=== PATIENT | female | born 1985 | race Caucasian/White ===

== ENCOUNTER → 2018-10-06 09:21 | Outpatient (CLI) | payer OTHER, SELFPAY ==
--- NOTE | 2018-10-06 09:25 | MR_ITS ---
MR lumbar spine wo/w con, MR 3-d myelogram/MRCP HISTORY: Prior HX back surgery 2012. RT leg pain. Numbness bilateral thigh but when laying on back lateral leg numbness. X1wk. No trauma, ITS.REASON: SCIATICA OF RIGHT SIDE ORDERING PHYSICIAN: Robbin Tuttle MD PATIENT AGE: 33 years Comparison: MRI imported 07-27-15. TECHNIQUE: Standard multiplanar multiecho sequences are performed without and with gadolinium enhancement. 3-D MIP and myelographic images are also rendered and reviewed FINDINGS: There is normal alignment. The spinal cord ends at the T12 level. T12-L1: Unremarkable. L1-L2: Unremarkable. L2-L3: Unremarkable. L3-L4: Unremarkable. L4-5: There is degenerative disc disease at this level with a prior left laminectomy. There is a bulging disc with a small right paracentral area of decreased T1 and T2 signal in the anterior aspect of the thecal sac similar to the previous exam. This does show contrast enhancement in keeping with epidural fibrosis as previously described. This does appear to be abutting the anteromedial aspect of the right L5 nerve root. L5-S1: Degenerative disc disease with minimal bulging disc with mild central disc protrusion and mild facet atrophic change. Overall there has been no significant change compared to previous exam IMPRESSION: 1. L4-5: There is degenerative disc disease at this level with a prior left laminectomy. There is a bulging disc with a small right paracentral area of decreased T1 and T2 signal in the anterior aspect of the thecal sac similar to the previous exam. This does show contrast enhancement in keeping with epidural fibrosis as previously described. This does appear to be abutting the anteromedial aspect of the right L5 nerve root. 2. L5-S1: Degenerative disc disease with minimal bulging disc with mild central disc protrusion and mild facet atrophic change. 3. Overall no significant change compared to the previous study
--- NOTE | 2018-10-06 10:16 | HMH.ITSHM ---
Current Home Medications as stated by this patient Ingrid Beatty or client representative. []GABAPENTIN IRON BUSPAR PROBIOTICS
== END ==
PROVIDERS: PCP Internal Medicine Adolescent Medicine; Visit Provider Internal Medicine Adolescent Medicine
DX: M54.31 Sciatica, right side (principal)
CPT/HCPCS: 72158; 76376; A9576

== ENCOUNTER → 2018-12-01 10:37 | Outpatient (POV) | payer OTHER, SELFPAY ==
[2018-12-01 10:48] VITALS: BP 136/81; PULSE 85; RESP 18; O2SAT 98; BMI 39.8
--- NOTE | 2018-12-01 11:14 | HMH.PMCON ---
Assessment and Plan (1) Degenerative joint disease (DJD) of lumbar spine Current visit: Yes Status: Chronic Category: Medical Code(s): M47.816 - Spondylosis without myelopathy or radiculopathy, lumbar region (2) Lumbar radiculopathy Current visit: Yes Status: Chronic Category: Medical Code(s): M54.16 - Radiculopathy, lumbar region (3) Postlaminectomy syndrome of lumbar region Current visit: Yes Status: Chronic Category: Medical Code(s): M96.1 - Postlaminectomy syndrome, not elsewhere classified - Assessment and plan all Dx Assessment and Plan for all problems:: Given the patient's symptomology, I think she would benefit from a lumbar epidural steroid injection at L4 and L5. The patient has tried and failed multiple conservative therapies including physical therapy, oral steroid Dosepak, and anti-inflammatories. We will schedule her for the procedure and see her back afterwards and reassess her symptoms at that time. She is not on any anticoagulation therapy. Dr. Deal has reviewed this note and agrees with this plan of care. This note was dictated using voice recognition software and make contain errors or omissions. HPI - Data of Consult Patient: new to practice Consult date: 12/01/18 Requesting Physician: Yarelis Francis APRN Primary Care Provider: Cm Barth MD - Consult Narrative Reason for consult: back pain History of present illness: Ms. Beatty is a 33 year old female who presents today for referral from Julia Ruelas. Patient complains of low back pain radiating into her bilateral buttock and bilateral legs. Patient says that this is been going on for greater than 6 months. She does have a history of a lumbar laminectomy and discectomy at L4-L5 with release of tethered spinal cord per patient history. She was referred to neurosurgery with Dr. Santo who did not feel she was a surgical candidate at that time. She does report to have increased weakness in her right leg with some tingling. Patient says her back pain is worse with standing, and with sitting for long periods of time. She has tried and failed physical therapy along with NSAIDs. She is also tried tapered steroid doses by her primary care provider and had no relief with this. She does rate her pain an 8 out of 10 today. She says that it is affecting her home life, along with her work life. CC: Yarelis Francis APRN [facility] History I have reviewed the patient's past medical history: Yes Medical History: Denies:: Diabetes Mellitus Type 1, Diabetes Mellitus Type 2 *Have you ever received a pneumonia vaccine?: No *Have you received a flu vaccine this season?: Yes Laterality Cases: Bilateral: Tonsillectomy Other Surgeries: Yes: Other (discectomy L4-L5) Amputation: No Fractures: No - *Social History Smoking Status: Never smoker Alcohol Intake: current Alcohol Intake Frequency:: a few times a week *Occupational Status:: employed Housing: house *Travel in the last 8 weeks: None Family Hx:: Non-contributory Review of Systems - Review of Systems Review of Systems General: No recent weight changes, no fever, no sleep disturbances Respiratory: No cough, no shortness of air, no recurring pulmonary infections Cardiovascular/peripheral vascular: No chest pain, no palpitations, no edema, no shortness of breath Gastrointestinal: No new onset incontinence, normal bowel movements reported Genitourinary: No new onset incontinence Musculoskeletal: Back pain, leg pain Psychiatric: Normal mood/affect Neurological: [Denies weakness in extremities], [denies balance issues] Meds Home Medications Medication Instructions Recorded Confirmed Type gabapentin 300 mg capsule 300 mg PO DAILY 30 Days #60 10/04/17 01/30/18 History Albuterol Sulfate [Proair Hfa 1 inh INHALATION NEEDED PRN 01/30/18 01/30/18 History 90mcg/puff Inh] Azithromycin [Z-Raheel 250mg Tab] 250 mg PO UD DOSE PK #6 tab 01/30/18 Rx Benzonatate
--- NOTE | 2018-12-01 11:21 | P.CONS_ITS ---
Assessment and Plan (1) Degenerative joint disease (DJD) of lumbar spine Current visit: Yes Status: Chronic Category: Medical Code(s): M47.816 - Spondylosis without myelopathy or radiculopathy, lumbar region (2) Lumbar radiculopathy Current visit: Yes Status: Chronic Category: Medical Code(s): M54.16 - Radiculopathy, lumbar region (3) Postlaminectomy syndrome of lumbar region Current visit: Yes Status: Chronic Category: Medical Code(s): M96.1 - Postlaminectomy syndrome, not elsewhere classified - Assessment and plan all Dx Assessment and Plan for all problems:: Given the patient's symptomology, I think she would benefit from a lumbar epidural steroid injection at L4 and L5. The patient has tried and failed multiple conservative therapies including physical therapy, oral steroid Dosepak, and anti-inflammatories. We will schedule her for the procedure and see her back afterwards and reassess her symptoms at that time. She is not on any anticoagulation therapy. Dr. Deal has reviewed this note and agrees with this plan of care. This note was dictated using voice recognition software and make contain errors or omissions. HPI - Data of Consult Patient: new to practice Consult date: 12/01/18 Requesting Physician: Yarelis Francis APRN Primary Care Provider: Cm Barth MD - Consult Narrative Reason for consult: back pain History of present illness: Ms. Beatty is a 33 year old female who presents today for referral from Julia Ruelas. Patient complains of low back pain radiating into her bilateral buttock and bilateral legs. Patient says that this is been going on for greater than 6 months. She does have a history of a lumbar laminectomy and discectomy at L4-L5 with release of tethered spinal cord per patient history. She was referred to neurosurgery with Dr. Santo who did not feel she was a surgical candidate at that time. She does report to have increased weakness in her right leg with some tingling. Patient says her back pain is worse with standing, and with sitting for long periods of time. She has tried and failed physical therapy along with NSAIDs. She is also tried tapered steroid doses by her [facility] care provider and had no relief with this. She does rate her pain an 8 out of 10 today. She says that it is affecting her home life, along with her work life. CC: Yarelis Francis APRN [facility] History I have reviewed the patient's past medical history: Yes Medical History: Denies:: Diabetes Mellitus Type 1, Diabetes Mellitus Type 2 *Have you ever received a pneumonia vaccine?: No *Have you received a flu vaccine this season?: Yes Laterality Cases: Bilateral: Tonsillectomy Other Surgeries: Yes: Other (discectomy L4-L5) Amputation: No Fractures: No - *Social History Smoking Status: Never smoker Alcohol Intake: current Alcohol Intake Frequency:: a few times a week *Occupational Status:: employed Housing: house *Travel in the last 8 weeks: None Family Hx:: Non-contributory Review of Systems - Review of Systems Review of Systems General: No recent weight changes, no fever, no sleep disturbances Respiratory: No cough, no shortness of air, no recurring pulmonary infections Cardiovascular/peripheral vascular: No chest pain, no palpitations, no edema, no shortness of breath Gastrointestinal: No new onset incontinence, normal bowel movements reported Genitourinary: No new onset incontinence Musculoskeletal: Back pain, leg pain Psychiatric: Normal mood/affect Neurological: [Denies weakness in extrem
== END ==
PROVIDERS: PCP Internal Medicine Adolescent Medicine; Visit Provider Clinical Nurse Specialist Family Health
DX: M47.26 Other spondylosis with radiculopathy, lumbar region (principal); M96.1 Postlaminectomy syndrome, not elsewhere classified
CPT/HCPCS: 99202

== ENCOUNTER → 2019-01-25 11:30 | Outpatient (POV) | payer OTHER, SELFPAY ==
[2019-01-25 12:02] VITALS: BP 137/88; PULSE 81; RESP 18; O2SAT 98; BMI 38.4
--- NOTE | 2019-01-25 12:56 | HMH.PAINSOAP ---
[facility] Pain Management SOAP Note Subjective:: Patient is a very pleasant 33-year-old white female who presents today for follow-up after lumbar epidural steroid injection. She states she is about 80% better. She rates the pain a 2 out of 10 she is able to do more activity. Patient had a previous lumbar laminectomy at L4-L5 done by Dr. Santo she is not a candidate for any more surgery. She is not on any anticoagulation therapy she has no current infection. She is on anti-inflammatories. ROS General: no recent weight change, no fever, no sleep disturbances Respiratory: no cough, no shortness of air, no recurring pulmonary infections Cardiovascular/Peripheral Vascular: No chest pain, No palpitations, no edema, no shortness of breath. Gastrointestinal: no incontinence, normal bowel movements reported Genitourinary: no incontinence Musculoskeletal: Back pain, leg pain Psychiatric: normal mood/ affect Neurological: [denies weakness in extremities], [denies balance issues] Objective:: Physical Exam General: Alert and oriented x3, no acute distress, pleasant and cooperative, [on room air] Lungs: Resps E/U, Symmetrical chest expansion, Eyes: PERRL Musculoskeletal: Flexion and extension of lumbar spine somewhat guarded secondary to pain, deep tendon reflexes normal, strength in upper and lower extremities [5/5], slightly antalgic gait noted Neurological: speech clear, pipe washer equal, no gross sensory deficits Assessment:: Degenerative disc disease lumbar spine with lumbar radiculopathy symptoms and post laminectomy syndrome lumbar spine Plan:: We will schedule her repeat L4-L5 lumbar epidural steroid injection given the efficacy of it I believe it would be beneficial for her. Patient's been instructed to call the office if she has any issues prior to her next appointment. Dr. Deal has reviewed this note and agrees with this plan of care. This note was dictated using voice recognition software and may contain errors or omissions Pain Management Hx Components *Have you ever received a pneumonia vaccine?: Yes *Have you received a flu vaccine this season?: Yes - *Social History *Occupational Status:: other *Travel in the last 8 weeks: None
--- NOTE | 2019-01-25 12:59 | P.CONS_ITS ---
[facility] Pain Management SOAP Note Subjective:: Patient is a very pleasant 33-year-old white female who presents today for follow-up after lumbar epidural steroid injection. She states she is about 80% better. She rates the pain a 2 out of 10 she is able to do more activity. Patient had a previous lumbar laminectomy at L4-L5 done by Dr. Santo she is not a candidate for any more surgery. She is not on any anticoagulation therapy she has no current infection. She is on anti-inflammatories. ROS General: no recent weight change, no fever, no sleep disturbances Respiratory: no cough, no shortness of air, no recurring pulmonary infections Cardiovascular/Peripheral Vascular: No chest pain, No palpitations, no edema, no shortness of breath. Gastrointestinal: no incontinence, normal bowel movements reported Genitourinary: no incontinence Musculoskeletal: Back pain, leg pain Psychiatric: normal mood/ affect Neurological: [denies weakness in extremities], [denies balance issues] Objective:: Physical Exam General: Alert and oriented x3, no acute distress, pleasant and cooperative, [on room air] Lungs: Resps E/U, Symmetrical chest expansion, Eyes: PERRL Musculoskeletal: Flexion and extension of lumbar spine somewhat guarded secondary to pain, deep tendon reflexes normal, strength in upper and lower extremities [5/5], slightly antalgic gait noted Neurological: speech clear, cold patcher equal, no gross sensory deficits Assessment:: Degenerative disc disease lumbar spine with lumbar radiculopathy symptoms and post laminectomy syndrome lumbar spine Plan:: We will schedule her repeat L4-L5 lumbar epidural steroid injection given the efficacy of it I believe it would be beneficial for her. Patient's been instructed to call the office if she has any issues prior to her next appointment. Dr. Deal has reviewed this note and agrees with this plan of care. This note was dictated using voice recognition software and may contain errors or omissions Pain Management Hx Components *Have you ever received a pneumonia vaccine?: Yes *Have you received a flu vaccine this season?: Yes - *Social History *Occupational Status:: other *Travel in the last 8 weeks: None
== END ==
PROVIDERS: PCP Internal Medicine Adolescent Medicine; Visit Provider Clinical Nurse Specialist Family Health
DX: M51.16 Intervertebral disc disorders with radiculopathy, lumbar region (principal); M96.1 Postlaminectomy syndrome, not elsewhere classified
CPT/HCPCS: 99212

== ENCOUNTER → 2019-01-28 08:02 | Outpatient (POV) | payer OTHER, SELFPAY | PROVIDERS: Visit Provider Dentist | DX: Z00.00 Encounter for general adult medical examination without abnormal findings (principal) ==

== ENCOUNTER → 2019-03-01 14:05 | Outpatient (POV) | payer OTHER, SELFPAY ==
[2019-03-01 14:50] VITALS: BP 126/69; PULSE 70; RESP 18; O2SAT 98; BMI 39.4
--- NOTE | 2019-03-02 08:22 | HMH.PAINSOAP ---
[facility] Pain Management SOAP Note Subjective:: Patient is a pleasant 33-year-old white female who presents today for follow-up after her second epidural steroid injection. Patient stated was not as beneficial as the previous one however her pain symptoms have seemingly unchanged. Her radiculopathy has decreased and her main pain is quite focal in her lower back. She has difficulty with any kind of twisting movements. She has a positive Kemps test and lumbar facet loading is also positive bilaterally. Patient and I discussed medial branch blocks being a diagnostic procedure she is interested in pursuing this. She is not on any anticoagulation therapy. She does not have any active infection. She is on anti-inflammatories. Patient is also on gabapentin but she is having some difficulty with efficacy along with side effects. We will switch her to Lyrica to see if this is beneficial. ROS General: no recent weight change, no fever, no sleep disturbances Respiratory: no cough, no shortness of air, no recurring pulmonary infections Cardiovascular/Peripheral Vascular: No chest pain, No palpitations, no edema, no shortness of breath. Gastrointestinal: no incontinence, normal bowel movements reported Genitourinary: no incontinence Musculoskeletal: Back pain Psychiatric: normal mood/ affect Neurological: [denies weakness in extremities], [denies balance issues] Objective:: Physical Exam General: Alert and oriented x3, no acute distress, pleasant and cooperative, [on room air] Lungs: Resps E/U, Symmetrical chest expansion, Eyes: PERRL Musculoskeletal: Flexion and extension of lumbar spine somewhat guarded secondary to pain, deep tendon reflexes normal, strength in upper and lower extremities [5/5], antalgic gait noted, tenderness facet joints lumbar spine Neurological: speech clear, transfer car operator equal, no gross sensory deficits Assessment:: Degenerative disc disease lumbar spine with postlaminectomy syndrome and facet arthropathy/spondylosis Plan:: We will schedule medial branch block at L3-L4 L4-L5 L5-S1 for the patient bilaterally I believe it would be beneficial she is potentially a neurotomy candidate. Patient and I discussed the diagnostic nature of the injections. Patient will also be switched to Lyrica 75 mg 1 p.o. twice daily to see if this is beneficial for her. I will follow-up with the patient after her injection reassess her symptoms at that time she is been instructed to call the office if she has any issues prior to her next appointment. Dr. Deal has reviewed this note and agrees with this plan of care. This note was dictated using voice recognition software and may contain errors or omissions [facility] History I have reviewed the patient's past medical history: Yes Medical History: Denies:: Cancer, Diabetes Mellitus Type 1, Diabetes Mellitus Type 2, MRSA, Seizures *Have you ever received a pneumonia vaccine?: No *Have you received a flu vaccine this season?: No Other Medical History: Denies: Blood Transfusion Reaction Laterality Cases: Bilateral: Tonsillectomy Other Surgeries: Yes: Other (discectomy L4-L5) Amputation: No Fractures: No - *Social History Smoking Status: Never smoker Alcohol Intake: current Alcohol Intake Frequency:: a few times a week *Occupational Status:: other Housing: house *Travel in the last 8 weeks: None Family Hx:: Non-contributory
--- NOTE | 2019-03-02 08:25 | P.CONS_ITS ---
[facility] Pain Management SOAP Note Subjective:: Patient is a pleasant 33-year-old white female who presents today for follow-up after her second epidural steroid injection. Patient stated was not as beneficial as the previous one however her pain symptoms have seemingly unchanged. Her radiculopathy has decreased and her main pain is quite focal in her lower back. She has difficulty with any kind of twisting movements. She has a positive Kemps test and lumbar facet loading is also positive bilaterally. Patient and I discussed medial branch blocks being a diagnostic procedure she is interested in pursuing this. She is not on any anticoagulation therapy. She does not have any active infection. She is on anti-inflammatories. Patient is also on gabapentin but she is having some difficulty with efficacy along with side effects. We will switch her to Lyrica to see if this is beneficial. ROS General: no recent weight change, no fever, no sleep disturbances Respiratory: no cough, no shortness of air, no recurring pulmonary infections Cardiovascular/Peripheral Vascular: No chest pain, No palpitations, no edema, no shortness of breath. Gastrointestinal: no incontinence, normal bowel movements reported Genitourinary: no incontinence Musculoskeletal: Back pain Psychiatric: normal mood/ affect Neurological: [denies weakness in extremities], [denies balance issues] Objective:: Physical Exam General: Alert and oriented x3, no acute distress, pleasant and cooperative, [on room air] Lungs: Resps E/U, Symmetrical chest expansion, Eyes: PERRL Musculoskeletal: Flexion and extension of lumbar spine somewhat guarded secondary to pain, deep tendon reflexes normal, strength in upper and lower extremities [5/5], antalgic gait noted, tenderness facet joints lumbar spine Neurological: speech clear, stitcher hand equal, no gross sensory deficits Assessment:: Degenerative disc disease lumbar spine with postlaminectomy syndrome and facet arthropathy/spondylosis Plan:: We will schedule medial branch block at L3-L4 L4-L5 L5-S1 for the patient b ilaterally I believe it would be beneficial she is potentially a neurotomy candidate. Patient and I discussed the diagnostic nature of the injections. Patient will also be switched to Lyrica 75 mg 1 p.o. twice daily to see if this is beneficial for her. I will follow-up with the patient after her injection reassess her symptoms at that time she is been instructed to call the office if she has any issues prior to her next appointment. Dr. Deal has reviewed this note and agrees with this plan of care. This note was dictated using voice recognition software and may contain errors or omissions [facility] History I have reviewed the patient's past medical history: Yes Medical History: Denies:: Cancer, Diabetes Mellitus Type 1, Diabetes Mellitus Type 2, MRSA, Seizures *Have you ever received a pneumonia vaccine?: No *Have you received a flu vaccine this season?: No Other Medical History: Denies: Blood Transfusion Reaction Laterality Cases: Bilateral: Tonsillectomy Other Surgeries: Yes: Other (discectomy L4-L5) Amputation: No Fractures: No - *Social History Smoking Status: Never smoker Alcohol Intake: current Alcohol Intake Frequency:: a few times a week *Occupational Status:: other Housing: house *Travel in the last 8 weeks: None Family Hx:: Non-contributory
== END ==
PROVIDERS: PCP Internal Medicine Adolescent Medicine; Visit Provider Clinical Nurse Specialist Family Health
DX: M51.36 Other intervertebral disc degeneration, lumbar region (principal); M96.1 Postlaminectomy syndrome, not elsewhere classified; M54.06 Panniculitis affecting regions of neck and back, lumbar region
CPT/HCPCS: 99212

== ENCOUNTER → 2019-04-01 09:50 | Outpatient (POV) | payer OTHER, SELFPAY | PROVIDERS: Visit Provider Dentist | DX: Z00.00 Encounter for general adult medical examination without abnormal findings (principal) ==

== ENCOUNTER → 2019-05-04 10:12 | Outpatient (POV) | payer OTHER, SELFPAY ==
[2019-05-04 10:42] VITALS: BP 114/68; PULSE 68; RESP 18; O2SAT 99; BMI 38.4
--- NOTE | 2019-05-04 11:05 | P.CONS_ITS ---
[facility] Pain Management SOAP Note Subjective:: Patient is a pleasant 33-year-old white female who presents today for follow-up. She is being treated for low back pain with lumbar radiculopathy symptoms, along with facet arthropathy.. Patient recently underwent a medial branch block/facet joint injections at L3-L4 L4-L5 and L5-S1. Patient reports that she got approximately 90% relief following the injection. She rates her pain 1 out of 10 today. Patient does say she did have her wisdom teeth removed the day before the injection. She was on oral opiates following injection. Patient says she is unsure if she got relief from the injection or from the oral opiates, however. She would like to undergo another medial branch block to see if she gets complete relief from her pain. She says that her pain is progressively starting to come back. She is continuing with anti-inflammatories and a home stretching program. Review of Systems General: No recent weight changes, no fever, no sleep disturbances Respiratory: No cough, no shortness of air, no recurring pulmonary infections Cardiovascular/peripheral vascular: No chest pain, no palpitations, no edema, no shortness of breath Gastrointestinal: No new onset incontinence, normal bowel movements reported Genitourinary: No new onset incontinence Musculoskeletal: Low back pain Psychiatric: Normal mood/affect Neurological: [Denies weakness in extremities], [denies balance issues] Objective:: Physical exam General: Alert and oriented x3, no acute distress, pleasant and cooperative, [on room air] Lungs: Respirations even and unlabored, symmetrical chest expansion Eyes: PERRL Musculoskeletal: Flexion and extension of lumbar spine somewhat guarded secondary to pain, deep tendon reflexes normal, strength in upper and lower extremities [5/5], [abnormal gait noted], positive Kemps test Neurological: 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 She is not on any anticoagulation therapy. She is continue with anti-inflammatories and a home stretching program. We will see the patient back in the clinic following her injections reassess her symptoms. She has been instructed to contact clinic if she has any concerns before next appointment. Dr. Deal has reviewed this note and agrees with this plan of care. This note was dictated using voice recognition software and make contain errors or omissions. [facility] History I have reviewed the patient's past medical history: Yes Medical History: Denies:: Cancer, Diabetes Mellitus Type 1, Diabetes Mellitus Type 2, MRSA, Seizures *Have you ever received a pneumonia vaccine?: Yes *Have you received a flu vaccine this season?: Yes Other Medical History: Denies: Blood Transfusion Reaction Laterality Cases: Bilateral: Tonsillectomy Other Surgeries: Yes: Other (discectomy L4-L5) Amputation: No Fractures: No - *Social History Smoking Status: Never smoker Alcohol Intake: never Alcohol Intake Frequency:: a few times a week *Occupational Status:: other Housing: house Household Members: spouse, children *Travel in the last 8 weeks: None Family Hx:: Non-contributory
== END ==
PROVIDERS: PCP Internal Medicine Adolescent Medicine; Visit Provider Clinical Nurse Specialist Family Health
DX: M51.16 Intervertebral disc disorders with radiculopathy, lumbar region (principal)
CPT/HCPCS: 99212

== ENCOUNTER → 2019-06-17 14:57 | Outpatient (CLI) | payer OTHER, SELFPAY ==
--- NOTE | 2019-06-17 14:57 | MM_ITS ---
PROCEDURE: MM DIG MAMM BI DX W/CAD CLINICAL INDICATION: Diagnostic Lt. mammogram Palpable left breast nodule, baseline exam palpable nodule in the 5 o'clock region of the left breast COMPARISON: US BREAST LT COMPLETE from 06/17/2019 of the same day TECHNIQUE: Standard CC and MLO images and 3D Tomosynthesis was obtained. R2 CAD reviewed. Complete left breast ultrasound with axilla FINDINGS: Mostly fatty replaced fibroglandular tissue. No malignant appearing mass or malignant-appearing microcalcification. Right breast ultrasound. No cystic or solid lesions apparent. There is a mildly prominent axillary node at 2.5 x 1.2 cm. The node is hyperechoic suggesting fatty replacement. Correlation with physical exam required. IMPRESSION: BI-RAD Category: 1 Negative FOLLOW-UP: 1YR 1 Year Follow-up There is a mildly prominent left axillary node present on the ultrasound of questionable clinical significance. Correlation with physical exam required. (A letter has been sent to the patient regarding results of the study.) Dictated by: Morgan Puentes MD 06/19/2019 10:40 Electronically signed by Morgan Puentes MD in [place] 06/19/2019 10:40
== END ==
PROVIDERS: PCP Internal Medicine Adolescent Medicine; Visit Provider Obstetrics & Gynecology
DX: N64.59 Other signs and symptoms in breast (principal); N64.4 Mastodynia; N63.24 Unspecified lump in the left breast, lower inner quadrant
CPT/HCPCS: 76641; 77062; 77066; G0279

== ENCOUNTER → 2019-07-19 13:25 | Outpatient (POV) | payer OTHER, SELFPAY ==
[2019-07-19 14:10] VITALS: BP 132/81; PULSE 81; RESP 20; O2SAT 96; BMI 38.9
--- NOTE | 2019-07-19 14:24 | P.CONS_ITS ---
[facility] Pain Management SOAP Note Subjective:: She is a pleasant 34-year-old white female who presents today for follow-up. Over the weekend the patient was grooming a horse during this time she had a severe pain in her lower back and lost the strength in her legs. She fell and lost control of her bladder. Patient was unable to walk for about 15 minutes. She is since been in extreme pain mostly in her low back radiating down her right leg. Patient has severe weakness in her right leg that is not improving. Patient has had a laminectomy in the past. I will set her up for an MRI as soon as possible. ROS General: no recent weight change, no fever, no sleep disturbances Respiratory: no cough, no shortness of air, no recurring pulmonary infections Cardiovascular/Peripheral Vascular: No chest pain, No palpitations, no edema, no shortness of breath. Gastrointestinal: no new onset incontinence, normal bowel movements reported Genitourinary: Loss of bladder control Musculoskeletal: Back pain, leg pain Psychiatric: Guarded Neurological: New onset of right leg weakness, [denies new onset balance issues] Objective:: Physical Exam General: Alert and oriented x3, no acute distress, pleasant and cooperative, [on room air] Lungs: Resps E/U, Symmetrical chest expansion, Eyes: PERRL Musculoskeletal: Flexion and extension of lumbar spine guarded secondary to pain, deep tendon reflexes normal, strength in upper and left lower extremity [5/5] right lower extremity 3/5, [abnormal gait noted] 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 We will put her on steroids 20 mg 1 p.o. twice daily for 5 days. We will also give her tramadol 50 mg 1-2 tabs up to 3 times a day as needed. We will call her with her results as soon as we receive them. I also called her family physician and told him the situation. Dr. Deal has reviewed this note and agrees with this plan of care. This note was dictated using voice recognition software and may contain errors or omissions [facility] History I have reviewed the patient's past medical history: Yes Medical History: Denies:: Cancer, Diabetes Mellitus Type 1, Diabetes Mellitus Type 2, MRSA, Seizures *Have you ever received a pneumonia vaccine?: No *Have you received a flu vaccine this season?: Yes Other Medical History: Denies: Blood Transfusion Reaction Laterality Cases: Bilateral: Tonsillectomy Other Surgeries: Yes: Cholecystectomy, , Tubal Ligation, Other Amputation: No Fractures: No - *Social History Smoking Status: Never smoker Alcohol Intake: never Alcohol Intake Frequency:: a few times a week *Occupational Status:: employed Housing: house Household Members: spouse, children *Travel in the last 8 weeks: None Family Hx:: Non-contributory
== END ==
PROVIDERS: PCP Internal Medicine Adolescent Medicine; Visit Provider Clinical Nurse Specialist Family Health
DX: M96.1 Postlaminectomy syndrome, not elsewhere classified (principal); M51.16 Intervertebral disc disorders with radiculopathy, lumbar region; R39.81 Functional urinary incontinence; R53.1 Weakness
CPT/HCPCS: 99212

== ENCOUNTER → 2019-07-19 16:19 | Outpatient (CLI) | payer OTHER, SELFPAY ==
--- NOTE | 2019-07-19 16:24 | MR_ITS ---
PROCEDURE: MR LUMBAR SPINE WO CON CLINICAL INDICATION: BACK PAIN Bilateral leg pain and numbness, constant right leg numbness and burning COMPARISON: SPLUMBWW MR lumbar spine wo/w con from 10/06/2018 TECHNIQUE: Standard multiplanar multiecho sequences are performed without contrast. 3-D MIP and myelographic images are also rendered and reviewed FINDINGS: There is normal alignment. The spinal cord ends at the T12-L1 level. T11-T12, T12-L1, L1-L2, L2-L3, and L3-L4 have an unremarkable appearance. L4-5: There is degenerative disc disease at this level with type 1 endplate changes posteriorly. There has been a prior laminectomy on the left. There is bulging disc with small right paracentral area of isointense T1 and T2 signal anteriorly. The size is similar to the previous exam. This previously was more hypointense on T1 and T2 but did demonstrate contrast enhancement consistent with an area of epidural fibrosis. Contrast was not utilized on today's exam. This does not appear to be causing any neural impingement. In addition there is a broad-based central left paracentral area of isointense T1 and slightly hyperintense T2 signal which has developed since the previous exam and could represent a recurrence disc protrusion or worsening epidural fibrosis. There is some impingement upon the left L5 nerve root. Repeat exam without and with contrast may provide further specificity. L5-S1: Mild bulging disc. IMPRESSION: The 1. There is degenerative disc disease at L4-5 with type 1 endplate changes posteriorly. There has been prior laminectomy on the left. There is bulging disc with small right paracentral area of isointense T1 and T2 signal anteriorly. The size is similar to the previous exam. This previously was more hypointense on T1 and T2 but did demonstrate contrast enhancement and may represent an area of epidural fibrosis. Contrast was not utilized on today's exam. This does not appear to be causing any neural impingement. 2. In addition at L4-5, there is a broad-based central left paracentral area of isointense T1 and slightly hyperintense T2 signal which has developed since the previous exam and could represent a disc protrusion or worsening epidural fibrosis. There is some impingement upon the left L5 nerve root. Repeat exam without and with contrast may provide further specificity. Dictated by: Morgan Puentes MD 07/20/2019 07:55 Electronically signed by Morgan Puentes MD in [place] 07/20/2019 07:55
== END ==
PROVIDERS: PCP Internal Medicine Adolescent Medicine; Visit Provider Clinical Nurse Specialist Family Health
DX: M54.5 Low back pain (principal)
CPT/HCPCS: 72148; 76376

== ENCOUNTER → 2019-08-20 10:51 | Outpatient (CLI) | payer OTHER, SELFPAY ==
--- NOTE | 2019-08-20 10:55 | XR_ITS ---
PROCEDURE: XR KNEE LT 4V CLINICAL INDICATION: knee pain Traumatic injury yesterday COMPARISON: No exams were available for comparison FINDINGS: No fracture or dislocation. No lytic or blastic change. There is normal mineralization. The joint spaces are well-preserved. No significant degenerative/arthritic changes. No erosive changes evident. Other findings:A small nonspecific suprapatellar joint effusion is noted. IMPRESSION: No acute bone pathology. Small joint effusion. Dictated by: Richi Medellin 08/20/2019 11:14 Electronically signed by Richi Medellin in [place] 08/20/2019 11:14
== END ==
PROVIDERS: PCP Internal Medicine Adolescent Medicine; Visit Provider Orthopaedic Surgery
DX: M25.562 Pain in left knee (principal)
CPT/HCPCS: 73564

== ENCOUNTER → 2019-08-23 14:29 | Outpatient (CLI) | payer OTHER, SELFPAY ==
--- NOTE | 2019-08-23 14:29 | MR_ITS ---
PROCEDURE: MR KNEE LT WO CON CLINICAL INDICATION: evaluate for ACL/ MCL tear Hyperextension injury with pain, medial left knee pain COMPARISON: XR KNEE LT 4V from 08/20/2019 TECHNIQUE: Routine multiplanar multi echo sequences are performed without gadolinium enhancement. FINDINGS: The cruciate ligaments are intact. The collateral ligaments appear intact. Patellar tendon and quadriceps tendon have an unremarkable appearance. No evidence of meniscal tear. There is a small knee joint effusion. There is increased T2 signal involving the anterior aspect of the tibia both centrally medially and laterally. T1 weighted images show curvilinear areas of decreased signal intensity along the medial and lateral tibial plateau anteriorly consistent with nondepressed microfracture. There are mild osteoarthritic changes with slight decrease in joint space medially and minimal osteophyte formation. There is a small knee joint effusion. IMPRESSION: 1. Bone bruise of the medial and lateral tibial plateau anteriorly with nondepressed tibial plateau fractures anteriorly both medially and laterally. 2. No evidence of internal derangement Dictated by: Morgan Puentes MD 08/24/2019 10:11 Electronically signed by Morgan Puentes MD in [place] 08/24/2019 10:11
== END ==
PROVIDERS: PCP Internal Medicine Adolescent Medicine; Visit Provider Orthopaedic Surgery
DX: M25.562 Pain in left knee (principal)
CPT/HCPCS: 73721

== ENCOUNTER 2019-08-24 09:50 | Outpatient (RCR) | payer OTHER, SELFPAY | END 2019-08-24 10:20 | disposition home or self-care (01) | LOC: PT 09:50 | PROVIDERS: Visit Provider Orthopaedic Surgery | DX: S82.142D Displaced bicondylar fracture of left tibia, subsequent encounter for closed fracture with routine healing (principal) | CPT/HCPCS: 97760 ==

== ENCOUNTER → 2019-09-16 10:39 | Outpatient (CLI) | payer OTHER, SELFPAY ==
--- NOTE | 2019-09-16 10:45 | XR_ITS ---
PROCEDURE: XR KNEE LT 2V CLINICAL INDICATION: LT prox tibial fracture fu COMPARISON: XR KNEE LT 4V from 08/20/2019 MR KNEE LT WO CON from 08/23/2019 FINDINGS: No fracture or dislocation. No lytic or blastic change. There is normal mineralization. There is slight decrease in the joint space medially suggesting mild osteoarthritic change. Other findings:The previously noted bone bruise/tibial plateau fracture as seen on the recent MRI is below limits of resolution on the plain film. IMPRESSION: No acute finding. Please see above for detail Dictated by: Morgan Puentes MD 09/16/2019 11:30 Electronically signed by Morgan Puentes MD in [place] 09/16/2019 11:30
== END ==
PROVIDERS: PCP Internal Medicine Adolescent Medicine; Visit Provider Orthopaedic Surgery
DX: S82.142A Displaced bicondylar fracture of left tibia, initial encounter for closed fracture (principal)
CPT/HCPCS: 73560

== ENCOUNTER 2019-10-27 05:21 | Emergency (ER) | payer OTHER, SELFPAY ==
[2019-10-27 05:32] VITALS: BP 128/76; PULSE 71; RESP 15; TEMP 36.9; O2SAT 98; BMI 48.4
--- NOTE | 2019-10-27 05:49 | HMH.EDRECH ---
ED Disposition Clinical Impression: Needle stick injury of finger of left hand Disposition: Home, Self-Care Condition on Discharge: Good Instructions: DI for Puncture Wound Additional Instructions: follow up with pcp Referrals: Cm Barth MD [Primary Care Provider] - - Critical Care Critical Care Time: No Attestation: On 10/27/19, the high probability of a clinically significant, sudden or life threatening deterioration of the following system(s) required my full and direct attention, intervention and personal management. The time I documented below is in addition to time spent performing reported procedures but includes the following listed in this critical care notation. Medical Decision Making - Medical Records Medical records reviewed: Yes: I reviewed the patient's medical records. - Joe Inquiry Pt receiving controlled substance: No Vital Signs: 10/27/19 05:32 Temperature 98.5 F Temperature Source Oral Pulse Rate [Right Brachial] 71 Respiratory Rate 15 Blood Pressure [Right Arm] 128/76 Blood Pressure Mean [Right Arm] 93 Blood Pressure Source [Right Arm] Automatic Cuff Blood Pressure Position [Right Arm] Sitting 02 Sat by Pulse Oximetry 98 Oxygen Delivery Method Room Air - Lab Data Lab results reviewed: Yes: I reviewed the patient's lab results. Orders (Tests/Meds): ORDERS Category Date Time Status Complete Blood Count Auto Diff Stat Lab 10/27/19 05:47 Ordered HIV AB(1/2) Exposures Stat Lab 10/27/19 05:47 Ordered Hep B Core Ab, Tot Stat Lab 10/27/19 05:47 Ordered Hep Be Ag Stat Lab 10/27/19 05:47 Ordered Liver Panel Stat Lab 10/27/19 05:47 Ordered PT/PTT Stat Lab 10/27/19 05:47 Ordered Recheck HPI - General Chief Complaint: Recheck/Abnormal Lab/Rx Stated Complaint: neddle stick Time Seen by Provider: 10/27/19 05:40 Mode of Arrival: Family Vehicle Source of Information: Patient, Medical Record Limitations: No Limitations Description of Symptoms (Recalled from ER Triage Doc. by RN): needlestick exposure - History of Present Illness HPI narrative: known source and finger stick as putting needle away to lt index finger complaint: other (needle stick ) Initial visit (ago): hour(s) Symptoms since prior visit: no new symptoms Associated symptoms: none - Related Data Home Medications Medication Instructions Recorded Confirmed Albuterol Sulfate [Proair Hfa 1 inh INHALATION NEEDED PRN 01/30/18 09/16/19 90mcg/puff Inh] Buspirone HCl [Buspar 5mg tablet] 7.5 mg PO BID 01/10/19 09/16/19 ALPRAZolam [Xanax 0.25mg tab] 0.25 mg PO BIDP PRN 02/05/19 09/16/19 Pregabalin [Lyrica 75mg Cap] 75 mg PO BID 04/02/19 09/16/19 sumatriptan succinate 100 mg tablet 1 tab PO NEEDED PRN 05/31/19 09/16/19 Previous Rx's Medication Instructions Recorded Tramadol HCl [Tramadol 50mg 50 mg PO TID #90 tab 07/19/19 Tab] Cyclobenzaprine HCl [Flexeril 10mg 10 mg PO TID PRN 30 Days #90 tab 07/22/19 tablet] Allergies Allergy/AdvReac Type Severity Reaction Status Date / Time cephalexin [From Keflex] Allergy Intermediate Verified 09/16/19 11:42 cinnamon Allergy Verified 09/16/19 11:42 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 I have reviewed the patient's past medical history: Yes Medical History: Reports:: Anxiety Denies:: Cancer, Diabetes Mellitus Type 1, Diabetes Mellitus Type 2, MRSA, Seizures Other Medical History: Denies: Blood Transfusion Reaction Laterality Cases: Bilateral: Tonsillectomy Other Surgeries: Yes: Cholecystectomy, , Tubal Ligation, Other Amputation: No Fractures: No Comment: anmol pierson, 2017, back surgery , [place]
[2019-10-27 06:15] VITALS: BP 124/70; PULSE 64; RESP 15; TEMP 36.9; O2SAT 98
[2019-10-27 06:31] LABS: Basophils # 0.1 K/mm3 (0-0.2); Basophils % 0.4 % (0.1-2.0); Eosinophils # 0.4 K/mm3 (0.0-0.4); Eosinophils % 3.6 % (0.1-12.0); Hematocrit 38.9 % (37.0-47.0); Hemoglobin 12.5 g/dL (12.2-16.2); Lymphocytes % 41.3 % (10-50); Mean Corpuscular Hemoglobin 28.2 pg (27.0-31.2); Mean Platelet Volume 9.2 fl (7.4-10.4); Monocytes # 0.4 K/mm3 (0.1-1.0); Monocytes % 2.9 % (1.7-9.3); Neutrophils # 6.3 K/mm3 (1.8-7.8); Neutrophils % 51.7 % (37.0-80.0); Platelet Count 246 K/mm3 (142-424); Red Blood Count 4.41 M/mm3 (4.20-5.40); Red Cell Distribution Width 13.9 % (11.5-17.5); White Blood Count 12.1 K/mm3 (4.8-10.8)
[2019-10-27 06:33] LABS: Alanine Aminotransferase 15 U/L (12-78); Albumin Level 4.4 g/dl (3.5-5.0); Alkaline Phosphatase 99 U/L (38-126); Aspartate Amino Transferase 24 U/L (14-36); Bilirubin,Direct 0.3 mg/dl (0.0-0.4); Bilirubin,Indirect 0.2 mg/dL (0.0-0.9); Bilirubin,Total 0.5 mg/dl (0.2-1.3); Bilirubin,Unconjugated 0.2 mg/dL (0.0-1.1); Total Protein,Serum 8.3 g/dl (6.3-8.2)
[2019-10-27 06:55] LABS: Activated Partial Thrombo Time 28.4 seconds (23.6-34.0); INR 0.99 (0.9-1.1); Prothrombin Time 10.2 seconds (9.4-11.8)
[2019-10-28 09:13] LABS: HIV Screen 4th Generation wRfx Non Reactive (Non Reactive)
[2019-10-28 11:14] LABS: Hep B Surface Ab, Qual Non Reactive (.); Hepatitis B Surface Antigen Negative (Negative); Hepatitis C Antibody <0.1 s/co ratio (0.0-0.9)
== END 2019-10-27 06:17 | disposition home or self-care (01) ==
PROVIDERS: Emergency Provider Emergency Medicine; PCP Internal Medicine Adolescent Medicine
DX: S61.231A Puncture wound without foreign body of left index finger without damage to nail, initial encounter (principal); W22.8XXA Striking against or struck by other objects, initial encounter; Y92.69 Other specified industrial and construction area as the place of occurrence of the external cause; Y99.0 Civilian activity done for income or pay
CPT/HCPCS: 36415; 80076; 85025; 85610; 85730; 86703; 86706; 87340; 87380; 99281; 99282; G0432

== ENCOUNTER → 2020-03-23 11:00 | Outpatient (CLI) | payer OTHER, SELFPAY | PROVIDERS: PCP Nurse Practitioner Family; Visit Provider Nurse Practitioner Family | DX: R06.02 Shortness of breath (principal); R00.2 Palpitations | CPT/HCPCS: 93225; 93226 ==

== ENCOUNTER → 2020-03-30 07:58 | Outpatient (CLI) | payer OTHER, SELFPAY ==
--- NOTE | 2020-03-30 | CA_ITS ---
APPROVED REPORT Exam: Exercise Treadmill Technologist: Татьяна Dominguez, Ht: 5 ft 3 in Wt: 238 lbs BSA: 2.08 m2 HR: 92 bpm BP: 117/73 mmHg Rhythm: NSR,IRBBB, ST-T ABNORMALITIES Indications: Chest pain Stress Test Details Test: Dale HR Resting HR: 103 bpm Max Heart Rate (APMHR): 186 bpm Max HR Achieved: 166 bpm Target HR (85% APMHR): 158 bpm % of APMHR: 89 Recovery HR: 142 bpm BP Resting BP: 117.0/73.0 mmHg Max BP: 180.0/86.0 mmHg Recovery BP: 165.0/80.0 mmHg ECG Resting ECG: NSR,IRBBB,ST-T ABNORMALITIES Clinical Exercise duration: 06:01 min Highest Stage Achieved: Exercise capacity: 7.0 METs Stress ECG Conclusion EXERCISED 6:00 ON DALE PROTOCOL. MAX HEART RATE 166 BPM WHICH IS 90% OF PM FOR AGE. MAX BP 180/86. METS = 7.0. TEST STOPPED DUE TO SOA AND FATIGUE. BURNING CP WITH DYSPNEA. NO ARRHYTHMIAS/ECTOPY. MILD EXAGGERATION OF BASELINE ST-T ABNORMALITIES. NON-DIAGNOSTIC GXT DUE TO BASELINE EKG ABNORMALITIES. MYOVIEW IMAGES REPORTED SEPARATELY. Electronically signed by : Jese Tristan, 03/31/2020 12:12:51
--- NOTE | 2020-03-30 08:01 | NM_ITS ---
APPROVED REPORT Exam: Nuclear Stress Test Indication: chest pain..short of breath..palpitations..fatigue Patient Location: Outpatient Stress Tech: Татьяна Dominguez [place] Tech:Ev Quiros ARRMonster RT(R)(N) Ht: 5 ft 3 in Wt: 238 lbs HR: 92 bpm BP: 117/73 mmHg BSA: 2.08 m2 BMI: 42.1 History: chest pain..short of breath..palpitations..fatigue Procedure: Patient exercised on Sumit protocol 6 minutes and sec, resting heart rate 92 bpm, resting blood pressure 117/73 mmHg, with exercise maximum heart rate achived was 166 bpm which is 90 % of the maximum predicted heart rate and blood pressure was 180/86 mmHg. Patient has Adequate exercise capacity, achieved 7.0 METs of workload on treadmill, the blood pressure response to exercise was Adequate. Electrocardiogram Resting electrocardiogram showed sinus rhythm nonspecific ST-T changes, with exercise there is less than 1.[address] segment depression noted from the baseline EKG. The EKG portion of the exercise is negative for ischemia. Cardiac Stress and Resting SPECT Images: Cardiac Stress and Resting SPECT images were obtained using technetium 99m Myoview 31.6 mCi stress and 10.18 mCi at rest. Gated SPECT for the analysis of segmental wall motion and calculation of the ejection fraction also done. Prone images were also obtained. Cardiac stress and resting SPECT images show uniform myocardial activity without segmental perfusion abnormality, computer derived ejection fraction is 64% with no regional wall motion abnormality, right ventricle is normal size and contractility. Conclusion: 1. The EKG portion of the exercise Myoview is negative for ischemia, patient has adequate exercise capacity achieved 7 mets of workload on treadmill, the blood pressure response to exercise was adequate, patient complained of transient chest discomfort without EKG changes. 2. No scintigraphic evidence of reversible ischemia seen, computer derived ejection fraction is 64% with no regional wall motion abnormality, right ventricle is normal size and contractility. Electronically signed by : Jese Tristan, 03/31/2020 12:16:11
--- NOTE | 2020-03-30 08:07 | CA_ITS ---
APPROVED REPORT EXAM: Comprehensive 2D, Doppler, and color-flow Echocardiogram Drafting Technician: Dayan Smith RVT Ht: 5 ft 2 in Wt: 220lbs BSA: 1.99 BP: 128/76 mmHg Indications: CP,PALPS,SOA,OBESITY 2D Dimensions LVOT 2.03 cm (M/F) 1.5-2.5 M-Mode Dimensions RVDd 2.44 cm (0.9-2.6) LA Diam 3.08 cm (1.9-4.0) LVDd 4.60 cm (3.5-5.7) Ao Diam 2.59 cm (2.0-3.7) LVDs 3.30 cm (3.5-5.7) IVSd 0.33 cm (0.6-1.1) PWd 0.83 cm (0.6-1.1) EF (Teich) 54.70% FS 28.30% EDV (Teich) 97.30 mL ESV (Teich) 44.10 mL LV Diastology E Decel Time 180.00 (160-240 msec) E/A Ratio 1.2 MED E' 8.90 (< 7 cm/sec) E'/MED E' Ratio 9.40 (>14) LAT E' 18.70 (<10 cm/sec) E/LAT E' Ratio 4.48 (>14) Mitral Valve MV E Max Moreno. 84.00 (40-130 cm/s) MV A Velocity 68.00 (40-130 cm/s) E/A Ratio 1.23 MV Decel. Time 180.00 (160-240 ms) MV PHT 53.00 ms Pulmonary Valve PV Peak Velocity 103.00 (50-150 cm/s) Left Ventricle Left atrium is normal size, left ventricle is normal size, there is no concentric left ventricular hypertrophy, visually estimated ejection fraction 55% with no regional wall motion abnormality, diastolic parameters are within normal range. Right Ventricle Right atrium and right ventricle are normal size and contractility. Aortic Valve Aortic valve is grossly normal, there is no aortic stenosis or aortic insufficiency. Mitral Valve Mitral valve is grossly normal, there is no mitral stenosis, there is trace mitral regurgitation. Tricuspid Valve Tricuspid valve grossly normal, there is trace tricuspid regurgitation, tricuspid regurgitation jet velocity is inadequate for calculation of the right ventricular systolic pressure. Pulmonic Valve Pulmonic valve is poorly visualized. Great Vessels Aortic root is normal size. Pericardium No significant pericardial effusion noted. Conclusion 1. Normal left ventricular size, preserved left ventricular systolic function, visually estimated ejection fraction 55% with no regional wall motion abnormality, diastolic parameters are within normal range. 2. Trace mitral and tricuspid regurgitation. 3. No significant pericardial effusion noted. Electronically signed by : Jese Tristan, 03/30/2020 14:35:01
--- NOTE | 2020-03-30 11:49 | HMH.ITSHM ---
Current Home Medications as stated by this patient Ingrid Beatty or client services representative. []albuterol lyrica
== END ==
LOC: RAD 07:58
PROVIDERS: PCP Nurse Practitioner Family; Visit Provider Nurse Practitioner Family
DX: R07.9 Chest pain, unspecified (principal); R06.02 Shortness of breath; R00.2 Palpitations
CPT/HCPCS: 78452; 93017; 93306; A9502

== ENCOUNTER → 2021-01-29 16:45 | Outpatient (CLI) | payer OTHER, SELFPAY ==
[2021-01-29 17:32] LABS: Basophils # 0.1 K/mm3 (0-0.2); Basophils % 0.5 % (0.1-2.0); Eosinophils # 0.5 K/mm3 (0.0-0.4); Hematocrit 39.8 % (37.0-47.0); Hemoglobin 12.3 g/dL (12.2-16.2); Lymphocytes # 5.9 K/mm3 (0.7-4.5); Lymphocytes % 33.2 % (10-50); Mean Corpuscular Hemoglobin 27.1 pg (27.0-31.2); Mean Corpuscular Volume 87.6 fl (81-99); Mean Platelet Volume 9.5 fl (7.4-10.4); Monocytes # 0.7 K/mm3 (0.1-1.0); Monocytes % 3.7 % (1.7-9.3); Neutrophils # 10.5 K/mm3 (1.8-7.8); Neutrophils % 59.6 % (37.0-80.0); Platelet Count 248 K/mm3 (142-424); Red Blood Count 4.54 M/mm3 (4.20-5.40); Red Cell Distribution Width 14.2 % (11.5-17.5); White Blood Count 17.6 K/mm3 (4.8-10.8)
[2021-01-29 17:37] LABS: MANUAL DIFFERENTIAL MANUAL DIFFERENTIAL (MANUAL DIFF)
[2021-01-29 18:42] LABS: Hemoglobin A1C 6.3 % (4.0-6.0)
[2021-01-29 19:01] LABS: Eosinophils % 1 % (0-3); Hypochromasia 1+; Lymphocytes % 13 % (10-50); Monocytes % 18 % (2-9); Neutrophils % 68 % (42-76); Platelet Estimate Normal; Total Cells Counted 100
[2021-01-29 19:39] LABS: Chloride 109 mmol/L (98-107)
[2021-01-29 19:40] LABS: Potassium 4.6 mmoL/L (3.5-5.1); Sodium 141 mmol/L (136-145)
[2021-01-29 19:42] LABS: Alanine Aminotransferase 11 U/L (12-78); Alkaline Phosphatase 88 U/L (38-126); Aspartate Amino Transferase 19 U/L (14-36); Bilirubin,Total 0.2 mg/dl (0.2-1.3); Blood Urea Nitrogen 15 mg/dl (7-17); Estimated Glomerular Filt Rate 114 ml/min (>60); GFR (African American) 138 ML/MIN (>60)
[2021-01-29 19:43] LABS: Albumin Level 3.7 g/dl (3.5-5.0); Albumin/Globulin Ratio 1.2 (1.1-1.8); Anion Gap 15.6 mEq/L (5-15); Calcium 8.4 mg/dl (8.4-10.2); Carbon Dioxide 21 mmol/L (22.0-30.0); Glucose 73 mg/dl (74-100); Total Protein,Serum 6.7 g/dl (6.3-8.2)
[2021-01-29 19:47] LABS: Free Thyroxine Index 3.3 ug/dL (5.93-13.13); T4 (Thyroxine) 10.3 ug/dl (5.53-11.0); Triiodothryronine (T3) Uptake 32 % (23.5-40.5)
[2021-01-29 20:01] LABS: Thyroid Stimulating Hormone 2.35 uIU/mL (0.465-4.68)
[2021-01-29 21:42] LABS: Vitamin B12 259 pg/mL (239-931)
== END ==
PROVIDERS: Visit Provider Internal Medicine Adolescent Medicine
DX: R10.13 Epigastric pain (principal); R63.5 Abnormal weight gain
CPT/HCPCS: 36415; 80053; 82607; 83036; 84436; 84443; 84479; 85007; 85025

== ENCOUNTER → 2021-04-17 10:58 | Outpatient (POV) | payer OTHER, SELFPAY | PROVIDERS: Visit Provider Dermatology | DX: Z00.00 Encounter for general adult medical examination without abnormal findings (principal) ==

== ENCOUNTER → 2021-06-06 02:27 | Outpatient (CLI) | payer OTHER, SELFPAY | PROVIDERS: PCP Physician Assistant; Visit Provider Emergency Medicine | DX: G43.909 Migraine, unspecified, not intractable, without status migrainosus (principal) ==

== ENCOUNTER → 2021-06-08 21:46 | Outpatient (CLI) | payer OTHER, SELFPAY ==
[2021-06-08 21:46] VITALS: BP 132/75; PULSE 90; RESP 18; TEMP 36.9; O2SAT 97
[2021-06-09 04:57] VITALS: BMI 38.9
== END | disposition home or self-care (01) ==
LOC: INF 21:47
PROVIDERS: Visit Provider Emergency Medicine
DX: G43.909 Migraine, unspecified, not intractable, without status migrainosus (principal)
CPT/HCPCS: 96360; 96374; 96375

== ENCOUNTER → 2021-06-16 10:06 | Outpatient (CLI) | payer OTHER, SELFPAY | PROVIDERS: Visit Provider Internal Medicine Adolescent Medicine | DX: R39.15 Urgency of urination (principal) | CPT/HCPCS: 87086 ==

== ENCOUNTER → 2021-06-27 07:15 | Outpatient (CLI) | payer OTHER, SELFPAY ==
--- NOTE | 2021-06-27 07:20 | CT_ITS ---
FINAL REPORT CLINICAL HISTORY: HEMATURIA x several days. right flank pain. hx of kidney stones COMPARISON: May 02, 2019 FINDINGS: Axial CT images of the abdomen and pelvis were obtained without intravenous contrast. Coronal reformatted images were also obtained.This study was performed with techniques to keep radiation doses as low as reasonably achievable (ALARA). Individualized dose reduction techniques using automated exposure control or adjustment of mA and/or kV according to the patient's size were employed. Abdomen: The lung bases are clear. There are 3 nonobstructing right renal stones measuring up to 4 mm. There is no hydronephrosis or hydroureter. There is evidence of cholecystectomy. The liver, spleen and pancreas have an unremarkable, unenhanced appearance. No mass or adenopathy is seen. No inflammatory process is identified. Pelvis: Images of the pelvis reveal no evidence of ureteral dilation or ureteral stone.No mass or abnormal fluid collection is identified. The appendix is at the upper limits of normal with respect to size at 6 mm. There is no surrounding inflammation to suggest appendicitis. Several phleboliths are seen in the pelvis. IMPRESSION: Right nephrolithiasis. No hydronephrosis or ureteral stone. Reviewed, Interpreted and Dictated by Benito Simpson III, MD Transcribed by Sukhdeep Rocha Authenticated by Benito Simpson III, MD on 06/27/2021 08:50:06 AM [facility]
== END ==
PROVIDERS: PCP Internal Medicine Adolescent Medicine; Visit Provider Internal Medicine Adolescent Medicine
DX: R31.9 Hematuria, unspecified (principal)
CPT/HCPCS: 74176

== ENCOUNTER → 2021-10-06 01:19 | Outpatient (CLI) | payer OTHER, SELFPAY | PROVIDERS: PCP Internal Medicine Adolescent Medicine; Visit Provider Emergency Medicine | DX: B02.9 Zoster without complications (principal) ==

== ENCOUNTER → 2021-10-08 10:48 | Outpatient (POV) | payer OTHER, SELFPAY ==
[2021-10-08 11:53] VITALS: BP 164/90; PULSE 79; RESP 18; TEMP 36.4; O2SAT 96; BMI 42.0
--- NOTE | 2021-10-08 12:46 | HMH.PMCON ---
Assessment and Plan (1) Shingles (herpes zoster) polyneuropathy Status: Acute Category: Medical Code(s): B02.23 - Postherpetic polyneuropathy (2) Shingles of eyelid Status: Acute Category: Medical Code(s): B02.39 - Other herpes zoster eye disease - Assessment and plan all Dx Assessment and Plan for all problems:: Patient presents today for left-sided shingles that follows the c2/c3 dermatomes. Onset was Tuesday, October 05, 2021. Currently on acyclovir. Will schedule pt for peripheral blocks in this distribution. Started the pt on compounding cream. Referred pt to Dr. Bonilla to evaluate lesion around the left eyelid. Messaged Dr. Barth in regards to possibly increasing the patient's lyrica to 75mg TID. Pt says that she will try to schedule with him today. Pt also has some left sided hearing issues. Patient has been instructed to contact the clinic with any concerns before the next appointment. Dr. Deal has reviewed this note and agrees with this plan of care. This note was dictated using voice recognition software and make contain errors or omissions. HPI - Data of Consult Patient: new to practice Consult date: 10/08/21 Requesting Physician: ANGEL Whiteside Primary Care Provider: Dr. Barth - Consult Narrative Reason for consult: shingles History of present illness: Ms. Beatty is a 36 year old female who presents today as a new patient. Patient presents today with shingles, onset was on October 05, 2021. 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 She was dx then with shingles. She was started on Acyclovir, currently on Day 3 of treatment. She has rash behind her left ear, left jaw, left eyelid, and left posterior neck. She continues to have significant constant, aching pain. She is also complaining of hearing issues with her left ear. She is already on lyrica 75mg BID for something else that is prescribed by Dr. Barth. She says that this is somewhat helping the pain. Rates pain today as 9/10. Joe [id number], MEQ 0. CC: ANGEL Whiteside [facility] History I have reviewed the patient's past medical history: Yes Medical History: Reports:: Anxiety Denies:: Cancer, Diabetes Mellitus Type 1, Diabetes Mellitus Type 2, MRSA, Seizures *Have you ever received a pneumonia vaccine?: No *Have you received a flu vaccine this season?: Yes Other Medical History: Denies: Blood Transfusion Reaction Laterality Cases: Bilateral: Tonsillectomy Other Surgeries: Yes: Cholecystectomy, , Tubal Ligation, Other Amputation: No Fractures: No - *Social History Smoking Status: Never smoker Alcohol Intake: never Alcohol Intake Frequency:: other *Occupational Status:: employed Housing: house Household Members: spouse *Travel in the last 8 weeks: None - Psychiatric History Pschychiatric History:: Reports:: Anxiety Family Hx:: Non-contributory Review of Systems - Review of Systems Review of Systems: General: No recent weight changes, no fever, no sleep disturbances Respiratory: No cough, no shortness of air, no recurring pulmonary infections Cardiovascular/peripheral vascular: No chest pain, no palpitations, no edema, no shortness of breath Gastrointestinal: No new onset incontinence, normal bowel movements reported Genitourinary: No new onset incontinence Skin: Tender to palpation around the left jaw, posterior ear, posterior neck Psychiatric: [Normal mood/affect] Neurological: [Denies weakness in extremities], [denies balance issues] Meds Home Medications Medication Instructions Recorded Confirmed Type Albuterol Sulfate [Proair Hfa 1 inh INHALATION NEEDED PRN 01/30/18 10/08/21 History 90mcg/puff Inh] Buspirone HCl [Buspar 5mg tablet] 7.5 mg PO BID 01/10/19 10/08/21 History ALPRAZolam [Xanax 0.25mg tab] 0.25 mg PO BIDP PRN 02/05/19 10/08/21 History Pregabalin [Lyrica 75mg Cap] 75 mg PO BID 04/02/19 10/08/21 History sumatriptan succinate 100 mg tablet 1 tab PO NEE
== END ==
PROVIDERS: Visit Provider Student in an Organized Health Care Education/Training Program
DX: B02.23 Postherpetic polyneuropathy (principal); B02.39 Other herpes zoster eye disease
CPT/HCPCS: 99202; G0463

== ENCOUNTER 2021-10-09 08:52 | Day surgery (SDC) | payer OTHER, SELFPAY ==
[2021-10-09 09:00] VITALS: BP 150/85; PULSE 76; RESP 20; TEMP 36.4; O2SAT 96; BMI 42.3
[2021-10-09 09:11] VITALS: BP 150/85; PULSE 76; RESP 20; O2SAT 96
[2021-10-09 09:25] VITALS: BP 130/85; PULSE 78; RESP 20; O2SAT 96
--- NOTE | 2021-10-09 10:38 | HMH.PMPROC ---
- Procedure Date: 10/09/21 Time: 10:38 Anesthesiologist:: Barry Cohen CRNA Complications:: None Pre-procedure Diagnosis:: Acute herpes zoster outbreak. Polyneuropathy. Lesions left parietal area scalp. 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 Has recently come down with the outbreak of shingles over the left parietal area of the scalp and infringing on the left side of the face including the orbital area. Patient had an ophthalmology consult and is receiving a topical steroid antibiotic for her face and eye area. These lesions seem to be cleared up significantly over the last few days. However, she is having continued lesion breakouts over the left parietal area of the scalp. They extend into the occipital area on the left side. We discussed in detail the left occipital nerve block. Patient wishes to proceed. I did discuss risk and benefits. Procedure Details:: Details of the procedure were explained to the patient. The patient was taken to the procedure room and placed in a sitting position. The area over the left occipital nerve area was cleaned using alcohol swab. Using a 22-gauge needle the needle was inserted to come in contact with with the posterior occipital area. After negative aspiration 5 cc of solution containing 0.25% Marcaine +1% lidocaine and 40 mg of Depo-Medrol was injected. In a fanning fashion left to right the remaining 6 cc was injected. Patient tolerated the procedure without difficulty. There were no complications. Plan and Disposition:: Patient will return next Friday for repeat injection if lesions are continuing to provide pain. Patient was reassessed 10 minutes post procedure. She reports 90% improvement terms of her left occipital and parietal scalp area pain.
== END 2021-10-09 09:30 | disposition home or self-care (01) ==
LOC: SC.PAINP 08:53
PROVIDERS: PCP Internal Medicine Adolescent Medicine; Visit Provider Nurse Anesthetist, Certified Registered
DX: B02.23 Postherpetic polyneuropathy (principal); B02.39 Other herpes zoster eye disease; F41.9 Anxiety disorder, unspecified; J45.909 Unspecified asthma, uncomplicated; M19.90 Unspecified osteoarthritis, unspecified site; K90.0 Celiac disease; Z88.1 Allergy status to other antibiotic agents
CPT/HCPCS: 64450; J1040

== ENCOUNTER 2021-10-12 13:19 | Day surgery (SDC) | payer OTHER, SELFPAY ==
[2021-10-12 13:28] VITALS: BP 158/86; PULSE 96; RESP 18; TEMP 36.5; O2SAT 97; BMI 42.0
[2021-10-12 13:32] VITALS: BP 151/102; PULSE 86; RESP 20; O2SAT 98
[2021-10-12 13:34] VITALS: BP 151/102; PULSE 86; RESP 18; O2SAT 98
--- NOTE | 2021-10-12 13:36 | P.PCN_ITS ---
- Procedure Date: 10/12/21 Time: 13:36 Anesthesiologist:: Dominic Deal MD Complications:: None Pre-procedure Diagnosis:: Acute herpes zoster in the region of the left occipital nerve Post-procedure Diagnosis:: Same Indications for Procedure:: Patient is a pleasant 36-year-old white female who developed acute herpes zoster in the region of the left occipital nerve approximately 2 weeks ago. This was over the left scalp region and the left side of the face including the orbital area. Patient has been cleared by ophthalmology. She has had an occipital nerve block which is helped tremendously with pain and drying of the rash. We will do a repeat left occipital nerve block today. Patient is also completed her antiviral. Procedure Details:: Left occipital nerve block Informed consent was obtained the risk and benefits of the procedure were explained to the patient. Patient was taken the procedure room. The area over the left occiput was cleansed using ChloraPrep. In a fanlike distribution we deposited approximately 10 mL bupivacaine 0.25% and Depo-Medrol 40 mg into the area of the left greater and lesser occipital nerves. Patient tolerated p rocedure well with no complications. Plan and Disposition:: We will follow-up with this patient in 1 week. Will reevaluate her symptoms at that time and reinject her if needed.
[2021-10-12 13:43] VITALS: BP 130/95; PULSE 77; RESP 20; O2SAT 92
== END 2021-10-12 13:44 | disposition home or self-care (01) ==
LOC: SC.PAINP 13:20
PROVIDERS: PCP Internal Medicine Adolescent Medicine; Visit Provider Anesthesiology
DX: B02.23 Postherpetic polyneuropathy; F41.9 Anxiety disorder, unspecified
CPT/HCPCS: 64405; J1040

== ENCOUNTER → 2021-11-06 07:58 | Outpatient (POV) | payer OTHER, SELFPAY | PROVIDERS: Visit Provider Dermatology | DX: Z00.00 Encounter for general adult medical examination without abnormal findings (principal) ==

== ENCOUNTER → 2021-11-22 05:15 | Outpatient (CLI) | payer OTHER, SELFPAY ==
[2021-11-22 06:26] LABS: Basophils # 0.1 K/mm3 (0-0.2); Basophils % 0.5 % (0.1-2.0); Eosinophils # 0.9 K/mm3 (0.0-0.4); Eosinophils % 6.1 % (0.1-12.0); Hemoglobin 12.5 g/dL (12.2-16.2); Lymphocytes # 4.4 K/mm3 (0.7-4.5); Lymphocytes % 31.2 % (10-50); Mean Corpuscular Hemoglobin 27.3 pg (27.0-31.2); Mean Corpuscular Volume 82.7 fl (81-99); Mean Platelet Volume 10.5 fl (7.4-10.4); Monocytes # 0.5 K/mm3 (0.1-1.0); Monocytes % 3.3 % (1.7-9.3); Neutrophils # 8.4 K/mm3 (1.8-7.8); Neutrophils % 58.9 % (37.0-80.0); Platelet Count 221 K/mm3 (142-424); Red Blood Count 4.59 M/mm3 (4.20-5.40); Red Cell Distribution Width 14.6 % (11.5-17.5); White Blood Count 14.2 K/mm3 (4.8-10.8)
[2021-11-22 06:35] LABS: Alanine Aminotransferase 21 U/L (12-78); Albumin/Globulin Ratio 1.1 (1.1-1.8); Alkaline Phosphatase 104 U/L (38-126); Anion Gap 9.6 mEq/L (5-15); Aspartate Amino Transferase 24 U/L (14-36); Bilirubin,Total 0.2 mg/dl (0.2-1.3); Blood Urea Nitrogen 9 mg/dl (7-17); Calcium 8.9 mg/dl (8.4-10.2); Carbon Dioxide 25 mmol/L (22.0-30.0); Chloride 107 mmol/L (98-107); Estimated Glomerular Filt Rate 113 ml/min (>60); GFR (African American) 137 ML/MIN (>60); Globulin 3.7 g/dL (1.3-3.2); Glucose 92 mg/dl (74-100); Potassium 3.6 mmoL/L (3.5-5.1); Sodium 138 mmol/L (136-145); Total Protein,Serum 7.7 g/dl (6.3-8.2)
[2021-11-22 06:47] VITALS: BMI 42.5
[2021-11-22 06:51] LABS: Erythrocyte Sedimentation Rate 34 mm/hr (0-20)
[2021-11-23 11:24] LABS: Anti-Centromere B Antibodies 0.2 AI (0.0-0.9); Anti-DNA (DS) Ab Qn <1 IU/mL (0-9); Anti-Jo-1 <0.2 AI (0.0-0.9); Anti-Smith Antibody <0.2 AI (0.0-0.9); Antichromatin Antibodies <0.2 AI (0.0-0.9); Antiscleroderma-70 Antibodies <0.2 AI (0.0-0.9); RNP Antibodies 0.9 AI (0.0-0.9); Sjogren's Anti-SS-A <0.2 AI (0.0-0.9); Sjogren's Anti-SS-B <0.2 AI (0.0-0.9)
[2021-12-07 22:11] LABS: Antinuclear Antibodies (ANA) NEGATIVE
== END ==
PROVIDERS: PCP Internal Medicine Adolescent Medicine; Visit Provider Nurse Practitioner Family
DX: D72.829 Elevated white blood cell count, unspecified (principal); R79.82 Elevated C-reactive protein (CRP)
CPT/HCPCS: 80053; 85025; 85651; 86038; 86140; 86225; 86235

== ENCOUNTER → 2021-12-30 04:10 | Outpatient (CLI) | payer OTHER, SELFPAY ==
--- NOTE | 2021-12-30 | XR_ITS ---
PROCEDURE INFORMATION: Exam: XR Right Hand Exam date and time: 12/30/2021 4:18 AM Age: 36 years old Clinical indication: Injury or trauma; Other: Trauma to RT hand, thumb; Sprain or strain; Right TECHNIQUE: Imaging protocol: Radiologic exam of the Right hand. Views: 3 or more views. COMPARISON: No relevant prior studies available. FINDINGS: Bones/joints: Normal. Soft tissues: Normal. If there is persistent clinical concern for ligamentous injury, a follow-up nonemergent MRI may be indicated. IMPRESSION: No acute findings.
== END ==
PROVIDERS: PCP Internal Medicine Adolescent Medicine; Visit Provider Emergency Medicine
DX: M79.644 Pain in right finger(s) (principal); T14.90XA Injury, unspecified, initial encounter
CPT/HCPCS: 73130

== ENCOUNTER → 2022-01-16 05:59 | Outpatient (CLI) | payer OTHER, SELFPAY ==
--- NOTE | 2022-01-16 06:11 | XR_ITS ---
PROCEDURE INFORMATION: Exam: XR Left Elbow Exam date and time: 01/16/2022 6:06 AM Age: 36 years old Clinical indication: Pain and injury or trauma; Fall; Blunt trauma (contusions or hematomas); Elbow; Left TECHNIQUE: Imaging protocol: Radiologic exam of the Left elbow. Views: 3 or more views. COMPARISON: No relevant prior studies available. FINDINGS: Bones/joints: Normal appearing bones and joints without evidence of a fracture line. Bone density is normal without a lytic or blastic lesion. Soft tissues: NA IMPRESSION: No evidence of an acute bony injury or abnormality.
--- NOTE | 2022-01-16 06:11 | XR_ITS ---
PROCEDURE INFORMATION: Exam: XR Left Wrist Exam date and time: 01/16/2022 6:04 AM Age: 36 years old Clinical indication: Pain and injury or trauma; Fall; Blunt trauma (contusions or hematomas); Wrist; Left TECHNIQUE: Imaging protocol: Radiologic exam of the Left wrist. Views: 3 or more views. COMPARISON: No relevant prior studies available. FINDINGS: Bones/joints: Normal appearing bones and joints without evidence of a fracture line. Bone density is normal without a lytic or blastic lesion. Soft tissues: NA IMPRESSION: No evidence of an acute bony injury or abnormality.
--- NOTE | 2022-01-16 06:11 | XR_ITS ---
PROCEDURE INFORMATION: Exam: XR Left Forearm Exam date and time: 01/16/2022 6:06 AM Age: 36 years old Clinical indication: Pain and injury or trauma; Fall; Blunt trauma (contusions or hematomas); Arm, lower; Left; Lower or forearm TECHNIQUE: Imaging protocol: Radiologic exam of the Left forearm. Views: 2 views. COMPARISON: No relevant prior studies available. FINDINGS: Bones/joints: Normal appearing bones and joints without evidence of a fracture line. Bone density is normal without a lytic or blastic lesion. Soft tissues: NA IMPRESSION: No evidence of an acute bony injury or abnormality.
== END ==
PROVIDERS: PCP Internal Medicine Adolescent Medicine; Visit Provider Emergency Medicine
DX: M25.522 Pain in left elbow (principal); M79.632 Pain in left forearm; M25.532 Pain in left wrist; S59.912A Unspecified injury of left forearm, initial encounter; W19.XXXA Unspecified fall, initial encounter
CPT/HCPCS: 73080; 73090; 73110

== ENCOUNTER → 2022-02-11 08:29 | Outpatient (POV) | payer OTHER, SELFPAY ==
--- NOTE | 2022-02-11 08:45 | A.OFFVIS_ITS ---
[facility] Pain Management SOAP Note Subjective:: Patient is a pleasant 36-year-old female who presents today for follow-up. We are currently treating the patient for herpes zoster of the left occipital nerve. Today the patient rates her pain a 6 out of 10. She states the pain is all in her neck on the left side that radiates into her lymph nodes and the back of the head. Patient states that on Friday she started having some sensations of pain and tenderness along the back of her neck however she thought it was her eczema. By Friday morning it was worse and she had some lesions along her neck that were sore and bleeding as well as some bumps along her lower scalp. Patient states she has soreness with swallowing due to her left lymph node being swollen. She states that she also has nail lymph nodes under her left arm that have became swollen. Patient states that they do possibly think she has lupus. Patient is currently taking her pregabalin 150 mg twice a day that is written by Dr. Barth. Patient denies any side effects from this medication. She states this medication does adequately help manage her pain. She also had some old acyclovir that she started using however she only had a few pills of this medication. We have previously done a left occipital nerve block in September 2021 for a previous shingles outbreak. This injection did provide significant improvement of her symptoms. She is interested in another injection at this time. Her Joe is [phone]. It is been reviewed and appropriate. Review of Systems: General: No recent weight changes, no fever, no sleep disturbances Respiratory: No cough, no shortness of air, no recurring pulmonary infections Cardiovascular/peripheral vascular: No chest pain, no palpitations, no edema, no shortness of breath Gastrointestinal: No new onset incontinence, normal bowel movements reported Genitourinary: No new onset incontinence Musculoskeletal: Neck pain, left lymph node swollen Psychiatric: [Normal mood/affect] Neurological: [Denies weakness in extremities], [denies balance issues] Objective:: Physical Exam: General: Alert and oriented x3, no acute distress, pleasant and cooperative Lungs: Respirations even and unlabored, symmetrical chest expansion Eyes: PERRL Musculoskeletal: Flexion and extension of cervical [spine] somewhat guarded secondary to pain, [antalgic gait noted]. Extreme point tenderness along her left occipital nerve Neurological: Speech clear, no gross sensory deficit Assessment:: Acute herpes zoster of the left occipital nerve Plan:: Patient is experiencing worsening symptoms of shingles along her left occipital nerve. Patient had limited range of motion of her cervical spine and extreme point tenderness along her left occipital nerve. Patient also had lesions along her neck with erythema and scabbing noted. I have discussed with the patient regarding a left occipital nerve block. Risk and benefit were discussed with the patient. She would like to proceed forward with this injection. I will also order the patient acyclovir 800 mg 5 times a day for 7 days. We will schedule the patient for a left occipital nerve block. Patient has been instructed to contact the clinic with any concerns before the next appointment. Dr. Deal has reviewed this note and agrees with this plan of care. This note was dictated using voice recognition software and make contain errors or omissions. PFSH PFS Social History Smoking Status: Never smoker alcohol intake: never current occupational status: employed Travel in the last 8 weeks: None household members: other housing: house current occupational exposures/hazards: Yes caffeine: Yes
[2022-02-11 08:58] VITALS: BP 147/84; PULSE 83; RESP 18; TEMP 36.6; O2SAT 95; BMI 44.2
== END | disposition home or self-care (01) ==
PROVIDERS: PCP Internal Medicine Adolescent Medicine; Visit Provider Nurse Practitioner Family
DX: B02.8 Zoster with other complications (principal)
CPT/HCPCS: 99212; G0463

== ENCOUNTER 2022-02-12 10:23 | Day surgery (SDC) | payer OTHER, SELFPAY ==
[2022-02-12 10:31] VITALS: BP 148/97; PULSE 93; RESP 18; O2SAT 97
[2022-02-12 10:35] VITALS: BP 149/71; PULSE 88; RESP 18; TEMP 36.8; O2SAT 96; BMI 44.2
[2022-02-12 10:40] VITALS: BP 147/87; PULSE 88; RESP 18; O2SAT 96
--- NOTE | 2022-02-12 10:53 | EXP.PAIN.PRO ---
Procedure Date: 02/12/22 Time: 10:30 Anesthesiologist:: Barry Cohen CRNA Complications:: None Pre-procedure Diagnosis:: Postherpetic neuralgia, left occipital neuralgia Post-procedure Diagnosis:: Same Indications for Procedure:: Patient is a pleasant 36-year-old female that returns our clinic today for a repeat left occipital nerve block. Patient has had a serious round of shingles covering the posterior cervical spine and invading the hairline in the occipital area. Patient is continue to have postherpetic neuralgia. She has had significant improvement terms of her postherpetic neuralgia pain with prior left occipital nerve blocks. We will repeat injection today. Procedure Details:: Details of the procedure were explained to the patient. The patient was placed in the sitting position on fluoroscopy table. The area over the left occipital nerve was cleaned using alcohol swab. Using a 25-gauge inch and a half needle the left occipital nerve area was injected in a fanning fashion using 8 cc of 1% lidocaine and 40 mg of Depo-Medrol. Patient tolerated the procedure without difficulty. There were no complications Plan and Disposition:: Patient was discharged without incident
== END 2022-02-12 10:40 | disposition home or self-care (01) ==
PROVIDERS: PCP Internal Medicine Adolescent Medicine; Visit Provider Nurse Anesthetist, Certified Registered
DX: M54.81 Occipital neuralgia (principal); B02.29 Other postherpetic nervous system involvement
CPT/HCPCS: 64405; J1040

== ENCOUNTER 2022-02-19 08:19 | Day surgery (SDC) | payer OTHER, SELFPAY ==
[2022-02-19 08:12] VITALS: BP 144/95; PULSE 100; RESP 20; TEMP 36.3; O2SAT 95; BMI 43.9
[2022-02-19 08:55] VITALS: BP 124/78; PULSE 99; RESP 20
--- NOTE | 2022-02-19 09:07 | EXP.PAIN.PRO ---
Procedure Date: 02/19/22 Time: 08:45 Anesthesiologist:: Barry Cohen CRNA Complications:: None Pre-procedure Diagnosis:: Post herpetic neuralgia, left occipital neuralgia Post-procedure Diagnosis:: Same Indications for Procedure:: Patient is a pleasant 36-year-old female who presents today for left occipital nerve block. Patient started having a repeat flareup of shingles at the end of January. In September the patient had a serious amount of shingles covering the posterior cervical spine and invading the hairline in the occipital area. Patient did continue to have postherpetic neuralgia. Previous occipital nerve block injections did provide significant improvement of her symptoms. Physical exam General: Alert and oriented x3, no acute distress, pleasant cooperative Lungs: Respirations even and unlabored, symmetrical chest expansion Eyes: PERRL Musculoskeletal: Flexion and extension of cervical spine somewhat guarded secondary to pain, antalgic gait noted. Neurological: Speech clear, no gross sensory deficit Procedure Details:: Informed consent was obtained and the risk and benefits of the procedure were explained to the patient. Patient was placed in a sitting position. The area over the left occipital nerve was cleansed using a chlorhexidine as a cleansing solution. Using a 25-gauge needle the left occipital nerve area was injected in a fanning fashion using 8 cc of 1% lidocaine and 40 mg of Depo-Medrol. Patient tolerated the procedure well with no complications. Plan and Disposition:: Patient was watched in the pain clinic area for a short time and was discharged neurologically intact. Patient will return to clinic in 2 weeks for follow-up and reevaluation of symptoms. Patient has been counseled to contact the office with any questions or concerns before her next appointment date. Dr. Deal has read this note and agrees with this plan of care. This note was dictated using voice recognition software and may contain errors or omissions.
== END 2022-02-19 08:57 | disposition home or self-care (01) ==
PROVIDERS: PCP Internal Medicine Adolescent Medicine; Visit Provider Nurse Anesthetist, Certified Registered
DX: B02.29 Other postherpetic nervous system involvement (principal); M54.81 Occipital neuralgia
CPT/HCPCS: 64405; J1040

== ENCOUNTER → 2022-07-01 03:07 | Outpatient (CLI) | payer OTHER, SELFPAY ==
[2022-07-01 03:42] LABS: Basophils # 0.1 K/mm3 (0-0.2); Basophils % 0.8 % (0.1-2.0); Eosinophils # 0.4 K/mm3 (0.0-0.4); Eosinophils % 3.7 % (0.1-12.0); Hematocrit 40.3 % (37.0-47.0); Hemoglobin 13.1 g/dL (12.2-16.2); Lymphocytes # 3.5 K/mm3 (0.7-4.5); Lymphocytes % 34.1 % (10-50); Mean Corpuscular HGB Conc 32.6 g/dL (31.8-35.4); Mean Corpuscular Hemoglobin 26.8 pg (27.0-31.2); Mean Corpuscular Volume 82.3 fl (81-99); Monocytes # 0.3 K/mm3 (0.1-1.0); Monocytes % 2.9 % (1.7-9.3); Neutrophils % 58.4 % (37.0-80.0); Platelet Count 161 K/mm3 (142-424); Red Blood Count 4.89 M/mm3 (4.20-5.40); Red Cell Distribution Width 14.8 % (11.5-17.5); White Blood Count 10.3 K/mm3 (4.8-10.8)
[2022-07-01 03:47] LABS: Alanine Aminotransferase 16 U/L (12-78); Albumin Level 4.3 g/dl (3.5-5.0); Albumin/Globulin Ratio 1.3 (1.1-1.8); Alkaline Phosphatase 82 U/L (38-126); Aspartate Amino Transferase 24 U/L (14-36); Bilirubin,Total 0.4 mg/dl (0.2-1.3); Blood Urea Nitrogen 11 mg/dl (7-17); Calcium 8.7 mg/dl (8.4-10.2); Carbon Dioxide 29 mmol/L (22.0-30.0); Chloride 109 mmol/L (98-107); Cholesterol 154 mg/dl (140-200); Estimated Glomerular Filt Rate 81 ml/min (>60); GFR (African American) 98 ML/MIN (>60); Globulin 3.2 g/dL (1.3-3.2); Glucose 95 mg/dl (74-100); Sodium 142 mmol/L (136-145); Total Protein,Serum 7.5 g/dl (6.3-8.2); Triglycerides 121 mg/dl (30-150); VLDL Cholesterol 24 mg/dL (0-40)
[2022-07-01 03:59] LABS: Direct LDL Cholesterol 91.24 mg/dL (100-129)
[2022-07-01 04:04] LABS: T4 (Thyroxine) 11.4 ug/dl (5.53-11.0); Triiodothryronine (T3) Uptake 32 % (23.5-40.5)
[2022-07-01 04:16] LABS: Hemoglobin A1C 5.6 % (4.0-6.0)
[2022-07-01 04:52] LABS: Anion Gap 7.2 mEq/L (5-15); Potassium 3.2 mmoL/L (3.5-5.1)
[2022-07-01 04:55] LABS: HDL Cholesterol 31 mg/dl (40-60)
[2022-07-01 05:56] LABS: Thyroid Stimulating Hormone 0.64 uIU/mL (0.465-4.68)
[2022-07-01 06:15] LABS: Vitamin B12 392 pg/mL (239-931)
[2022-07-02 11:13] LABS: Triiodothyronine (T3) Total 133 ng/dL (71-180)
== END ==
PROVIDERS: PCP Internal Medicine Adolescent Medicine; Visit Provider Emergency Medicine
DX: Z00.00 Encounter for general adult medical examination without abnormal findings (principal); R73.03 Prediabetes; Z79.899 Other long term (current) drug therapy
CPT/HCPCS: 80053; 80061; 82306; 82607; 83036; 84436; 84443; 84479; 84480; 85025

== ENCOUNTER → 2022-08-15 13:29 | Outpatient (CLI) | payer OTHER, SELFPAY ==
--- NOTE | 2022-08-15 13:39 | XR_ITS ---
FINAL REPORT CLINICAL HISTORY: SCIATICA, fall couple of weeks ago, low back pain, previous surgery 10 years ago FINDINGS: AP, lateral, and oblique views of the lumbar spine were obtained. There is no acute fracture or acute malalignment. Vertebral body height is preserved. There is multilevel degenerative disc disease, most pronounced at L4-5 and L5-S1. No acute paraspinal abnormality is identified. IMPRESSION: Multilevel degenerative disc disease. Reviewed, Interpreted and Dictated by Raissa Hendrickson MD Transcribed by Yumiko Gallardo Authenticated and [facility]
== END ==
PROVIDERS: PCP Internal Medicine Adolescent Medicine; Visit Provider Nurse Practitioner Family
DX: M54.41 Lumbago with sciatica, right side (principal); M54.42 Lumbago with sciatica, left side
CPT/HCPCS: 72110

== ENCOUNTER → 2022-08-26 07:32 | Outpatient (CLI) | payer OTHER, SELFPAY ==
--- NOTE | 2022-08-26 07:33 | MR_ITS ---
FINAL REPORT CLINICAL HISTORY: LUMBAGO WITH BILATERAL SCIATICA HX SURGERY IN 2012. BILATERAL LEG NUMBNESS X3 WEEKS AFTER FALLING OUT OF CHAIR 21ML PROHANCE INJECTED FINDINGS: Multiplanar MR imaging of the lumbar spine was performed without and with contrast. On the sagittal T2-weighted images, abnormal decreased signal is seen at L4-5 and L5-S1. The vertebral alignment is normal. There is no evidence of fracture. The conus is seen at approximately the L1 level and has an unremarkable appearance. L1-2: No significant canal stenosis or neuroforaminal narrowing is seen. L2-3: No significant canal stenosis or neuroforaminal narrowing is seen. L3-4: No significant canal stenosis or neuroforaminal narrowing is seen. L4-5: Postoperative changes on the left. Annular disc bulge with facet arthropathy and osteophytes. Contrast enhancing soft tissue is seen to the left of the thecal sac consistent with postoperative fibrosis which partially surrounds the left L5 nerve root. There is moderate bilateral neural foraminal narrowing. L5-S1: Annular disc bulge and small central disc protrusion with mild bilateral neural foraminal narrowing. IMPRESSION: Postoperative changes at L4-5 with contrast enhancing soft tissue to the left of the thecal sac which partially surrounds the left L5 nerve root. Mild and moderate neural foraminal narrowing at L4-5 and L5-S1. Reviewed, Interpreted and Dictated by Benito Simpson III, MD Transcribed by Gilma Rodriguez Authenticated and [facility]
== END ==
PROVIDERS: PCP Internal Medicine Adolescent Medicine; Visit Provider Nurse Practitioner Family
DX: M54.41 Lumbago with sciatica, right side (principal); M54.42 Lumbago with sciatica, left side
CPT/HCPCS: 72158; 76376; A9576

== ENCOUNTER → 2022-08-28 08:22 | Outpatient (POV) | payer OTHER, SELFPAY ==
[2022-08-28 08:36] VITALS: BP 125/85; PULSE 79; RESP 18; O2SAT 98; BMI 46.4
--- NOTE | 2022-08-28 08:46 | EXP.PAIN.SOA ---
[facility] Pain Management SOAP Note Subjective:: Patient is a pleasant 37-year-old female who presents today for follow-up. We are currently treating the patient for herpes zoster of the left occipital nerve.? Today the patient rates her pain a 2 out of 10.? She states the pain in her low back with radiating symptoms into her legs. She states approximately 1 month ago she fell and the symptoms started presenting. She does describe this as an aching, throbbing sensation with numbness and tingling down her bilateral lower extremities. She does state it is a almost constant sensation with occasional sharp pains. She does state it is more noticeable when she lays down or sits. She does state this is interfering with her ability to do activities of daily living such as cooking and cleaning.? Patient is currently taking her pregabalin 150 mg twice a day from Dr. Barth.? Patient denies any side effects from this medication.? Her Joe is [id number]. It is been reviewed and appropriate. Review of Systems: General: No recent weight changes, no fever, no sleep disturbances Respiratory: No cough, no shortness of air, no recurring pulmonary infections Cardiovascular/peripheral vascular: No chest pain, no palpitations, no edema, no shortness of breath Gastrointestinal: No new onset incontinence, normal bowel movements reported Genitourinary: No new onset incontinence Musculoskeletal: Low back pain Psychiatric: [Normal mood/affect] Neurological: [Denies weakness in extremities], [denies balance issues] Objective:: Physical Exam: General: Alert and oriented x3, no acute distress, pleasant and cooperative Lungs: Respirations even and unlabored, symmetrical chest expansion Eyes: PERRL Musculoskeletal: Flexion and extension of lumbar [spine] somewhat guarded secondary to pain, [antalgic gait noted] Neurological: Speech clear, no gross sensory deficit FINAL REPORT CLINICAL HISTORY: LUMBAGO WITH BILATERAL SCIATICA? HX SURGERY IN 2012. BILATERAL LEG NUMBNESS X3 WEEKS AFTER FALLING OUT OF CHAIR ? 21ML PROHANCE INJECTED FINDINGS: Multiplanar MR imaging of the lumbar spine was performed without and with contrast. On the sagittal T2-weighted images, abnormal decreased signal is seen at L4-5 and L5-S1. ? The vertebral alignment is normal.? There is no evidence of fracture. The conus is seen at approximately the L1 level and has an unremarkable appearance.? L1-2: No significant canal stenosis or neuroforaminal narrowing is seen.? L2-3: No significant canal stenosis or neuroforaminal narrowing is seen.? L3-4: No significant canal stenosis or neuroforaminal narrowing is seen. L4-5:? Postoperative changes on the left.? Annular disc bulge with facet arthropathy and osteophytes.? Contrast enhancing soft tissue is seen to the left of the thecal sac consistent with postoperative fibrosis which partially surrounds the left L5 nerve root.? There is moderate bilateral neural foraminal narrowing.? L5-S1:? Annular disc bulge and small central disc protrusion with mild bilateral neural foraminal narrowing. IMPRESSION: Postoperative changes at L4-5 with contrast enhancing soft tissue to the left of the thecal sac which partially surrounds the left L5 nerve root.? Mild and moderate neural foraminal narrowing at L4-5 and L5-S1. Reviewed, Interpreted and Dictated by Benito Simpson III, MD Transcribed by Gilma Rodriguez Authenticated and [facility] Assessment:: Degenerative disc disease of lumbar spine with lumbar radiculopathy symptoms, status post herpes zoster of the left occipital nerve Plan:: Patient is experiencing significant pain in her low back with radiating symptoms into her legs. Patient did have limited range of motion of her lumbar spine during today's visit. I have discussed with the patient that she may benefit from lumbar epidural steroid injection. Risk and benefits were discussed w
== END ==
PROVIDERS: PCP Internal Medicine Adolescent Medicine; Visit Provider Nurse Practitioner Family
DX: M51.16 Intervertebral disc disorders with radiculopathy, lumbar region (principal)
CPT/HCPCS: 99212; G0463

== ENCOUNTER 2022-09-03 11:30 | Day surgery (SDC) | payer OTHER, SELFPAY ==
[2022-09-03 11:42] VITALS: BP 110/72; PULSE 60; RESP 18; TEMP 36.6; O2SAT 94; BMI 42.0
[2022-09-03 11:47] VITALS: BP 146/92; PULSE 94; RESP 18; O2SAT 98
[2022-09-03 11:48] VITALS: BP 146/92; PULSE 94; RESP 18; O2SAT 98
--- NOTE | 2022-09-03 11:49 | EXP.PAIN.PRO ---
Procedure Date: 09/03/22 Time: 11:45 Anesthesiologist:: Barry Cohen CRNA Complications:: None Pre-procedure Diagnosis:: Degenerative disc disease lumbar spine multilevels. Lumbar radiculopathy Post-procedure Diagnosis:: Same. Indications for Procedure:: Very pleasant 37-year-old female that comes our clinic today for lumbar epidural steroid injection at the L4-5 level. Patient is had this in the past several years ago with significant improvement. She complains of low back pain that is constant, dull, aching. 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 She is on her feet 10 to 12 hours each shift. She also complains of bilateral hip and leg radicular symptoms at times. Procedure Details:: Informed consent was obtained and the risks and benefits of the procedure were explained to the patient. The patient was taken to the procedure room and noninvasive monitors placed, including noninvasive blood pressure cuff and pulse oximeter. The back was viewed using C-arm Fluoroscopy and prepped using Chloraprep as a cleansing solution and the L4-L5 interspace was palpated. Skin and subcutaneous tissues were anesthetized using lidocaine 1.5% and a 25-gauge needle. After this, an 18-gauge Touhy epidural needle was placed into the L4-L5 interspace and advanced using fluoroscopic guidance and loss of resistance to air until the epidural space was encountered. After confirmation of needle placement in the epidural space, with dye, a solution containing normal saline, 3 mL and Depo-Medrol 80 mg were incrementally injected into the lumbar epidural space. The patient tolerated the procedure well with no complications. The patient was observed in the Pain Clinic and then discharged home neurologically intact. Plan and Disposition:: Patient was discharged without incident.
[2022-09-03 11:50] VITALS: BP 143/85; PULSE 88; RESP 18; O2SAT 94
== END 2022-09-03 11:50 | disposition home or self-care (01) ==
PROVIDERS: PCP Internal Medicine Adolescent Medicine; Visit Provider Nurse Anesthetist, Certified Registered
DX: M51.16 Intervertebral disc disorders with radiculopathy, lumbar region (principal)
CPT/HCPCS: 62323; J1040

== ENCOUNTER → 2022-09-23 09:01 | Outpatient (POV) | payer OTHER, SELFPAY ==
--- NOTE | 2022-09-23 09:27 | EXP.PAIN.SOA ---
[facility] Pain Management SOAP Note Subjective:: Patient is a pleasant 37-year-old female who presents today for follow-up of lumbar epidural steroid injection of L4-L5 on 09/03/2022. 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 Today she rates her pain a 0 out of 10. Patient states she has had at least 80 -100% improvement following this injection. She does state that occasionally there will be days that are more along the 80% however the pain is much better. She states that her leg issues with the numbness and tingling is at least 50% better and she has had some improvement with sleeping. Patient states she has been able to increase her activity with decreased pain symptoms. She is currently managed with pregabalin 150 mg twice a day and phentermine 37.5 mg daily from outside providers. Patient denies any side effects from these medications. She does state that she has tried Flexeril and Robaxin in the past however they did not do as well due to significant drowsiness. Her Joe is [phone]. Its been reviewed and appropriate. Review of Systems: General: No recent weight changes, no fever, no sleep disturbances Respiratory: No cough, no shortness of air, no recurring pulmonary infections Cardiovascular/peripheral vascular: No chest pain, no palpitations, no edema, no shortness of breath Gastrointestinal: No new onset incontinence, normal bowel movements reported Genitourinary: No new onset incontinence Musculoskeletal: Low back pain Psychiatric: [Normal mood/affect] Neurological: [Denies weakness in extremities], [denies balance issues] Objective:: Physical Exam: General: Alert and oriented x3, no acute distress, pleasant and cooperative Lungs: Respirations even and unlabored, symmetrical chest expansion Eyes: PERRL Musculoskeletal: Flexion and extension of lumbar [spine] somewhat guarded secondary to pain, [antalgic gait noted] Neurological: Speech clear, no gross sensory deficit Assessment:: Degenerative disc disease of lumbar spine with lumbar radiculopathy symptoms, herpes zoster of left occipital nerve Plan:: I will send in a prescription of tizanidine 4 mg at bedtime and provide a 14-day supply of this medication. She has been counseled to contact our office if this medication does help and she would like additional refills. Patient will return to clinic in 1 month for reevaluation of symptoms possible medication refill and follow-up. Patient has been instructed to contact the clinic with any concerns before the next appointment. Dr. Deal has reviewed this note and agrees with this plan of care. This note was dictated using voice recognition software and make contain errors or omissions. [facility] Disclaimer: The information contained in this section may have been updated after the patient was seen, as this information can be updated by other users. Medical History Anxiety Shingles Family History Other No significant family history Social History Smoking Status: Never smoker alcohol intake: never current occupational status: employed Travel in the last 8 weeks: None household members: other housing: house current occupational exposures/hazards: Yes caffeine: Yes
[2022-09-23 09:32] VITALS: BP 145/61; PULSE 75; RESP 18; O2SAT 98; BMI 41.7
== END | disposition home or self-care (01) ==
PROVIDERS: PCP Internal Medicine Adolescent Medicine; Visit Provider Nurse Practitioner Family
DX: M51.16 Intervertebral disc disorders with radiculopathy, lumbar region (principal); B02.29 Other postherpetic nervous system involvement
CPT/HCPCS: 99212; G0463

== ENCOUNTER → 2022-10-15 13:01 | Outpatient (POV) | payer OTHER, SELFPAY | PROVIDERS: Visit Provider Dermatology | DX: Z00.00 Encounter for general adult medical examination without abnormal findings (principal) ==

== ENCOUNTER → 2022-10-24 09:06 | Outpatient (POV) | payer OTHER, SELFPAY ==
--- NOTE | 2022-10-24 09:37 | EXP.PAIN.SOA ---
[facility] Pain Management SOAP Note Subjective:: Patient is a pleasant 37-year-old female who presents today for follow-up. 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 Today she rates her pain a 4 out of 10. Patient states she is starting to experience more low back pain with radiating symptoms into her lower extremities. She describes this as an aching, throbbing sensation that is worse with increased activity and does have numbness and tingling into her legs. Patient states it does interfere with her ability to perform activities of daily living such as cooking and cleaning. She did previously have a lumbar epidural steroid injection of L4-L5 back in August that provided 80 to 100% improvement lasting up until the last week or so. Patient is interested in repeating this injection. Patient is currently managed with tizanidine 4 mg at bedtime and states it has provided additional relief. She is also managed with pregabalin 150 mg twice a day and phentermine 37.5 mg daily from outside providers. Her Joe is [phone]. Its been reviewed and appropriate. Review of Systems: General: No recent weight changes, no fever, no sleep disturbances Respiratory: No cough, no shortness of air, no recurring pulmonary infections Cardiovascular/peripheral vascular: No chest pain, no palpitations, no edema, no shortness of breath Gastrointestinal: No new onset incontinence, normal bowel movements reported Genitourinary: No new onset incontinence Musculoskeletal: Low back pain Psychiatric: [Normal mood/affect] Neurological: [Denies weakness in extremities], [denies balance issues] Objective:: Physical Exam: General: Alert and oriented x3, no acute distress, pleasant and cooperative Lungs: Respirations even and unlabored, symmetrical chest expansion Eyes: PERRL Musculoskeletal: Flexion and extension of lumbar [spine] somewhat guarded secondary to pain, [antalgic gait noted] Neurological: Speech clear, no gross sensory deficit Assessment:: Degenerative disc disease of lumbar spine with lumbar radiculopathy symptoms, history of 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 I have discussed with the patient that she may benefit from repeat lumbar epidural steroid injection. Risk and benefits were discussed with the patient and she would like to proceed forward with this plan of care. Patient is not on any blood thinners. I will refill the patient's tizanidine 4 mg at bedtime and provide a 1 month supply of this medication. Patient will be scheduled for a lumbar epidural steroid injection L4-L5. Patient has been instructed to contact the clinic with any concerns before the next appointment. Dr. Deal has reviewed this note and agrees with this plan of care. This note was dictated using voice recognition software and make contain errors or omissions. [facility] Disclaimer: The information contained in this section may have been updated after the patient was seen, as this information can be updated by other users. Medical History Anxiety Shingles Family History Other No significant family history Social History Smoking Status: Never smoker alcohol intake: never current occupational status: employed Travel in the last 8 weeks: None household members: other housing: house current occupational exposures/hazards: Yes caffeine: Yes
[2022-10-24 09:49] VITALS: BP 117/76; PULSE 78; RESP 18; BMI 40.6
== END | disposition home or self-care (01) ==
PROVIDERS: PCP Internal Medicine Adolescent Medicine; Visit Provider Nurse Practitioner Family
DX: M51.16 Intervertebral disc disorders with radiculopathy, lumbar region (principal)
CPT/HCPCS: 99212; G0463

== ENCOUNTER 2022-10-29 08:08 | Day surgery (SDC) | payer OTHER, SELFPAY ==
[2022-10-29 08:28] VITALS: BP 115/69; PULSE 75; RESP 18; TEMP 36.4; O2SAT 97; BMI 40.2
[2022-10-29 09:01] VITALS: BP 152/90; PULSE 68; RESP 18; O2SAT 98
[2022-10-29 09:03] VITALS: BP 132/82; PULSE 65; RESP 18; O2SAT 97
[2022-10-29 09:04] VITALS: BP 152/90; PULSE 68; RESP 18; O2SAT 98
--- NOTE | 2022-10-29 09:05 | EXP.PAIN.PRO ---
Procedure Date: 10/29/22 Time: 09:00 Anesthesiologist:: Barry Cohen CRNA Complications:: None Pre-procedure Diagnosis:: Degenerative disc lumbar spine multilevels. Lumbar radiculopathy Post-procedure Diagnosis:: Same. Indications for Procedure:: Patient is a very pleasant 37-year-old female that comes our clinic today for lumbar epidural steroid injections L4-5 level. Patient has had injection in the past with significant improvement. She complains of low back pain as well as bilateral hip and leg radicular pain. She rates her pain 6/10 Procedure Details:: Procedure: Lumbar epidural steroid injection under fluoroscopy Informed consent was obtained and the risks and benefits of the procedure were explained to the patient. The patient was taken to the procedure room and noninvasive monitors placed, including noninvasive blood pressure cuff and pulse oximeter. The back was viewed using C-arm Fluoroscopy and prepped using Chloraprep as a cleansing solution and the L4-L5 interspace was palpated. Skin and subcutaneous tissues were anesthetized using lidocaine 1.5% and a 25-gauge needle. After this, an 18-gauge Touhy epidural needle was placed into the L4-L5 interspace and advanced using fluoroscopic guidance and loss of resistance to air until the epidural space was encountered. After confirmation of needle placement in the epidural space, with dye, a solution containing normal saline, 3 mL and Depo-Medrol 80 mg were incrementally injected into the lumbar epidural space. The patient tolerated the procedure well with no complications. The patient was observed in the Pain Clinic and then discharged home neurologically intact. Plan and Disposition:: Patient was discharged without incident.
== END 2022-10-29 09:03 | disposition home or self-care (01) ==
PROVIDERS: PCP Internal Medicine Adolescent Medicine; Visit Provider Nurse Anesthetist, Certified Registered
DX: M51.16 Intervertebral disc disorders with radiculopathy, lumbar region (principal)
CPT/HCPCS: 62323; J1040

== ENCOUNTER → 2022-10-31 10:26 | Outpatient (CLI) | payer OTHER, SELFPAY ==
--- NOTE | 2022-10-31 10:31 | MR_ITS ---
FINAL REPORT CLINICAL HISTORY: NECK PAIN. numbness and tingling down left arm. weakness in hands. neck pain. headache. no injury or trauma FINDINGS: Multiplanar MR imaging of the cervical spine was performed without contrast. On the sagittal T2-weighted images, disc degeneration is seen at multiple levels. There is no evidence of fracture. The vertebral alignment is normal. The cervical spinal cord has an unremarkable appearance without evidence of mass, edema or syrinx. The cervicomedullary junction is normal. C2-3: There is no significant canal stenosis or neural foraminal narrowing. C3-4: There is no significant canal stenosis or neural foraminal narrowing. C4-5: Small central disc protrusion is present. There is no significant canal stenosis or neural foraminal narrowing. C5-6: An annular bulge is present. There is a small central disc protrusion. There is mild central canal stenosis with an AP diameter of the thecal sac of 8 mm. C6-7: There is no significant canal stenosis or neural foraminal narrowing. C7-T1: There is no significant canal stenosis or neural foraminal narrowing. IMPRESSION: Central disc protrusions at C4-5 and C5-6 with mild central canal stenosis at C5-6. Reviewed, Interpreted and Dictated by Benito Simpson III, MD Transcribed by Yumiko Gallardo Authenticated and [facility]
== END ==
PROVIDERS: PCP Internal Medicine Adolescent Medicine; Visit Provider Physician Assistant Medical
DX: M54.2 Cervicalgia (principal); R29.2 Abnormal reflex
CPT/HCPCS: 72141; 76376

== ENCOUNTER → 2022-12-02 08:01 | Outpatient (CLI) | payer OTHER, SELFPAY ==
--- NOTE | 2022-12-02 08:01 | US_ITS ---
PROCEDURE: US TRANSVAGINAL CLINICAL INDICATION: pelvic pain COMPARISON: No exams were available for comparison FINDINGS: UTERUS: 9cm x 5cmx 4cm with a combined endometrial thickness of 3.3mm. There is a 8.4 mm nabothian cyst. A Caesarean section scar is noted. LEFT OVARY: 3dee5myb0.8cm with a volume of 5.1ml.Left ovary has a polycystic appearance. There is a 3 mm hyperechoic area in the center of the left ovary. RIGHT OVARY: 3cmx [id number] with a volume of 6.6ml. Right ovary has a polycystic appearance. There are 2 prominent follicles in the right ovary measuring 1.2 cm and 0.94 cm. Both ovaries are seen and appear normal. They have a polycystic appearance. Doppler flow to both ovaries are seen. There is no fluid in the cul-de-sac. IMPRESSION: 1. Anteverted uterus, normal in shape and size. The endometrium is thin. There is an 8.4 mm nabothian cyst. 2. Both ovaries have a polycystic appearance. Left ovary has a 3 mm hyperechoic area of questionable significance. 3. No fluid in the cul-de-sac. Dictated by: Moise Lanza MD 12/02/2022 11:59 Moise Lanza MD in [place] 12/02/2022 11:59
== END ==
PROVIDERS: PCP Internal Medicine Adolescent Medicine; Visit Provider Obstetrics & Gynecology
DX: R10.2 Pelvic and perineal pain (principal)
CPT/HCPCS: 76830

== ENCOUNTER → 2023-02-05 13:08 | Outpatient (POV) | payer OTHER, SELFPAY ==
--- NOTE | 2023-02-05 13:15 | EXP.PAIN.SOA ---
[facility] Pain Management SOAP Note Subjective:: Patient is a pleasant 37-year-old female who presents today for follow-up of lumbar epidural steroid injection L4-L5 on 10/29/2022. 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 Today she rates her pain a 0 out of 10. She states that initially the injection did not seem to work well however over time it has progressively helped along with several things in her life have changed. 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 Patient does also sleep on her side and did get a new pillow to help with positioning. Patient has had cervical imaging from our last visit and she states the pain in her neck comes and goes with certain movements. Right now it is not bothering her. Patient is currently managed with tizanidine 4 mg at bedtime and states it has provided additional relief. She is also managed with pregabalin 150 mg twice a day and phentermine 37.5 mg daily from outside providers. Her Joe is [phone]. Its been reviewed and appropriate. Review of Systems: General: No recent weight changes, no fever, no sleep disturbances Respiratory: No cough, no shortness of air, no recurring pulmonary infections Cardiovascular/peripheral vascular: No chest pain, no palpitations, no edema, no shortness of breath Gastrointestinal: No new onset incontinence, normal bowel movements reported Genitourinary: No new onset incontinence Musculoskeletal: Low back pain Psychiatric: [Normal mood/affect] Neurological: [Denies weakness in extremities], [denies balance issues] Objective:: Physical Exam: General: Alert and oriented x3, no acute distress, pleasant and cooperative Lungs: Respirations even and unlabored, symmetrical chest expansion Eyes: PERRL Musculoskeletal: Flexion and extension of lumbar [spine] somewhat guarded secondary to pain, [antalgic gait noted] Neurological: Speech clear, no gross sensory deficit Assessment:: Degenerative disc disease of lumbar spine with lumbar radiculopathy symptoms, history of 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 Patient does not need any additional injective therapy at this time. I will send in a 3-month supply of tizanidine 4 mg at bedtime. I did review over with the patient her cervical findings and have discussed that in future if her neck pain does flareup we can do a cervical epidural at C5-C6. We will discuss this at future visits. Patient will return to clinic in 3 months for reevaluation of symptoms and plan of care. Patient has been instructed to contact the clinic with any concerns before the next appointment. Dr. Deal has reviewed this note and agrees with this plan of care. This note was dictated using voice recognition software and make contain errors or omissions. [facility] Disclaimer: The information contained in this section may have been updated after the patient was seen, as this information can be updated by other users. Medical History Anxiety delivery delivered X 2 Chronic pelvic pain in female Dyspareunia Endometriosis Morbid obesity with BMI of 40.0-44.9, adult PCOS (polycystic ovarian syndrome) Perianal fissure Shingles Shingles (herpes zoster) polyneuropathy Surgical History H/O tubal ligation History of tonsillectomy Family History Other Anemia Asthma Cancer Diabetes Hyperlipidemia Hypertension No significant family history Thyroid disorder Social History Smoking Status: Never smoker alcohol
[2023-02-05 13:16] VITALS: BP 150/80; PULSE 65; RESP 18; O2SAT 97; BMI 90.7
== END | disposition home or self-care (01) ==
PROVIDERS: PCP Internal Medicine Adolescent Medicine; Visit Provider Nurse Practitioner Family
DX: M51.16 Intervertebral disc disorders with radiculopathy, lumbar region (principal); Z86.19 Personal history of other infectious and parasitic diseases
CPT/HCPCS: 99212; G0463

== ENCOUNTER → 2023-02-25 12:54 | Outpatient (CLI) | payer OTHER, SELFPAY ==
--- NOTE | 2023-02-25 12:54 | US_ITS ---
PROCEDURE: US TRANSVAGINAL CLINICAL INDICATION: pelvic pain COMPARISON: US US TRANSVAGINAL from 12/02/2022 FINDINGS: Transabdominal sonographic images of the pelvis were obtained. UTERUS: Anteverted measuring 9.4 cm x 4.8 cmx 5.5 cm with a combined endometrial thickness of 9mm. There is a 9.9 mm nabothian cyst. A small posterior fibroid is now seen measuring 9.4 mm x 7.7 mm x 8.1 mm. A scar is visualized. LEFT OVARY: 3.0 cmx3.2 cmx2.9cm with a volume of 14.6ml. There is a 2.5 cm x 1.7 cm x 2.1 cm follicle in the left ovary. RIGHT OVARY: 2.4 cmx 2.0 cmx1.7 cm with a volume of 4.4ml. There are multiple small peripheral follicles. Both ovaries are seen and appear normal. Doppler flow to both ovaries are seen. There is no fluid in the cul-de-sac. IMPRESSION: 1. Anteverted slightly bulky uterus. 9.9 mm posterior fibroid. 2. The left ovary has a 2.5 cm follicle. The right ovary has a polycystic appearance. 3. No fluid in the cul-de-sac. Dictated by: Moise Lanza MD 02/25/2023 17:04 Moise Lanza MD in [place] 02/25/2023 17:04
[2023-02-25 16:06] LABS: Basophils % 0.4 % (0.1-2.0); Eosinophils # 0.4 K/mm3 (0.0-0.4); Eosinophils % 3.1 % (0.1-12.0); Hematocrit 38.7 % (37.0-47.0); Hemoglobin 12.9 g/dL (12.2-16.2); Lymphocytes % 24.7 % (10-50); Mean Corpuscular HGB Conc 33.3 g/dL (31.8-35.4); Mean Corpuscular Hemoglobin 27.4 pg (27.0-31.2); Mean Corpuscular Volume 82.4 fl (81-99); Mean Platelet Volume 11.5 fl (7.4-10.4); Monocytes # 0.4 K/mm3 (0.1-1.0); Neutrophils # 8.4 K/mm3 (1.8-7.8); Neutrophils % 68.9 % (37.0-80.0); Platelet Count 152 K/mm3 (142-424); Red Cell Distribution Width 15.3 % (11.5-17.5); White Blood Count 12.3 K/mm3 (4.8-10.8)
[2023-02-25 16:32] LABS: Chloride 110 mmol/L (98-107); Sodium 140 mmol/L (136-145)
[2023-02-25 16:35] LABS: Alanine Aminotransferase 21 U/L (12-78); Albumin Level 3.9 g/dl (3.5-5.0); Albumin/Globulin Ratio 1.1 (1.1-1.8); Alkaline Phosphatase 74 U/L (38-126); Aspartate Amino Transferase 25 U/L (14-36); Bilirubin,Total 0.3 mg/dl (0.2-1.3); Blood Urea Nitrogen 15 mg/dl (7-17); Calcium 8.6 mg/dl (8.4-10.2); Carbon Dioxide 21 mmol/L (22.0-30.0); Estimated Glomerular Filt Rate 81 ml/min (>60); GFR (African American) 98 ML/MIN (>60); Globulin 3.6 g/dL (1.3-3.2); Glucose 140 mg/dl (74-100); Total Protein,Serum 7.5 g/dl (6.3-8.2)
[2023-02-25 16:55] LABS: HCG,Quantitative < 2 mIU/ml (0-5.42)
== END ==
PROVIDERS: PCP Internal Medicine Adolescent Medicine; Visit Provider Obstetrics & Gynecology
DX: R10.2 Pelvic and perineal pain (principal); Z01.818 Encounter for other preprocedural examination
CPT/HCPCS: 76830; 80053; 84702; 85025

== ENCOUNTER 2023-02-28 06:07 | Day surgery (SDC) | payer OTHER, SELFPAY ==
[2023-02-26 17:03] VITALS: BMI 41.7
[2023-02-28] VITALS (9 sets, daily range): BP systolic 94–134; BP diastolic 56–79; PULSE 71–96; RESP 16–18; TEMP 36.2–37; O2SAT 95–99
--- NOTE | 2023-02-28 07:33 | EXP.ANES.CKL ---
[facility] Disclaimer: The information contained in this section may have been updated after the patient was seen, as this information can be updated by other users. Medical History Adenocarcinoma in situ of endocervix Anxiety delivery delivered X 2 Chronic pelvic pain in female Dyspareunia Endometriosis LGSIL on Pap smear of cervix Morbid obesity with BMI of 40.0-44.9, adult PCOS (polycystic ovarian syndrome) Perianal fissure Shingles Shingles (herpes zoster) polyneuropathy Surgical History H/O tubal ligation History of delivery History of cholecystectomy History of tonsillectomy Family History Other Anemia Asthma Cancer Diabetes Hyperlipidemia Hypertension No significant family history Thyroid disorder Social History Smoking Status: Never smoker alcohol intake: never substance use type: denies use current occupational status: employed Travel in the last 8 weeks: None household members: other housing: house current occupational exposures/hazards: Yes caffeine: Yes [facility] Anesthesia Checklist Patient Identification Patient Identification: Verbal (Name & ) Structural Data Admitted From: Home Planned Operative Procedure/s: cone bx Consent for Planned Operative Procedure(s) Verified: Yes NPO Status Verified Time NPO: 00:00 Additional verifications Anesthesia Reactions: Yes (nausea) Hx Blood Transfusions: No Blood Transfusion Reaction: No Airway Assessment Mallampati Score:: Class II C-Spine Mobility Assessed: Yes TMJ Mobility Assessed: Yes Dentition: Good Dentition Neurological Assessment Level of Consciousness: Awake, Alert and Appropriate Anesthesia Plan Anesthesia Risk discussed: Yes Anesthesia Plan: Verified ASA Class: II Anesthesia Type: General
--- NOTE | 2023-02-28 07:56 | EXP.ANES.CKL ---
[facility] Disclaimer: The information contained in this section may have been updated after the patient was seen, as this information can be updated by other users. Medical History Adenocarcinoma in situ of endocervix Anxiety delivery delivered X 2 Chronic pelvic pain in female Dyspareunia Endometriosis LGSIL on Pap smear of cervix Morbid obesity with BMI of 40.0-44.9, adult PCOS (polycystic ovarian syndrome) Perianal fissure Shingles Shingles (herpes zoster) polyneuropathy Surgical History H/O tubal ligation History of delivery History of cholecystectomy History of tonsillectomy Family History Other Anemia Asthma Cancer Diabetes Hyperlipidemia Hypertension No significant family history Thyroid disorder Social History (Updated 02/28/23 @ 07:34 by Yonug Mallory CRNA) Smoking Status: Never smoker alcohol intake: never substance use type: denies use current occupational status: employed Travel in the last 8 weeks: None household members: other housing: house current occupational exposures/hazards: Yes caffeine: Yes [facility] Anesthesia Checklist Patient Identification Patient Identification: Arm Band Structural Data Admitted From: Home Planned Operative Procedure/s: Cold Knife Conization Consent for Planned Operative Procedure(s) Verified: Yes Verified Documents: Surgical Consent and History and Physical NPO Status Verified Time NPO: 00:00 Additional verifications Anesthesia Reactions: Yes (nausea) Hx Blood Transfusions: No Blood Transfusion Reaction: No Airway Assessment Mallampati Score:: Class II C-Spine Mobility Assessed: Yes TMJ Mobility Assessed: Yes Dentition: Good Dentition Neurological Assessment Level of Consciousness: Awake and Alert Anesthesia Plan Anesthesia Risk discussed: Yes Anesthesia Plan: Verified ASA Class: II Anesthesia Type: General
--- NOTE | 2023-02-28 08:04 | EXP.OP.NOTE ---
Date of procedure: 02/28/23 Pre-op Diagnosis:: 1. Adenocarcinoma in situ of endocervix Post-op Diagnosis:: 1. Adenocarcinoma in situ of endocervix Procedure performed:: Cold Knife Conization Surgeon:: Selina Issa DO Compressor Mechanic Bus(s):: N/a WELDING PANTOGRAPH OPERATOR:: Flip Llanos Anesthesia: GETA Estimated blood loss (mL): 5 Clinical Note:: Ms Ingrid Beatty is a very pleasant 37 yo P2012 who presents for preop visit. Pap smear 01/22/23 demonstrated LSIL. Colposcopy with cervical biopsy and ECC was performed. ECC demonstrated strips of adenocarcinoma in situ. Operative findings:: 1. On bimanual exam, uterus slightly enlarged, normal shape, midline position. No adnexal masses palpated 2. Grossly normal appearing cervix Operative note:: Risks, benefits and alternatives were discussed with the patient. Risks include but are not limited to bleeding, infection, and VTE. Patient voiced understanding and agreed to proceed. She was wheeled back to the operating room and placed under general anesthesia without difficulty. She was placed in dorsal lithotomy position and prepped and draped in the normal sterile fashion. Straight catheter was used to drain the bladder. A weighted Auvard as inserted into the vagina. A single tooth tenaculum was used to grasp anterior lip of the cervix. Cervix was injection with 1 % lidocaine without epinephrine. Angle sutures of 2-0 Vicryl were placed at 3 o'clock and 9 o'clock positions of the cervix. Cone biopsy was excised with an 11 blade scalpel. After excision of biopsy specimen, the biopsy base was cauterized with Bovi cautery to assure hemostasis and then uterine sound was inserted through cerivcal os to ensure patency. Hemostasis was noted. Surgicel snow was placed over cauterized biopsy base. All instruments were removed from the vagina. Tenaculum site was hemostatic. Patient was awaken from anesthesia without difficulty. She was transported to recovery room in stable condition. Patient will be discharged home when awake and ambulating. She was also given instructions to follow-up in the office in 2 weeks. Condition: stable Disposition: same day Complications:: None
--- NOTE | 2023-02-28 10:16 | EXP.ANES.II ---
[facility] Anesthesia Record Part II Anesthesia Record Part II Discharge Time: 08:20 Destination: Surgical Day Care (OP Surgery) PACU nurse assessment reviewed?: Yes Patient Condition:: Good Anesthesia Complications:: None Swallowing reflex intact?: Yes Airway Patency: Patent Cyanosis?: No Blood Pressure: 94/60 SaO2: 97 Respiratory Rate: 16 Pulse Rate: 75 Temperature: 98.1 F Mental Status: Alert & Oriented Pain level:: 2 Nausea and/or vomitting:: None Intake, IV Amount: 0 Hydration: Adequate
== END 2023-02-28 08:55 | disposition home or self-care (01) ==
PROVIDERS: PCP Internal Medicine Adolescent Medicine; Visit Provider Obstetrics & Gynecology
PROC: 0UBC7ZZ Excision of Cervix, Via Natural or Artificial Opening (ICD-10-PCS; CPT 57520; principal; 2023-02-28 07:30)
DX: D06.0 Carcinoma in situ of endocervix (principal)
CPT/HCPCS: 57520; J2405

== ENCOUNTER 2023-03-11 16:03 | Emergency (ER) | payer OTHER, SELFPAY ==
[2023-03-11 17:15] VITALS: BP 155/76; PULSE 85; RESP 20; TEMP 36.9; O2SAT 96; BMI 41.1
--- NOTE | 2023-03-11 17:31 | EXP.UTC ---
Discharge Plan Disposition Patient Disposition: Home, Self-Care Condition: Good Prescriptions Prescriptions: New amoxicillin-pot clavulanate 875-125 mg Tablet 1 tab PO Q12H Qty: 20 0RF prednisone [prednisone] 20 mg tablet 20 mg PO BID 5 Days Qty: 10 0RF fluticasone propionate [Flonase Allergy Relief] 50 mcg/actuation spray,suspension 1 - 2 spray intranasal DAILY Qty: 16 0RF Rx Instructions: administer into each nostril guaifenesin [Mucinex] 600 mg tablet extended release 12hr 1,200 mg PO BID PRN (Reason: cough) Qty: 20 0RF No Action sumatriptan succinate 100 mg tablet 1 tab PO NEEDED PRN (Reason: .) Patient Comments: TAKE 1 TABLET BY MOUTH AT ONSET OF MIGRAINE HEADACHE. MAY REPEAT 1 DOSE IN 2 HOURS IF NEEDED. DO NOT EXCEED 2 TABLETS IN 24 HOURS. famotidine [Pepcid AC] 20 mg tablet 20 mg PO DAILY fluticasone furoate-vilanterol [Breo Ellipta] 200-25 mcg/dose blister with device 1 inh inhalation DIRECTED pregabalin [Lyrica] 150 mg capsule 150 mg PO BID ondansetron 4 mg tablet,disintegrating 4 mg PO Q8H Myfembree 40-1-0.5 mg tablet 1 tab PO DAILY albuterol sulfate 8.5 GM HFA aerosol inhaler 1 inh inhalation NEEDED PRN (Reason: breathing) Patient Comments: INHALE 2 PUFFS BY MOUTH NEEDED tizanidine [Zanaflex] 4 mg tablet 4 mg PO HS Qty: 30 2RF Ozempic 0.25 mg or 0.5 mg (2 mg/3 mL) pen injector See Rx Instructions .ROUTE .COMPLEX Rx Instructions: INJECT 0.5 MG SUBCUTANEOUSLY ONCE A WEEK ibuprofen 800 mg tablet 800 mg PO Q8H PRN (Reason: pain) Qty: 20 0RF hydrocodone-acetaminophen 5-325 mg tablet 1 tab PO Q6H PRN (Reason: pain) Qty: 8 0RF Referrals Follow up/Referrals: Cm Barth MD [Primary Care Provider] - See instructions Activity Restrictions/Add. Instructions Additional Instructions/Restrictions: *Monitor Temp, Over the counter Motrin or Tylenol as directed/as needed Tylenol every 4 hours and Motrin every 6 hours (as long as your family doctor has told you that you can take it) for fever or pain. and straight to ER if unable to lower temp less than 101.0 after medication given *Warm salt water gargles may help to soothe the throat *Throat Lozenges? *Warm fluids like tea with honey may help to soothe the throat? *Sleep elevated *Humidifier/Vaporizer *Flonase 2 sprays in each nostril daily but be aware that it may take 2-3 days before you notice improvement Take medication as prescribed Follow up IMMEDIATELY for new or worsening symptoms or no Noticeable improvement over the next 48-72 hours. 911 for difficulty breathing or swallowing Clinical Impressions Clinical Impression: Sinusitis Qualifiers: Sinusitis location: unspecified location Chronicity: unspecified Qualified Code(s): J32.9 - Chronic sinusitis, unspecified Instructions Patient Instructions: DI for Sinusitis, Sinusitis Discharge ED Provider: Татьяна Jimenez [facility] [place] General Stated complaint: sinus pain, Cough, headache Mode of Arrival: Ambulatory Source of Information: Patient Limitations: No Limitations Time Seen by Provider: 03/11/23 17:34 Description of Symptoms (Recalled from Triage Doc. by RN): PATIENT C/O EAR AND SINUS CONGESTION, COUGH, LOW-GRADE FEVER, AND THICK YELLOW SPUTUM THAT STARTED FRIDAY NIGHT HEENT Symptoms (Recalled from RN notes): Yes Resp Symptoms (Recalled from RN notes): Yes Skin Symptoms (Recalled from RN notes): No MS Symptoms (Recalled from RN notes): No Functional Status (Recalled from RN notes): WNL History of Present Illness Provider Complaint: Patient states that she has been having pain and pressure in ears, sinus pain and pressure, cough, pressure behind her eyes and cough since Friday night States that she has tried OTC medications and they havent helped States that he mucous changed from white to thick yellowish color and feels like
[2023-03-11 17:42] VITALS: BP 155/76; PULSE 85; RESP 20; TEMP 36.9; O2SAT 96
== END 2023-03-11 17:46 | disposition home or self-care (01) ==
PROVIDERS: Emergency Provider Nurse Practitioner; PCP Internal Medicine Adolescent Medicine
DX: J01.90 Acute sinusitis, unspecified (principal); H66.92 Otitis media, unspecified, left ear; F41.9 Anxiety disorder, unspecified; E66.01 Morbid (severe) obesity due to excess calories; Z68.41 Body mass index [BMI] 40.0-44.9, adult
CPT/HCPCS: 99204; 99212; G0463

== ENCOUNTER → 2023-05-08 16:11 | Outpatient (CLI) | payer OTHER, SELFPAY ==
[2023-05-08 23:29] LABS: Basophils # 0.1 K/mm3 (0-0.2); Basophils % 0.5 % (0.1-2.0); Eosinophils # 0.6 K/mm3 (0.0-0.4); Eosinophils % 4.2 % (0.1-12.0); Hemoglobin 13.4 g/dL (12.2-16.2); Lymphocytes # 4.4 K/mm3 (0.7-4.5); Lymphocytes % 32.8 % (10-50); Mean Corpuscular HGB Conc 32.7 g/dL (31.8-35.4); Mean Corpuscular Hemoglobin 27.4 pg (27.0-31.2); Mean Corpuscular Volume 83.7 fl (81-99); Mean Platelet Volume 11.5 fl (7.4-10.4); Monocytes # 0.4 K/mm3 (0.1-1.0); Neutrophils % 59.6 % (37.0-80.0); Platelet Count 188 K/mm3 (142-424); Red Cell Distribution Width 15.4 % (11.5-17.5); White Blood Count 13.4 K/mm3 (4.8-10.8)
[2023-05-08 23:33] LABS: Alanine Aminotransferase 21 U/L (12-78); Albumin Level 4.7 g/dl (3.5-5.0); Albumin/Globulin Ratio 1.2 (1.1-1.8); Alkaline Phosphatase 93 U/L (38-126); Anion Gap 10.9 mEq/L (5-15); Aspartate Amino Transferase 36 U/L (14-36); Bilirubin,Total 0.4 mg/dl (0.2-1.3); Blood Urea Nitrogen 16 mg/dl (7-17); Calcium 9.1 mg/dl (8.4-10.2); Carbon Dioxide 27 mmol/L (22.0-30.0); Chloride 102 mmol/L (98-107); Estimated Glomerular Filt Rate 94 ml/min (>60); GFR (African American) 114 ML/MIN (>60); Globulin 3.8 g/dL (1.3-3.2); Glucose 93 mg/dl (74-100); Potassium 3.9 mmoL/L (3.5-5.1); Sodium 136 mmol/L (136-145); Total Protein,Serum 8.5 g/dl (6.3-8.2)
[2023-05-08 23:50] LABS: HCG,Quantitative < 2 mIU/ml (0-5.42)
== END ==
PROVIDERS: PCP Obstetrics & Gynecology; Visit Provider Obstetrics & Gynecology
DX: D06.0 Carcinoma in situ of endocervix (principal)
CPT/HCPCS: 80053; 84702; 85025

== ENCOUNTER 2023-05-15 06:26 | Observation (INO) | payer OTHER, SELFPAY ==
[2023-05-15] VITALS (23 sets, daily range): BP systolic 104–145; BP diastolic 52–87; PULSE 61–113; RESP 18–19; TEMP 36.3–43; O2SAT 95–100; BMI 40.7
[2023-05-15] MEDS: GABAPENTIN 600MG TABLET 600 MG PO (06:24)
[2023-05-15] MEDS: ACETAMINOPHEN 500MG TAB 1000 MG PO ×4 (06:24→23:43)
[2023-05-15] MEDS: LACTATED RINGERS 1000ML 1,000 ML 25 ML IV (06:25)
[2023-05-15] MEDS: CELECOXIB 100MG CAPSULE 400 MG PO (06:37)
[2023-05-15 06:42] LABS: Basophils # 0.1 K/mm3 (0-0.2); Basophils % 0.6 % (0.1-2.0); Eosinophils # 0.6 K/mm3 (0.0-0.4); Eosinophils % 4.3 % (0.1-12.0); Hematocrit 37.3 % (37.0-47.0); Hemoglobin 12.2 g/dL (12.2-16.2); Lymphocytes # 4.1 K/mm3 (0.7-4.5); Lymphocytes % 30.8 % (10-50); Mean Corpuscular HGB Conc 32.6 g/dL (31.8-35.4); Mean Corpuscular Hemoglobin 26.8 pg (27.0-31.2); Mean Platelet Volume 11.7 fl (7.4-10.4); Monocytes # 0.4 K/mm3 (0.1-1.0); Monocytes % 3.2 % (1.7-9.3); Neutrophils # 8.1 K/mm3 (1.8-7.8); Neutrophils % 61.1 % (37.0-80.0); Platelet Count 155 K/mm3 (142-424); Red Blood Count 4.55 M/mm3 (4.20-5.40); Red Cell Distribution Width 15.5 % (11.5-17.5); White Blood Count 13.3 K/mm3 (4.8-10.8)
--- NOTE | 2023-05-15 06:54 | P.PNANES_ITS ---
[facility] Disclaimer: The information contained in this section may have been updated after the patient was seen, as this information can be updated by other users. Medical History Abnormal uterine bleeding Adenocarcinoma in situ of endocervix Anxiety delivery delivered Chronic pelvic pain in female Dyspareunia Endometriosis LGSIL on Pap smear of cervix Morbid obesity with BMI of 40.0-44.9, adult PCOS (polycystic ovarian syndrome) Perianal fissure Shingles Shingles (herpes zoster) polyneuropathy Surgical History H/O tubal ligation History of delivery History of cholecystectomy History of colonoscopy History of tonsillectomy S/P cone biopsy of cervix Family History Other Anemia Asthma Cancer Diabetes Hyperlipidemia Hypertension No significant family history Thyroid disorder Social History (Updated 05/15/23 @ 06:22 by Uri Mercado RN) Smoking Status: Never smoker alcohol intake: never substance use type: denies use current occupational status: employed Travel in the last 8 weeks: None household members: other housing: house current occupational exposures/hazards: Yes caffeine: Yes [facility] Anesthesia Checklist Patient Identification Patient Identification: Arm Band Structural Data Admitted From: Home Planned Operative Procedure/s: Total Laparoscopic Hysterectomy, BSO Consent for Planned Operative Procedure(s) Verified: Yes Verified Documents: Surgical Consent and History and Physical NPO Status Verified Time NPO: 00:00 Additional verifications Anesthesia Reactions: Yes (nausea) Hx Blood Transfusions: No Blood Transfusion Reaction: No Airway Assessment Mallampati Score:: Class II C-Spine Mobility Assessed: Yes TMJ Mobility Assessed: Yes Dentition: Good Dentition Neurological Assessment Level of Consciousness: Awake and Alert Anesthesia Plan Anesthesia Risk discussed: Yes Anesthesia Plan: Verified ASA Class: III Anesthesia Type: General
[2023-05-15] MEDS: CLINDAMYCIN PHOSPHATE 900 MG in 0.9 % SODIUM CHLORIDE 50 ML 100 MG IV (07:16)
[2023-05-15] MEDS: GENTAMICIN SULFATE 400 MG in 0.9 % SODIUM CHLORIDE 100 ML 100 MG IV (07:16)
--- NOTE | 2023-05-15 07:17 | P.HP_ITS ---
History of Present Illness *Admission Date: 05/15/23 *Reason for visit:: Scheduled surgery *History of present illness: Mrs Ingrid Beatty is a very pleasant 37 yo P2002 who presents to [facility] for scheduled surgery. She complains of chronic pelvic pain. She admits to history of ovarian cysts. Periods are very irregular. She may have 2-3 periods a year. Bleeding is often heavy and can last 2-3 weeks. LMP 04/07/23. Period was very heavy and painful but only lasted about one week. She admits to pain with intercourse at times and then pain following intercourse for 1-2 days at times. She has family history of endometriosis. Heating pad offers some relief. She does not take a lot of NSAIDs. She has tried combined OCPs in the past and they did not make her feel well. She tried Mirena IUD in the past and the hormones made her feel bad as well as IUD became imbedded in uterine wall and removal was difficult. She does not like the way hormones make her feel. She has history of tubal ligation. She tried Orilissa for 3 months. The first 3 weeks she felt better and then pain returned. Pap smear 01/22/23 was LGSIL. Colposcopy with cervical biopsy and ECC was performed. ECC demonstrated strips of adenocarcinoma in situ. Cold Knife Cone was performed and pathology demonstrated adenocarcinoma in situ with accompanying HGSIL. Adenocarcinoma in situ involves the inked margins and deep stromal margins. Inked margins negative for HGSIL. She desires definitive surgical intervention with hysterectomy. She would like me to decided whether or not to take her ovaries once I evaluate them. If they look healthy she is okay for them to stay but if they look abnormal she would like me to take one or both. Surgical history significant for x 2, tubal ligation and cholecystectomy. [facility] Disclaimer: The information contained in this section may have been updated after the patient was seen, as this information can be updated by other users. Medical History Abnormal uterine bleeding Adenocarcinoma in situ of endocervix Anxiety delivery delivered Chronic pelvic pain in female Dyspareunia Endometriosis LGSIL on Pap smear of cervix Morbid obesity with BMI of 40.0-44.9, adult PCOS (polycystic ovarian syndrome) Perianal fissure Shingles Shingles (herpes zoster) polyneuropathy Surgical History H/O tubal ligation History of delivery History of cholecystectomy History of colonoscopy History of tonsillectomy S/P cone biopsy of cervix Family History Other Anemia Asthma Cancer Diabetes Hyperlipidemia Hypertension No significant family history Thyroid disorder Social History Smoking Status: Never smoker alcohol intake: never substance use type: denies use current occupational status: employed Travel in the last 8 weeks: None household members: other housing: house current occupational exposures/hazards: Yes caffeine: Yes Review of Systems Review of Systems Review of systems:: pertinent systems reviewed and negative unless documented below *Gastrointestinal Gastrointestinal: Reports abdominal pain *Genitourinary Genitourinary: Reports abnormal vaginal bleeding, Reports dysmenorrhea, Reports dyspareunia, Reports menorrhagia and Reports pelvic pain Meds Home Medications and Allergies Home Medications Medication Instructions Recorded Confirmed Type albuterol sulfate 90 mcg/actuation 1 inh inhalation NEEDED PRN 01/30/18 05/08/23 History aerosol inhaler breathing sumatriptan succinate 100 mg tablet 1 tab PO NEEDED PRN . 05/31/19 05/08/23 History famotidine 20 mg tablet (Pepcid AC) 20 mg PO DAILY STOMACH 05/31/22 05/08/23 History fluticasone furoate 200 1 inh inhalation DIRECTED 05/31/22 05/08/23 History mcg-vilanterol 25 mcg/dose Breathing problems inhalation powder (Breo Ellipta) pregabalin 150 mg capsule (Lyrica) 150 mg PO BID Pain 01/22/23 05/08/23 History tizanidine 4 mg tablet (Zanaflex) 4 mg PO HS . #30 tabs 02/05/23 05/08/23 Rx ibuprofen 800 mg tablet 800 mg PO Q8H PRN pain #20 tabs 02/28/23 05/08/23 Rx fluticasone propionate 50 1 - 2 spray intranasal DAILY PRN 05/08/23 History mcg/actuation nasal allergies spray,suspension (Flonase Allergy Relief) ondansetron 4 mg disintegrating 4 mg PO Q8H PRN Nausea 12/21/23 12/21/23 History tablet New Prescriptions to Start Prescriptions: Allergies Allergy/AdvReac Type Severity Reaction Status Date / Time cephalexin [From Keflex] Allergy Intermediate Verified 05/15/23 06:22 cinnamon Allergy Verified 05/15/23 06:22 Exam Data for Last 24 hours Vital signs and Labs for Last 24 Hours: Temp Pulse Resp BP Pulse Ox O2 Del Method 97.5 F L 95 H 18 122/76 99 Room Air 05/15/23 06:25 05/15/23 06:25 05/15/23 06:25 05/15/23 06:25 05/15/23 06:25 05/15/23 06:25 Laboratory Results - last 24 hr 05/15/23 06:30: WBC 13.3 H, RBC 4.55, Hgb 12.2, Hct 37.3, MCV 82.0, MCH 26.8 L, MCHC 32.6, RDW 15.5, Plt Count 155, MPV 11.7 H, Neut % (Auto) 61.1, Lymph % (Auto) 30.8, [place] % (Auto) 3.2, Eos % (Auto) 4.3, Baso % (Auto) 0.6, Neut # (Auto) 8.1 H, Lymph # (Auto) 4.1, [place] # (Auto) 0.4, Eos # (Auto) 0.6 H, Baso # (Auto) 0.1 I & O for Last 24 hours: Intake & Output 05/12/23 05/13/23 05/14/23 05/15/23 23:59 23:59 23:59 23:59 Weight 230 lb Constitutional Constitutional: no acute distress and cooperative *Routine HEENT Exam Head: Present normocephalic and atraumatic Eye: Absent conjunctivae pink ENT: Present mucous membranes moist *Routine Neck Exam Neck: Present full ROM *Routine Respiratory Exam Respiratory: Present CTA bilaterally and normal respiratory effort *Routine Cardiovascular Exam Cardiovascular: Present RRR *Routine Abdominal Exam Abdominal: Present soft and obese; Absent tenderness or distended *Routine Rectal Exam Rectal:: deferred *Routine Genitalia Exam Genitalia:: normal female *Routine Extremities Exam Extremities: Present full ROM; Absent edema or calf tenderness *Routine Neurological Exam Neurological: Present alert, oriented X3 and moving all extremities Routine Psychiatric Exam Psychiatric: Present normal affect and cooperative Assessment and Plan *Assessment and plan (1) Chronic pelvic pain in female: Status: Acute Category: Medical Code(s): R10.2 - Pelvic and perineal pain; G89.29 - Other chronic pain (2) Abnormal uterine bleeding: Status: Acute Category: Medical Code(s): N93.9 - Abnormal uterine and vaginal bleeding, unspecified (3) Adenocarcinoma in situ of endocervix: Status: Acute Category: Medical Code(s): D06.0 - Carcinoma in situ of endocervix (4) PCOS (polycystic ovarian syndrome): Status: Acute Category: Medical Code(s): E28.2 - Polycystic ovarian syndrome (5) Dyspareunia: Status: Acute Category: Medical (6) Endometriosis: Status: Acute Category: Medical Code(s): N80.9 - Endometriosis, unspecified (7) Morbid obesity with BMI of 40.0-44.9, adult: Status: Acute Category: Medical Code(s): E66.01 - Morbid (severe) obesity due to excess calories; Z68.41 - Body mass inde x [BMI] 40.0-44.9, adult Plan Reviewed TLH, BS, possible YUNIER, BSO in detail. She would like me to decided whether or not to take her ovaries once I evaluate them. If they look healthy she is okay for them to stay but if they look abnormal she would like me to take one or both. Discussed increased possibility of YUNIER secondary to ultrasound finding of bulky uterus. She voiced understanding. Reviewed risks, benefits, alternatives, expectations and possible complications of surgery. Risks include but are not limited to bleeding; infection; uterine perforation; damage to adjacent structures (bowel, bladder, nerves, blood vessels, etc) (possibly requiring further intervention and/or longer hospital stay); VTE; risks with anesthesia; and risk of . All questions addressed and answered. Patient voiced understanding of risks and possible complications. Patient desires to proceed with surgery. Consent form signed. Proceed with scheduled TLH, BS, possible YUNIER, BSO. Discussed postop enhanced recovery plan with gum chewing, Miralax BID for first 3 days postop, early ambulation and early feeding. Discussed pain management plan. She will need vaginal pap smears for at least 20 years s/p hysterectomy. Proceed with scheduled TLH, BS, possible YUNIER, BSO, possible cystoscopy
--- NOTE | 2023-05-15 07:49 | HMH.PHAINT1 ---
Pharmacy Intervention Comments: MEDICATION RECONCILIATION COMPLETED ON PATIENT USING EXTERNAL FILL HISTORY FROM PHARMACY. -STEVEN REY, ISABELLED
[2023-05-15] MEDS: BUPIVACAINE 0.5% 30ML VIAL 150 MG (07:53)
--- NOTE | 2023-05-15 10:01 | P.OP_ITS ---
Date of procedure: 05/15/23 Pre-op Diagnosis:: 1. Chronic pelvic pain in female 2. Abnormal uterine bleeding 3. Adenocarcinoma in situ of endocervix 4. PCOS (polycystic ovarian syndrome) 5. Dyspareunia 6. Endometriosis 7. Morbid obesity with BMI of 40.0-44.9, adult Post-op Diagnosis:: 1. Chronic pelvic pain in female 2. Abnormal uterine bleeding 3. Adenocarcinoma in situ of endocervix 4. PCOS (polycystic ovarian syndrome) 5. Dyspareunia 6. Endometriosis 7. Morbid obesity with BMI of 40.0-44.9, adult 8. Intraabdominal adhesions Procedure performed:: Total Laparoscopic Hysterectomy, Bilateral salpingectomy Surgeon:: Selina Issa DO Zyglo Inspector(s):: Maisha Dutta DO TRACK CAR OPERATOR:: Other Anesthesia: GETA Estimated blood loss (mL): 150 Clinical Note:: Mrs Ingrid Beatty is a very pleasant 37 yo P2002 who presents to [facility] for scheduled surgery. She complains of chronic pelvic pain. She admits to history of ovarian cysts. Periods are very irregular. She may have 2-3 periods a year. Bleeding is often heavy and can last 2-3 weeks. LMP 04/07/23. Period was very heavy and painful but only lasted about one week. She admits to pain with intercourse at times and then pain following intercourse for 1-2 days at times. She has family history of endometriosis. Heating pad offers some relief. She does not take a lot of NSAIDs. She has tried combined OCPs in the past and they did not make her feel well. She tried Mirena IUD in the past and the hormones made her feel bad as well as IUD became imbedded in uterine wall and removal was difficult. She does not like the way hormones make her feel. She has history of tubal ligation. She tried Orilissa for 3 months. The first 3 weeks she felt better and then pain returned. Pap smear 01/22/23 was LGSIL. Colposcopy with cervical biopsy and ECC was performed. ECC demonstrated strips of adenocarcinoma in situ. Cold Knife Cone was performed and pathology demonstrated adenocarcinoma in situ with accompanying HGSIL. Adenocarcinoma in situ involves the inked margins and deep stromal margins. Inked margins negative for HGSIL. She desires definitive surgical intervention with hysterectomy. She would like me to decided whether or not to take her ovaries once I evaluate them. If they look healthy she is okay for them to stay but if they look abnormal she would like me to take one or both. Surgical history significant for x 2, tubal ligation and cholecystectomy. Operative findings:: 1. On bimanual exam, uterus normal size and shape, midposition. No adnexal masses palpated 2. On laparoscopic exam, omentum adhered to anterior abdominal wall under umbilicus, grossly normal appearing liver and bowel. Uterus, bilateral fallopian tubes and ovaries grossly normal. Operative note:: Discussed risks, benefits, alternatives, expectations and possible complications of surgery. All questions addressed and answered. Patient wished to proceed with surgery. Patient was wheeled back to the operating room and placed under general anesthesia without difficulty. She was placed in the dorsal lithotomy position. She was prepped and draped in normal sterile fashion. Beginning at the vagina, a mitchell catheter was inserted into the bladder and draining clear urine prior to the start of the procedure. Weighted Auvuard was placed in the vaginal vault. Anterior lip of the cervix was grasped with single tooth tenaculum. Uterus sounded to 8. Erwin dilators were used to dilate the cervix. Advincula uterine manipulator was inserted into the cervix with the colpotomy cup covering the cervix. Single tooth tenaculum was removed prior to complete placement of colpotomy cup over cervix. Uterine balloon was filled with 10cc of air. Vaginal balloon was filled with 60 cc of air. Weighted Auvard was removed. Attention was then turned to the abdomen. Skin just below the umbilicus was injected with 0.5% marcaine. A 1.5 cm infraumbilical incision was made. Veress needle was tested and inserted intrabdominally. Opening pressure was 9 mm Hg. The peritoneal cavity was insulflated to 15 mm Hg. Laparoscope within 11 mm blunt trocar was inserted intrabdominally under direct visualization. Obturator and scope were removed. Laparoscope was inserted into the trocar sleeve. Abdomen and pelvis was viewed in its entirety. Examination of the peritoneal cavity revealed no signs of injury from entry and normal anatomic structures. See findings above. Pictures were taken. Bowel was swept cephalad with blunt probe. LLQ port site was transilluminated and injected with 0.5% marcaine. A 1.5 cm incision was made and 11 mm trocar was inserted intraabdominally under direct laparoscopic visualization. Obturator was removed and sleeve was left in place. Same procedure was performed in RLQ. Left fallopian tube was grasped at fimbriated end. Ligasure Hook was used to transect the left mesosalpinx, mesovarium and ovarian ligament. Left fallopian tube was transected at cornua of uterus and removed from the body and off of the sterile field to be sent to pathology for review. Transection was carried through the Broad ligament. Same procedure was carried out on the contralateral side including transecting the right fallopian tube and removing it from the body and off of the sterile field. Both ovaries left in situ. Care was taken to slowly separate the bladder off of the lower uterine segment with sharp and blunt dissection. Once the bladder was appropriately dissected off of the lower uterine segment. Bilateral uterine arteries were clamped and cut using the Ligasure. Transection was carried through the cardinal ligament bilaterally. Hemostasis was noted. At the level of the colpotomy cup, the vaginal vault was incised circumferentially with the Ligasure monopolar hook. The uterus and cervix was pulled into the vagina and left in the vagina to hold pneumoperitoneum. The vaginal vault was closed with the Endostitch V-Lock barbed stitch. Pelvis was irrigated. Intraabdominal pressure was decreased to 5 mm Hg. Hemostasis was noted. Surgicel powder was applied over bilateral pedicles and closed vaginal vault. RLQ and LLQ trocars were removed under direct laparoscopic visualization. Pneumoperitoneum was released into the atmosphere. Infraumbilical trocar was removed under direct laparoscopic visualization to ensure no herniation of bowel or omentum. Skin incisions were reapproximated with 3-0 Vicryl. Dermabond was applied over closed skin incisions. Attention was turned to the vagina. Specimen was removed from the vagina and handed off of the sterile field. Catheter was removed from the bladder. Patient was awakened from anesthesia and taken to recovery in stable condition. Condition: stable Disposition: floor Specimens:: 1. Uterus and cervix 2. Bilateral fallopian tubes Complications:: None
--- NOTE | 2023-05-15 10:02 | EXP.ANES.I ---
[facility] Anesthesia Record Part I Anesthesia Record I Intake, IV Amount: 2,100 Hydration: Adequate Estimated blood loss (mL): 150 Urine output (mL): 250 Blood Products used (#): none Blood Pressure: 116/59 SaO2: 96 Pulse Rate: 113 Airway Patency: Patent Respiratory Rate: 18 Temperature: 97.3 F Patient is:: Drowsy and Stable
[2023-05-15] MEDS: ONDANSETRON 4MG/2ML VIAL 4 MG (10:05)
[2023-05-15] MEDS: MORPHINE 2MG/ML SYRINGE 1 MG IV ×3 (10:15→10:25)
--- NOTE | 2023-05-15 10:32 | SUR.PHASEI ---
Pt complained of pain in pacu. at 1015- 1mg of morphine was given for rating of 3 1020- 1mg of morphine was given for rating of 3 1025- 1mg of morphine was given for rating of 3 1030- 1mg of morphine was given for rating of 3 at 1034 pain was rated at 1-2. called report to darcie wharton rn
--- NOTE | 2023-05-15 11:30 | PC.NURSE ---
Family x3 at bs. Denies any needs at this time.
[2023-05-15] MEDS: KETOROLAC 30MG/ML VIAL 30 MG IV ×3 (12:12→23:43)
--- NOTE | 2023-05-15 12:13 | PC.NURSE ---
Medicated with scheduled Tylenol and Toradol. Rates pain at 5 / 10 at this time.
--- NOTE | 2023-05-15 13:15 | PC.NURSE ---
Abdominal binder applied for comfort.
--- NOTE | 2023-05-15 14:29 | PC.NURSE ---
BS hypoactive in rt upper, rt lower and left lower quad of abdomen. Absent bs in left upper quad at this time.
[2023-05-15] MEDS: OXYCODONE 5MG IMMEDIATE RELEASE TABLET 5 MG PO ×2 (15:27→21:12)
[2023-05-15] MEDS: CLINDAMYCIN PHOSPHATE/D5W 900 MG/50 ML PIGGYBACK 100 MG IV ×2 (15:27→23:43)
--- NOTE | 2023-05-15 15:43 | PC.NURSE ---
Medicated with Oxy 5mg PO for pain 11/25. Instructed pt to let me know if this did not help with pain management and that her next scheduled dose of pain medication will be around 1800. V/U.
--- NOTE | 2023-05-15 19:29 | PC.NURSE ---
Report given to RHONDA Mcdonald.
[2023-05-15] MEDS: ENOXAPARIN 40MG/0.4ML SYRINGE 40 MG SQ (21:12)
[2023-05-15] MEDS: POLYETHYLENE GLYCOL 3350 17 GM PACKET PO (21:12)
[2023-05-16] MEDS: OXYCODONE 5MG IMMEDIATE RELEASE TABLET 5 MG PO ×3 (01:17→10:14)
[2023-05-16 05:15] VITALS: BP 102/67; PULSE 74; RESP 16; TEMP 36.7; O2SAT 97
[2023-05-16 05:28] LABS: Basophils % 0.2 % (0.1-2.0); Eosinophils # 0.1 K/mm3 (0.0-0.4); Eosinophils % 0.4 % (0.1-12.0); Hematocrit 31.4 % (37.0-47.0); Lymphocytes # 2.4 K/mm3 (0.7-4.5); Lymphocytes % 15.8 % (10-50); Mean Corpuscular Hemoglobin 26.5 pg (27.0-31.2); Mean Corpuscular Volume 80.5 fl (81-99); Monocytes # 0.5 K/mm3 (0.1-1.0); Monocytes % 3.2 % (1.7-9.3); Neutrophils # 12.1 K/mm3 (1.8-7.8); Neutrophils % 80.4 % (37.0-80.0); Platelet Count 197 K/mm3 (142-424); Red Cell Distribution Width 15.6 % (11.5-17.5)
[2023-05-16 05:32] LABS: Chloride 109 mmol/L (98-107); Potassium 4.1 mmoL/L (3.5-5.1); Sodium 139 mmol/L (136-145)
[2023-05-16 05:34] LABS: Blood Urea Nitrogen 12 mg/dl (7-17); Creatinine Clearance Estimated 211 mL/min (50-200); Estimated Glomerular Filt Rate 112 ml/min (>60); GFR (African American) 136 ML/MIN (>60)
[2023-05-16 05:35] LABS: Alanine Aminotransferase 22 U/L (12-78); Albumin Level 3.4 g/dl (3.5-5.0); Albumin/Globulin Ratio 1.2 (1.1-1.8); Alkaline Phosphatase 69 U/L (38-126); Anion Gap 12.1 mEq/L (5-15); Aspartate Amino Transferase 26 U/L (14-36); Bilirubin,Total 0.4 mg/dl (0.2-1.3); Calcium 8.2 mg/dl (8.4-10.2); Carbon Dioxide 22 mmol/L (22.0-30.0); Globulin 2.8 g/dL (1.3-3.2); Glucose 141 mg/dl (74-100); Hemoglobin 10.4 g/dL (12.2-16.2); Total Protein,Serum 6.2 g/dl (6.3-8.2)
[2023-05-16 05:37] LABS: MANUAL DIFFERENTIAL MANUAL DIFFERENTIAL (MANUAL DIFF)
--- NOTE | 2023-05-16 05:45 | PC.NURSE ---
0515 RN reassessment completed at this time. Pt sitting up on side of the bed with lab personnel present at bedside for AM labs. Pt reports little sleep this shift and increasing discomfort in her abdomen, specifically around her umbilical lap site. 3 lap sites noted to be C/D/I without any signs of infection. PRN oxycodone given per EMAR. Pt has also been using a pillow to splint the site and an abdominal binder. VSS. Abd soft and nontender with BS active in all quads, pt reports tolerating regular diet well. Pt denies any difficulty voiding throughout the night, reports passing gas, denies BM. Lung sounds CTA, no c/o SOA. S/O at bedside throughout the night. Bed locked and in lowest position with side rails up x2, call light within reach.
[2023-05-16 05:47] LABS: Lymphocytes % 15 % (10-50); Microcytosis 1+; Monocytes % 2 % (2-9); Neutrophils % 83 % (42-76); Platelet Estimate Normal; Total Cells Counted 100
[2023-05-16 05:48] LABS: Hypochromasia 1+
[2023-05-16] MEDS: IBUPROFEN 400 MG TABLET 800 MG PO (06:28)
[2023-05-16] MEDS: ACETAMINOPHEN 500MG TAB 1000 MG PO (06:29)
--- NOTE | 2023-05-16 07:15 | EXP.ANES.II ---
[facility] Anesthesia Record Part II Anesthesia Record Part II Discharge Time: 10:35 Destination: Obstetric PACU nurse assessment reviewed?: Yes Patient Condition:: Good Anesthesia Complications:: None Swallowing reflex intact?: Yes Airway Patency: Patent Cyanosis?: No Blood Pressure: 121/74 SaO2: 98 Respiratory Rate: 19 Pulse Rate: 96 Temperature: 97.3 F Mental Status: Alert & Oriented Pain level:: 1 Nausea and/or vomitting:: None Intake, IV Amount: 0 Hydration: Adequate
[2023-05-16 07:16] VITALS: BP 121/74; PULSE 96; RESP 19; TEMP 36.3; O2SAT 98
[2023-05-16 08:00] VITALS: BP 108/57; PULSE 82; RESP 18; TEMP 36.9; O2SAT 99
--- NOTE | 2023-05-16 09:10 | P.DS_ITS ---
General Admission date:: 05/15/23 Discharge date: 05/16/23 HPI HPI HPI: POD # 1 s/p TLH, GABRIEL Ingrid was waking around the room this morning. Pain was not well controlled last night but she reports better control this morning. No vaginal bleeding. Voiding without difficulty and passing flatus. Tolerating regular diet. Denies fever/chills, chest pain and shortness of breath. No lightheadedness/dizziness. Ambulating well ad dottie. Hospital Course Hospital Course Hospital Course: Mrs Ingrid Beatty is a very pleasant 37 yo P2002 who presents to [facility] for scheduled surgery. She complains of chronic pelvic pain. She admits to history of ovarian cysts. Periods are very irregular. She may have 2-3 periods a year. Bleeding is often heavy and can last 2-3 weeks. LMP 04/07/23. Period was very heavy and painful but only lasted about one week. She admits to pain with intercourse at times and then pain following intercourse for 1-2 days at times. She has family history of endometriosis. Heating pad offers some relief. She does not take a lot of NSAIDs. She has tried combined OCPs in the past and they did not make her feel well. She tried Mirena IUD in the past and the hormones made her feel bad as well as IUD became imbedded in uterine wall and removal was difficult. She does not like the way hormones make her feel. She has history of tubal ligation. She tried Orilissa for 3 months. The first 3 weeks she felt better and then pain returned. Pap smear 01/22/23 was LGSIL. Colposcopy with cervical biopsy and ECC was performed. ECC demonstrated strips of adenocarcinoma in situ. Cold Knife Cone was performed and pathology demonstrated adenocarcinoma in situ with accompanying HGSIL. Adenocarcinoma in situ involves the inked margins and deep stromal margins. Inked margins negative for HGSIL. She desires definitive surgical intervention with hysterectomy. She would like me to decided whether or not to take her ovaries once I evaluate them. If they look healthy she is okay for them to stay but if they look abnormal she would like me to take one or both. Surgical history significant for x 2, tubal ligation and cholecystectomy. She underwent total laparoscopic hysterectomy with bilateral salpingectomy on 05/15/23. She did well postoperatively. Pain controlled better controlled 24 hours postop. No vaginal bleeding. Voiding without difficulty and passing flatus. Tolerating regular diet. Denies fever/chills, chest pain and shortness of breath. No lightheadedness/dizziness. Ambulating well ad. Vital signs stable, afebrile. Heart regular rate and rhythm. Lungs clear to auscultation. Abdomen soft, nontender. Normal hospital course. She was discharged home on POD #1 with instructions to follow-up in the office in 2 weeks or sooner if needed. Exam Data for Last 24 hours Vital signs and Labs for Last 24 Hours: Temp Pulse Resp BP Pulse Ox O2 Del Method 98.1 F 74 19 102/67 L 97 Room Air 05/16/23 05:15 05/16/23 05:15 05/16/23 07:16 05/16/23 05:15 05/16/23 05:15 05/16/23 06:30 Laboratory Results - last 24 hr 05/16/23 05:12: WBC 15.0 H, RBC 3.90 L, Hgb 10.4 L D, Hct 31.4 L, MCV 80.5 L, MCH 26.5 L, MCHC 33.0, RDW 15.6, Plt Count 197 D, MPV 11.0 H, Neut % (Auto) 80.4 H, Lymph % (Auto) 15.8, Hudspeth % (Auto) 3.2, Eos % (Auto) 0.4, Baso % (Auto) 0.2, Neut # (Auto) 12.1 H, Lymph # (Auto) 2.4, Hudspeth # (Auto) 0.5, Eos # (Auto) 0.1, Baso # (Auto) 0.0, Total Counted 100, Neutrophils % (Manual) 83 H, Lymphocytes % (Manual) 15, Monocytes % (Manual) 2, Platelet Estimate Normal, Hypochromasia 1+, Microcytosis 1+, Sodium 139, Potassium 4.1, Chloride 109 H, Carbon Dioxide 22, Anion Gap 12.1, BUN 12, Creatinine 0.60, Estimated Creat Kim r 211, Estimated GFR 112, Est GFR ( Amer) 136, Glucose 141 H, Calcium 8.2 L, Total Bilirubin 0.4, AST 26, ALT 22, Alkaline Phosphatase 69, Total Protein 6.2 L D, Albumin 3.4 L, Globulin 2.8, Albumin/Globulin Ratio 1.2 I & O for Last 24 hours: Intake & Output 05/13/23 05/14/23 05/15/23 05/16/23 23:59 23:59 23:59 23:59 Intake Total 2099 0 / 0 Balance 2099 0 / 0 Weight 230 lb Constitutional Constitutional: no acute distress and cooperative *Routine HEENT Exam Head: Present normocephalic and atraumatic Eye: Absent conjunctivae pink ENT: Present mucous membranes moist *Routine Neck Exam Neck: Present full ROM *Routine Respiratory Exam Respiratory: Present CTA bilaterally and normal respiratory effort *Routine Cardiovascular Exam Cardiovascular: Present RRR *Routine Abdominal Exam Abdominal: Present soft; Absent normoactive bowel sounds (bowel sounds sluggish), tenderness, distended, rebound or guarding *Routine Rectal Exam Patient deferred: visual exam *Routine Exam Patient deferred: external exam *Routine Extremities Exam Extremities: Present full ROM; Absent edema or calf tenderness *Routine Neurological Exam Neurological: Present alert, oriented X3 and moving all extremities Routine Psychiatric Exam Psychiatric: Present normal affect and cooperative Results Data Completed and Pending Labs on day of discharge: Labs from last 24 hours 05/16/23 05:12 WBC 15.0 H RBC 3.90 L Hgb 10.4 L D Hct 31.4 L MCV 80.5 L MCH 26.5 L MCHC 33.0 RDW 15.6 Plt Count 197 D MPV 11.0 H Neut % (Auto) 80.4 H Lymph % (Auto) 15.8 Hudspeth % (Auto) 3.2 Eos % (Auto) 0.4 Baso % (Auto) 0.2 Neut # (Auto) 12.1 H Lymph # (Auto) 2.4 Hudspeth # (Auto) 0.5 Eos # (Auto) 0.1 Baso # (Auto) 0.0 Total Counted 100 Neutrophils % (Manual) 83 H Lymphocytes % (Manual) 15 Monocytes % (Manual) 2 Platelet Estimate Normal Hypochromasia 1+ Microcytosis 1+ Sodium 139 Potassium 4.1 Chloride 109 H Carbon Dioxide 22 Anion Gap 12.1 BUN 12 Creatinine 0.60 Estimated Creat Clear 211 Estimated GFR 112 Est GFR ( Amer) 136 Glucose 141 H Calcium 8.2 L Total Bilirubin 0.4 AST 26 ALT 22 Alkaline Phosphatase 69 Total Protein 6.2 L D Albumin 3.4 L Globulin 2.8 Albumin/Globulin Ratio 1.2 DS: Diagnosis Discharge Diagnosis (1) S/P laparoscopic hysterectomy: Status: Acute Code(s): Z90.710 - Acquired absence of both cervix and uterus Problem details: with bilateral salpingectomy 05/15/23 (2) Chronic pelvic pain in female: Status: Acute Code(s): R10.2 - Pelvic and perineal pain; G89.29 - Other chronic pain (3) Abnormal uterine bleeding: Status: Acute Code(s): N93.9 - Abnormal uterine and vaginal bleeding, unspecified (4) Adenocarcinoma in situ of endocervix: Status: Acute Code(s): D06.0 - Carcinoma in situ of endocervix (5) PCOS (polycystic ovarian syndrome): Status: Acute Code(s): E28.2 - Polycystic ovarian syndrome (6) Dyspareunia: Status: Acute (7) Endometriosis: Status: Acute Code(s): N80.9 - Endometriosis, unspecified (8) Morbid obesity with BMI of 40.0-44.9, adult: Status: Acute Code(s): E66.01 - Morbid (severe) obesity due to excess calories; Z68.41 - Body mass index [BMI] 40.0-44.9, adult Meds Home Medications and Allergies Home Medications Medication Instructions Recorded Confirmed Type albuterol sulfate 90 mcg/actuation 2 inh inhalation Q6HP PRN 01/30/18 05/15/23 History aerosol inhaler Shortness Of Breath Or Wheezing pregabalin 150 mg capsule (Lyrica) 150 mg PO BID Pain 01/22/23 05/15/23 History fluticasone propionate 50 1 - 2 spray intranasal DAILY PRN 05/08/23 05/15/23 History mcg/actuation nasal allergies spray,suspension (Flonase Allergy Relief) ondansetron 4 mg disintegrating 4 mg PO Q8HP PRN Nausea 05/08/23 05/15/23 History tablet tizanidine 4 mg tablet (Zanaflex) 4 mg PO HS Muscle Spasm 05/15/23 05/15/23 History ibuprofen 800 mg tablet 800 mg PO Q8H PRN pain #20 tabs 05/16/23 Rx oxycodone 5 mg tablet 5 mg PO Q4HP PRN Moderate Pain 05/16/23 Rx (4-6) #20 tabs New Prescriptions to Start Prescriptions: ibuprofen Concepcion Issafer oxycodone Selina Issa Allergies Allergy/AdvReac Type Severity Reaction Status Date / Time cephalexin [From Keflex] Allergy Intermediate Verified 05/15/23 06:22 cinnamon Allergy Verified 05/15/23 06:22 Discharge Plan Disposition Patient Disposition: Home, Self-Care Condition: Good Follow up Plan Follow up with: Selina Issa DO [Staff Physician] - 05/29/23 10:15 am Prescriptions/Medication Reconciliation: New oxycodone 5 mg Tablet 5 mg PO Q4HP PRN (Reason: Moderate Pain (4-6)) Qty: 20 0RF ibuprofen 800 mg tablet 800 mg PO Q8H PRN (Reason: pain) Qty: 20 0RF Continued pregabalin [Lyrica] 150 mg capsule 150 mg PO BID ondansetron 4 mg tablet,disintegrating 4 mg PO Q8HP PRN (Reason: Nausea) fluticasone propionate [Flonase Allergy Relief] 50 mcg/actuation spray,suspension 1 - 2 spray intranasal DAILY PRN (Reason: allergies) Rx Instructions: administer into each nostril albuterol sulfate 8.5 GM HFA aerosol inhaler 2 inh inhalation Q6HP PRN (Reason: Shortness Of Breath Or Wheezing) tizanidine [Zanaflex] 4 mg tablet 4 mg PO HS Discontinued ibuprofen 800 mg tablet 800 mg PO Q8HP PRN (Reason: Mild Pain (Scale Score 1-4)) Problem Reconciliation Problems Reviewed?: Yes Patient Discharge Instructions ACTIVITY: Limited activity DIET: continue same diet and regular diet Additional Instructions: Additional Instructions: You had a total laparoscopic hysterectomy and bilateral saplingectomy. This means that your uterus, cervix and fallopian tubes were removed. The top of your vagina is closed with dissolvable sutures. You will follow-up in office for a postop visit at 2 weeks and at 6 weeks. At your 6-week postop appointment you will have a pelvic exam to ensure your cuff is healing well. Activity: - No lifting more than 10 lbs for 6 weeks. - No driving for 7 days and/or while you are taking narcotic pain medication. - You have three incisions on your abdomen that are closed with stitches and surgical glue. Wound care - You have surgical glue covering your incision. This can come off in 7-10 days. Vaseline will break down the compound and remove the glue - You have stitches under your skin which will dissolve over the next 6 weeks as your body heals - Keep your wound clean and dry, ok to wash with soap and water but pat thoroughly dry Please call the office or return to the ER if you have any of the followin. heavy vaginal bleeding 2. pain that does not respond to your narcotic pain medication 3. dizziness or lightheadedness such that you lose consciousness 4. abnormal discharge from your incisions Questions or concerns: It is my privilege to be your doctor. Please let me know if you have other questions or concerns. Selina Issa DO [facility] [place], [place] [address] Patient Instructions: Hysterectomy -- Laparoscopic Surgery Providers Primary Care Provider: Cm Barth Admit Provider: Selina Issa Attending Provider: Selina Issa
[2023-05-16] MEDS: ENOXAPARIN 40MG/0.4ML SYRINGE 40 MG SQ (10:13)
[2023-05-16] MEDS: POLYETHYLENE GLYCOL 3350 17 GM PACKET PO (10:14)
== END 2023-05-16 11:00 | disposition home or self-care (01) ==
LOC: OB 06:26
PROVIDERS: Admitting Provider Obstetrics & Gynecology; PCP Internal Medicine Adolescent Medicine; Visit Provider Obstetrics & Gynecology
PROC: (CPT 58575; principal; 2023-05-15 07:30)
DX: D06.0 Carcinoma in situ of endocervix (principal); R10.2 Pelvic and perineal pain; N93.9 Abnormal uterine and vaginal bleeding, unspecified; E28.2 Polycystic ovarian syndrome; N80.9 Endometriosis, unspecified; E66.01 Morbid (severe) obesity due to excess calories; Z68.41 Body mass index [BMI] 40.0-44.9, adult
CPT/HCPCS: 58575; 36415; 80053; 85007; 85025; 96374; G0378; J2405

== ENCOUNTER → 2023-05-28 08:36 | Outpatient (POV) | payer OTHER, SELFPAY ==
--- NOTE | 2023-05-28 08:51 | EXP.PAIN.SOA ---
[facility] Pain Management SOAP Note Subjective:: Patient is a pleasant 37-year-old female who presents today for 3-month follow-up. We are currently treating the patient for degenerative disc disease of lumbar spine with lumbar radiculopathy symptoms, neck pain with cervical radiculopathy symptoms, history of herpes zoster of the left occipital nerve. Today she rates her pain a 3 out of 10. Patient states that she has recently had abdominal surgery and it has aggravated her low back pain. Patient states that she still is recovering and that she has an additional 4 weeks off from work. Patient states it is still manageable at this time. Patient did previously have a lumbar epidural back in October that did provide almost 100% improvement. Patient is currently managed with tizanidine 4 mg at bedtime and pregabalin 150 mg twice a day from outside providers. Patient denies any side effects from this medication. Patient has just recently been given a prescription of oxycodone for her postop pain. Her Joe has been reviewed and is appropriate. Review of Systems: General: No recent weight changes, no fever, no sleep disturbances Respiratory: No cough, no shortness of air, no recurring pulmonary infections Cardiovascular/peripheral vascular: No chest pain, no palpitations, no edema, no shortness of breath Gastrointestinal: No new onset incontinence, normal bowel movements reported Genitourinary: No new onset incontinence Musculoskeletal: Low back pain Psychiatric: [Normal mood/affect] Neurological: [Denies weakness in extremities], [denies balance issues] Objective:: Physical Exam: General: Alert and oriented x3, no acute distress, pleasant and cooperative Lungs: Respirations even and unlabored, symmetrical chest expansion Eyes: PERRL Musculoskeletal: Flexion and extension of lumbar [spine] somewhat guarded secondary to pain, [antalgic gait noted] Neurological: Speech clear, no gross sensory deficit Assessment:: Degenerative disc disease of lumbar spine with lumbar radiculopathy symptoms, neck pain with cervical radiculopathy symptoms, status post herpes zoster of the left occipital nerve Plan:: I will refill the patient's tizanidine 4 mg at bedtime and provide a 3-month supply of this medication. I have discussed with the patient in future if she needs an additional lumbar epidural or cervical to contact our office between now and her next visit. Patient will return to clinic in 3 months for reevaluation of symptoms and plan of care. Patient has been instructed to contact the clinic with any concerns before the next appointment. Dr. Deal has reviewed this note and agrees with this plan of care. This note was dictated using voice recognition software and make contain errors or omissions. [facility] Disclaimer: The information contained in this section may have been updated after the patient was seen, as this information can be updated by other users. Medical History (Updated 05/20/23 @ 00:02 by Background Daemon) Abnormal uterine bleeding Adenocarcinoma in situ of endocervix Anxiety delivery delivered Chronic pelvic pain in female Dyspareunia Endometriosis LGSIL on Pap smear of cervix Morbid obesity with BMI of 40.0-44.9, adult Needle stick injury of finger of left hand PCOS (polycystic ovarian syndrome) Perianal fissure Shingles Shingles (herpes zoster) polyneuropathy Surgical History (Updated 05/20/23 @ 00:02 by Background Daemon) H/O tubal ligation History of delivery History of cholecystectomy History of colonoscopy History of tonsillectomy S/P cone biopsy of cervix S/P laparoscopic hysterectomy Family History Other Anemia Asthma Cancer Diabetes Hyperlipidemia Hypertension No significant family history Thyroid disorder Social History Smoking Status: Never smoker alcohol intake: never substance use type: denies use current occupational status: employed Travel in the last 8 weeks: None household members: other housing: house current occupational exposures/hazards: Yes caffeine: Yes
[2023-05-28 08:53] VITALS: BP 143/82; PULSE 88; RESP 18; O2SAT 96; BMI 42.0
== END | disposition home or self-care (01) ==
PROVIDERS: PCP Internal Medicine Adolescent Medicine; Visit Provider Nurse Practitioner Family
DX: M51.16 Intervertebral disc disorders with radiculopathy, lumbar region (principal); M54.12 Radiculopathy, cervical region; B02.29 Other postherpetic nervous system involvement
CPT/HCPCS: 99212; G0463

== ENCOUNTER 2023-06-26 15:27 | Outpatient (CLI) | payer OTHER, SELFPAY ==
[2023-06-26 15:52] LABS: Basophils # 0.1 K/mm3 (0-0.2); Basophils % 0.4 % (0.1-2.0); Eosinophils # 0.5 K/mm3 (0.0-0.4); Eosinophils % 3.3 % (0.1-12.0); Hematocrit 37.3 % (37.0-47.0); Hemoglobin 12.2 g/dL (12.2-16.2); Lymphocytes # 3.1 K/mm3 (0.7-4.5); Lymphocytes % 23.2 % (10-50); Mean Corpuscular HGB Conc 32.8 g/dL (31.8-35.4); Mean Corpuscular Hemoglobin 27.1 pg (27.0-31.2); Mean Corpuscular Volume 82.7 fl (81-99); Monocytes # 0.4 K/mm3 (0.1-1.0); Neutrophils # 9.5 K/mm3 (1.8-7.8); Platelet Count 169 K/mm3 (142-424); Red Blood Count 4.51 M/mm3 (4.20-5.40); Red Cell Distribution Width 15.1 % (11.5-17.5); White Blood Count 13.5 K/mm3 (4.8-10.8)
[2023-06-26 16:24] LABS: Alanine Aminotransferase 25 U/L (12-78); Albumin Level 4.1 g/dl (3.5-5.0); Albumin/Globulin Ratio 1.5 (1.1-1.8); Alkaline Phosphatase 89 U/L (38-126); Anion Gap 12.3 mEq/L (5-15); Aspartate Amino Transferase 28 U/L (14-36); Bilirubin,Total 0.3 mg/dl (0.2-1.3); Blood Urea Nitrogen 17 mg/dl (7-17); Calcium 9.1 mg/dl (8.4-10.2); Carbon Dioxide 25 mmol/L (22.0-30.0); Chloride 109 mmol/L (98-107); Estimated Glomerular Filt Rate 94 ml/min (>60); GFR (African American) 114 ML/MIN (>60); Globulin 2.8 g/dL (1.3-3.2); Glucose 139 mg/dl (74-100); Potassium 4.3 mmoL/L (3.5-5.1); Sodium 142 mmol/L (136-145); Total Protein,Serum 6.9 g/dl (6.3-8.2)
[2023-06-26 16:55] LABS: Thyroid Stimulating Hormone 0.94 uIU/mL (0.465-4.68)
== END 2023-06-26 23:59 ==
LOC: LAB 15:28
PROVIDERS: PCP Internal Medicine Adolescent Medicine; Visit Provider Obstetrics & Gynecology
DX: R30.0 Dysuria (principal)
CPT/HCPCS: 36415; 80053; 84443; 85025

== ENCOUNTER 2023-07-14 12:07 | Outpatient (CLI) | payer OTHER, SELFPAY ==
[2023-07-14 18:34] LABS: Chol/HDL Ratio 5.2 (1-3.5); Cholesterol 208 mg/dl (140-200); HDL Cholesterol 40 mg/dl (40-60); Triglycerides 152 mg/dl (30-150); VLDL Cholesterol 30 mg/dL (0-40)
[2023-07-14 18:46] LABS: Direct LDL Cholesterol 121.67 mg/dL (100-129)
[2023-07-14 19:10] LABS: Hemoglobin A1C 5.9 % (4.0-6.0)
== END 2023-07-14 23:59 ==
LOC: LAB.DROPOF 07-15 12:07
PROVIDERS: Visit Provider Family Medicine
DX: I10 Essential (primary) hypertension (principal); R42 Dizziness and giddiness; R51.9 Headache, unspecified; E11.9 Type 2 diabetes mellitus without complications; Z79.85 Long-term (current) use of injectable non-insulin antidiabetic drugs; Z79.899 Other long term (current) drug therapy
CPT/HCPCS: 80061; 83036

== ENCOUNTER 2023-07-16 08:55 | Outpatient (CLI) | payer OTHER, SELFPAY ==
--- NOTE | 2023-07-16 08:56 | CT_ITS ---
FINAL REPORT TECHNIQUE: Pre-and postcontrast axial imaging of the abdomen and pelvis was obtained.This study was performed with techniques to keep radiation doses as low as reasonably achievable, (ALARA). Individualized dose reduction technique using automated exposure control or adjustment of mA and/or kV according to the patient's size were employed. CLINICAL HISTORY: pt. is post op hysterectomy & salpingectomy 8 week out having pain and pressure. Multiple UTI's. Fever. COMPARISON: 06/27/2021 FINDINGS: The lung bases are clear. The liver is homogeneous. The gallbladder has been surgically resected. The adrenal glands, and pancreas are unremarkable. There are several very small low-density's in the spleen, that are likely insignificant. There is no hydronephrosis or solid renal mass. On precontrast imaging, there are several nonobstructing right renal stones present, the largest in the lower pole measures 8 mm in diameter. There are several proximal small bowel loops with mild wall thickening, nonspecific. There are multiple mesenteric nodes identified, the largest in the left upper quadrant measuring 16 mm in size. There is a filling defect in the left ovarian vein along the anterior aspect of the left psoas muscle, worrisome for ovarian vein thrombosis. The uterus is surgically absent. There is a right ovarian low-density measuring 2.4 cm, likely a functional cyst. The left ovary is unremarkable. There is no lymphadenopathy or ascites. No acute osseous abnormalities identified. Sigmoid diverticulosis without evidence of acute inflammation is seen. A trace amount of free fluid is present in the pelvis. There are slightly prominent inguinal and pelvic mesenteric nodes present as well. IMPRESSION: Filling defect in the left ovarian vein along the anterior aspect of the left psoas muscle, worrisome for ovarian vein thrombosis. Several nonobstructing right renal stones, as described. Multiple nonspecific mesenteric nodes, the largest in the left upper quadrant measuring 16 mm in size. Reviewed, Interpreted and Dictated by Raissa Hendrickson MD Transcribed by Hillary Real Authenticated and [facility]
[2023-07-16] MEDS: SODIUM CHLORIDE 0.9% 10ML SYR (RAD ONLY) 10 ML IV (09:35)
[2023-07-16] MEDS: IOPAMIDOL-370 (76%);100ML BOTTLE 75 ML IV (09:35)
== END 2023-07-16 23:59 ==
LOC: RAD 08:56
PROVIDERS: PCP Family Medicine; Visit Provider Obstetrics & Gynecology
DX: G89.18 Other acute postprocedural pain (principal)
CPT/HCPCS: 74178; Q9967

== ENCOUNTER 2023-07-16 14:56 | Observation (INO) | payer OTHER, SELFPAY ==
--- NOTE | 2023-07-16 12:59 | HMH.PHAINT1 ---
Pharmacy Intervention Comments: MEDICATION RECONCILIATION COMPLETED ON PATIENT USING EXTERNAL FILL HISTORY FROM PHARMACY AND LIST FROM PCP OFFICE. -STEVEN REY, ISABELLED
--- NOTE | 2023-07-16 15:01 | PC.NURSE ---
walked to floor from er admissions
[2023-07-16 15:14] VITALS: BP 155/99; PULSE 107; RESP 22; TEMP 37.1; O2SAT 977
[2023-07-16 15:15] VITALS: BMI 45.1
[2023-07-16 16:23] LABS: Basophils # 0.1 K/mm3 (0-0.2); Basophils % 0.4 % (0.1-2.0); Eosinophils # 0.5 K/mm3 (0.0-0.4); Eosinophils % 3.8 % (0.1-12.0); Hemoglobin 12.9 g/dL (12.2-16.2); Lymphocytes # 3.2 K/mm3 (0.7-4.5); Lymphocytes % 25.5 % (10-50); Mean Corpuscular HGB Conc 31.4 g/dL (31.8-35.4); Mean Corpuscular Hemoglobin 27.2 pg (27.0-31.2); Mean Corpuscular Volume 86.6 fl (81-99); Mean Platelet Volume 11.6 fl (7.4-10.4); Monocytes # 0.3 K/mm3 (0.1-1.0); Monocytes % 2.6 % (1.7-9.3); Neutrophils # 8.4 K/mm3 (1.8-7.8); Neutrophils % 67.8 % (37.0-80.0); Platelet Count 170 K/mm3 (142-424); Red Blood Count 4.74 M/mm3 (4.20-5.40); Red Cell Distribution Width 15.2 % (11.5-17.5); White Blood Count 12.4 K/mm3 (4.8-10.8)
[2023-07-16 16:36] LABS: Alanine Aminotransferase 21 U/L (12-78); Albumin Level 4.5 g/dl (3.5-5.0); Albumin/Globulin Ratio 1.3 (1.1-1.8); Alkaline Phosphatase 102 U/L (38-126); Anion Gap 12.6 mEq/L (5-15); Aspartate Amino Transferase 25 U/L (14-36); Bilirubin,Total 0.5 mg/dl (0.2-1.3); Blood Urea Nitrogen 13 mg/dl (7-17); Calcium 9.5 mg/dl (8.4-10.2); Carbon Dioxide 24 mmol/L (22.0-30.0); Chloride 107 mmol/L (98-107); Creatinine Clearance Estimated 86 mL/min (50-200); Estimated Glomerular Filt Rate 94 ml/min (>60); GFR (African American) 113 ML/MIN (>60); Globulin 3.6 g/dL (1.3-3.2); Glucose 101 mg/dl (74-100); Potassium 3.6 mmoL/L (3.5-5.1); Sodium 140 mmol/L (136-145); Total Protein,Serum 8.1 g/dl (6.3-8.2)
[2023-07-16] MEDS: LACTATED RINGERS 1000ML 1,000 ML 75 ML IV (16:58)
[2023-07-16] MEDS: PIPERACILLIN/TAZO 4.5 GM in 0.9 % SODIUM CHLORIDE 100 ML IV (17:05)
[2023-07-16] MEDS: ENOXAPARIN 120MG/0.8ML SYRINGE 110 MG SQ (17:05)
--- NOTE | 2023-07-16 17:11 | PC.NURSE ---
Dr. Issa at bedside
--- NOTE | 2023-07-16 17:13 | PC.NURSE ---
Patient arrived as ambulatory direct admit by Dr. Issa. Alert and oriented. VSS. Up ad dottie. On room air. IV with ultrasound. IV fluids, antibiotics and anticoagulants administered per order. Plan to discharge home tomorrow after conversion to oral anticoagulant
--- NOTE | 2023-07-16 17:18 | P.HP_ITS ---
History of Present Illness *Admission Date: 07/16/23 *Reason for visit:: Thrombophlebitis of left ovarian vein *History of present illness: Mrs Ingrid Beatty is a very pleasant 38 yo admitted to [facility] for treatment of ovarian vein thrombophlebitis. She 8 weeks 6 days s/p TLH, BS. She felt well the first 5 weeks after surgery and then began experiencing bladder pressure, urinary urgency and intermittent RLQ tenderness. She was found to have an UTI twice in the past 3 weeks. She was treated with abx. Symptoms resolved at the end of the course of antibiotics and then returned afterwards. Most recently she was treated for enterococcus faecalis UTI and was treated with Amoxicillin. Afte r completing Amoxicillin she felt great Friday, Friday and Friday. Pressure and RLQ mild pains returned on Friday. She reports temperature of 101. She saw PCP yesterday and AMB urinalysis was negative. Urine was sent for culture. And PCP instructed her to take probiotic, drink lemon water and walk 30 minutes a day. She states she is taking probiotics. She has an appointment with Dr. Cr, urologist on 08/18/23. She admits to occasional hot flash, sweating and dizziness if she is standing too long. CBC and CMP on 06/26/23 demonstrated mild leukocytosis, 13.5; remainder of labs within normal limits. CT abdomen/pelvis was ordered and demonstrated: filling defect in the left ovarian vein along the anterior aspect of the left psoas muscle, worrisome for ovarian vein thrombosis. Several nonobstructing right renal stones, as described. Multiple nonspecific mesenteric nodes, the largest in the left upper quadrant measuring 16 mm in size. She admits last night she had a sudden sharp pain in LLQ while lying in bed that resolved spontaneously. She denies fevers over the few days. No dizziness or sweating today. She admits her BP is up and her PCP started her on medication. [facility] Disclaimer: The information contained in this section may have been updated after the patient was seen, as this information can be updated by other users. Medical History (Updated 07/16/23 @ 17:34 by Selina Issa DO) Abdominal tenderness, LLQ (left lower quadrant) Abdominal tenderness, RLQ (right lower quadrant) Abnormal uterine bleeding Adenocarcinoma in situ of endocervix Anxiety Chronic pelvic pain in female Dyspareunia Endometriosis Morbid obesity with BMI of 40.0-44.9, adult PCOS (polycystic ovarian syndrome) Perianal fissure Renal calculus, right Shingles Shingles (herpes zoster) polyneuropathy Sinusitis Thrombophlebitis of vein of pelvis Urinary urgency Surgical History H/O tubal ligation History of delivery History of cholecystectomy History of colonoscopy History of tonsillectomy S/P cone biopsy of cervix S/P laparoscopic hysterectomy Family History (Updated 07/16/23 @ 15:44 by Astrid Griffiths) Other Anemia Asthma Atrial fibrillation Cancer Diabetes Heart disease Hyperlipidemia Hypertension No significant family history Thyroid disorder Social History Smoking Status: Never smoker alcohol intake: never substance use type: denies use current occupational status: employed Travel in the last 8 weeks: None household members: other housing: house current occupational exposures/hazards: Yes caffeine: Yes Review of Systems Review of Systems Review of systems:: pertinent systems reviewed and negative unless documented below ENT Ears, Nose, Mouth, and Throat: Reports vertigo (occasional) *Gastrointestinal Gastrointestinal: Reports abdominal pain (intermittent pelvic cramping) *Genitourinary Genitourinary: Reports urinary urgency and Reports other (bladder pressure) *Neurologic Neurologic: Reports vertigo (occasional) Endocrine Endocrine: Reports other (occasional hot flashes) Meds Home Medications and Allergies Home Medications Medication Instructions Recorded Confirmed Type albuterol sulfate 90 mcg/actuation 2 inh inhalation Q6HP PRN 01/30/18 07/16/23 History aerosol inhaler Shortness Of Breath Or Wheezing pregabalin 150 mg capsule (Lyrica) 150 mg PO BID Pain 01/22/23 07/16/23 History fluticasone propionate 50 1 - 2 spray intranasal DAILY PRN 05/08/23 07/16/23 History mcg/actuation nasal allergies spray,suspension (Flonase Allergy Relief) tizanidine 4 mg tablet (Zanaflex) 4 mg PO HS Muscle Spasm #30 tabs 05/28/23 07/16/23 Rx rimegepant 75 mg disintegrating 75 mg PO NEEDED PRN Migraine 07/10/23 0 07/16/23 History tablet (Nurtec ODT) Headache lisinopril 10 1 tab PO DAILY High Blood Pressure 07/16/23 07/16/23 History mg-hydrochlorothiazide 12.5 mg tablet semaglutide (weight loss) 0.25 0.25 mg (0.5 mL) SQ WEEKLY #2 mL 07/16/23 07/16/23 Rx mg/0.5 mL subcutaneous pen injector (Deondre) New Prescriptions to Start Prescriptions: Allergies Allergy/AdvReac Type Severity Reaction Status Date / Time cephalexin [From Keflex] Allergy Intermediate Verified 07/14/23 13:48 cinnamon Allergy Verified 07/14/23 13:48 Exam Data for Last 24 hours Vital signs and Labs for Last 24 Hours: Temp Pulse Resp BP Pulse Ox O2 Del Method 98.8 F 107 H 22 155/99 H 977 H Room Air 07/16/23 15:14 07/16/23 15:14 07/16/23 15:14 07/16/23 15:14 07/16/23 15:14 07/16/23 17:03 Laboratory Results - last 24 hr 07/16/23 16:10: WBC 12.4 H, RBC 4.74, Hgb 12.9, Hct 41.0, MCV 86.6, MCH 27.2, MCHC 31.4 L, RDW 15.2, Plt Count 170, MPV 11.6 H, Neut % (Auto) 67.8, Lymph % (Auto) 25.5, [place] % (Auto) 2.6, Eos % (Auto) 3.8, Baso % (Auto) 0.4, Neut # (Auto) 8.4 H, Lymph # (Auto) 3.2, [place] # (Auto) 0.3, Eos # (Auto) 0.5 H, Baso # (Auto) 0.1, Sodium 140, Potassium 3.6, Chloride 107, Carbon Dioxide 24, Anion Gap 12.6, BUN 13, Creatinine 0.70, Estimated Creat Clear 86, Estimated GFR 94, Est GFR ( Amer) 113, Glucose 101 H, Calcium 9.5, Total Bilirubin 0.5, AST 25, ALT 21, Alkaline Phosphatase 102, Total Protein 8.1, Albumin 4.5, Globulin 3.6 H, Albumin/Globulin Ratio 1.3 I & O for Last 24 hours: Intake & Output 07/13/23 07/14/23 07/15/23/28/24 23:59 23:59 23:59 23:59 Intake Total 360 / 360 Balance 360 / 360 Weight 246 lb 14.684 oz Constitutional Constitutional: no acute distress and cooperative *Routine HEENT Exam Head: Present normocephalic and atraumatic Eye: Absent conjunctivae pink ENT: Present mucous membranes moist *Routine Neck Exam Neck: Present full ROM *Routine Respiratory Exam Respiratory: Present CTA bilaterally and normal respiratory effort *Routine Cardiovascular Exam Cardiovascular: Present RRR *Routine Abdominal Exam Abdominal: Present soft and tenderness (mild LLQ tenderness to palpation); Absent distended, rebound or guarding *Routine Rectal Exam Rectal:: deferred *Routine Genitalia Exam Genitalia:: deferred *Routine Neurological Exam Neurological: Present alert, moving all extremities and normal speech Routine Psychiatric Exam Psychiatric: Present normal affect and cooperative Assessment and Plan *Assessment and plan (1) Thrombophlebitis of vein of pelvis: Status: Acute Category: Medical Code(s): I80.8 - Phlebitis and thrombophlebitis of other sites (2) S/P laparoscopic hysterectomy: Problem Comment: with bilateral salpingectomy 05/15/23 Status: Acute Category: Surgical Code(s): Z90.710 - Acquired absence of both cervix and uterus (3) Urinary urgency: Status: Acute Category: Medical Code(s): R39.15 - Urgency of urination (4) Abdominal tenderness, LLQ (left lower quadrant): Status: Acute Qualifiers: Presence of rebound: absent Qualified Code(s): R10.814 - Left lower quadrant abdominal tenderness Category: Medical Code(s): R10.814 - Left lower quadrant abdominal tenderness Plan Admit to [facility] CBC demonstrated mild leukocytosis - 12.4 Zosyn 4.5 grams q 8 hours x 24 hours Start therapeutic Lovenox 1 mg/kg q 12 hours. Plan to transition to Xarelto or Eliquis upon discharge IV fluids Regular diet SCDs AM CBC Plan d/c home tomorrow with continuation of anticoagulation
[2023-07-16 20:00] VITALS: BP 133/82; PULSE 88; RESP 18; TEMP 36.8; O2SAT 98
[2023-07-16 21:12] LABS: POC Glucose,Bedside 109 (70-110)
[2023-07-17] MEDS: PIPERACILLIN/TAZO 4.5 GM in 0.9 % SODIUM CHLORIDE 100 ML IV ×2 (00:58→09:05)
--- NOTE | 2023-07-17 03:41 | PC.NURSE ---
Pt is alert and oriented x4 and has no complaints. Pt has tolerated IV antibiotic therapy well this shift and remains on LR @ 75. Pt has slept well , denies pain and needs at this time.
[2023-07-17 04:00] VITALS: BP 122/51; PULSE 75; RESP 18; TEMP 36.4; O2SAT 98; BMI 45.4
[2023-07-17] MEDS: ENOXAPARIN 120MG/0.8ML SYRINGE 110 MG SQ (05:12)
[2023-07-17] MEDS: LACTATED RINGERS 1000ML 1,000 ML 75 ML IV (05:14)
[2023-07-17] MEDS: IBUPROFEN 800 MG TABLET PO (05:17)
[2023-07-17 06:15] LABS: POC Glucose,Bedside 87 (70-110)
[2023-07-17 07:21] LABS: Basophils # 0.1 K/mm3 (0-0.2); Basophils % 0.5 % (0.1-2.0); Eosinophils # 0.6 K/mm3 (0.0-0.4); Eosinophils % 5.3 % (0.1-12.0); Hematocrit 36.1 % (37.0-47.0); Lymphocytes # 3.5 K/mm3 (0.7-4.5); Lymphocytes % 33.9 % (10-50); Mean Corpuscular HGB Conc 31.4 g/dL (31.8-35.4); Mean Corpuscular Hemoglobin 27.8 pg (27.0-31.2); Mean Corpuscular Volume 88.4 fl (81-99); Monocytes # 0.4 K/mm3 (0.1-1.0); Monocytes % 3.3 % (1.7-9.3); Neutrophils % 57.1 % (37.0-80.0); Platelet Count 144 K/mm3 (142-424); Red Blood Count 4.08 M/mm3 (4.20-5.40); White Blood Count 10.4 K/mm3 (4.8-10.8)
[2023-07-17 07:52] LABS: Hemoglobin 11.3 g/dL (12.2-16.2)
[2023-07-17 08:00] VITALS: BP 133/83; PULSE 84; RESP 23; TEMP 36.8; O2SAT 91
--- NOTE | 2023-07-17 10:48 | P.DS_ITS ---
General Admission date:: 07/16/23 Discharge date: 07/17/23 HPI HPI HPI: Ingrid is feeling well this morning. She admits to some LLQ crampy pain last night relieved by Ibuprofen. Denies fever/chills, chest pain and shortness of breath. No dizziness. Tolerating regular diet. No lower extremity swelling. Hospital Course Hospital Course Hospital Course: Mrs Ingrid Beatty is a very pleasant 38 yo admitted to [facility] for treatment of ovarian vein thrombosis/thrombophlebitis. She 8 weeks 6 days s/p TLH, BS. She felt well the first 5 weeks after surgery and then began experiencing bladder pressure, urinary urgency and intermittent RLQ tenderness. She was found to have an UTI twice in the past 3 weeks. She was treated with abx. Symptoms resolved at the end of the course of antibiotics and then returned afterwards. Most recently she was treated for enterococcus faecalis UTI and was treated with Amoxicillin. After completing Amoxicillin she felt great Friday, Friday and Friday. Pressure and RLQ mild pains returned on Friday. She reports temperature of 101. She saw PCP yesterday and AMB urinalysis was negative. Urine was sent for culture. And PCP instructed her to take probiotic, drink lemon water and walk 30 minutes a day. She states she is taking probiotics. She has an appointment with Dr. Cr, urologist on 08/18/23. She admits to occasional hot flash, sweating and dizziness if she is standing too long. CBC and CMP on 06/26/23 demonstrated mild leukocytosis, 13.5; remainder of labs within normal limits. CT abdomen/pelvis was ordered and demonstrated: filling defect in the left ovarian vein along the anterior aspect of the left psoas muscle, worrisome for ovarian vein thrombosis, several nonobstructing right renal stones. Multiple nonspecific mesenteric nodes, the largest in the left upper quadrant measuring 16 mm in size. She reported two nights ago she had a sudden sharp pain in LLQ while lying in bed that resolved spontaneously. She denied fevers over the past few days. Upon admission she was started on therapeutic lovenox q 12 hours and Zosyn 4.5 gm q 8 hours. She received 3 doses of Zosyn and 3 doses of Lovenox. Leukocytosis resolved this morning, WBC 10.4. She was discharged home on Xarelto 10 mg daily with plan to continue for 3 months. Follow-up appointment scheduled with Dr. Chase, [facility]/Onc, 07/22/[address] Issa 07/28/23. Exam Data for Last 24 hours Vital signs and Labs for Last 24 Hours: Temp Pulse Resp BP Pulse Ox O2 Del Method 98.2 F 84 23 133/83 91 L Room Air 07/17/23 08:00 07/17/23 08:00 07/17/23 08:00 07/17/23 08:00 07/17/23 08:00 07/17/23 09:00 Laboratory Results - last 24 hr 07/16/23 16:10: WBC 12.4 H, RBC 4.74, Hgb 12.9, Hct 41.0, MCV 86.6, MCH 27.2, MCHC 31.4 L, RDW 15.2, Plt Count 170, MPV 11.6 H, Neut % (Auto) 67.8, Lymph % (Auto) 25.5, [place] % (Auto) 2.6, Eos % (Auto) 3.8, Baso % (Auto) 0.4, Neut # (Auto) 8.4 H, Lymph # (Auto) 3.2, [place] # (Auto) 0.3, Eos # (Auto) 0.5 H, Baso # (Auto) 0.1, Sodium 140, Potassium 3.6, Chloride 107, Carbon Dioxide 24, Anion Gap 12.6, BUN 13, Creatinine 0.70, Estimated Creat Clear 86, Estimated GFR 94, Est GFR ( Amer) 113, Glucose 101 H, Calcium 9.5, Total Bilirubin 0.5, AST 25, ALT 21, Alkaline Phosphatase 102, Total Protein 8.1, Albumin 4.5, Globulin 3.6 H, Albumin/Globulin Ratio 1.3 07/16/23 20:57: POC Glucose 109 07/17/23 05:55: POC Glucose 87 07/17/23 06:47: WBC 10.4, RBC 4.08 L, Hgb 11.3 L D, Hct 36.1 L, MCV 88.4, MCH 27.8, MCHC 31.4 L, RDW 15.0, Plt Count 144, MPV 11.0 H, Neut % (Auto) 57.1, Lymph % (Auto) 33.9, [place] % (Auto) 3.3, Eos % (Auto) 5.3, Baso % (Auto) 0.5, Neut # (Auto) 6.0, Lymph # (Auto) 3.5, [place] # (Auto) 0.4, Eos # (Auto) 0.6 H, Baso # (Auto) 0.1 I & O for Last 24 hours: Intake & Output 07/14/23 07/15/23 07/16/23 07/17/23 23:59 23:59 23:59 23:59 Intake Total 630 / 1245 2277 / 2277 Output Total 0 / 0 Balance 630 / 1245 2277 / 2277 Weight 246 lb 14.684 oz 246 lb 14.684 oz Constitutional Constitutional: no acute distress and cooperative *Routine HEENT Exam Head: Present normocephalic and atraumatic Eye: Absent conjunctivae pink ENT: Present mucous membranes moist *Routine Neck Exam Neck: Present full ROM *Routine Respiratory Exam Respiratory: Present CTA bilaterally and normal respiratory effort *Routine Cardiovascular Exam Cardiovascular: Present RRR *Routine Rectal Exam Patient deferred: visual exam *Routine Exam Patient deferred: external exam *Routine Extremities Exam Extremities: Present full ROM; Absent edema or calf tenderness *Routine Neurological Exam Neurological: Present alert, moving all extremities and normal speech Routine Psychiatric Exam Psychiatric: Present normal affect and cooperative Results Data Completed and Pending Labs on day of discharge: Labs from last 24 hours 07/17/23 07/17/23 07/16/23 06:47 05:55 20:57 WBC 10.4 RBC 4.08 L Hgb 11.3 L D Hct 36.1 L MCV 88.4 MCH 27.8 MCHC 31.4 L RDW 15.0 Plt Count 144 MPV 11.0 H Neut % (Auto) 57.1 Lymph % (Auto) 33.9 [place] % (Auto) 3.3 Eos % (Auto) 5.3 Baso % (Auto) 0.5 Neut # (Auto) 6.0 Lymph # (Auto) 3.5 [place] # (Auto) 0.4 Eos # (Auto) 0.6 H Baso # (Auto) 0.1 Sodium Potassium Chloride Carbon Dioxide Anion Gap BUN Creatinine Estimated Creat Clear Estimated GFR Est GFR ( Amer) Glucose POC Glucose 87 109 Calcium Total Bilirubin AST ALT Alkaline Phosphatase Total Protein Albumin Globulin Albumin/Globulin Ratio 07/16/23 16:10 WBC 12.4 H RBC 4.74 Hgb 12.9 Hct 41.0 MCV 86.6 MCH 27.2 MCHC 31.4 L RDW 15.2 Plt Count 170 MPV 11.6 H Neut % (Auto) 67.8 Lymph % (Auto) 25.5 [place] % (Auto) 2.6 Eos % (Auto) 3.8 Baso % (Auto) 0.4 Neut # (Auto) 8.4 H Lymph # (Auto) 3.2 [place] # (Auto) 0.3 Eos # (Auto) 0.5 H Baso # (Auto) 0.1 Sodium 140 Potassium 3.6 Chloride 107 Carbon Dioxide 24 Anion Gap 12.6 BUN 13 Creatinine 0.70 Estimated Creat Clear 86 Estimated GFR 94 Est GFR ( Amer) 113 Glucose 101 H POC Glucose Calcium 9.5 Total Bilirubin 0.5 AST 25 ALT 21 Alkaline Phosphatase 102 Total Protein 8.1 Albumin 4.5 Globulin 3.6 H Albumin/Globulin Ratio 1.3 DS: Diagnosis Discharge Diagnosis (1) Thrombophlebitis of vein of pelvis: Status: Acute Code(s): I80.8 - Phlebitis and thrombophlebitis of other sites (2) S/P laparoscopic hysterectomy: Status: Acute Code(s): Z90.710 - Acquired absence of both cervix and uterus Problem details: with bilateral salpingectomy 05/15/23 (3) Urinary urgency: Status: Acute Code(s): R39.15 - Urgency of urination (4) Abdominal tenderness, LLQ (left lower quadrant): Status: Acute Code(s): R10.814 - Left lower quadrant abdominal tenderness Qualifiers: Presence of rebound: absent Qualified Code(s): R10.814 - Left lower quadrant abdominal tenderness Meds Home Medications and Allergies Home Medications Medication Instructions Recorded Confirmed Type albuterol sulfate 90 mcg/actuation 2 inh inhalation Q6HP PRN 01/30/18 07/16/23 History aerosol inhaler Shortness Of Breath Or Wheezing pregabalin 150 mg capsule (Lyrica) 150 mg PO BID Pain 01/22/23 07/16/23 History fluticasone propionate 50 1 - 2 spray intranasal DAILY PRN 05/08/23 07/16/23 History mcg/actuation nasal allergies spray,suspension (Flonase Allergy Relief) tizanidine 4 mg tablet (Zanaflex) 4 mg PO HS Muscle Spasm #30 tabs 05/28/23 07/16/23 Rx rimegepant 75 mg disintegrating 75 mg PO NEEDED PRN Migraine 07/10/23 07/16/23 History tablet (Nurtec ODT) Headache lisinopril 10 1 tab PO DAILY High Blood Pressure 07/16/23 07/16/23 History mg-hydrochlorothiazide 12.5 mg tablet semaglutide (weight loss) 0.25 0.25 mg (0.5 mL) SQ WEEKLY #2 mL 07/16/23 07/16/23 Rx mg/0.5 mL subcutaneous pen injector (Wegovy) rivaroxaban 10 mg tablet (Xarelto) 10 mg PO .daily in the evening #30 07/17/23 Rx tabs New Prescriptions to Start Prescriptions: rivaroxaban [Xarelto] Selina Issa Allergies Allergy/AdvReac Type Severity Reaction Status Date / Time cephalexin [From Keflex] Allergy Intermediate Verified 07/14/23 13:48 cinnamon Allergy Verified 07/14/23 13:48 Discharge Plan Disposition Patient Disposition: Home, Self-Care Condition: Good Follow up Plan Follow up with: Selina Issa DO [Staff Physician] - 07/28/23 11:15 am ( ) Shade Chase MD [Staff Physician] - 07/22/23 2:30 pm (New patient, ovarian vein thrombosis S/p total laparoscopic hysterectomy with bilateral salpingectomy 05/15/23) Prescriptions/Medication Reconciliation: New Xarelto 10 mg tablet 10 mg PO .daily in the evening Qty: 30 2RF Rx Instructions: for 35 days Continued pregabalin [Lyrica] 150 mg capsule 150 mg PO BID fluticasone propionate [Flonase Allergy Relief] 50 mcg/actuation spray,suspension 1 - 2 spray intranasal DAILY PRN (Reason: allergies) Rx Instructions: administer into each nostril Nurtec ODT 75 mg tablet,disintegrating 75 mg PO NEEDED PRN (Reason: Migraine Headache) Wegovy 0.25 mg/0.5 mL pen injector 0.25 mg SQ WEEKLY Qty: 2 0RF Rx Instructions: administer weeks 1 through 4 of therapy albuterol sulfate 8.5 GM HFA aerosol inhaler 2 inh inhalation Q6HP PRN (Reason: Shortness Of Breath Or Wheezing) tizanidine [Zanaflex] 4 mg tablet 4 mg PO HS Qty: 30 2RF lisinopril-hydrochlorothiazide 10-12.5 mg tablet 1 tab PO DAILY Problem Reconciliation Problems Reviewed?: Yes Patient Discharge Instructions ACTIVITY: Continue current activity DIET: continue same diet and regular diet Patient Instructions: DI for Superficial Thrombophlebitis Providers Primary Care Provider: Provider,Referral Admit Provider: Selina Issa Attending Provider: Selina Issa
[2023-07-17 11:00] VITALS: BP 120/91; PULSE 65; RESP 16; TEMP 37; O2SAT 97
--- NOTE | 2023-07-18 11:47 | CARE MANAGER ---
Contacted patient related to hospital discharge. She has her medication and is aware of her follow up appointments. Denies questions or concerns. RHONDA Jaime
== END 2023-07-17 11:30 | disposition home or self-care (01) ==
PROVIDERS: Admitting Provider Obstetrics & Gynecology; Visit Provider Obstetrics & Gynecology
DX: I80.8 Phlebitis and thrombophlebitis of other sites (principal); R39.15 Urgency of urination; R10.814 Left lower quadrant abdominal tenderness; Z90.710 Acquired absence of both cervix and uterus; Z79.899 Other long term (current) drug therapy
CPT/HCPCS: 36415; 80053; 82962; 85025; G0378; J2543

== ENCOUNTER 2023-08-11 00:52 | Inpatient (IN) | payer OTHER, SELFPAY ==
[2023-08-11] VITALS (9 sets, daily range): BP systolic 99–130; BP diastolic 54–81; PULSE 70–93; RESP 16–18; TEMP 36.4–36.8; O2SAT 94–100; BMI 43.9; BMI 48.2; BMI 48.4
[2023-08-11 01:12] LABS: Microscopic, Urine URINE MICROSCOPIC (MICROSCOPIC)
[2023-08-11 01:13] LABS: Appearance,Urine TURBID (Clear); Blood, Urine 3+ (Negative); Color,Urine RED (Yellow); Glucose,Urine (UA) Negative (Negative); Ketones,Urine 1+ (Negative); Leukocyte Esterase,Urine 2+ (Negative); Nitrate,Urine POSITIVE (Negative); PH,Urine 6.5 (5.0-8.5); Protein,Urine 3+ (Negative); Specific Gravity, Urine >= 1.030 (1.005-1.030)
--- NOTE | 2023-08-11 01:16 | CT_ITS ---
PROCEDURE INFORMATION: Exam: CT Abdomen And Pelvis With Contrast Exam date and time: 08/11/2023 1:32 AM Age: 38 years old Clinical indication: Abdominal pain; Flank; Right; Additional info: R flank pain hematuria HX recent hysterectomy TECHNIQUE: Imaging protocol: Computed tomography of the abdomen and pelvis with contrast. Radiation optimization: All CT scans at this facility use at least one of these dose optimization techniques: automated exposure control; mA and/or kV adjustment per patient size (includes targeted exams where dose is matched to clinical indication); or iterative reconstruction. Contrast material: ISOVUE; Contrast volume: 75 ml; Contrast route: IV; COMPARISON: 1. CT ABDOMEN PELVIS WO/W CON 07/16/2023 9:[address] ABDOMEN PELVIS WO CON 06/27/2021 7:[address] ABDOMEN PELVIS W CON 05/02/2019 6:32 AM FINDINGS: Liver: Normal. Gallbladder and bile ducts: The patient is status post cholecystectomy. There is dilation of the intrahepatic biliary ducts most likely reflecting post cholecystectomy effect. Pancreas: Normal. Spleen: Normal. Adrenal glands: The adrenal glands appear normal. Kidneys and ureters: Mild right hydronephrosis extending to a 5 mm proximal ureteral calculus (image 56 series 3). Suspect right-sided obstructive uropathy. Nonobstructing right mid to upper pole intrarenal calculi. Stomach and bowel: Mild fluid distention of small-bowel loops. Appendix: No evidence of appendicitis. Intraperitoneal space: Unremarkable. Vasculature: The abdominal aorta and its major branches appear normal without evidence of aneurysm or stenosis. There are pelvic phleboliths. Lymph nodes: No lymphadenopathy. Urinary bladder: Unremarkable as visualized. Reproductive: The patient has undergone prior hysterectomy. Bones/joints: The visualized osseous structures of the abdomen and pelvis appear normal for patient age. Soft tissues: There is a small fat containing umbilical hernia. IMPRESSION: Mild right hydronephrosis extending to a 5 mm proximal ureteral calculus (image 56 series 3).
--- NOTE | 2023-08-11 01:18 | HMH.EDGENADL ---
Discharge Plan Disposition Patient Disposition: Admitted Condition: Fair Prescriptions Prescriptions: No Action pregabalin [Lyrica] 150 mg capsule 150 mg PO BID fluticasone propionate [Flonase Allergy Relief] 50 mcg/actuation spray,suspension 1 - 2 spray intranasal DAILY PRN (Reason: allergies) Rx Instructions: administer into each nostril Nurtec ODT 75 mg tablet,disintegrating 75 mg PO NEEDED PRN (Reason: Migraine Headache) Mounjaro 2.5 mg/0.5 mL pen injector 2.5 mg SQ WEEKLY 28 Days Qty: 2 0RF fluconazole 150 mg tablet 150 mg PO Q3D Qty: 2 0RF Rx Instructions: repeat dose in 72 hours albuterol sulfate 8.5 GM HFA aerosol inhaler 2 inh inhalation Q6HP PRN (Reason: Shortness Of Breath Or Wheezing) tizanidine [Zanaflex] 4 mg tablet 4 mg PO HS Qty: 30 2RF lisinopril-hydrochlorothiazide 10-12.5 mg tablet 1 tab PO DAILY Xarelto 10 mg tablet 10 mg PO .daily in the evening Qty: 30 2RF Rx Instructions: for 35 days Referrals Follow up/Referrals: Nikkie Perez APRN [Primary Care Provider] - See instructions Clinical Impressions Clinical Impression: Ureterolithiasis, Hematuria Instructions Patient Instructions: DI for Low Back Pain Discharge ED Provider: Gregor Hart General Adult HPI General Chief complaint: Back Pain/Injury Stated complaint: right side back pain Time Seen by Provider: 08/11/23 01:11 Mode of Arrival: Ambulatory Source of Information: Patient Limitations: No Limitations Description of Symptoms (Recalled from ER Triage Doc. by RN): Patient repots pink tinged urine starting yesterday morning with mild back pain. Approximately 2029 pain became more severe and urine became darker red. Patient took floxmax at home, 800mg ibuprofen at 2200, 1000mg tylenol at 2000, and oxycodone 5mg at 0000 and 2000, without any improvement of pain. Rates pain as 8/10 right lower back and flank. 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 Patient states she was having mild twinges of pain throughout the day but around 8:30 PM it became significantly worse. She also states what had been previously pink-tinged urine became more frankly bloody. She is not passing clots. Patient took flomax, 800 mg of ibuprofen around the time of symptom worsening, 1000 mg of Tylenol, and oxycodone 5 mg at both 8 PM and midnight without significant improvement in pain. Patient has not taken any antiemetics and is having nausea. She states she gets severe constipation with Zofran and has had rectal tearing as a result so she did not take this though she had it at home. Patient is borderline tearful on my initial evaluation. Related Data Home Medications Medication Instructions Recorded Confirmed albuterol sulfate 90 mcg/actuation 2 inh inhalation Q6HP PRN 01/30/18 07/28/23 aerosol inhaler Shortness Of Breath Or Wheezing pregabalin 150 mg capsule (Lyrica) 150 mg PO BID Pain 01/22/23 07/28/23 fluticasone propionate 50 1 - 2 spray intranasal DAILY PRN 05/08/23 07/28/23 mcg/actuation nasal allergies spray,suspension (Flonase Allergy Relief) rimegepant 75 mg disintegrating 75 mg PO NEEDED PRN Migraine 07/10/23 07/28/23 tablet (Nurtec ODT) Headache lisinopril 10 1 tab PO DAILY High Blood Pressure 07/16/23 07/28/23 mg-hydrochlorothiazide 12.5 mg tablet Previous Rx's Medication Instructions Recorded tizanidine 4 mg tablet (Zanaflex) 4 mg PO HS Muscle Spasm #30 tabs 05/28/23 rivaroxaban 10 mg tablet (Xarelto) 10 mg PO .daily in the evening #30 07/17/23 tabs tirzepatide 2.5 mg/0.5 mL 2.5 mg (0.5 mL) SQ WEEKLY 4 weeks 07/28/23 subcutaneous pen injector #2 mL (Mounjaro) fluconazole 150 mg tablet 150 mg PO Q3D 2 doses #2 tabs 08/01/23 Allergies Allergy/AdvReac Type Severity Reaction Status Date / Time cephalexin [From Keflex] Allergy Intermediate Verified 08/11/23 01:30 cinnamon Allergy Verified 08/11/23 01:[address] [facility] Disclaimer: The information contained in this section may have been updated after the patient was seen, as this information can be updated by other users. Medical History Renal calculus, right Abdominal tenderness, LLQ (left lower quadrant) Thrombophlebitis of vein of pelvis Abdominal tenderness, RLQ (right lower quadrant) Urinary urgency Abnormal uterine bleeding Sinusitis Adenocarcinoma in situ of endocervix Perianal fissure PCOS (polycystic ovarian syndrome) Dyspareunia Endometriosis Chronic pelvic pain in female Morbid obesity with BMI of 40.0-44.9, adult Shingles Anxiety Shingles (herpes zoster) polyneuropathy Surgical History S/P laparoscopic hysterectomy with bilateral salpingectomy 05/15/23 History of colonoscopy S/P cone biopsy of cervix History of cholecystectomy History of delivery History of tonsillectomy H/O tubal ligation Family History Other Anemia Asthma Atrial fibrillation Cancer Diabetes Heart disease Hyperlipidemia Hypertension No significant family history Thyroid disorder Social History Smoking Status: Never smoker alcohol intake: never substance use type: denies use current occupational status: employed Travel in the last 8 weeks: None household members: other housing: house current occupational exposures/hazards: Yes caffeine: Yes ROS Obtained: Yes All systems reviewed & no additional complaints except as documented Constitutional Constitutional: Denies chills, Denies fever(s), Denies headache(s) and Denies weakness Eyes Eyes: Denies change in vision ENT Ears, Nose, Mouth, and Throat: Denies dizziness, Denies headache(s), Denies nasal congestion and Denies sore throat Cardiovascular Cardiovascular: Denies chest pain, Denies dyspnea and Denies leg edema Respiratory Respiratory: Denies cough and Denies dyspnea Gastrointestinal Gastrointestingal: Reports nausea; Denies constipation, diarrhea or vomiting Genitourinary Female Genitourinary: Denies dysuria, Reports flank pain and Reports hematuria Musculoskeletal Musculoskeletal: Denies arthralgias, Denies myalgias, Denies numbness and Denies tingling Integumentary/Breasts Skin/Breast: Denies change in pigmentation Neurologic Neurologic: Denies dizziness, Denies headache(s), Denies numbness, Denies tingling and Denies weakness Physical Exam General General appearance: alert Comment: Clearly uncomfortable but nontoxic-appearing Head Head exam: atraumatic and normocephalic Eye Eye exam: Present PERRL and EOMI ENT ENT exam: Present mucous membranes moist Neck Neck exam: Present normal inspection and full ROM Chest Chest inspection: Present symmetric chest wall rise Respiratory Respiratory exam: Absent respiratory distress or stridor Cardiovascular Cardiovascular exam: Present regular rate and normal rhythm Abdominal Exam Abdominal exam: Present soft; Absent distention, tenderness, guarding or rebound Extremities Exam Extremities exam: Present full ROM Back Exam Back exam: Present CVA tenderness (R); Absent CVA tenderness (L) Neurological Exam Neurological exam: Present alert and oriented X3; Absent motor sensory deficit Psychiatric Psychiatric exam: Present normal affect and normal mood Skin Skin exam: Present warm and dry Medical Decision Making Medical Records Medical records reviewed: Yes I reviewed the patient's medical records. MR Comment: Reviewed most recent [employer] progress note demonstrates patient was transition to Xarelto after identification of her ovarian vein thrombus. Patient states she is still taking this medication. Recommended to continue 6 weeks of Xarelto. Joe Inquiry Pt receiving controlled substance: No Vital Signs: 08/11/23 00:53 08/11/23 02:01 08/11/23 02:31 Temperature 98.2 F Temperature Source Oral Pulse Rate 73 73 Pulse Rate [Left Radial] 93 H Respiratory Rate 18 Blood Pressure 118/68 99/58 L Blood Pressure [Right Arm] 130/81 Blood Pressure Mean 82 71 Blood Pressure Mean [Right Arm] 97 Blood Pressure Source [Right Arm] Automatic Cuff Blood Pressure Position [Right Arm] Sitting 02 Sat by Pulse Oximetry 99 100 100 Oxygen Delivery Method Room Air Room Air Lab Data Lab Results 08/11/23 00:58: Urine Color Red, Urine Appearance Turbid, Urine pH 6.5, Ur Specific [place] >= 1.030, Urine Protein 3+, Urine Glucose (UA) Negative, Urine Ketones 1+, Urine Blood 3+, Urine Nitrate Positive, Urine Bilirubin 2+ A, Urine Urobilinogen 2.0, Ur Leukocyte Esterase 2+ A, Urine RBC Tntc, Urine WBC 3-5, Ur Squamous Epith Cells Occasional, Urine Bacteria 3+ 08/11/23 01:10: WBC 14.1 H, RBC 4.40, Hgb 12.2, Hct 37.9, MCV 86.2, MCH 27.6, MCHC 32.0, RDW 15.0, Plt Count 166, MPV 11.1 H, Neut % (Auto) 59.9, Lymph % (Auto) 32.8, [place] % (Auto) 2.2, Eos % (Auto) 3.9, Baso % (Auto) 1.3, Neut # (Auto) 8.4 H, Lymph # (Auto) 4.6 H, [place] # (Auto) 0.3, Eos # (Auto) 0.5 H, Baso # (Auto) 0.2, PT 12.8 H, INR 1.20 H, Sodium 139, Potassium 3.6, Chloride 106, Carbon Dioxide 27, Anion Gap 9.6, BUN 18 H, Creatinine 0.80, Estimated Creat Clear 75, Estimated GFR 80, Est GFR ( Amer) 97, Glucose 107 H, Calcium 9.4, Total Bilirubin 0.3, AST 29, ALT 21, Alkaline Phosphatase 111, Total Protein 7.7, Albumin 4.3, Globulin 3.4 H, Albumin/Globulin Ratio 1.3 08/11/23 01:10 08/11/23 01:10 Orders (Tests/Meds): ED MEDICATIONS Generic Name Dose Route Start Last Admin Trade Name Freq PRN Reason Stop Dose Admin Sodium Chloride 10 ml 08/11/23 01:39 08/11/23 01:40 Sodium Chloride 0.9% 10ml Syr (Rad Only) IV 09/10/23 01:38 10 ml NEEDED PRN Administration Maintain IV Site Discontinued Medications Generic Name Dose Route Start Last Admin Trade Name Freq PRN Reason Stop Dose Admin Hydromorphone HCl 0.5 mg 08/11/23 01:16 08/11/23 01:22 Hydromorphone 2mg/Ml Syringe IV 08/11/23 01:17 0.5 mg ONCE ONE Administration Hydromorphone HCl 0.5 mg 08/11/23 01:52 08/11/23 01:57 Hydromorphone 2mg/Ml Syringe IV 08/11/23 01:53 0.5 mg ONCE ONE Administration Lactated Ringer's 1,000 mls @ 999 mls/hr 08/11/23 01:16 08/11/23 01:32 Lactated Ringer's 1000 Ml Bag IV 08/11/23 02:16 999 mls/hr .Q1H1M ONE Administration Iopamidol 75 ml 08/11/23 01:39 08/11/23 01:40 Iopamidol-370 (76%);100ml Bottle IV 08/11/23 01:40 75 ml ONCE ONE Administration Ketorolac Tromethamine 15 mg 08/11/23 01:52 08/11/23 01:57 Ketorolac 30mg/Ml Vial IV 08/11/23 01:53 15 mg ONCE ONE Administration Promethazine HCl 12.5 mg 08/11/23 01:16 08/11/23 01:21 Promethazine Hcl 25mg/Ml 1ml Vial IV 08/11/23 01:17 12.5 mg ONCE ONE Administration Sodium Chloride 25 ml 08/11/23 01:16 08/11/23 01:21 Sodium Chloride 0.9% 25ml Bag IV 08/11/23 01:17 25 ml ONCE ONE Administration ORDERS Category Date Time Status CT abdomen pelvis w con Stat Cat Scan 08/11/23 01:16 Completed CBC w/Auto Diff [Complete Blood Count Auto Diff] Stat Lab 08/11/23 01:10 Completed CMP [Comprehensive Metabolic Panel] Stat Lab 08/11/23 01:10 Completed PT INR [Prothrombin Time INR] Stat Lab 08/11/23 01:10 Completed Urinalysis and Microscopic Stat Lab 08/11/23 00:58 Completed Urine Culture Stat Micro 08/11/23 00:58 Received Medical Decision Narrative: In summary, this 38year old female with a history of hysterectomy, salpingectomy, adenocarcinoma of endocervix, ovarian vein thrombosis, previously known right renal calculus, all of which are comorbidities of her current condition and increase her overall morbidity presents to the emergency department today with right flank pain and hematuria. On initial evaluation patient is hemodynamically stable, afebrile, clearly uncomfortable but nontoxic-appearing, physical exam notable for right CVA tenderness. Differential diagnosis includes but is not limited to nephrolithiasis, ureterolithiasis, hydronephrosis, kidney dysfunction, cystitis, pyelonephritis, malignancy. Based on these concerns, I ordered basic labs, urine studies, CT abdomen pelvis. Patient received IV fluids, IV Dilaudid, IV Phenergan for treatment since she had already failed Tylenol, ibuprofen, and 2 doses of oral oxycodone at home. Labs personally reviewed demonstrate mild leukocytosis, no anemia, mildly elevated PT, INR, nonspecific and nonactionable at this time, trace prerenal azotemia, patient is already receiving IV fluids, no elevation in creatinine, normal electrolytes, no LFT abnormality, UA positive for blood but no findings of infection. CT abdomen pelvis personally interpreted demonstrates proximal right ureterolithiasis with mild hydronephrosis. See radiology read for final interpretation. On reassessment, patient's pain is persistent so she received additional IV Dilaudid. She rested briefly but then had recurrence as well as dry heaving. She is requiring additional doses of IV narcotics and IV Phenergan. I discussed admission for intractable pain, nausea with the patient. She is amenable to this plan. I discussed this patient including her findings on CT imaging, reassuring kidney function labs, but intractable pain with the hospitalist. Patient has been accepted for admission. Critical Care Critical Care Time Critical Care Time: No
[2023-08-11] MEDS: PROMETHAZINE HCL 25MG/ML 1ML VIAL 12.5 MG IV ×2 (01:21→02:58)
[2023-08-11] MEDS: SODIUM CHLORIDE 0.9% 25ML BAG 25 ML IV ×4 (01:21→17:16)
[2023-08-11] MEDS: HYDROMORPHONE 2MG/ML SYRINGE 0.5 MG IV ×2 (01:22→01:57)
[2023-08-11 01:24] LABS: Basophils # 0.2 K/mm3 (0-0.2); Basophils % 1.3 % (0.1-2.0); Eosinophils # 0.5 K/mm3 (0.0-0.4); Eosinophils % 3.9 % (0.1-12.0); Hematocrit 37.9 % (37.0-47.0); Hemoglobin 12.2 g/dL (12.2-16.2); Lymphocytes # 4.6 K/mm3 (0.7-4.5); Lymphocytes % 32.8 % (10-50); Mean Corpuscular Hemoglobin 27.6 pg (27.0-31.2); Mean Corpuscular Volume 86.2 fl (81-99); Mean Platelet Volume 11.1 fl (7.4-10.4); Monocytes # 0.3 K/mm3 (0.1-1.0); Monocytes % 2.2 % (1.7-9.3); Neutrophils # 8.4 K/mm3 (1.8-7.8); Neutrophils % 59.9 % (37.0-80.0); Platelet Count 166 K/mm3 (142-424); White Blood Count 14.1 K/mm3 (4.8-10.8)
[2023-08-11 01:25] LABS: Chloride 106 mmol/L (98-107)
[2023-08-11 01:26] LABS: Potassium 3.6 mmoL/L (3.5-5.1); Sodium 139 mmol/L (136-145)
[2023-08-11 01:28] LABS: Alanine Aminotransferase 21 U/L (12-78); Albumin Level 4.3 g/dl (3.5-5.0); Albumin/Globulin Ratio 1.3 (1.1-1.8); Alkaline Phosphatase 111 U/L (38-126); Anion Gap 9.6 mEq/L (5-15); Aspartate Amino Transferase 29 U/L (14-36); Bilirubin,Total 0.3 mg/dl (0.2-1.3); Blood Urea Nitrogen 18 mg/dl (7-17); Carbon Dioxide 27 mmol/L (22.0-30.0); Creatinine Clearance Estimated 75 mL/min (50-200); Estimated Glomerular Filt Rate 80 ml/min (>60); GFR (African American) 97 ML/MIN (>60); Globulin 3.4 g/dL (1.3-3.2); Total Protein,Serum 7.7 g/dl (6.3-8.2)
[2023-08-11 01:29] LABS: Calcium 9.4 mg/dl (8.4-10.2); Glucose 107 mg/dl (74-100); Prothrombin Time 12.8 seconds (10.1-12.5)
[2023-08-11] MEDS: LACTATED RINGERS 1000ML 1,000 ML 999 ML IV (01:32)
[2023-08-11 01:35] LABS: Bilirubin,Urine 2+ (Negative)
--- NOTE | 2023-08-11 01:35 | PC.NURSE ---
pt to ct at this time
[2023-08-11 01:36] LABS: Bacteria,Urine 3+ /lpf; RBC,Urine TNTC #/hpf (0-3); Squamous Epithelial Cell,Urine Occasional #/hpf (0-5)
[2023-08-11] MEDS: IOPAMIDOL-370 (76%);100ML BOTTLE 75 ML IV (01:40)
[2023-08-11] MEDS: SODIUM CHLORIDE 0.9% 10ML SYR (RAD ONLY) 10 ML IV (01:40)
[2023-08-11] MEDS: KETOROLAC 30MG/ML VIAL 15 MG IV (01:57)
--- NOTE | 2023-08-11 03:00 | EXP.HP ---
History of Present Illness *Admission Date: 08/11/23 *Reason for visit:: hematuria and right flank pain *History of present illness: This is a 38-year-old morbidly obese female with PMHx HTN. 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 Patient states she was having mild twinges of pain throughout the day but around 8:30 PM it became significantly worse. She also states what had been previously pink-tinged urine became more frankly bloody. She is not passing clots. Patient took flomax, 800 mg of ibuprofen around the time of symptom worsening, 1000 mg of Tylenol, and oxycodone 5 mg at both 8 PM and midnight without significant improvement in pain. Patient has not taken any antiemetics and is having nausea. She states she gets severe constipation with Zofran and has had rectal tearing as a result so she did not take this though she had it at home. Admitted for further treatment. [facility] Disclaimer: The information contained in this section may have been updated after the patient was seen, as this information can be updated by other users. Medical History (Updated 08/11/23 @ 06:05 by Wilbur Call APRN) Diabetes Renal calculus, right Abdominal tenderness, LLQ (left lower quadrant) Thrombophlebitis of vein of pelvis Abdominal tenderness, RLQ (right lower quadrant) Urinary urgency Abnormal uterine bleeding Sinusitis Adenocarcinoma in situ of endocervix Perianal fissure PCOS (polycystic ovarian syndrome) Dyspareunia Endometriosis Chronic pelvic pain in female Morbid obesity with BMI of 40.0-44.9, adult Shingles Anxiety Shingles (herpes zoster) polyneuropathy Surgical History S/P laparoscopic hysterectomy History of colonoscopy S/P cone biopsy of cervix History of cholecystectomy History of delivery History of tonsillectomy H/O tubal ligation Family History Other Anemia Asthma Atrial fibrillation Cancer Diabetes Heart disease Hyperlipidemia Hypertension No significant family history Thyroid disorder Social History (Updated 08/11/23 @ 03:41 by Daily Rock RN) Smoking Status: Never smoker alcohol intake: never substance use type: denies use current occupational status: employed Travel in the last 8 weeks: None household members: other housing: house current occupational exposures/hazards: Yes caffeine: Yes Review of Systems Review of Systems Review of systems:: pertinent systems reviewed and negative unless documented below Constitutional Constitutional: Denies headache(s) and Denies weakness ENT Ears, Nose, Mouth, and Throat: Denies dizziness and Denies headache(s) *Musculoskeletal Musculoskeletal: Denies numbness and Denies tingling *Neurologic Neurologic: Denies dizziness, Denies headache(s), Denies numbness, Denies tingling and Denies weakness Meds Home Medications and Allergies Home Medications Medication Instructions Recorded Confirmed Type albuterol sulfate 90 mcg/actuation 2 inh inhalation Q6HP PRN 01/30/18 08/11/23 History aerosol inhaler Shortness Of Breath Or Wheezing pregabalin 150 mg capsule (Lyrica) 150 mg PO BID Pain 01/22/23 08/11/23 History fluticasone propionate 50 1 - 2 spray intranasal DAILY PRN 05/08/23 08/11/23 History mcg/actuation nasal allergies spray,suspension (Flonase Allergy Relief) tizanidine 4 mg tablet (Zanaflex) 4 mg PO HS Muscle Spasm #30 tabs 05/28/23 08/11/23 Rx rimegepant 75 mg disintegrating 75 mg PO NEEDED PRN Migraine 07/10/23 08/11/23 History tablet (Nurtec ODT) Headache lisinopril 10 1 tab PO DAILY High Blood Pressure 07/16/23 08/11/23 History mg-hydrochlorothiazide 12.5 mg tablet rivaroxaban 10 mg tablet (Xarelto) 10 mg PO .daily in the evening #30 07/17/23 08/11/23 Rx tabs tirzepatide 2.5 mg/0.5 mL 2.5 mg (0.5 mL) SQ WEEKLY 4 weeks 07/28/23 08/11/23 Rx subcutaneous pen injector #2 mL (Mounjaro) fluconazole 150 mg tablet 150 mg PO Q3D 2 doses #2 tabs 08/01/23 08/11/23 Rx New Prescriptions to Start Prescriptions: Allergies Allergy/AdvReac Type Severity Reaction Status Date / Time cephalexin [From Keflex] Allergy Intermediate Verified 08/11/23 01:30 cinnamon Allergy Verified 08/11/23 01:30 Exam Data for Last 24 hours Vital signs and Labs for Last 24 Hours: Temp Pulse Resp BP Pulse Ox O2 Del Method 98.2 F 73 18 99/58 L 100 Room Air 08/11/23 00:53 08/11/23 02:31 08/11/23 00:53 08/11/23 02:31 08/11/23 02:31 08/11/23 02:31 Laboratory Results - last 24 hr 08/11/23 00:58: Urine Color Red, Urine Appearance Turbid, Urine pH 6.5, Ur Specific [place] >= 1.030, Urine Protein 3+, Urine Glucose (UA) Negative, Urine Ketones 1+, Urine Blood 3+, Urine Nitrate Positive, Urine Bilirubin 2+ A, Urine Urobilinogen 2.0, Ur Leukocyte Esterase 2+ A, Urine RBC Tntc, Urine WBC 3-5, Ur Squamous Epith Cells Occasional, Urine Bacteria 3+ 08/11/23 01:10: WBC 14.1 H, RBC 4.40, Hgb 12.2, Hct 37.9, MCV 86.2, MCH 27.6, MCHC 32.0, RDW 15.0, Plt Count 166, MPV 11.1 H, Neut % (Auto) 59.9, Lymph % (Auto) 32.8, [place] % (Auto) 2.2, Eos % (Auto) 3.9, Baso % (Auto) 1.3, Neut # (Auto) 8.4 H, Lymph # (Auto) 4.6 H, [place] # (Auto) 0.3, Eos # (Auto) 0.5 H, Baso # (Auto) 0.2, PT 12.8 H, INR 1.20 H, Sodium 139, Potassium 3.6, Chloride 106, Carbon Dioxide 27, Anion Gap 9.6, BUN 18 H, Creatinine 0.80, Estimated Creat Clear 75, Estimated GFR 80, Est GFR ( Amer) 97, Glucose 107 H, Calcium 9.4, Total Bilirubin 0.3, AST 29, ALT 21, Alkaline Phosphatase 111, Total Protein 7.7, Albumin 4.3, Globulin 3.4 H, Albumin/Globulin Ratio 1.3 I & O for Last 24 hours: Intake & Output 08/08/23 08/09/23 08/10/23 08/11/23 23:59 23:59 23:59 23:59 Weight 108.862 kg Constitutional Constitutional: no acute distress *Routine HEENT Exam Head: Present normocephalic Eye: Present EOMI and PERRL ENT: Present mucous membranes moist *Routine Neck Exam Neck: Present supple; Absent lymphadenopathy *Routine Respiratory Exam Respiratory: Present CTA bilaterally *Routine Cardiovascular Exam Cardiovascular: Present RRR *Routine Abdominal Exam Abdominal: Present soft, normoactive bowel sounds and tenderness Comments: right flank pain *Routine Rectal Exam Rectal:: deferred *Routine Genitalia Exam Genitalia:: deferred *Routine Extremities Exam Extremities: Absent cyanosis, clubbing or edema *Routine Skin Exam Skin: Present warm; Absent rash *Routine Neurological Exam Neurological: Present alert and oriented X3 H&P: Result Imaging and Cardiology EKG: Status: image reviewed by me, Preliminary report and final report CT scan - abdomen: Status: image reviewed by me, Preliminary report and final report Assessment and Plan *Assessment and plan (1) Hematuria: Status: Acute Qualifiers: Hematuria type: gross Qualified Code(s): R31.0 - Gross hematuria Category: Medical Code(s): R31.9 - Hematuria, unspecified (2) Urinary tract infection: Status: Acute Qualifiers: Hematuria presence: with hematuria Urinary tract infection type: site unspecified Qualified Code(s): N39.0 - Urinary tract infection, site not specified; R31.9 - Hematuria, unspecified Category: Medical Code(s): N39.0 - Urinary tract infection, site not specified (3) Ureterolithiasis: Status: Acute Category: Medical Code(s): N20.1 - Calculus of ureter (4) Thrombophlebitis of vein of pelvis: Status: Acute Category: Medical Code(s): I80.8 - Phlebitis and thrombophlebitis of other sites (5) HTN (hypertension): Status: Acute Qualifiers: Hypertension type: unspecified Qualified Code(s): I10 - Essential (primary) hypertension Category: Medical Code(s): I10 - Essential (primary) hypertension (6) Morbid obesity with BMI of 40.0-44.9, adult: Status: Acute Category: Medical Code(s): E66.01 - Morbid (severe) obesity due to excess calories; Z68.41 - Body mass index [BMI] 40.0-44.9, adult Plan 38-year-old morbidly obese female with PMHx HTN. 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 on arrival patient positive for leukocytosis. CT of abdomen showed Mild right hydronephrosis extending to a 5 mm proximal ureteral calculus. UA consistent with UTI and colored red. pain and nauseas became main issues. Due to patient not tolerating PO and still on pain. Medicine was called for admission. Plan as follow: -Gross hematuria and Urinary tract infection, with mild right hydronephrosis likely secondary to ureterolithiasis: Admit patient for medical service. Continue IV hydration UA pending CTA of the abdomen reviewed. Looks like the stone has been passed Started on levofloxacin IV every 24 Started on for nausea and vomiting Monitor for sepsis Vitals on per unit protocol. Pain management. -History of thrombophlebitis of the pelvis: On Xarelto. May be hold on this in the course of the hematuria -Hypertension: Resume home medication. Condition reviewed stable Morbidly obese: Currently on weight management. Encouraged to continue Low concern for DVT. On Protonix Full code Rounded on patient after nurse practitioner. Personally examined and interviewed patient. Agree with exam findings and care plan as documented. After review of imaging, patient has an obstructing stone. Given size of 5 mm, potential for passage with medical management. Initiated tamsulosin 0.4 mg twice daily. Strict ins and outs with monitoring of urine output, catching urine and a hat and then straining for passage of stone. Will discontinue Xarelto given hematuria. -If no passage in the next 24 hours, will reimage and evaluate for need for possible transfer to higher level of care. On exam, still having right flank pain with percussion. Heart regular, lungs clear. No significant abdominal tenderness on palpation. Appears uncomfortable.
--- NOTE | 2023-08-11 03:08 | PC.NURSE ---
Nurse to nurse report to Daily ELLIS.
--- NOTE | 2023-08-11 03:16 | PC.NURSE ---
PT ARRIVED TO FLOOR AT THIS TIME
[2023-08-11] MEDS: MORPHINE 4MG/ML SYRINGE 4 MG IV ×2 (03:23→13:32)
[2023-08-11] MEDS: LEVOFLOXACIN/D5W 750 MG/150 ML 750 MG/150 ML PIGGYBACK 100 MG IV (03:32)
[2023-08-11] MEDS: 0.9 % SODIUM CHLORIDE 1000ML 1,000 ML 125 ML IV ×3 (03:32→23:51)
[2023-08-11] MEDS: KETOROLAC 30MG/ML VIAL 30 MG IV ×2 (04:28→19:52)
--- NOTE | 2023-08-11 05:16 | PC.NURSE ---
Patient has slept intermittently after arriving to floor. Patient has c/o of pain to lower back/right flank x2 thus far in shift, medicated per MAR with relief. Patient has ambulated independently in room with no issues. No c/o of nausea at this time. Call light within reach.
[2023-08-11 06:46] LABS: Basophils # 0.1 K/mm3 (0-0.2); Basophils % 0.9 % (0.1-2.0); Eosinophils # 0.4 K/mm3 (0.0-0.4); Eosinophils % 3.6 % (0.1-12.0); Hematocrit 35.5 % (37.0-47.0); Hemoglobin 11.2 g/dL (12.2-16.2); Lymphocytes # 4.2 K/mm3 (0.7-4.5); Mean Corpuscular HGB Conc 31.4 g/dL (31.8-35.4); Mean Corpuscular Hemoglobin 26.8 pg (27.0-31.2); Mean Corpuscular Volume 85.3 fl (81-99); Mean Platelet Volume 12.7 fl (7.4-10.4); Monocytes # 0.4 K/mm3 (0.1-1.0); Monocytes % 3.3 % (1.7-9.3); Neutrophils # 6.8 K/mm3 (1.8-7.8); Neutrophils % 57.2 % (37.0-80.0); Platelet Count 162 K/mm3 (142-424); Red Blood Count 4.16 M/mm3 (4.20-5.40); Red Cell Distribution Width 14.7 % (11.5-17.5); White Blood Count 11.9 K/mm3 (4.8-10.8)
[2023-08-11 06:59] LABS: Alanine Aminotransferase 16 U/L (12-78); Albumin Level 3.7 g/dl (3.5-5.0); Albumin/Globulin Ratio 1.2 (1.1-1.8); Alkaline Phosphatase 84 U/L (38-126); Anion Gap 10.7 mEq/L (5-15); Aspartate Amino Transferase 26 U/L (14-36); Bilirubin,Total 0.3 mg/dl (0.2-1.3); Blood Urea Nitrogen 18 mg/dl (7-17); Calcium 8.9 mg/dl (8.4-10.2); Carbon Dioxide 24 mmol/L (22.0-30.0); Chloride 107 mmol/L (98-107); Creatinine Clearance Estimated 72 mL/min (50-200); Estimated Glomerular Filt Rate 80 ml/min (>60); GFR (African American) 97 ML/MIN (>60); Globulin 3.1 g/dL (1.3-3.2); Glucose 80 mg/dl (74-100); Magnesium 2.1 mg/dl (1.6-2.3); Potassium 3.7 mmoL/L (3.5-5.1); Sodium 138 mmol/L (136-145); Total Protein,Serum 6.8 g/dl (6.3-8.2)
[2023-08-11] MEDS: PROMETHAZINE HCL 25MG/ML 1ML VIAL 25 MG IV ×2 (08:17→17:16)
--- NOTE | 2023-08-11 08:58 | HMH.PHAINT1 ---
Pharmacy Intervention Comments: Home medication list verified via outside pharmacy/office visit
[2023-08-11] MEDS: TAMSULOSIN 0.4MG CAPSULE 0.400000000000000022 MG PO ×2 (09:52→20:52)
[2023-08-11] MEDS: LISINOPRIL/HCTZ 10-12.5MG TABLET 1 EACH PO (09:52)
[2023-08-11] MEDS: PREGABALIN 50MG CAPSULE 150 MG PO ×2 (09:52→20:52)
[2023-08-11] MEDS: PANTOPRAZOLE 40MG TABLET 40 MG PO (09:52)
[2023-08-11] MEDS: ACETAMINOPHEN 325MG TAB 650 MG PO (09:53)
--- NOTE | 2023-08-11 17:07 | PC.NURSE ---
patient a&ox4 and vss. Patient has had c/o pain and nausea but states that it is not near as severe as last night. Patient has tolerated IV fluids. No stones or debris noted when straining urine.
[2023-08-11] MEDS: TIZANIDINE 4MG TABLET 4 MG PO (20:52)
--- NOTE | 2023-08-11 23:55 | PC.NURSE ---
REPORT RECIEVED FROM RHONDA DONG.PT BEING TRANSFERED TO UNIT FOR OVERFLOW
--- NOTE | 2023-08-11 23:59 | PC.NURSE ---
pt transferred to OB
[2023-08-12 00:04] VITALS: BP 88/42; PULSE 72; RESP 17; TEMP 36.5; O2SAT 99
--- NOTE | 2023-08-12 00:05 | PC.NURSE ---
PT B/P WITH DATASCOPE WAS 88/42,SHE DENIES FEELING BAD,JUST TIRED,WILL CHECK WITH MANUAL AFTER SHE GOES TO BATHROOM
[2023-08-12 00:14] VITALS: BP 85/40
--- NOTE | 2023-08-12 00:14 | PC.NURSE ---
MANUAL B/P WAS 85/40.DENIES ANY DIZZINESS OR LIGHTHEADED.SHE REPORTS SHE VOIDED 50ML OF COKE COLOR URINE.NO STONE STRAINED.PT REPORTS SHE IS OK,REPORTS HER PAIN JUST COMES AND GOES,DENIES ANY NEED FOR PAIN MEDICINE.LIGHTS TURNED OUT,BED IN LOW POSITION AND CALL WILEY IN REACH
[2023-08-12] MEDS: LEVOFLOXACIN/D5W 750 MG/150 ML 750 MG/150 ML PIGGYBACK 100 MG IV (02:45)
[2023-08-12 05:00] VITALS: BP 94/44; PULSE 74; RESP 17; TEMP 36.6; O2SAT 98
--- NOTE | 2023-08-12 05:15 | PC.NURSE ---
PT REPORTS SHE HAS SLEPT BETTER THAN LAST NIGHT.SHE HAS ONLY VOIDED A COUPLE TIMES AND IT WAS COLA COLA COLOR FIRST TIME AND ONLY 50 ML AND SECOND TIME THIS MORNING 200ML YELLOW PINK,NO STONES PASSED YET.NO FLANK TENDERNESS NOTED.HAS NOT REQUIRED ANY PAIN MEDICINE THUS FAR ON THIS UNIT,SHE DID GET A DOSE OF TORADOL AROUND 1999 ON MED SURG.BED IN LOW POSTION,CALL WILEY IN REACH
[2023-08-12 06:12] LABS: Basophils # 0.1 K/mm3 (0-0.2); Basophils % 0.6 % (0.1-2.0); Eosinophils # 0.4 K/mm3 (0.0-0.4); Eosinophils % 4.1 % (0.1-12.0); Hematocrit 32.5 % (37.0-47.0); Hemoglobin 10.3 g/dL (12.2-16.2); Lymphocytes % 30.2 % (10-50); Mean Corpuscular HGB Conc 31.7 g/dL (31.8-35.4); Mean Corpuscular Hemoglobin 27.2 pg (27.0-31.2); Mean Corpuscular Volume 85.8 fl (81-99); Mean Platelet Volume 13.1 fl (7.4-10.4); Monocytes # 0.3 K/mm3 (0.1-1.0); Monocytes % 2.9 % (1.7-9.3); Neutrophils # 6.1 K/mm3 (1.8-7.8); Neutrophils % 62.2 % (37.0-80.0); Platelet Count 130 K/mm3 (142-424); Red Blood Count 3.79 M/mm3 (4.20-5.40); Red Cell Distribution Width 14.8 % (11.5-17.5); White Blood Count 9.8 K/mm3 (4.8-10.8)
[2023-08-12 06:20] LABS: Alanine Aminotransferase 18 U/L (12-78); Albumin Level 3.3 g/dl (3.5-5.0); Albumin/Globulin Ratio 1.2 (1.1-1.8); Alkaline Phosphatase 75 U/L (38-126); Anion Gap 7.6 mEq/L (5-15); Aspartate Amino Transferase 21 U/L (14-36); Bilirubin,Total 0.3 mg/dl (0.2-1.3); Blood Urea Nitrogen 15 mg/dl (7-17); Calcium 8.2 mg/dl (8.4-10.2); Carbon Dioxide 23 mmol/L (22.0-30.0); Chloride 112 mmol/L (98-107); Creatinine Clearance Estimated 82 mL/min (50-200); Estimated Glomerular Filt Rate 94 ml/min (>60); GFR (African American) 113 ML/MIN (>60); Globulin 2.7 g/dL (1.3-3.2); Glucose 103 mg/dl (74-100); Magnesium 2.1 mg/dl (1.6-2.3); Potassium 3.6 mmoL/L (3.5-5.1); Sodium 139 mmol/L (136-145)
[2023-08-12 08:55] VITALS: O2SAT 98
[2023-08-12 09:00] VITALS: BP 95/43; PULSE 90; RESP 17; TEMP 36.6; O2SAT 98
[2023-08-12] MEDS: PREGABALIN 50MG CAPSULE 150 MG PO (09:10)
[2023-08-12] MEDS: TAMSULOSIN 0.4MG CAPSULE 0.400000000000000022 MG PO (09:11)
[2023-08-12] MEDS: PANTOPRAZOLE 40MG TABLET 40 MG PO (09:11)
--- NOTE | 2023-08-12 09:15 | PC.NURSE ---
dr vergara at bedside
--- NOTE | 2023-08-12 09:32 | P.DS_ITS ---
General Admission date:: 08/11/23 HPI HPI HPI: This is a 38-year-old morbidly obese female with PMHx HTN. 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 Patient states she was having mild twinges of pain throughout the day but around 8:30 PM it became significantly worse. She also states what had been previously pink-tinged urine became more frankly bloody. She is not passing clots. Patient took flomax, 800 mg of ibuprofen around the time of symptom worsening, 1000 mg of Tylenol, and oxycodone 5 mg at both 8 PM and midnight without significant improvement in pain. Patient has not taken any antiemetics and is having nausea. She states she gets severe constipation with Zofran and has had rectal tearing as a result so she did not take this though she had it at home. Admitted for further treatment. Hospital Course Hospital Course Hospital Course: 38-year-old morbidly obese female with PMHx HTN. 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 on arrival patient positive for leukocytosis. CT of abdomen showed Mild right hydronephrosis extending to a 5 mm proximal ureteral calculus. UA consistent with UTI and colored red. pain and nauseas became main issues. Due to patient not tolerating PO and still on pain. Medicine was called for admission. Patient admitted for medical management of ureterolithiasis and UTI. Clinically passed the stone. Doing better. Stable to discharge home to complete antibiotic course. Problems addressed as follows: -Gross hematuria and Urinary tract infection, with mild right hydronephrosis likely secondary to ureterolithiasis: Patient admitted to medicine for further management. Initiated on IV fluids, tamsulosin, and antibiotics. Tolerated fluids well. Had gradual improvement in her pain. Hematuria resolved with holding her anticoagulation. Pain improved by the following morning after admission. Urine was strained during admission, no stone found however suspect stone may still be in her bladder. Encouraged her to continue to strain urine after discharge. Flank pain resolved. Initiated on levofloxacin. Urine culture returned for beta-hemolytic strep after discharge, transitioned to amoxicillin after final results returned. Given her improvement, stable to discharge home. Has follow-up with urology already scheduled next week. -History of thrombophlebitis of the pelvis: On Xarelto. Held during admission, resume at discharge. Hematuria resolved -Hypertension: Holding lisinopril due to normotension. Exam Data for Last 24 hours Vital signs and Labs for Last 24 Hours: Temp Pulse Resp BP Pulse Ox O2 Del Method 97.8 F 90 17 95/43 L 98 Room Air 08/12/23 09:00 08/12/23 09:00 08/12/23 09:00 08/12/23 09:00 08/12/23 09:00 08/12/23 09:00 Laboratory Results - last 24 hr 08/12/23 05:53: WBC 9.8, RBC 3.79 L, Hgb 10.3 L, Hct 32.5 L, MCV 85.8, MCH 27.2, MCHC 31.7 L, RDW 14.8, Plt Count 130 L, MPV 13.1 H, Neut % (Auto) 62.2, Lymph % (Auto) 30.2, Miller % (Auto) 2.9, Eos % (Auto) 4.1, Baso % (Auto) 0.6, Neut # (Auto) 6.1, Lymph # (Auto) 3.0, Miller # (Auto) 0.3, Eos # (Auto) 0.4, Baso # (Auto) 0.1, Sodium 139, Potassium 3.6, Chloride 112 H, Carbon Dioxide 23, Anion Gap 7.6, BUN 15, Creatinine 0.70, Estimated Creat Clear 82, Estimated GFR 94, Est GFR ( Amer) 113, Glucose 103 H D, Calcium 8.2 L, Magnesium 2.1, Total Bilirubin 0.3, AST 21, ALT 18, Alkaline Phosphatase 75, Total Protein 6.0 L, Albumin 3.3 L D, Globulin 2.7, Albumin/Globulin Ratio 1.2 I & O for Last 24 hours: Intake & Output 08/09/23 08/10/23 08/11/23 08/12/23 23:59 23:59 23:59 23:59 Intake Total 1890 / 1890 Output Total 450 / 450 250 / 250 Balance 1440 / 1440 -250 / -250 Weight 119.351 kg Results Data Completed and Pending Labs on day of discharge: Labs from last 24 hours 08/12/23 05:53 WBC 9.8 RBC 3.79 L Hgb 10.3 L Hct 32.5 L MCV 85.8 MCH 27.2 MCHC 31.7 L RDW 14.8 Plt Count 130 L MPV 13.1 H Neut % (Auto) 62.2 Lymph % (Auto) 30.2 Miller % (Auto) 2.9 Eos % (Auto) 4.1 Baso % (Auto) 0.6 Neut # (Auto) 6.1 Lymph # (Auto) 3.0 Miller # (Auto) 0.3 Eos # (Auto) 0.4 Baso # (Auto) 0.1 Sodium 139 Potassium 3.6 Chloride 112 H Carbon Dioxide 23 Anion Gap 7.6 BUN 15 Creatinine 0.70 Estimated Creat Clear 82 Estimated GFR 94 Est GFR ( Amer) 113 Glucose 103 H D Calcium 8.2 L Magnesium 2.1 Total Bilirubin 0.3 AST 21 ALT 18 Alkaline Phosphatase 75 Total Protein 6.0 L Albumin 3.3 L D Globulin 2.7 Albumin/Globulin Ratio 1.2 DS: Diagnosis Discharge Diagnosis (1) Hematuria: Status: Acute Code(s): R31.9 - Hematuria, unspecified Qualifiers: Hematuria type: gross Qualified Code(s): R31.0 - Gross hematuria (2) Urinary tract infection: Status: Acute Code(s): N39.0 - Urinary tract infection, site not specified Qualifiers: Hematuria presence: with hematuria Urinary tract infection type: site unspecified Qualified Code(s): N39.0 - Urinary tract infection, site not specified; R31.9 - Hematuria, unspecified (3) Ureterolithiasis: Status: Acute Code(s): N20.1 - Calculus of ureter (4) Thrombophlebitis of vein of pelvis: Status: Acute Code(s): I80.8 - Phlebitis and thrombophlebitis of other sites (5) HTN (hypertension): Status: Acute Code(s): I10 - Essential (primary) hypertension Qualifiers: Hypertension type: unspecified Qualified Code(s): I10 - Essential (primary) hypertension (6) Morbid obesity with BMI of 40.0-44.9, adult: Status: Acute Code(s): E66.01 - Morbid (severe) obesity due to excess calories; Z68.41 - Body mass index [BMI] 40.0-44.9, adult Meds Home Medications and Allergies Home Medications Medication Instructions Recorded Confirmed Type albuterol sulfate 90 mcg/actuation 2 inh inhalation Q6HP PRN 01/30/18 08/11/23 History aerosol inhaler Shortness Of Breath Or Wheezing pregabalin 150 mg capsule (Lyrica) 150 mg PO BID Pain 01/22/23 08/11/23 History fluticasone propionate 50 1 - 2 spray intranasal DAILY PRN 05/08/23 08/11/23 History mcg/actuation nasal allergies spray,suspension (Flonase Allergy Relief) tizanidine 4 mg tablet (Zanaflex) 4 mg PO HS Muscle Spasm #30 tabs 05/28/23 08/11/23 Rx rimegepant 75 mg disintegrating 75 mg PO NEEDED PRN Migraine 07/10/23 08/11/23 History tablet (Nurtec ODT) Headache lisinopril 10 1 tab PO DAILY High Blood Pressure 07/16/23 08/11/23 History mg-hydrochlorothiazide 12.5 mg tablet rivaroxaban 10 mg tablet (Xarelto) 10 mg PO .daily in the evening #30 07/17/23 08/11/23 Rx tabs tirzepatide 2.5 mg/0.5 mL 2.5 mg (0.5 mL) SQ WEEKLY 4 weeks 07/28/23 08/11/23 Rx subcutaneous pen injector #2 mL (Mounjaro) fluconazole 150 mg tablet 150 mg PO Q3D 2 doses #2 tabs 08/01/23 08/11/23 Rx levofloxacin 750 mg tablet 750 mg PO DAILY 3 days #3 tabs 08/12/23 Rx tamsulosin 0.4 mg capsule 0.4 mg PO BID 30 days #60 caps 08/12/23 Rx amoxicillin 875 mg-potassium 1 tab PO BID 5 days #10 tabs 08/13/23 Rx clavulanate 125 mg tablet New Prescriptions to Start Prescriptions: amoxicillin-pot clavulanate Robbin Tuttle levofloxacin Robbin Tuttle tamsulosin Robbin Tuttle Allergies Allergy/AdvReac Type Severity Reaction Status Date / Time cephalexin [From Keflex] Allergy Intermediate Verified 08/11/23 01:30 cinnamon Allergy Verified 08/11/23 01:30 Discharge Plan Disposition Patient Disposition: Home, Self-Care Condition: Fair Discharge Order Discharge Orders: Discharge Order (Routine); Ordered 08/12/23 Ordered By: Robbin Tuttle Follow up Plan Follow up with: Nikkie Perez APRN [Primary Care Provider] - 08/25/23 9:00 am Uri Cr MD [Staff Physician] - 08/18/23 9:30 am Prescriptions/Medication Reconciliation: New tamsulosin 0.4 mg Capsule 0.4 mg PO BID 30 Days Qty: 60 0RF levofloxacin 750 mg tablet 750 mg PO DAILY 3 Days Qty: 3 0RF amoxicillin-pot clavulanate 875-125 mg tablet 1 tab PO BID 5 Days Qty: 10 0RF Continued pregabalin [Lyrica] 150 mg capsule 150 mg PO BID fluticasone propionate [Flonase Allergy Relief] 50 mcg/actuation spray,suspension 1 - 2 spray intranasal DAILY PRN (Reason: allergies) Rx Instructions: administer into each nostril Nurtec ODT 75 mg tablet,disintegrating 75 mg PO NEEDED PRN (Reason: Migraine Headache) Mounjaro 2.5 mg/0.5 mL pen injector 2.5 mg SQ WEEKLY 28 Days Qty: 2 0RF fluconazole 150 mg tablet 150 mg PO Q3D Qty: 2 0RF Rx Instructions: repeat dose in 72 hours albuterol sulfate 8.5 GM HFA aerosol inhaler 2 inh inhalation Q6HP PRN (Reason: Shortness Of Breath Or Wheezing) tizanidine [Zanaflex] 4 mg tablet 4 mg PO HS Qty: 30 2RF Xarelto 10 mg tablet 10 mg PO .daily in the evening Qty: 30 2RF Rx Instructions: for 35 days Held lisinopril-hydrochlorothiazide 10-12.5 mg tablet 1 tab PO DAILY Hold Instructions: pending follow-up with PCP or Urology Problem Reconciliation Problems Reviewed?: Yes Patient Discharge Instructions ACTIVITY: Continue current activity DIET: continue same diet Patient Instructions: DI for Kidney Stones, DI for Urinary Tract Infection (UTI), DI for Hematuria Providers Primary Care Provider: Nikkie Perez Admit Provider: Omid Henry Attending Provider: Omid Henry
--- NOTE | 2023-08-13 07:55 | PC.NURSE ---
urine culture discussed with dr farmer, no new orders. spoke with pt
--- NOTE | 2023-08-13 14:45 | CARE MANAGER ---
Called and spoke with patient regarding recent discharge. She states she is doing well and had no questions/concerns at time of call.
== END 2023-08-12 09:45 | disposition home or self-care (01) | DRG 694 ==
LOC: ER 02:57 → 2ND 03:00 → OB 23:39
PROVIDERS: Internal Medicine Adolescent Medicine; Nurse Practitioner Family; Admitting Provider Internal Medicine; Emergency Provider Emergency Medicine; PCP Family Medicine; Visit Provider Internal Medicine
DX: N20.1 Calculus of ureter (principal); Z68.42 Body mass index [BMI] 45.0-49.9, adult; R31.0 Gross hematuria; I10 Essential (primary) hypertension; E11.9 Type 2 diabetes mellitus without complications; E66.01 Morbid (severe) obesity due to excess calories; Z79.01 Long term (current) use of anticoagulants; Z79.899 Other long term (current) drug therapy; I80.8 Phlebitis and thrombophlebitis of other sites; F41.9 Anxiety disorder, unspecified; Z85.41 Personal history of malignant neoplasm of cervix uteri
CPT/HCPCS: 36415; 74177; 80053; 81001; 83735; 85025; 85610; 87086; 99285; J1956; Q9967

== ENCOUNTER 2023-08-14 03:44 | Emergency (ER) | payer OTHER, SELFPAY ==
--- NOTE | 2023-08-14 04:06 | CT_ITS ---
PROCEDURE INFORMATION: Exam: CT Abdomen And Pelvis With Contrast Exam date and time: 08/14/2023 4:24 AM Age: 38 years old Clinical indication: Abdominal pain; Flank; Right; Additional info: Right flank pain TECHNIQUE: Imaging protocol: Computed tomography of the abdomen and pelvis with contrast. Radiation optimization: All CT scans at this facility use at least one of these dose optimization techniques: automated exposure control; mA and/or kV adjustment per patient size (includes targeted exams where dose is matched to clinical indication); or iterative reconstruction. Contrast material: ISOVUE; Contrast volume: 75 ml; Contrast route: IV; COMPARISON: CT ABDOMEN PELVIS W CON 08/11/2023 1:32 AM FINDINGS: Liver: Normal. No mass. Gallbladder and bile ducts: Prior cholecystectomy. Pancreas: Normal. No ductal dilation. Spleen: Normal. No splenomegaly. Adrenal glands: Normal. No mass. Kidneys and ureters: 4 mm stone midpole right kidney. 5 mm stone distal right ureter with moderate right-sided hydroureter and hydronephrosis as well as delayed enhancement of the right kidney. Stomach and bowel: Unremarkable. No obstruction. No mucosal thickening. Appendix: No evidence of appendicitis. Intraperitoneal space: Unremarkable. No free air. No significant fluid collection. Vasculature: Unremarkable. No abdominal aortic aneurysm. Lymph nodes: Unremarkable. No enlarged lymph nodes. Urinary bladder: Unremarkable as visualized. Reproductive: Unremarkable as visualized. Bones/joints: Unremarkable. No acute fracture. Soft tissues: Unremarkable. IMPRESSION: 1. 5 mm stone distal right ureter with moderate right-sided hydroureter and hydronephrosis. 2. 5 mm stone right renal collecting system. 3. Status post cholecystectomy.
[2023-08-14 04:07] VITALS: BP 117/77; PULSE 108; RESP 28; TEMP 36.6; O2SAT 100; BMI 43.9
[2023-08-14 04:13] LABS: Basophils # 0.1 K/mm3 (0-0.2); Basophils % 0.8 % (0.1-2.0); Eosinophils # 0.4 K/mm3 (0.0-0.4); Eosinophils % 3.3 % (0.1-12.0); Hematocrit 37.6 % (37.0-47.0); Hemoglobin 11.8 g/dL (12.2-16.2); Lymphocytes # 3.4 K/mm3 (0.7-4.5); Lymphocytes % 25.5 % (10-50); Mean Corpuscular HGB Conc 31.3 g/dL (31.8-35.4); Mean Corpuscular Hemoglobin 26.9 pg (27.0-31.2); Mean Corpuscular Volume 85.8 fl (81-99); Mean Platelet Volume 11.8 fl (7.4-10.4); Monocytes # 0.3 K/mm3 (0.1-1.0); Monocytes % 2.4 % (1.7-9.3); Neutrophils % 68.1 % (37.0-80.0); Platelet Count 144 K/mm3 (142-424); Red Blood Count 4.38 M/mm3 (4.20-5.40); Red Cell Distribution Width 14.9 % (11.5-17.5); White Blood Count 13.3 K/mm3 (4.8-10.8)
[2023-08-14] MEDS: ONDANSETRON 4MG/2ML VIAL 4 MG IV (04:13)
[2023-08-14] MEDS: KETOROLAC 30MG/ML VIAL 15 MG IV (04:13)
[2023-08-14] MEDS: ACETAMINOPHEN 500MG TAB 1000 MG PO (04:13)
[2023-08-14 04:14] LABS: Chloride 109 mmol/L (98-107); Potassium 3.6 mmoL/L (3.5-5.1); Sodium 142 mmol/L (136-145)
[2023-08-14] MEDS: LACTATED RINGERS 1000ML 1,000 ML 999 ML IV (04:14)
[2023-08-14] MEDS: MORPHINE 4MG/ML SYRINGE 4 MG IV (04:15)
[2023-08-14 04:16] LABS: Alanine Aminotransferase 20 U/L (12-78); Aspartate Amino Transferase 24 U/L (14-36); Blood Urea Nitrogen 15 mg/dl (7-17); Creatinine Clearance Estimated 67 mL/min (50-200); Estimated Glomerular Filt Rate 70 ml/min (>60); GFR (African American) 85 ML/MIN (>60)
[2023-08-14 04:17] LABS: Albumin Level 3.9 g/dl (3.5-5.0); Albumin/Globulin Ratio 1.2 (1.1-1.8); Alkaline Phosphatase 95 U/L (38-126); Anion Gap 9.6 mEq/L (5-15); Bilirubin,Total 0.3 mg/dl (0.2-1.3); Calcium 9.3 mg/dl (8.4-10.2); Carbon Dioxide 27 mmol/L (22.0-30.0); Globulin 3.2 g/dL (1.3-3.2); Glucose 109 mg/dl (74-100); HCG Qualitative, Serum Negative (Negative); Lipase 53 U/L (23-300); Total Protein,Serum 7.1 g/dl (6.3-8.2)
--- NOTE | 2023-08-14 04:17 | PC.NURSE ---
called rad for ct scan. informed him of recent hysterectomy
--- NOTE | 2023-08-14 04:24 | PC.NURSE ---
gone to ct via and rn radiation oncology.
--- NOTE | 2023-08-14 04:28 | PC.NURSE ---
return from ct, no incidences reported. assisted to bathroom via [employer].
[2023-08-14] MEDS: IOPAMIDOL-370 (76%);100ML BOTTLE 75 ML IV (04:29)
[2023-08-14] MEDS: SODIUM CHLORIDE 0.9% 10ML SYR (RAD ONLY) 10 ML IV (04:29)
--- NOTE | 2023-08-14 04:33 | PC.NURSE ---
urine collected and sent to lab via eva kaminski.
[2023-08-14 04:35] LABS: Microscopic, Urine URINE MICROSCOPIC (MICROSCOPIC)
[2023-08-14 04:36] LABS: Bilirubin,Urine Negative (Negative); Blood, Urine Negative (Negative); Color,Urine YELLOW (Yellow); Glucose,Urine (UA) Negative (Negative); Ketones,Urine Negative (Negative); Leukocyte Esterase,Urine TRACE (Negative); Nitrate,Urine Negative (Negative); Protein,Urine Negative (Negative); Urobilinogen,Urine 0.2 EU/dl (0.2)
[2023-08-14 04:37] LABS: Appearance,Urine Slightly Cloudy (Clear)
[2023-08-14] MEDS: HYDROMORPHONE 2MG/ML SYRINGE 1 MG IV ×2 (04:41→05:50)
[2023-08-14 04:49] LABS: Bacteria,Urine Trace /lpf
--- NOTE | 2023-08-14 05:13 | PC.NURSE ---
rFeeman Mallory called in reference for a transfer to [facility] urology, they will return our phone call.
--- NOTE | 2023-08-14 05:20 | HMH.EDGENADL ---
Discharge Plan Disposition Patient Disposition: Xfer Other Condition: Fair Chief Complaint: Abdominal Pain Prescriptions Prescriptions: No Action pregabalin [Lyrica] 150 mg capsule 150 mg PO BID fluticasone propionate [Flonase Allergy Relief] 50 mcg/actuation spray,suspension 1 - 2 spray intranasal DAILY PRN (Reason: allergies) Rx Instructions: administer into each nostril Nurtec ODT 75 mg tablet,disintegrating 75 mg PO NEEDED PRN (Reason: Migraine Headache) Mounjaro 2.5 mg/0.5 mL pen injector 2.5 mg SQ WEEKLY 28 Days Qty: 2 0RF fluconazole 150 mg tablet 150 mg PO Q3D Qty: 2 0RF Rx Instructions: repeat dose in 72 hours albuterol sulfate 8.5 GM HFA aerosol inhaler 2 inh inhalation Q6HP PRN (Reason: Shortness Of Breath Or Wheezing) tizanidine [Zanaflex] 4 mg tablet 4 mg PO HS Qty: 30 2RF lisinopril-hydrochlorothiazide 10-12.5 mg tablet 1 tab PO DAILY Hold Instructions: pending follow-up with PCP or Urology Xarelto 10 mg tablet 10 mg PO .daily in the evening Qty: 30 2RF Rx Instructions: for 35 days tamsulosin 0.4 mg Capsule 0.4 mg PO BID 30 Days Qty: 60 0RF levofloxacin 750 mg tablet 750 mg PO DAILY 3 Days Qty: 3 0RF amoxicillin-pot clavulanate 875-125 mg tablet 1 tab PO BID 5 Days Qty: 10 0RF Referrals Follow up/Referrals: Nikkie Perez APRN [Primary Care Provider] - See instructions Clinical Impressions Clinical Impression: Right nephrolithiasis, UTI (urinary tract infection) Instructions Patient Instructions: DI for Kidney Stones Discharge ED Provider: Ingrid Bell General Adult HPI General Chief complaint: Abdominal Pain Stated complaint: kidney stone Time Seen by Provider: 08/14/23 04:03 Mode of Arrival: Family Vehicle Source of Information: Patient Limitations: No Limitations Description of Symptoms (Recalled from ER Triage Doc. by RN): right flank pain that began around 10pm, followed by the inability to urinate. patient has a history of recent renal calculi, as well as recently having had a hysterectomy. 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 States pain is a 10/10 and radiates into her right groin.suprapubic area. History of Present Illness HPI narrative: 38-year-old female with previous medical history of right-sided nephrolithiasis with group B strep UTI diagnosed earlier this week among other comorbidities presents with recurrence of her right flank pain. 08/10 patient presented to this emergency department with right flank pain and hematuria. At that time she was found to have a 5 mm stone at the right ureteropelvic junction with mild hydronephrosis of the right kidney. Initially not thought to be associated with UTI but nitrates were positive and urine culture grew 50,000 CFU group B strep so was started on IV Levaquin during her admission to the hospital. Her pain and hematuria had improved so on 08/11 she was discharged with oral Levaquin. For the past 24 hours she has had gradually worsening right flank pain again and has begun to have severe chills and nausea. She also has begun to have hematuria again. Patient states pain is extremely severe and she cannot sit still in the room. 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 Related Data Home Medications Medication Instructions Recorded Confirmed albuterol sulfate 90 mcg/actuation 2 inh inhalation Q6HP PRN 01/30/18 08/11/23 aerosol inhaler Shortness Of Breath Or Wheezing pregabalin 150 mg capsule (Lyrica) 150 mg PO BID Pain 01/22/23 08/11/23 fluticasone propionate 50 1 - 2 spray intranasal DAILY PRN 05/08/23 08/11/23 mcg/actuation nasal allergies spray,suspension (Flonase Allergy Relief) rimegepant 75 mg disintegrating 75 mg PO NEEDED PRN Migraine 07/10/23 08/11/23 tablet (Nurtec ODT) Headache lisinopril 10 1 tab PO DAILY High Blood Pressure 07/16/23 08/11/23 mg-hydrochlorothiazide 12.5 mg tablet Previous Rx's Medication Instructions Recorded tizanidine 4 mg tablet (Zanaflex) 4 mg PO HS Muscle Spasm #30 tabs 05/28/23 rivaroxaban 10 mg tablet (Xarelto) 10 mg PO .daily in the evening #30 07/17/23 tabs tirzepatide 2.5 mg/0.5 mL 2.5 mg (0.5 mL) SQ WEEKLY 4 weeks 07/28/23 subcutaneous pen injector #2 mL (Lalitmarychuy) fluconazole 150 mg tablet 150 mg PO Q3D 2 doses #2 tabs 08/01/23 levofloxacin 750 mg tablet 750 mg PO DAILY 3 days #3 tabs 08/12/23 tamsulosin 0.4 mg capsule 0.4 mg PO BID 30 days #60 caps 08/12/23 amoxicillin 875 mg-potassium 1 tab PO BID 5 days #10 tabs 08/13/23 clavulanate 125 mg tablet Allergies Allergy/AdvReac Type Severity Reaction Status Date / Time cephalexin [From Keflex] Allergy Intermediate Verified 08/11/23 01:30 cinnamon Allergy Verified 08/11/23 01:30 [facility] Disclaimer: The information contained in this section may have been updated after the patient was seen, as this information can be updated by other users. Medical History Diabetes Renal calculus, right Abdominal tenderness, LLQ (left lower quadrant) Thrombophlebitis of vein of pelvis Abdominal tenderness, RLQ (right lower quadrant) Urinary urgency Abnormal uterine bleeding Sinusitis Adenocarcinoma in situ of endocervix Perianal fissure PCOS (polycystic ovarian syndrome) Dyspareunia Endometriosis Chronic pelvic pain in female Morbid obesity with BMI of 40.0-44.9, adult Shingles Anxiety Shingles (herpes zoster) polyneuropathy Surgical History S/P laparoscopic hysterectomy History of colonoscopy S/P cone biopsy of cervix History of cholecystectomy History of delivery History of tonsillectomy H/O tubal ligation Family History Other Anemia Asthma Atrial fibrillation Cancer Diabetes Heart disease Hyperlipidemia Hypertension No significant family history Thyroid disorder Social History Smoking Status: Unknown if ever smoked alcohol intake: never substance use type: denies use current occupational status: employed Travel in the last 8 weeks: None household members: other housing: house current occupational exposures/hazards: Yes caffeine: Yes ROS Obtained: Yes All systems reviewed & no additional complaints except as documented Physical Exam General General appearance: alert and in distress (Standing at the bedside, rocking back and forth in pain.) Head Head exam: atraumatic, normocephalic and normal inspection Eye Eye exam: Present normal appearance and EOMI ENT ENT exam: Present normal exam and normal external ear exam Neck Neck exam: Present normal inspection, full ROM and trachea midline; Absent meningismus or lymphadenopathy Chest Chest inspection: Present normal inspection and symmetric chest wall rise; Absent tenderness Respiratory Respiratory exam: Present normal lung sounds bilaterally; Absent respiratory distress Cardiovascular Cardiovascular exam: Present regular rate and normal rhythm; Absent JVD Abdominal Exam Abdominal exam: Present soft and normal bowel sounds; Absent distention, tenderness or guarding Extremities Exam Extremities exam: Present normal inspection, full ROM and normal capillary refill; Absent calf tenderness Back Exam Back exam: Present normal inspection and CVA tenderness (R); Absent tenderness Neurological Exam Neurological exam: Present alert and oriented X3 Psychiatric Psychiatric exam: Present normal mood and other (normal behavior) Skin Skin exam: Present warm, dry, intact and normal color Lymphatic Lymphatic Findings: no adenopathy Medical Decision Making Medical Records Medical records reviewed: Yes I reviewed the patient's medical records. MR Comment: Reviewed presentation to emergency department 08/10 and subsequent admission for nephrolithiasis with UTI Joe Inquiry Pt receiving controlled substance: Yes Joe was queried for this patient: No Reason not queried -: Emergent pt cond-no time (Severe pain) Risks and benefits of using a controlled substance: were discussed with pt by me Vital Signs: 08/14/23 04:07 Temperature 97.8 F Temperature Source Temporal Artery Scan Pulse Rate [Right Brachial] 108 H Respiratory Rate 28 H Blood Pressure [Right Arm] 117/77 Blood Pressure Mean [Right Arm] 90 Blood Pressure Source [Right Arm] Automatic Cuff Blood Pressure Position [Right Arm] Sitting 02 Sat by Pulse Oximetry 100 Oxygen Delivery Method Room Air Lab Data Lab Results 08/14/23 03:45: WBC 13.3 H D, RBC 4.38, Hgb 11.8 L, Hct 37.6, MCV 85.8, MCH 26.9 L, MCHC 31.3 L, RDW 14.9, Plt Count 144, MPV 11.8 H, Neut % (Auto) 68.1, Lymph % (Auto) 25.5, [place] % (Auto) 2.4, Eos % (Auto) 3.3, Baso % (Auto) 0.8, Neut # (Auto) 9.0 H, Lymph # (Auto) 3.4, [place] # (Auto) 0.3, Eos # (Auto) 0.4, Baso # (Auto) 0.1, Sodium 142, Potassium 3.6, Chloride 109 H, Carbon Dioxide 27, Anion Gap 9.6, BUN 15, Creatinine 0.90 D, Estimated Creat Clear 67, Estimated GFR 70, Est GFR ( Amer) 85 D, Glucose 109 H, Calcium 9.3, Total Bilirubin 0.3, AST 24, ALT 20, Alkaline Phosphatase 95, Total Protein 7.1, Albumin 3.9, Globulin 3.2, Albumin/Globulin Ratio 1.2, Lipase 53, Serum HCG, Qual Negative 08/14/23 04:30: Urine Color Yellow, Urine Appearance Slightly cloudy, Urine pH 7.0, Ur Specific [place] 1.020, Urine Protein Negative, Urine Glucose (UA) Negative, Urine Ketones Negative, Urine Blood Negative, Urine Nitrate Negative, Urine Bilirubin Negative, Urine Urobilinogen 0.2, Ur Leukocyte Esterase Trace, Urine RBC None, Urine WBC 3-5, Ur Squamous Epith Cells 5-10, Urine Bacteria Trace 08/14/23 03:45 08/14/23 03:45 Orders (Tests/Meds): ED MEDICATIONS Generic Name Dose Route Start Last Admin Trade Name Fretim PRN Reason Stop Dose Admin Sodium Chloride 10 ml 08/14/23 04:29 08/14/23 04:29 Sodium Chloride 0.9% 10ml Syr (Rad Only) IV 09/13/23 04:28 10 ml NEEDED PRN Administration Maintain IV Site Discontinued Medications Generic Name Dose Route Start Last Admin Trade Name Freq PRN Reason Stop Dose Admin Acetaminophen 1,000 mg 08/14/23 04:03 08/14/23 04:13 Acetaminophen 500mg Tab PO 08/14/23 04:04 1,000 mg ONCE ONE Administration Hydromorphone HCl 1 mg 08/14/23 04:40 08/14/23 04:41 Hydromorphone 2mg/Ml Syringe IV 08/14/23 04:41 1 mg ONCE ONE Administration Hydromorphone HCl 1 mg 08/14/23 05:46 08/14/23 05:50 Hydromorphone 2mg/Ml Syringe IV 08/14/23 05:47 1 mg ONCE ONE Administration Lactated Ringer's 1,000 mls @ 999 mls/hr 08/14/23 04:11 08/14/23 04:14 Lactated Ringer's 1000 Ml Bag IV 08/14/23 05:11 999 mls/hr .Q1H1M ONE Administration Iopamidol 75 ml 08/14/23 04:29 08/14/23 04:29 Iopamidol-370 (76%);100ml Bottle IV 08/14/23 04:30 75 ml ONCE ONE Administration Ketorolac Tromethamine 15 mg 08/14/23 04:03 08/14/23 04:13 Ketorolac 30mg/Ml Vial IV 08/14/23 04:04 15 mg ONCE ONE Administration Morphine Sulfate 4 mg 08/14/23 04:14 08/14/23 04:15 Morphine 4mg/Ml Syringe IV 08/14/23 04:15 4 mg ONCE ONE Administration Ondansetron HCl 4 mg 08/14/23 04:11 08/14/23 04:13 Ondansetron 4mg/2ml Vial IV 08/14/23 04:12 4 mg ONCE ONE Administration ORDERS Category Date Time Status CT abdomen pelvis w con Stat Cat Scan 08/14/23 04:06 Completed CBC [Complete Blood Count Auto Diff] Stat Lab 08/14/23 03:45 Completed CMP [Comprehensive Metabolic Panel] Stat Lab 08/14/23 03:45 Completed Lactate Venous Stat Lab 08/14/23 04:04 Ordered Lipase Stat Lab 08/14/23 03:45 Completed Serum [HCG Qualitative, Serum] Stat Lab 08/14/23 03:45 Completed Urinalysis and Microscopic Stat Lab 08/14/23 04:30 Completed Medical Decision Narrative: Considered multiple causes of patient's recurrence of severe right flank pain and hematuria including persistent nephrolithiasis with UTI, but also considered sequelae of this given this is now refractory to oral antibiotics including that patient has higher risk of developing renal abscesses, sepsis. Also considered other causes of right flank pain including ovarian torsion, acute appendicitis, diverticulitis, among others. For this reason gave Tylenol, Toradol, morphine, but patient had refractory pain so also gave Dilaudid. For nausea I gave Zofran and LR. Obtained urinalysis which did show 3-5 white blood cells and trace bacteria. Renal function is still normal on CMP. Leukocytosis has increased to 13,000. CT I independently reviewed and interpreted showed the 5 mm obstructing right-sided nephrolithiasis stone has progressed to the ureterovesicular junction and is associated with increased hydronephrosis. Given patient's severe pain and risk of incompletely treated UTI in the setting of obstructive nephrolithiasis, patient requires transfer to a hospital with urology consultants available. Discussed this with patient and she is amenable to transfer to [facility]. Patient was accepted for transfer and remained stable until time of admission. Critical Care Critical Care Time Critical Care Time: No
--- NOTE | 2023-08-14 05:40 | PC.NURSE ---
contacted [facility] back in regards to the status of the transfer and they stated that approximately 10 mins prior to the phone at @[phone] and they would contact us back
--- NOTE | 2023-08-14 06:18 | PC.NURSE ---
waiting on dr acosta to return call to [facility] transfer center re: accepting patient.
--- NOTE | 2023-08-14 06:21 | PC.NURSE ---
speaking with dr acosta at this time.
[2023-08-14 06:40] LABS: Lactate Venous 3.1 mmol/L (0.4-2.0)
--- NOTE | 2023-08-14 06:48 | PC.NURSE ---
Attempted to call report to Elías ELLIS at [facility], was asked to call back at 0730 d/t their team huddle.
--- NOTE | 2023-08-14 06:55 | PC.NURSE ---
pt left ed at this time, being taken POV by friend/co-worker
--- NOTE | 2023-08-14 07:38 | PC.NURSE ---
Report given to RHONDA Garland at [facility].
[2023-08-14 07:39] VITALS: BP 117/77; PULSE 96; RESP 20; TEMP 36.6; O2SAT 100
[2023-08-14 10:41] LABS: Reflex Lactic Add Lactic Reflex
== END 2023-08-14 06:55 | disposition other institution (70) ==
PROVIDERS: Emergency Provider Emergency Medicine; PCP Family Medicine
DX: N13.2 Hydronephrosis with renal and ureteral calculous obstruction (principal); R10.9 Unspecified abdominal pain; R31.9 Hematuria, unspecified; E11.9 Type 2 diabetes mellitus without complications; E28.2 Polycystic ovarian syndrome; N80.9 Endometriosis, unspecified; Z86.718 Personal history of other venous thrombosis and embolism; Z79.01 Long term (current) use of anticoagulants
CPT/HCPCS: 74177; 80053; 81001; 83605; 83690; 84703; 85025; 96361; 96374; 96375; 96376; 99285; J2405; Q9967

== ENCOUNTER 2023-08-18 15:28 | Outpatient (CLI) | payer OTHER, SELFPAY ==
[2023-08-18 15:14] LABS: Microscopic, Urine URINE MICROSCOPIC (MICROSCOPIC)
[2023-08-18 15:41] LABS: Appearance,Urine CLOUDY (Clear); Bilirubin,Urine Negative (Negative); Blood, Urine 3+ (Negative); Color,Urine RED (Yellow); Glucose,Urine (UA) Negative (Negative); Ketones,Urine Negative (Negative); Leukocyte Esterase,Urine TRACE (Negative); Nitrate,Urine POSITIVE (Negative); Protein,Urine 2+ (Negative)
[2023-08-18 16:01] LABS: Bacteria,Urine Trace /lpf; RBC,Urine TNTC #/hpf (0-3); Squamous Epithelial Cell,Urine Occasional #/hpf (0-5)
== END 2023-08-18 23:59 ==
LOC: LAB.DROPOF 15:29
PROVIDERS: PCP Urology; Visit Provider Urology
DX: N39.0 Urinary tract infection, site not specified (principal); N95.2 Postmenopausal atrophic vaginitis
CPT/HCPCS: 81001; 87086

== ENCOUNTER 2023-08-25 10:37 | Outpatient (CLI) | payer OTHER, SELFPAY ==
--- NOTE | 2023-08-25 10:37 | US_ITS ---
FINAL REPORT TECHNIQUE: Ultrasound images of the kidneys and bladder were obtained. CLINICAL HISTORY: .recent rt stone sith stent removal last week COMPARISON: None FINDINGS: The right kidney measures 10.0 cm in length. There is a 5 mm probable stone. There is no hydronephrosis. The left kidney measures 11.6 cm in length. There is a possible solid mass in the upper pole of the left kidney measuring 2.3 cm. There is no hydronephrosis. The urinary bladder is unremarkable. IMPRESSION: Probable right renal stone without hydronephrosis. Left 2.3 cm renal mass. Recommend renal mass protocol CT. Reviewed, Interpreted and Dictated by Benito Simpson III, MD Transcribed by Luann Ballard Authenticated and [facility]
--- NOTE | 2023-08-25 10:37 | XR_ITS ---
FINAL REPORT CLINICAL HISTORY: Frequent UTI recent kidney stone COMPARISON: None FINDINGS: SINGLE VIEW ABDOMEN A single view of the abdomen was obtained. There is a nonobstructive bowel gas pattern. There are no abnormally dilated loops of small bowel. Bowel gas and stool obscures the renal outlines. No definite stone identified. There are postoperative changes in the abdomen and pelvis. IMPRESSION: No definite renal stone seen. Reviewed, Interpreted and Dictated by Benito Simpson III, MD Transcribed by Luann Ballard Authenticated and [facility]
== END 2023-08-25 23:59 | disposition home or self-care (01) ==
LOC: RAD 10:37
PROVIDERS: PCP Family Medicine; Visit Provider Urology
DX: N95.2 Postmenopausal atrophic vaginitis (principal); N39.0 Urinary tract infection, site not specified
CPT/HCPCS: 74018; 76770

== ENCOUNTER 2023-08-27 08:35 | Outpatient (POV) | payer OTHER, SELFPAY ==
[2023-08-27 08:58] VITALS: BP 148/90; PULSE 79; RESP 18; TEMP 36.8; O2SAT 100; BMI 44.8
--- NOTE | 2023-08-27 11:53 | EXP.PAIN.SOA ---
[facility] Pain Management SOAP Note Subjective:: Patient is a pleasant 38-year-old female who presents today for follow-up. Today she rates her pain a 2 out of 10 however she states the pain will go up to much higher with increased activity and ambulation. She states that she is experiencing worsening pain in her low back with symptoms going into her bilateral lower extremities. She describes this as an aching, throbbing sensation with numbness and tingling into her lower legs. She does state the pain interferes with her ability perform activities of daily living such as cooking and cleaning. Patient does state from our last visit that she has had a lot going on related to her hysterectomy that was in April. Patient states that she did start to experience urinary frequency and urgency and kept getting UTIs. Patient states that she did get in for follow-ups with Dr. Pepper's office and that she was put on additional medication including antibiotic as well as a suppressive medication. She states that she was also diagnosed with a left ovary vein thrombosis and was put on Xarelto. Patient states this this was just done as a temporary thing and that she is supposed to stop this medication this week. She does also state that at her last checkup when they checked her kidneys there was some ice on 1 that there are doing additional testing on. Patient has been prescribed compounded cream in the past however states that she is unsure if she has any refills. Patient is also prescribed tizanidine 4 mg at night and was given a 3-month supply in the past but needs refills officially this month. Her Joe has been reviewed. Review of Systems: General: No recent weight changes, no fever, no sleep disturbances Respiratory: No cough, no shortness of air, no recurring pulmonary infections Cardiovascular/peripheral vascular: No chest pain, no palpitations, no edema, no shortness of breath Gastrointestinal: No new onset incontinence, normal bowel movements reported Genitourinary: No new onset incontinence Musculoskeletal: Low back pain, bilateral leg pain Psychiatric: [Normal mood/affect] Neurological: [Denies weakness in extremities], [denies balance issues] Objective:: Physical Exam: General: Alert and oriented x3, no acute distress, pleasant and cooperative Lungs: Respirations even and unlabored, symmetrical chest expansion Eyes: PERRL Musculoskeletal: Flexion and extension of lumbar [spine] somewhat guarded secondary to pain, [antalgic gait noted] Neurological: Speech clear, no gross sensory deficit Assessment:: Degenerative disc disease of lumbar spine with lumbar radiculopathy symptoms, neck pain with cervical radiculopathy symptoms, 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 I have discussed with patient that she may benefit from lumbar epidural steroid injection. Risk and benefits were discussed with patient and she would like to proceed forward with this plan of care. I have counseled the patient that we will reach out to Dr. Pepper's office and make sure that she is stopping the Xarelto. Patient was counseled that if she continues to be on this medication and does not stop prior to the injection date that we will have to postpone and reschedule. Patient acknowledges understanding. I will also send in refills of her compounded cream and send in a 3-month supply of her tizanidine 4 mg at at bedtime. Patient will be scheduled for an LESI L4-L5 under fluoroscopy. Patient has been instructed to contact the clinic with any concerns before the next appointment. Dr. Deal has reviewed this note and agrees with this plan of care. This note was dictated using voice recognition software and make contain errors or omissions. [facility] Disclaimer: The information contained in this section may have been updated after the patient was seen, as this information can be updated by other users. Medical History Diabetes Renal calculus, right Abdominal tenderness, LLQ (left lower quadrant) Thrombophlebitis of vein of pelvis Abdominal tenderness, RLQ (right lower quadrant) Urinary urgency Abnormal uterine bleeding Sinusitis Adenocarcinoma in situ of endocervix Perianal fissure PCOS (polycystic ovarian syndrome) Dyspareunia Endometriosis Chronic pelvic pain in female Morbid obesity with BMI of 40.0-44.9, adult Shingles Anxiety Shingles (herpes zoster) polyneuropathy Surgical History S/P laparoscopic hysterectomy with bilateral salpingectomy 05/15/23 History of colonoscopy S/P cone biopsy of cervix History of cholecystectomy History of delivery History of tonsillectomy H/O tubal ligation Family History Other Anemia Asthma Atrial fibrillation Cancer Diabetes Heart disease Hyperlipidemia Hypertension No significant family history Thyroid disorder Social History Smoking Status: Unknown if ever smoked alcohol intake: never substance use type: denies use current occupational status: employed Travel in the last 8 weeks: None household members: other housing: house current occupational exposures/hazards: Yes caffeine: Yes
== END 2023-08-27 23:59 | disposition home or self-care (01) ==
PROVIDERS: PCP Family Medicine; Visit Provider Nurse Practitioner Family
DX: M51.16 Intervertebral disc disorders with radiculopathy, lumbar region (principal); M54.2 Cervicalgia; B02.9 Zoster without complications
CPT/HCPCS: 99212; G0463

== ENCOUNTER 2023-08-29 11:42 | Outpatient (CLI) | payer OTHER, SELFPAY ==
--- NOTE | 2023-08-29 11:50 | CT_ITS ---
FINAL REPORT TECHNIQUE: Axial CT images of the abdomen and pelvis were obtained before and after the administration of IV contrast. Oral contrast was administered.This study was performed with techniques to keep radiation doses as low as reasonably achievable (ALARA). Individualized dose reduction techniques using automated exposure control or adjustment of mA and/or kV according to the patient''s size were employed. CLINICAL HISTORY: abnormal renal US, mass seen on US COMPARISON: 08/25/2023 FINDINGS: Abdomen: There is mild bibasilar atelectasis. The heart is normal in size. The liver has an unremarkable appearance, without evidence of mass or biliary duct dilatation. Patient is status post cholecystectomy. The spleen is unremarkable. No adrenal masses present. The pancreas has an unremarkable appearance. On the precontrast images, there is a 3 mm nonobstructing right renal stone. The prior ultrasound questioned a mass in the upper pole of the left kidney. No mass or abnormal contrast enhancement is identified on these images. The aorta is normal in caliber. There is no free fluid or adenopathy. Pelvis: The appendix is normal. Several phleboliths are identified in the pelvis. Patient is status post hysterectomy. The urinary bladder is unremarkable. No inflammatory process is seen. There is no evidence of mass or adenopathy. There is no evidence of bowel obstruction. IMPRESSION: No renal mass identified. Right renal stone. Reviewed, Interpreted and Dictated by Benito Simpson III, MD Transcribed by Yumiko Gallardo Authenticated and [facility]
== END 2023-08-29 23:59 ==
LOC: RAD 11:43
PROVIDERS: PCP Family Medicine; Visit Provider Family Medicine
DX: N28.89 Other specified disorders of kidney and ureter (principal)
CPT/HCPCS: 74178

== ENCOUNTER 2023-09-30 08:15 | Day surgery (SDC) | payer OTHER, SELFPAY ==
[2023-09-30 08:30] VITALS: BP 120/81; PULSE 85; RESP 16; TEMP 36.4; O2SAT 96; BMI 43.9
[2023-09-30 09:06] VITALS: BP 141/84; BP 145/85; PULSE 70; PULSE 76; RESP 18; O2SAT 96; O2SAT 99
[2023-09-30] MEDS: methylPREDNISolone ACETATE 80MG/ML VIAL 80 MG (09:06)
[2023-09-30 09:07] VITALS: BP 145/85; PULSE 76; RESP 18; O2SAT 99
--- NOTE | 2023-09-30 09:11 | EXP.PAIN.PRO ---
Procedure Date: 09/30/23 Time: 08:45 Anesthesiologist:: Barry Cohen CRNA Complications:: None Pre-procedure Diagnosis:: Degenerative disc lumbar spine multilevels. Lumbar radiculopathy. Lumbar postlaminectomy syndrome Post-procedure Diagnosis:: Same. Indications for Procedure:: Patient is a very pleasant 38-year-old female comes our clinic today for lumbar epidural steroid injection to the L4-5 level. Patient had previous discectomy/laminectomy at this level. Patient reports low back pain as well as bilateral hip and leg radicular symptoms. Left leg radicular symptoms greater than right. She rates her pain 7/10. Procedure Details:: Procedure: Lumbar epidural steroid injection under fluoroscopy Informed consent was obtained and the risks and benefits of the procedure were explained to the patient. The patient was taken to the procedure room and noninvasive monitors placed, including noninvasive blood pressure cuff and pulse oximeter. The back was viewed using C-arm Fluoroscopy and prepped using Chloraprep as a cleansing solution and the L4-L5 interspace was palpated. Skin and subcutaneous tissues were anesthetized using lidocaine 1.5% and a 25-gauge needle. After this, an 18-gauge Touhy epidural needle was placed into the L4-L5 interspace and advanced using fluoroscopic guidance and loss of resistance to air until the epidural space was encountered. After confirmation of needle placement in the epidural space, with dye, a solution containing normal saline, 3 mL and Depo-Medrol 80 mg were incrementally injected into the lumbar epidural space. The patient tolerated the procedure well with no complications. The patient was observed in the Pain Clinic and then discharged home neurologically intact. Plan and Disposition:: Patient was discharged without incident.
== END 2023-09-30 09:06 | disposition home or self-care (01) ==
PROVIDERS: PCP Family Medicine; Visit Provider Nurse Anesthetist, Certified Registered
DX: M51.16 Intervertebral disc disorders with radiculopathy, lumbar region (principal); M96.1 Postlaminectomy syndrome, not elsewhere classified
CPT/HCPCS: 62323; J1010

== ENCOUNTER 2023-10-16 19:35 | Emergency (ER) | payer OTHER, SELFPAY ==
[2023-10-16 19:36] VITALS: BP 138/96; PULSE 110; RESP 20; TEMP 36.7; O2SAT 98; BMI 43.9
[2023-10-16 19:40] VITALS: BP 138/96; PULSE 110; RESP 17; TEMP 36.7; O2SAT 98
[2023-10-16 20:01] LABS: Basophils # 0.1 K/mm3 (0-0.2); Basophils % 0.8 % (0.1-2.0); Eosinophils # 0.3 K/mm3 (0.0-0.4); Eosinophils % 1.8 % (0.1-12.0); Hemoglobin 12.9 g/dL (12.2-16.2); Lymphocytes # 2.3 K/mm3 (0.7-4.5); Lymphocytes % 14.4 % (10-50); Mean Corpuscular HGB Conc 31.5 g/dL (31.8-35.4); Mean Corpuscular Hemoglobin 25.6 pg (27.0-31.2); Mean Corpuscular Volume 81.4 fl (81-99); Mean Platelet Volume 11.3 fl (7.4-10.4); Monocytes # 0.4 K/mm3 (0.1-1.0); Monocytes % 2.6 % (1.7-9.3); Neutrophils # 12.9 K/mm3 (1.8-7.8); Neutrophils % 80.4 % (37.0-80.0); Platelet Count 236 K/mm3 (142-424); Red Blood Count 5.04 M/mm3 (4.20-5.40); Red Cell Distribution Width 15.6 % (11.5-17.5)
[2023-10-16 20:03] LABS: MANUAL DIFFERENTIAL MANUAL DIFFERENTIAL (MANUAL DIFF)
[2023-10-16] MEDS: LACTATED RINGERS 1000ML 1,000 ML 999 ML IV ×2 (20:04→20:05)
[2023-10-16] MEDS: ONDANSETRON 4MG/2ML VIAL 8 MG IV (20:04)
[2023-10-16 20:06] LABS: Chloride 104 mmol/L (98-107); Potassium 3.7 mmoL/L (3.5-5.1); Sodium 139 mmol/L (136-145)
[2023-10-16 20:08] LABS: Blood Urea Nitrogen 19 mg/dl (7-17); Creatinine Clearance Estimated 75 mL/min (50-200); Estimated Glomerular Filt Rate 80 ml/min (>60); GFR (African American) 97 ML/MIN (>60)
[2023-10-16 20:09] LABS: Alanine Aminotransferase 25 U/L (12-78); Albumin Level 4.8 g/dl (3.5-5.0); Albumin/Globulin Ratio 1.1 (1.1-1.8); Alkaline Phosphatase 121 U/L (38-126); Anion Gap 18.7 mEq/L (5-15); Aspartate Amino Transferase 28 U/L (14-36); Calcium 10.5 mg/dl (8.4-10.2); Carbon Dioxide 20 mmol/L (22.0-30.0); Globulin 4.4 g/dL (1.3-3.2); Glucose 129 mg/dl (74-100); Lipase 48 U/L (23-300); Total Protein,Serum 9.2 g/dl (6.3-8.2)
[2023-10-16 20:17] VITALS: BP 111/78; PULSE 87; RESP 16; O2SAT 94
[2023-10-16 20:19] LABS: Eosinophils % 1 % (0-3); Lymphocytes % 17 % (10-50); Monocytes % 1 % (2-9); Neutrophils % 81 % (42-76); Platelet Estimate Normal; RBC Morphology Normal; Total Cells Counted 100
--- NOTE | 2023-10-16 20:24 | PC.NURSE ---
rounded on patient, no needs voiced at this time.
--- NOTE | 2023-10-16 20:28 | [facility].EDGENADL ---
Discharge Plan Disposition Patient Disposition: Home, Self-Care Prescriptions Prescriptions: New ondansetron 8 mg tablet,disintegrating 8 mg PO Q8H PRN (Reason: nausea and vomiting) 4 Days Qty: 10 0RF nitrofurantoin monohyd/m-cryst [Macrobid] 100 mg capsule 100 mg PO BID 5 Days Qty: 10 0RF Rx Instructions: must administer with a meal/food No Action fluticasone propionate [Flonase Allergy Relief] 50 mcg/actuation spray,suspension 1 - 2 spray intranasal DAILY PRN (Reason: allergies) Rx Instructions: administer into each nostril Nurtec ODT 75 mg tablet,disintegrating 75 mg PO NEEDED PRN (Reason: Migraine Headache) mirabegron 50 mg tablet extended release 24 hr 50 mg PO DAILY Qty: 30 3RF estradiol 0.01 % (0.1 mg/gram) cream See Rx Instructions vaginal .COMPLEX Qty: 42.5 2RF Rx Instructions: Using finger technique daily for two weeks and then twice weekly vaginally; nitrofurantoin macrocrystal [Macrodantin] 100 mg capsule 100 mg PO HS Qty: 30 0RF Rx Instructions: must administer with a meal/food Mounjaro 2.5 mg/0.5 mL pen injector 2.5 mg SQ WEEKLY 28 Days Qty: 2 0RF pregabalin [Lyrica] 150 mg capsule 150 mg PO BID Qty: 60 1RF tizanidine [Zanaflex] 4 mg tablet 4 mg PO HS Qty: 30 2RF albuterol sulfate 8.5 GM HFA aerosol inhaler 2 inh inhalation Q6HP PRN (Reason: Shortness Of Breath Or Wheezing) lisinopril-hydrochlorothiazide 10-12.5 mg tablet 1 tab PO DAILY Hold Instructions: pending follow-up with PCP or Urology Xarelto 10 mg tablet 10 mg PO .daily in the evening Qty: 30 2RF Rx Instructions: for 35 days Referrals Follow up/Referrals: Nikkie Perez APRN [Primary Care Provider] - See instructions Activity Restrictions/Add. Instructions Additional Instructions/Restrictions: Call your family doctor to establish care for this visit to the emergency department and schedule follow-up within 48 hours to ensure improvement. If you have any worsening of your condition or any other concerning signs or symptoms, return to the emergency department or your primary care doctor for further evaluation. Clinical Impressions Clinical Impression: Vomiting, Abdominal pain Stand Alone Forms Stand Alone Forms: Work/School Release Discharge ED Provider: Fermin Lomeli General Adult HPI <Fermin Lomeli MD - Last Filed: 10/16/23 22:55> General Chief complaint: Nausea/Vomiting/Diarrhea Stated complaint: vomiting Time Seen by Provider: 10/16/23 19:42 Mode of Arrival: Ambulatory Source of Information: Patient Limitations: No Limitations Description of Symptoms (Recalled from ER Triage Doc. by RN): Pt. presents to ED with c/o vomiting, started yesterday. Started around 0900. Pt. states unaable to keep anything down. c/o generalized abd. pain. History of Present Illness HPI narrative: Please note that above description of symptoms, in this electronic medical record under categorization of recalled from ER triage doctor by RN are reflective of an initial nursing assessment, however, is not reflective of my full history and physical exam that was personally taken and clarified. Consequentially, this preceding description of symptoms, which may include the patient's categorized chief complaint in the EMR, do not reflect my personal clinical impression, and the ultimate description of history of present illness and patient stated complaints should be deferred to this section of the note. Unless stated otherwise or congruent with this section of the note, additional signs, symptoms, or incongruence should be interpreted as inaccurate with my clinical impression. Related Data Home Medications Medication Instructions Recorded Confirmed albuterol sulfate 90 mcg/actuation 2 inh inhalation Q6HP PRN 01/30/18 09/30/23 aerosol inhaler Shortness Of Breath Or Wheezing fluticasone propionate 50 1 - 2 spray intranasal DAILY PRN 05/08/23 09/30/23 mcg/actuation nasal allergies spray,suspension (Flonase Allergy Relief) rimegepant 75 mg disintegrating 75 mg PO NEEDED PRN Migraine 07/10/23 09/30/23 tablet (Nurtec ODT) Headache lisinopril 10 1 tab PO DAILY High Blood Pressure 07/16/23 09/30/23 mg-hydrochlorothiazide 12.5 mg tablet Previous Rx's Medication Instructions Recorded rivaroxaban 10 mg tablet (Xarelto) 10 mg PO .daily in the evening #30 07/17/23 tabs estradiol 0.01% (0.1 mg/gram) See Rx Instructions vaginal 08/18/23 vaginal cream .COMPLEX #42.5 grams mirabegron 50 mg tablet,extended 50 mg PO DAILY #30 tabs 08/18/23 release 24 hr nitrofurantoin macrocrystal 100 mg 100 mg PO HS #30 caps 08/18/23 capsule (Macrodantin) tizanidine 4 mg tablet (Zanaflex) 4 mg PO HS Muscle Spasm #30 tabs 08/27/23 pregabalin 150 mg capsule (Lyrica) 150 mg PO BID Pain #60 caps 08/29/23 tirzepatide 2.5 mg/0.5 mL 2.5 mg (0.5 mL) SQ WEEKLY 4 weeks 08/29/23 subcutaneous pen injector #2 mL (Mounjaro) nitrofurantoin 100 mg PO BID 5 days #10 caps 10/16/23 monohydrate/macrocrystals 100 mg capsule (Macrobid) ondansetron 8 mg disintegrating 8 mg PO Q8H PRN nausea and 10/16/23 tablet vomiting 4 days #10 tabs Allergies Allergy/AdvReac Type Severity Reaction Status Date / Time cephalexin [From Keflex] Allergy Intermediate Verified 09/30/23 08:30 cinnamon Allergy Verified 09/30/23 08:30 [facility] <Fermin Lomeli MD - Last Filed: 10/16/23 22:55> [facility] Disclaimer: The information contained in this section may have been updated after the patient was seen, as this information can be updated by other users. Medical History Diabetes Renal calculus, right Abdominal tenderness, LLQ (left lower quadrant) Thrombophlebitis of vein of pelvis Abdominal tenderness, RLQ (right lower quadrant) Urinary urgency Abnormal uterine bleeding Sinusitis Adenocarcinoma in situ of endocervix Perianal fissure PCOS (polycystic ovarian syndrome) Dyspareunia Endometriosis Chronic pelvic pain in female Morbid obesity with BMI of 40.0-44.9, adult Shingles Anxiety Shingles (herpes zoster) polyneuropathy Surgical History S/P laparoscopic hysterectomy with bilateral salpingectomy 05/15/23 History of colonoscopy S/P cone biopsy of cervix History of cholecystectomy History of delivery History of tonsillectomy H/O tubal ligation Family History Other Anemia Asthma Atrial fibrillation Cancer Diabetes Heart disease Hyperlipidemia Hypertension No significant family history Thyroid disorder Social History Smoking Status: Never smoker alcohol intake: never substance use type: denies use current occupational status: employed Travel in the last 8 weeks: None household members: other housing: house current occupational exposures/hazards: Yes caffeine: Yes <Fermin Lomeli MD - Last Filed: 10/16/23 22:55> ROS Obtained: Yes All systems reviewed & no additional complaints except as documented Physical Exam <Fermin Lomeli MD - Last Filed: 10/16/23 22:55> General General appearance: alert and in no apparent distress Head Head exam: atraumatic and normocephalic Eye Eye exam: Present normal appearance, PERRL and EOMI ENT ENT exam: Present mucous membranes moist Neck Neck exam: Present normal inspection, full ROM and trachea midline Respiratory Respiratory exam: Absent respiratory distress, wheezes, stridor, accessory muscle use or prolonged expiratory phase Cardiovascular Cardiovascular exam: Present normal rhythm Abdominal Exam Abdominal exam: Present soft; Absent distention, tenderness, guarding, rebound or rigidity Extremities Exam Extremities exam: Absent edema Neurological Exam Neurological exam: Present alert, oriented X3, CN II-XII intact and normal gait; Absent motor sensory deficit Skin Skin exam: Present warm and dry; Absent diaphoresis or erythema Medical Decision Making <Fermin Lomeli MD - Last Filed: 10/16/23 22:55> Medical Records Medical records reviewed: Yes I reviewed the patient's medical records. Joe Inquiry Pt receiving controlled substance: No Joe was queried for this patient: No Vital Signs: 10/16/23 19:36 10/16/23 19:40 10/16/23 20:17 Temperature 98.1 F 98.1 F Temperature Source Oral Pulse Rate 110 H 87 Pulse Rate [Right Radial] 110 H Respiratory Rate 20 17 16 Blood Pressure 138/96 H 111/78 Blood Pressure [Right Arm] 138/96 H Blood Pressure Mean 110 89 Blood Pressure Mean [Right Arm] 110 Blood Pressure Source [Right Arm] Automatic Cuff Blood Pressure Position [Right Arm] Supine 02 Sat by Pulse Oximetry 98 98 94 L Oxygen Delivery Method Room Air 10/16/23 21:09 10/16/23 23:02 10/16/23 23:26 Temperature 97.8 F Temperature Source Oral Pulse Rate 86 85 68 Pulse Rate [Right Radial] Respiratory Rate 20 16 16 Blood Pressure 119/66 121/61 119/71 Blood Pressure [Right Arm] Blood Pressure Mean 83 79 Blood Pressure Mean [Right Arm] Blood Pressure Source [Right Arm] Blood Pressure Position [Right Arm] 02 Sat by Pulse Oximetry 94 L 98 Oxygen Delivery Method Room Air Lab Data Lab Results 10/16/23 19:45: WBC 16.0 H, RBC 5.04, Hgb 12.9, Hct 41.0, MCV 81.4, MCH 25.6 L, MCHC 31.5 L, RDW 15.6, Plt Count 236, MPV 11.3 H, Neut % (Auto) 80.4 H, Lymph % (Auto) 14.4, Bryan % (Auto) 2.6, Eos % (Auto) 1.8, Baso % (Auto) 0.8, Neut # (Auto) 12.9 H, Lymph # (Auto) 2.3, Bryan # (Auto) 0.4, Eos # (Auto) 0.3, Baso # (Auto) 0.1, Total Counted 100, Neutrophils % (Manual) 81 H, Lymphocytes % (Manual) 17, Monocytes % (Manual) 1 L, Eosinophils % (Manual) 1, Platelet Estimate Normal, RBC Morphology Normal, Sodium 139, Potassium 3.7, Chloride 104, Carbon Dioxide 20 L, Anion Gap 18.7 H, BUN 19 H, Creatinine 0.80, Estimated Creat Clear 75, Estimated GFR 80, Est GFR ( Amer) 97, Glucose 129 H, Calcium 10.5 H, Total Bilirubin 1.0, AST 28, ALT 25, Alkaline Phosphatase 121, Troponin I < 0.01, Total Protein 9.2 H D, Albumin 4.8, Globulin 4.4 H, Albumin/Globulin Ratio 1.1, Lipase 48, HCG, Quant < 2 10/16/23 20:43: Lactate 1.9 10/16/23 21:20: Urine Color Yellow, Urine Appearance Clear, Urine pH 7.5, Ur Specific [place] 1.015, Urine Protein Trace, Urine Glucose (UA) Negative, Urine Ketones 3+, Urine Blood Negative, Urine Nitrate Negative, Urine Bilirubin 2+ A, Urine Urobilinogen 1.0, Ur Leukocyte Esterase 2+ A, Urine RBC None, Urine WBC 5-10, Ur Squamous Epith Cells 5-10, Urine Bacteria Trace, Urine Yeast Occasional 10/16/23 19:45 10/16/23 19:45 Orders (Tests/Meds): ED MEDICATIONS Discontinued Medications Generic Name Dose Route Start Last Admin Trade Name Freq PRN Reason Stop Dose Admin Droperidol 2.5 mg 10/16/23 20:33 10/16/23 21:14 Droperidol 5mg/2ml Vial IV 10/16/23 20:34 2.5 mg ONCE ONE Administration Famotidine 20 mg 10/16/23 20:33 10/16/23 21:13 Famotidine 20mg/2ml Vial IV 10/16/23 20:34 20 mg ONCE ONE Administration Lactated Ringer's 1,000 mls @ 999 mls/hr 10/16/23 19:54 10/16/23 20:04 Lactated Ringer's 1000 Ml Bag IV 10/16/23 20:54 999 mls/hr .Q1H1M ONE Administration Lactated Ringer's 1,000 mls @ 999 mls/hr 10/16/23 19:55 10/16/23 20:05 Lactated Ringer's 1000 Ml Bag IV 10/16/23 20:55 999 mls/hr .Q1H1M ONE Administration Ketorolac Tromethamine 15 mg 10/16/23 20:29 10/16/23 20:32 Ketorolac 30mg/Ml Vial IV 10/16/23 20:30 15 mg ONCE ONE Administration Morphine Sulfate 4 mg 10/16/23 20:29 10/16/23 20:32 Morphine 4mg/Ml Syringe IV 10/16/23 20:30 4 mg ONCE ONE Administration Ondansetron HCl 8 mg 10/16/23 19:55 10/16/23 20:04 Ondansetron 4mg/2ml Vial IV 10/16/23 19:56 8 mg ONCE ONE Administration Sodium Chloride 8 ml 10/16/23 20:33 Sodium Chloride 0.9% 10ml Vial IV 11/15/23 20:32 NEEDED PRN dilute pepcid ORDERS Category Date Time Status CBC w/Auto Diff [Complete Blood Count Auto Diff] Stat Lab 10/16/23 19:45 Completed CMP [Comprehensive Metabolic Panel] Stat Lab 10/16/23 19:45 Completed HCG,Quantitative Stat Lab 10/16/23 19:45 Completed Lactic Acid Stat Lab 10/16/23 20:43 Completed Lipase Stat Lab 10/16/23 19:45 Completed Trop I [Troponin I] Stat Lab 10/16/23 19:45 Completed UA [Urinalysis and Microscopic] Stat Lab 10/16/23 21:20 Completed Urine Culture Stat Micro 10/16/23 21:20 Received Medical Decision Narrative: 30-year-old male history of hyper tension, hyperlipidemia, type 2 diabetes, 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 Patient states this started yesterday, 10/05 9 in the AM around 9. Has been unable to tolerate almost anything, including liquids since that time. States that she realized today, she has not been passing gas, has not had any urinary output, so came to the emergency department for further evaluation. Vomiting is with specks of blood. No diarrhea. States that she is intermittently constipated, this is not abnormal for her. No fevers or chills or urinary symptoms. History was obtained via conversation with patient. On arrival, patient hemodynamically stable, alert, oriented x4, appropriate, GCS 15, moving all extremities spontaneously, pupils equal and reactive to light. Full physical exam performed and significant for uncomfortable appearing woman who is rocking back and forth on the bed. Not actively retching in front of me, but expectorating sputum. Abdomen soft, does not appear to be significantly tender. No flank tenderness. Differential includes gastritis, gastroenteritis, esophagitis, pancreatitis, SBO, gastroparesis, abdominal sepsis, among others. Patient was given 8 mg Zofran IV, 2 L. On reevaluation, patient still retching and in pain, so given Toradol, morphine, droperidol 2.5 mg for symptomatic management and correction of underlying abnormalities. Patient placed in observation 7:40 PM to give meds, reassess, allow for p.o. challenge and have workup done to determine appropriateness for home-going versus admission. Patient was provided fluids, meds awaiting results as well as read relations. Workup independently interpreted and significant for leukocytosis 16 with neutrophilia. Lactic acid negative at 1.9, CO2 a little low at 20, anion gap 19. BUN 19, creatinine normal at 0.8. Lipase negative, LFTs normal. Urinalysis with concern for UTI. See radiology read for full review of final results. Independent interpretation of EKG shows sinus rhythm 80 beats a minute with ST depressions in 3 and aVF as well as V3, no reciprocal change. [place] 144, QRS 106, QTc 432. On reevaluation, patient states that she feels much better, sleeping comfortably. Prior to protocolised 2-hour observation window, care handed off to oncoming physician. Armored Vehicle Officer disclaimer Much of this encounter note is an electronic yarn dry room worker spoken language to printed text. Electronic yarn dry room worker of the spoken language may permit errors. Although I have reviewed the note, some errors may still exist. <John Raymundo MD - Last Filed: 10/17/23 01:24> Vital Signs: 10/16/23 19:36 10/16/23 19:40 10/16/23 20:17 Temperature 98.1 F 98.1 F Temperature Source Oral Pulse Rate 110 H 87 Pulse Rate [Right Radial] 110 H Respiratory Rate 20 17 16 Blood Pressure 138/96 H 111/78 Blood Pressure [Right Arm] 138/96 H Blood Pressure Mean 110 89 Blood Pressure Mean [Right Arm] 110 Blood Pressure Source [Right Arm] Automatic Cuff Blood Pressure Position [Right Arm] Supine 02 Sat by Pulse Oximetry 98 98 94 L Oxygen Delivery Method Room Air 10/16/23 21:09 10/16/23 23:02 10/16/23 23:26 Temperature 97.8 F Temperature Source Oral Pulse Rate 86 85 68 Pulse Rate [Right Radial] Respiratory Rate 20 16 16 Blood Pressure 119/66 121/61 119/71 Blood Pressure [Right Arm] Blood Pressure Mean 83 79 Blood Pressure Mean [Right Arm] Blood Pressure Source [Right Arm] Blood Pressure Position [Right Arm] 02 Sat by Pulse Oximetry 94 L 98 Oxygen Delivery Method Room Air Lab Data Lab Results 10/16/23 19:45: WBC 16.0 H, RBC 5.04, Hgb 12.9, Hct 41.0, MCV 81.4, MCH 25.6 L, MCHC 31.5 L, RDW 15.6, Plt Count 236, MPV 11.3 H, Neut % (Auto) 80.4 H, Lymph % (Auto) 14.4, Bryan % (Auto) 2.6, Eos % (Auto) 1.8, Baso % (Auto) 0.8, Neut # (Auto) 12.9 H, Lymph # (Auto) 2.3, Bryan # (Auto) 0.4, Eos # (Auto) 0.3, Baso # (Auto) 0.1, Total Counted 100, Neutrophils % (Manual) 81 H, Lymphocytes % (Manual) 17, Monocytes % (Manual) 1 L, Eosinophils % (Manual) 1, Platelet Estimate Normal, RBC Morphology Normal, Sodium 139, Potassium 3.7, Chloride 104, Carbon Dioxide 20 L, Anion Gap 18.7 H, BUN 19 H, Creatinine 0.80, Estimated Creat Clear 75, Estimated GFR 80, Est GFR ( Amer) 97, Glucose 129 H, Calcium 10.5 H, Total Bilirubin 1.0, AST 28, ALT 25, Alkaline Phosphatase 121, Troponin I < 0.01, Total Protein 9.2 H D, Albumin 4.8, Globulin 4.4 H, Albumin/Globulin Ratio 1.1, Lipase 48, HCG, Quant < 2 10/16/23 20:43: Lactate 1.9 10/16/23 21:20: Urine Color Yellow, Urine Appearance Clear, Urine pH 7.5, Ur Specific [place] 1.015, Urine Protein Trace, Urine Glucose (UA) Negative, Urine Ketones 3+, Urine Blood Negative, Urine Nitrate Negative, Urine Bilirubin 2+ A, Urine Urobilinogen 1.0, Ur Leukocyte Esterase 2+ A, Urine RBC None, Urine WBC 5-10, Ur Squamous Epith Cells 5-10, Urine Bacteria Trace, Urine Yeast Occasional Orders (Tests/Meds): ED MEDICATIONS Discontinued Medications Generic Name Dose Route Start Last Admin Trade Name Freq PRN Reason Stop Dose Admin Droperidol 2.5 mg 10/16/23 20:33 10/16/23 21:14 Droperidol 5mg/2ml Vial IV 10/16/23 20:34 2.5 mg ONCE ONE Administration Famotidine 20 mg 10/16/23 20:33 10/16/23 21:13 Famotidine 20mg/2ml Vial IV 10/16/23 20:34 20 mg ONCE ONE Administration Lactated Ringer's 1,000 mls @ 999 mls/hr 10/16/23 19:54 10/16/23 20:04 Lactated Ringer's 1000 Ml Bag IV 10/16/23 20:54 999 mls/hr .Q1H1M ONE Administration Lactated Ringer's 1,000 mls @ 999 mls/hr 10/16/23 19:55 10/16/23 20:05 Lactated Ringer's 1000 Ml Bag IV 10/16/23 20:55 999 mls/hr .Q1H1M ONE Administration Ketorolac Tromethamine 15 mg 10/16/23 20:29 10/16/23 20:32 Ketorolac 30mg/Ml Vial IV 10/16/23 20:30 15 mg ONCE ONE Administration Morphine Sulfate 4 mg 10/16/23 20:29 10/16/23 20:32 Morphine 4mg/Ml Syringe IV 10/16/23 20:30 4 mg ONCE ONE Administration Ondansetron HCl 8 mg 10/16/23 19:55 10/16/23 20:04 Ondansetron 4mg/2ml Vial IV 10/16/23 19:56 8 mg ONCE ONE Administration Sodium Chloride 8 ml 10/16/23 20:33 Sodium Chloride 0.9% 10ml Vial IV 11/15/23 20:32 NEEDED PRN dilute pepcid ORDERS Category Date Time Status CBC w/Auto Diff [Complete Blood Count Auto Diff] Stat Lab 10/16/23 19:45 Completed CMP [Comprehensive Metabolic Panel] Stat Lab 10/16/23 19:45 Completed HCG,Quantitative Stat Lab 10/16/23 19:45 Completed Lactic Acid Stat Lab 10/16/23 20:43 Completed Lipase Stat Lab 10/16/23 19:45 Completed Trop I [Troponin I] Stat Lab 10/16/23 19:45 Completed UA [Urinalysis and Microscopic] Stat Lab 10/16/23 21:20 Completed Urine Culture Stat Micro 10/16/23 21:20 Received Medical Decision Narrative: 30-year-old male history of hyper tension, hyperlipidemia, type 2 diabetes, 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 Patient states this started yesterday, 10/05 9 in the AM around 9. Has been unable to tolerate almost anything, including liquids since that time. States that she realized today, she has not been passing gas, has not had any urinary output, so came to the emergency department for further evaluation. Vomiting is with specks of blood. No diarrhea. States that she is intermittently constipated, this is not abnormal for her. No fevers or chills or urinary symptoms. History was obtained via conversation with patient. On arrival, patient hemodynamically stable, alert, oriented x4, appropriate, GCS 15, moving all extremities spontaneously, pupils equal and reactive to light. Full physical exam performed and significant for uncomfortable appearing woman who is rocking back and forth on the bed. Not actively retching in front of me, but expectorating sputum. Abdomen soft, does not appear to be significantly tender. No flank tenderness. Differential includes gastritis, gastroenteritis, esophagitis, pancreatitis, SBO, gastroparesis, abdominal sepsis, among others. Patient was given 8 mg Zofran IV, 2 L. On reevaluation, patient still retching and in pain, so given Toradol, morphine, droperidol 2.5 mg for symptomatic management and correction of underlying abnormalities. Patient placed in observation 7:40 PM to give meds, reassess, allow for p.o. challenge and have workup done to determine appropriateness for home-going versus admission. Patient was provided fluids, meds awaiting results as well as read relations. Workup independently interpreted and significant for leukocytosis 16 with neutrophilia. Lactic acid negative at 1.9, CO2 a little low at 20, anion gap 19. BUN 19, creatinine normal at 0.8. Lipase negative, LFTs normal. Urinalysis with concern for UTI. See radiology read for full review of final results. Independent interpretation of EKG shows sinus rhythm 80 beats a minute with ST depressions in 3 and aVF as well as V3, no reciprocal change. [place] 144, QRS 106, QTc 432. On reevaluation, patient states that she feels much better, sleeping comfortably. Prior to protocolised 2-hour observation window, care handed off to oncoming physician. Armored Vehicle Officer disclaimer Much of this encounter note is an electronic yarn dry room worker spoken language to printed text. Electronic yarn dry room worker of the spoken language may permit errors. Although I have reviewed the note, some errors may still exist. Zackary CALLAWAY: I assumed care of the patient at the time of handoff from the prior provider. On reassessment patient reports symptomatic improvement. Tolerating p.o. Patient completed 2-hour observation status post droperidol and was discharged in stable condition with return precautions. Critical Care <Fermin Lomeli MD - Last Filed: 10/16/23 22:55> Critical Care Time Critical Care Time: No
[2023-10-16] MEDS: MORPHINE 4MG/ML SYRINGE 4 MG IV (20:32)
[2023-10-16] MEDS: KETOROLAC 30MG/ML VIAL 15 MG IV (20:32)
[2023-10-16 20:33] LABS: HCG,Quantitative < 2 mIU/ml (0-5.42)
--- NOTE | 2023-10-16 20:45 | ECG_ITS ---
APPROVED REPORT Exam: Resting ECG HR:80 bpm ECG Measurements Heart Rate 80 AXES SC 144 P 65 QRSd 106 QRS 57 QT 396 T 24 QTc 432 Conclusion SINUS RHYTHM Mild ST depressions 3 and aVF without reciprocal change Electronically signed by : UMU MARTINS, 10/16/2023 22:46:57
[2023-10-16 20:58] LABS: Lactic Acid 1.9 mmol/L (0.7-2.1)
[2023-10-16 21:09] VITALS: BP 119/66; PULSE 86; RESP 20; O2SAT 94
[2023-10-16] MEDS: FAMOTIDINE 20MG/2ML VIAL 20 MG IV (21:13)
[2023-10-16] MEDS: droPERidol 5MG/2ML VIAL 2.5 MG IV (21:14)
[2023-10-16 21:16] LABS: Troponin I < 0.01 ng/ml (0.00-0.034)
[2023-10-16 21:25] LABS: Microscopic, Urine URINE MICROSCOPIC (MICROSCOPIC)
[2023-10-16 21:29] LABS: Appearance,Urine CLEAR (Clear); Blood, Urine Negative (Negative); Color,Urine YELLOW (Yellow); Glucose,Urine (UA) Negative (Negative); Ketones,Urine 3+ (Negative); Leukocyte Esterase,Urine 2+ (Negative); Nitrate,Urine Negative (Negative); PH,Urine 7.5 (5.0-8.5); Protein,Urine TRACE (Negative); Specific Gravity, Urine 1.015 (1.005-1.030)
[2023-10-16 21:40] LABS: Bilirubin,Urine 2+ (Negative)
[2023-10-16 21:43] LABS: Bacteria,Urine Trace /lpf; Yeast,Urine Occasional /lpf
[2023-10-16 23:02] VITALS: BP 121/61; PULSE 85; RESP 16; O2SAT 98
[2023-10-16 23:26] VITALS: BP 119/71; PULSE 68; RESP 16; TEMP 36.6; O2SAT 97
== END 2023-10-16 23:26 | disposition home or self-care (01) ==
PROVIDERS: Emergency Provider Emergency Medicine; PCP Family Medicine
DX: R10.84 Generalized abdominal pain (principal); R11.2 Nausea with vomiting, unspecified; B96.89 Other specified bacterial agents as the cause of diseases classified elsewhere; E11.9 Type 2 diabetes mellitus without complications; Z79.85 Long-term (current) use of injectable non-insulin antidiabetic drugs
CPT/HCPCS: 80053; 81001; 83605; 83690; 84484; 84702; 85007; 85025; 87086; 93005; 96361; 96374; 96375; 99285; J1790; J2405; J7120

== ENCOUNTER 2023-10-22 09:26 | Outpatient (CLI) | payer OTHER, SELFPAY | END 2023-10-22 23:59 | disposition home or self-care (01) | LOC: LAB.DROPOF 10-23 09:26 | PROVIDERS: Visit Provider Family Medicine | DX: N39.0 Urinary tract infection, site not specified (principal); B95.1 Streptococcus, group B, as the cause of diseases classified elsewhere | CPT/HCPCS: 87086; 87088; 87186 ==

== ENCOUNTER 2024-02-10 12:37 | Outpatient (CLI) | payer OTHER, SELFPAY ==
--- NOTE | 2024-02-10 12:41 | XR_ITS ---
FINAL REPORT CLINICAL HISTORY: fall yesterday, lower back & left hip pain FINDINGS: No fracture is identified. Moderate degenerative disc space narrowing with mild endplate spurring is seen at L4-5. Remaining disc heights are well maintained. Alignment is normal. IMPRESSION: Moderate degenerative disc disease L4-5 Authenticated and ERN
--- NOTE | 2024-02-10 12:41 | XR_ITS ---
FINAL REPORT CLINICAL HISTORY: trauma, left hip pain, fell yesterday FINDINGS: Left hip THREE VIEW FINDINGS: Three views show no evidence of an acute, displaced fracture or dislocation of the visualized bony architecture. The joint spaces appear normal. IMPRESSION: Unremarkable exam. Authenticated and ERN
== END 2024-02-10 23:59 | disposition home or self-care (01) ==
LOC: RAD 12:39
PROVIDERS: PCP Family Medicine; Visit Provider Family Medicine
DX: M25.552 Pain in left hip (principal); M54.50 Low back pain, unspecified
CPT/HCPCS: 72100; 73502

== ENCOUNTER 2024-03-01 14:55 | Outpatient (RCR) | payer OTHER, SELFPAY ==
--- NOTE | 2024-03-01 17:14 | HMH.PTOPEV ---
PT Outpatient Evaluation Rehab PT Outpatient Evaluation Start: 03/01/24 15:01 Freq: Status: Active Protocol: Document 03/01/24 15:01 JHOANMEAGAN (Rec: 03/01/24 17:14 AUDRA [id number]) E-signed By Ayanna Murphy, PT Outpatient Therapy Subjective History Subjective History Pt is a 38 y/o female who reports chronic migraines since she was a teenager that have been well controlled with medication. Pt reports onset of a different type of headache 6 months ago without known trauma or injury. Pt reports she has been experiencing daily headaches that occur bilaterally of the posterior occiput and occasionally refer to her eyes . Pt reports headaches/pain occur at different times of the day and are worsened with prolonged activity, working, looking down and reading. Pt denies light/noise sensitivity or n/v with headache but does report intermittent dizziness with bending forward and quick neck movements. Pt reports she did fall at the beginning of February causing her to land on her left hip and hit her head on the ground , denies LOC. Pt reports she did not go to the ED or doctor but reports she feels like the fall may have resulted in a concussion. Pt reports she is scheduled to have imaging of her low back and head next week. 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 hysterectomy 05/10 Chief Complaint Pain Symptom Type Throb,Dull Symptoms Relieved By Rest/Positioning,Ice, Prescription Meds Symptoms Aggravated By Physical Activity Current Functional Limitations Desk Work/Reading,Sleeping Symptom Description Intermittent Level of pain today (0-10) 2 Pain scale - at its best (0-10) 0 Pain scale - at its worst (0-10) 6 Cervical Eval Palpation Cervical Muscles R Cervical Paraspinal,R Suboccipital,L Suboccipital,R Upper Trapezius Cervical/Thoracic Palpation Findings Tenderness Flexibility Deficits Upper Trapezius Muscle Length (R) Mild Tightness,(L) Mild Tightness Levaetor Scapulae Muscle Length (R) Mild Tightness,(L) Mild Tightness Pectoralis Major Muscle Length (R) Mild Tightness,(L) Mild Tightness Pectoralis Minor Muscle Length (R) Mild Tightness,(L) Mild Tightness Passive Joint Mobility Cervical PIVM Dec: R OA L OA R AA L AA R C2/3 L C2/3 R C3/4 AROM Cervical Spine Extension Active Range of 45 Motion (degrees) Cervical Spine Flexion Active Range of 30 Motion (degrees) Cervical Spine Right Lateral Flexion 40 Active Range of Motion (degrees) Cervical Spine Left Lateral Flexion 40 Active Range of Motion (degrees) Cervical Spine Right Rotation Active 45 Range of Motion (degrees) Cervical Spine Left Rotation Active 65 Range of Motion (degrees) MMT Bilateral Deltoid (C5) 5 Normal Biceps Brachii Strength Grade 5 Normal Triceps Brachii Strength Grade 5 Normal Altered Sensation Comment equal and intact to light touch sensation Special Test C-Spine Foraminal Compression ([place]) Negative Left,Negative Right Test C-spine Verterbral Accessory Movements Central P/A [place],Right P/A that Elicit Symptoms [place] Shoulder/Elbow Eval Shoulder Objective Measurements Shoulder MMT Bilateral Lower Trapezius Strength Grade 4- Good- Middle Trapezius Strength Grade 4- Good- Rhomboids Strength Grade 4- Good- Upper Trapezius/Levator Scapulae 4- Good- Elbow Objective Measurements Neck Disability Index Neck Disability Index Section 1: Pain Intensity The pain is very mild at moment Section 2: Personal Care (washing, I can look after myself dressing, etc.) normally but it causes extra pain Section 3: Lifting I can lift heavy weights but it gives extra pain Section 4: Reading I can't read as much as I want because of moderate pain in my neck Section 5: Headaches I have moderate headaches, which come frequently Section 6: Concentration I have a fair degree of difficulty in concentrating when I want to Section 7: Work I can do as much work as I want to Section 8: Driving I can drive my car as long as I want with slight pain in my neck Section 9: Sleeping My sleep is greatly disturbed (3-5 hrs sleepless) Section 10: Recreation I am able to engage in most, but not all of my usual recreation NDI Score 18 Outpatient Therapy Assessment Impairments Problems/Impairmments Palpation Tenderness,Impaired Range of Motion,Impaired Strength,Impaired Work Activities,Impaired Desk/ Computer Activities,Subjective C/O Pain,Impaired Self Care/ Self Management Prognosis Rehab Potential Good Clinical Impression Consistent with Diagnosis Yes Short Term Goals Number of Weeks 2 Decrease Subjective C/O Pain Yes Improve Self Care/Self Management Yes Patient to be Ind w/ HEP Yes Group Home Goals Number of Weeks 4-6 Decreased Palpation Tenderness Yes: 0-1/4 TTP of suboccipital , cervical PS mm & C2-3 TP Increase Range of Motion Yes: Improve cervical AROM to WNL Increase Strength Yes: Improve scapular strength to 4-4+/5 grossly to assist with posture Improve Tolerance to Work Activities Yes: report ability to work a full shift with TYLER/pain 3/10 or less Improve Neck Disability Index Score Yes: Improve score to 13 or less to improve overall QOL Decrease Subjective C/O Pain Yes: Improve TYLER/pain at worst to 3/10 or less to improve overall QOL Outpatient Therapy Plan of Care Treatment Plan May Include Therapeutic Exercise Including Home Yes Exercise Program Manual Therapy Techniques Yes Neuromuscular Re-education Yes Therapeutic Activities to Return to Yes Previous Functional/Work Level ADL/Self Care Education Yes Mechanical Traction Yes Dry Needling Yes Thermal Modalities Yes Electrical Stimulation Yes Ultrasound/Phonophoresis Yes Iontophoresis Yes Massage Yes Eval/Re-Eval Yes Frequency Times per week 2 Duration Number of Weeks 4-6 Addendums This patient is a candidate for social No or vocational rehab? Patient/Guardian verbally acknowledges Yes understanding of treatment program and consents to further treatment? Patient/Guardian verbally acknowledges Yes understanding of diagnosis, prognosis and goals for treatment? Eval Complexity PT Charges 97213 - Moderate Complexity PHYSICIAN CERTIFICATION: I certify the specified therapy services for Ingrid Beatty are required, authorized, and reviewed every 30 days.
== END 2024-03-01 23:59 | disposition home or self-care (01) ==
LOC: PT 14:55
PROVIDERS: Visit Provider Specialist
DX: R51.9 Headache, unspecified (principal); G89.29 Other chronic pain
CPT/HCPCS: 97014; 97110; 97163; G0283

== ENCOUNTER 2024-03-01 16:00 | Outpatient (RCR) | payer OTHER, SELFPAY ==
--- NOTE | 2024-02-12 16:26 | HMH.PTOPEV ---
PT Outpatient Evaluation Rehab PT Outpatient Evaluation Start: 02/12/24 15:39 Freq: Status: Active Protocol: Document 02/12/24 15:39 LENINTARIQ (Rec: 02/12/24 16:26 LIYA [id number]) E-signed By Alex Duran, PT Outpatient Therapy Subjective History Subjective History Pt reports work related injury on 02/09/24, working in [facility], sustained a slip and fall injury while walking rapidly backwards guided treatment into newly cleaned treatment bay w/still wet maddy. Pt reports majority of impact when falling backwards was applied to left hip, low back, sacrum areas. Pt currently reporting pain and soreness left > right low back, glut mm , and left hip as well as ' fairly constant numbness and tingling in both legs' from hip to toes. Pt reports 'it feels deep in my left hip. Even thought the xrays were negative I know there's other stuff in there that could be injured.' Pt also reports long h/o chronic LBP w/ microdiscectomy and laminectomy at L3-4 in 2012, caused by horse related injury . New diagnosis of cancer in past 12 No months? Chief Complaint Pain,Stiff,Paresthesia, Weakness Symptom Type Ache,Throb,Sharp,Dull,Numbness ,Tingling Symptoms Relieved By Rest/Positioning,Ice Symptoms Aggravated By Sitting,Standing,Bending/ Stooping,Physical Activity, Walking,Lifting Prior Functional Limitations None Current Functional Limitations Lifting,Housework,Sitting, Stairs Symptom Description Constant but Variable Level of pain today (0-10) 4 Pain scale - at its best (0-10) 2 Pain scale - at its worst (0-10) 7 Lumbopelvic Eval Posture Thoracic Spine Posture Standing Position Flattened Lumbar Spine Posture Standing Position Flattened Assistive device Assistive Devices None / NA Gait Observation General Gait Pattern Observation Antalgic Gait Palapation tenderness left lumbar spinal tenderness Yes: 3/4 paraspinal tenderness Yes: 3/4 buttock tenderness Yes: 3/4 Lumbar/Sacral Palpation Findings Tenderness,Trigger Point, Muscle Guarding right lumbar spinal tenderness Yes: 3/4 paraspinal tenderness Yes: 2-3/4 buttock tenderness Yes: 1-2/4 Lumbar/Sacral Palpation Findings Tenderness Accessory Movement L-spine Vertebrae Accessory Movements Right P/A [place],Left P/A [place] that Elicit Symptoms L3 right,left L4 right,left L5 right,left S1 right,left Range of Motion Lumbar Spine Active Flexion Range of 0-80 Motion (degrees) Lumbar Spine Active Extension Range of 0-15 Motion (degrees) Left Lumbar Spine Lateral Flexion Active 0-15 Range of Motion (degrees) Right Lumbar Spine Lateral Flexion 0-30 Active Range of Motion (degrees) Lumbar Spine ROM Limitations Soft Tissue Tightness,Pain Manual Muscle Test Right Knee Extension Strength Grade 5 Normal Knee Flexion Strength Grade 5 Normal Hip Flexion Strength Grade 4 Good Extensor Hallucis Longus Strength Grade 5 Normal Ankle Dorsiflexion Strength Grade 5 Normal Left Knee Extension Strength Grade 5 Normal Knee Flexion Strength Grade 4- Good- Hip Flexion Strength Grade 4- Good- Hip Abduction Strength Grade 4- Good- Hip External Rotation Strength Grade 4- Good- Hip Internal Rotation Strength Grade 4- Good- Extensor Hallucis Longus Strength Grade 5 Normal Ankle Dorsiflexion Strength Grade 5 Normal Special Tests Hip Piriformis Test Negative Right,Positive Left Sciatic Nerve Tension Test Negative Right,Positive Left Reverse Sciatic Nerve Tension Test Negative Left,Positive Right Oswestry Index Section 1 Pain Intensity The pain comes and goes and is moderate Section 2 Personal Care (Washing,Dresing) my way of washing or dressing even though it causes some pain Section 3 Lifting I can lift heavy weights, but it gives me extra pain Section 4 Walking I cannot walk more than one mile wihtout increasing pain Section 5 Sitting Pain prevents me from sitting for more than 10 minutes Section 6 Standing I cannot stand more than 1 hour without increasing pain Section 7 Sleeping Because of my pain, my normal night's sleep is less than 4 hours Section 8 Social Life My social life is normal but increases the degree of pain Section 9 Traveling I get extra pain while traveling, but it does not compel me to seek al Section 10 Changing Degreee of Pain My pain seems to be getting better, but improvement is slow Score and Risk Level Oswestry Sc 20 Oswestry Risk Level Moderate Disability Outpatient Therapy Assessment Impairments Problems/Impairmments Palpation Tenderness,Impaired Range of Motion,Impaired Strength,Impaired Gait Pattern ,Impaired Walking,Impaired Standing,Impaired Household Care,Impaired Stair Climbing, Impaired Work Activities, Subjective C/O Pain,Impaired Self Care/Self Management Prognosis Rehab Potential Good Clinical Impression Consistent with Diagnosis Yes Short Term Goals Number of Weeks 4 Decreased Palpation Tenderness Yes: 1-2/4 lumbar and hip mm Increase Range of Motion Yes: 50-75% OF WFL LUMBAR AND HIP AROM Increase Strength Yes: 4/5 B/L LE MM Increase Ability to Walk Yes: 30MIN Increase Ability to Sit Yes: 15MIN Decrease Subjective C/O Pain Yes: 4-5/10 W/ABOVE ACTIVITIES Patient to be Ind w/ HEP Yes Detention Goals Number of Weeks 8-12 Decreased Palpation Tenderness Yes: 0-1/4 LUMBAR AND HIP MM Increase Range of Motion Yes: WFL LUMBAR AND B/L HIP AROM Increase Strength Yes: 4+-5/5 B/L LE'S Improve Gait Pattern without Assistive Yes: WFL ON LEVEL TERRAIN Device Increase Ability to Walk Yes: 60MIN Increase Ability to Sit Yes: 30MIN Improve Ability For Household Care Yes: WFL Improve Tolerance to Work Activities Yes: WFL-FULL DUTY Decrease Subjective C/O Pain Yes: 0-2/10 W/ABOVE ACTIVITIES Patient to be Ind w/ Advanced HEP Yes Outpatient Therapy Plan of Care Treatment Plan May Include Therapeutic Exercise Including Home Yes Exercise Program Manual Therapy Techniques Yes Neuromuscular Re-education Yes Therapeutic Activities to Return to Yes Previous Functional/Work Level Gait Training Yes ADL/Self Care Education Yes Mechanical Traction Yes Dry Needling Yes Thermal Modalities Yes Electrical Stimulation Yes Ultrasound/Phonophoresis Yes Eval/Re-Eval Yes Frequency Times per week 2-3 Duration Number of Weeks 8-12 Addendums This patient is a candidate for social Yes or vocational rehab? Patient/Guardian verbally acknowledges Yes understanding of treatment program and consents to further treatment? Patient/Guardian verbally acknowledges Yes understanding of diagnosis, prognosis and goals for treatment? Eval Complexity PT Charges 12590 - Moderate Complexity Shoulder/Elbow Eval Shoulder Objective Measurements Elbow Objective Measurements PHYSICIAN CERTIFICATION: I certify the specified therapy services for Ingrid Beatty are required, authorized, and reviewed every 30 days.
== END 2024-03-01 23:59 | disposition home or self-care (01) ==
LOC: PT 16:00
PROVIDERS: Visit Provider Family Medicine
DX: M54.50 Low back pain, unspecified (principal); S79.912A Unspecified injury of left hip, initial encounter
CPT/HCPCS: 97014; 97035; 97110; 97140; 97163; G0283

== ENCOUNTER 2024-03-08 12:51 | Outpatient (CLI) | payer OTHER, SELFPAY ==
--- NOTE | 2024-03-08 12:58 | CT_ITS ---
PROCEDURE INFORMATION: Exam: CT Head Without And With Contrast Exam date and time: 03/08/2024 3:26 PM Age: 38 years old Clinical indication: Pain; Headache; Additional info: Injury TECHNIQUE: Imaging protocol: Computed tomography of the head without and with contrast. Radiation optimization: All CT scans at this facility use at least one of these dose optimization techniques: automated exposure control; mA and/or kV adjustment per patient size (includes targeted exams where dose is matched to clinical indication); or iterative reconstruction. Contrast material: ISOVUE 300; Contrast volume: 100 ml; Contrast route: IV; COMPARISON: MR CERVICAL SPINE WO CON 10/31/2022 10:26 AM FINDINGS: Brain: There is no acute intracranial hemorrhage or abnormal extra-axial fluid collection identified. There is no intracranial mass effect or shift of midline structures. The [place]-white differentiation is preserved throughout. There is no sulcal effacement. The basilar cisterns are open. Cerebral ventricles: No hydrocephalus or ventricular effacement. Paranasal sinuses: Sinus mucosal disease is noted. No air-fluid levels are seen. Mastoid air cells: There is no mastoid effusion detected. Bones: Right nasal bone fracture is age indeterminate. Correlate with mechanism of injury and site of pain. No calvarial fracture or destructive osseous lesions are seen. Soft tissues: Unremarkable. IMPRESSION: No acute intracranial pathology identified by CT.
--- NOTE | 2024-03-08 13:25 | MR_ITS ---
PROCEDURE INFORMATION: Exam: MR Lumbar Spine Without and With Contrast Exam date and time: 03/08/2024 2:09 PM Age: 38 years old Clinical indication: Low back pain; Prior surgery; Surgery date: 6+ months; Surgery type: Unknown; Additional info: Injury TECHNIQUE: Imaging protocol: Magnetic resonance imaging of the lumbar spine without and with contrast. Contrast material: ISOVUE; Contrast volume: 20 ml; Contrast route: IV; COMPARISON: MR LUMBAR SPINE WO/W CON 08/26/2022 7:33 AM FINDINGS: Bones/joints: No anterior wedging deformity. No acute fracture visualized. Degenerative disc signal is seen at L4-L5 and L5-S1. There is degenerative endplate hypertrophy at the L4-L5 level. Spinal cord: The distal spinal cord and conus medullaris are normal in signal and morphology. The cauda equina nerve roots are normally distributed within the thecal sac, with no clumping or adhesions. L1-L2: No significant disc bulge or herniation. No severe spinal canal stenosis. No significant neural foraminal narrowing. L2-L3: No significant disc bulge or herniation. No severe spinal canal stenosis. No significant neural foraminal narrowing. L3-L4: No significant disc bulge or herniation. No severe spinal canal stenosis. No significant neural foraminal narrowing. L4-L5: Previous left laminectomy, with no acute complication evident. Spondylitic disc bulge causes moderate to severe left and moderate right neural foraminal stenosis. L5-S1: Diffuse disc bulge with no significant central canal stenosis. Neural foraminal stenosis is [id number] on the right. Soft tissues: Unremarkable. IMPRESSION: 1. Previous laminectomy at L4-L5, with no acute complication. 2. Lower lumbar disc disease, with neural foraminal stenosis at the L4-L5 and L5-S1 levels, as above.
[2024-03-08 13:54] LABS: Blood Urea Nitrogen 17 mg/dl (7-17); Estimated Glomerular Filt Rate 94 ml/min (>60); GFR (African American) 113 ML/MIN (>60)
[2024-03-08] MEDS: SODIUM CHLORIDE 0.9% 10ML SYR (RAD ONLY) 10 ML IV (14:47)
[2024-03-08] MEDS: 0.9 % SODIUM CHLORIDE 50 ML VIAL 25 ML IV (14:47)
[2024-03-08] MEDS: GADOTERIDOL INJ 20ML SYRINGE 20 ML IV (14:47)
[2024-03-08] MEDS: IOPAMIDOL-300 (61%) 100ML VIAL 100 ML IV (15:39)
== END 2024-03-08 23:59 | disposition home or self-care (01) ==
PROVIDERS: PCP Family Medicine; Visit Provider Family Medicine
DX: M51.16 Intervertebral disc disorders with radiculopathy, lumbar region (principal); R51.9 Headache, unspecified; S09.90XA Unspecified injury of head, initial encounter
CPT/HCPCS: 70470; 72158; 82565; 84520; A9576; Q9967

== ENCOUNTER 2024-03-10 08:37 | Outpatient (POV) | payer OTHER, SELFPAY ==
--- NOTE | 2024-03-10 09:13 | A.OFFVIS_ITS ---
[facility] Disclaimer: The information contained in this section may have been updated after the patient was seen, as this information can be updated by other users. Medical History (Updated 02/24/24 @ 19:25 by Cielo Addison MD) Cervical cancer Head trauma Fall Lumbar disc disease with radiculopathy Abdominal pain Renal mass Vomiting Urinary frequency Recurrent UTI Diabetes Renal calculus, right Abdominal tenderness, LLQ (left lower quadrant) Thrombophlebitis of vein of pelvis Abdominal tenderness, RLQ (right lower quadrant) Urinary urgency Abnormal uterine bleeding Sinusitis Adenocarcinoma in situ of endocervix Perianal fissure PCOS (polycystic ovarian syndrome) Dyspareunia Endometriosis Chronic pelvic pain in female Morbid obesity with BMI of 40.0-44.9, adult Shingles Anxiety Shingles (herpes zoster) polyneuropathy Surgical History S/P laparoscopic hysterectomy History of colonoscopy S/P cone biopsy of cervix History of cholecystectomy History of delivery History of tonsillectomy H/O tubal ligation Family History Other Anemia Asthma Atrial fibrillation Cancer Diabetes Heart disease Hyperlipidemia Hypertension No significant family history Thyroid disorder Social History (Updated 02/24/24 @ 13:35 by ALICIA Shelby) Smoking Status: Never smoker alcohol intake: current alcohol intake frequency: other substance use type: denies use current occupational status: employed Travel in the last 8 weeks: None household members: other housing: house marital status: number of children: 2 education level: college current occupational exposures/hazards: Yes caffeine: Yes PM Subjective & Objective Subjective Subjective:: Patient is a pleasant 38-year-old female who presents today for worsening pain. Today she rates her pain a 4 out of 10 however does state that the pain will go to a 7 out of 10 with increased activity. 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 Patient states that she was in the front of the stretcher walking backwards and ended up slipping on wet floors causing her feet to come up from under her and she ended up falling all across her back and onto her left hip. Patient states that she has been experiencing numbness that radiates down her bilateral lower extremities almost like a pinprick sensation. Patient does state that she also has an aching throbbing sensation. She does state that the pain has gotten better from the initial fall however the left side is still been bothering her significantly going all the way down to her foot. Patient does state that she had imaging done and that there was no acute fractures. Patient has been using her compounded cream and states it does significantly help and that she did go to physical therapy for 3 weeks and that that did help some as well. Patient does state that she is interested in additional injection therapy. Patient did previously have a lumbar epidural back in September that did provide more than 50% improvement and lasted for months. Patient is interested in seeing about another injection. Patient is currently managed with tizanidine 4 mg at bedtime from our office. She denies any side effects. Her Joe has been reviewed and is appropriate. Review of Systems: General: No recent weight changes, no fever, no sleep disturbances Respiratory: No cough, no shortness of air, no recurring pulmonary infections Cardiovascular/peripheral vascular: No chest pain, no palpitations, no edema, no shortness of breath Gastrointestinal: No new onset incontinence, normal bowel movements reported Genitourinary: No new onset incontinence Musculoskeletal: Low back pain, left leg pain, left hip pain Psychiatric: [Normal mood/affect] Neurological: [Denies weakness in extremities], [denies balance issues] Pain at rest (0-10 scale): 7 Objective Objective:: Physical Exam: General: Alert and oriented x3, no acute distress, pleasant and cooperative Lungs: Respirations even and unlabored, symmetrical chest expansion Eyes: PERRL Musculoskeletal: Flexion and extension of lumbar [spine] somewhat guarded secondary to pain, [antalgic gait noted] point tenderness along left SI and left bursa with positive left Raymundo's, positive left leg raise Neurological: Speech clear, no gross sensory deficit Has patient had previous pain injection?: No Conservative treatment options previously tried: Home exercise plan Length of treatment: Longer than 6 weeks Meds Home Medications and Allergies Home Medications ?Medication ?Instructions ?Recorded ?Confirmed ?Type tizanidine 4 mg tablet (Zanaflex) 4 mg PO HS Muscle Spasm #30 tabs 08/27/23 02/24/24 Rx lisinopril 10 1 tab PO DAILY High Blood Pressure 10/22/23 02/16/24 Rx mg-hydrochlorothiazide 12.5 mg #90 tabs tablet atogepant 60 mg tablet (Qulipta) 60 mg PO DAILY #90 tabs 12/01/23 02/24/24 Rx pregabalin 150 mg capsule (Lyrica) 150 mg PO BID Pain #60 caps 12/01/23 02/24/24 Rx albuterol sulfate 90 mcg/actuation 2 inh inhalation Q6HP PRN 01/28/24 02/24/24 Rx aerosol inhaler Shortness Of Breath Or Wheezing #8.5 grams amitriptyline 10 mg tablet 10 mg PO HS #30 tabs 02/24/24 02/24/24 Rx New Prescriptions to Start Prescriptions: Allergies Allergy/AdvReac Type Severity Reaction Status Date / Time cephalexin [From Keflex] Allergy Intermediate Verified 02/24/24 13:19 cinnamon Allergy Verified 02/24/24 13:19 Assessment and Plan *Assessment and plan (1) Lumbar radiculopathy: Status: Chronic Category: Medical Code(s): M54.16 - Radiculopathy, lumbar region (2) Degenerative joint disease (DJD) of lumbar spine: Status: Chronic Category: Medical Code(s): M47.816 - Spondylosis without myelopathy or radiculopathy, lumbar region Plan Patient is experiencing significant pain in her low back that does radiate down her entire left extremity with a positive left leg raise. I did discuss with the patient that she did also have point tenderness along her left SI and left bursa and that we can look at possibly doing additional injections in future at these areas. I did discuss with the patient that I do believe she would benefit most from a lumbar epidural steroid injection. Risk and benefits were discussed with the patient and she would like to proceed forward with this plan of care. Patient has had this injection in the past and gotten more than 50% relief lasting longer than 3 months. Patient has not had this injection since Friday. Patient has tried and failed conservative therapy including continued at home stretching exercise for longer than 6 weeks as well as recent physical therapy for more than 3. Patient will be scheduled for a lumbar epidural steroid injection L4-L5 under fluoroscopy. I will also send in another 3-month refill on her tizanidine. Patient has been instructed to contact the clinic with any concerns before the next appointment. Dr. Deal has reviewed this note and agrees with this plan of care. This note was dictated using voice recognition software and make contain errors or omissions. All injections are used with Lidocaine or Bupivacaine and Depo Medrol.
[2024-03-10 09:46] VITALS: BP 133/81; PULSE 79; RESP 18; O2SAT 96; BMI 43.9
== END 2024-03-10 23:59 | disposition home or self-care (01) ==
PROVIDERS: PCP Family Medicine; Visit Provider Nurse Practitioner Family
DX: M47.26 Other spondylosis with radiculopathy, lumbar region (principal)
CPT/HCPCS: 99212; G0463

== ENCOUNTER 2024-03-23 10:10 | Day surgery (SDC) | payer OTHER, SELFPAY ==
[2024-03-23 10:13] VITALS: BP 125/61; PULSE 93; RESP 16; O2SAT 97; BMI 43.9
[2024-03-23] MEDS: methylPREDNISolone ACETATE 80MG/ML VIAL 80 MG (10:55)
[2024-03-23 10:56] VITALS: BP 124/80; PULSE 87; RESP 18
[2024-03-23 10:57] VITALS: BP 124/80; PULSE 87; RESP 18
--- NOTE | 2024-03-23 11:04 | EXP.PAIN.PRO ---
Procedure Date: 03/23/24 Time: 11:00 Anesthesiologist:: Barry Cohen CRNA Complications:: None Pre-procedure Diagnosis:: Degenerative disc lumbar spine multilevels. Lumbar radiculopathy. Disc bulge L4-5. Post-procedure Diagnosis:: Same. Indications for Procedure:: Patient is a pleasant 38-year-old female who comes our clinic today for repeat lumbar epidural steroid injection at the L4-5 level. Patient describes low lumbar back pain as constant, dull, aching. Patient also reports bilateral hip and leg radicular symptoms at times. She rates her pain 6/10. Procedure Details:: Procedure: Lumbar epidural steroid injection under fluoroscopy Informed consent was obtained and the risks and benefits of the procedure were explained to the patient. The patient was taken to the procedure room and noninvasive monitors placed, including noninvasive blood pressure cuff and pulse oximeter. The back was viewed using C-arm Fluoroscopy and prepped using Chloraprep as a cleansing solution and the L4-L5 interspace was palpated. Skin and subcutaneous tissues were anesthetized using lidocaine 1.5% and a 25-gauge needle. After this, an 18-gauge Touhy epidural needle was placed into the L4-L5 interspace and advanced using fluoroscopic guidance and loss of resistance to air until the epidural space was encountered. After confirmation of needle placement in the epidural space, with dye, a solution containing normal saline, 3 mL and Depo-Medrol 80 mg were incrementally injected into the lumbar epidural space. The patient tolerated the procedure well with no complications. The patient was observed in the Pain Clinic and then discharged home neurologically intact. Plan and Disposition:: Patient was discharged without incident.
[2024-03-23 11:05] VITALS: BP 105/71; PULSE 86; RESP 16; O2SAT 98
== END 2024-03-23 11:05 | disposition home or self-care (01) ==
PROVIDERS: PCP Family Medicine; Visit Provider Nurse Anesthetist, Certified Registered
DX: M51.16 Intervertebral disc disorders with radiculopathy, lumbar region (principal)
CPT/HCPCS: 62323; J1010

== ENCOUNTER 2024-03-31 08:42 | Outpatient (POV) | payer OTHER, SELFPAY ==
--- OUTSIDE RECORDS SUMMARY | 2024-03-31 08:44 | XMS_ITS | Encounter Summary ---
Author Organization [facility] Address [address] [id number] Care Team Providers Care Electrical Engineer Mep Name Role Phone Cm Barth MD Primary Care Provider [phone] Reason for Visit * Reason Onset Date Comments HCN - Patient Message 10/28/2022 emg Encounter Details Date Type Department Care Team (Late st Contact Info) Description 10/28/2022 Telephone ID Clinic [facility] [address] [place] [address] Julia Zhao PA [address] [place] [address] HCN - Patient Message (emg) Social History Tobacco Use Types Packs/Day Years Used Date Smoking Tobacco: Never Smokeless Tobacco: Never Alcohol Use Standard Drinks/Week Comments Yes 0 (1 standard drink = 0.6 oz pur e alcohol) Comments Unknown Sex and Gender Information Value Date Recorded Sex Assigned at Female 10/18/2022 8:50 AM EDT Legal Sex Female 6:33 PM EDT Gender Identity Female 10/18/2022 8:50 AM EDT Sexual Orientation Straight 10/18/2022 8: 50 AM EDT documented as of this encounter Miscellaneous Notes * Telephone Encounter - Sujatha Hampton - 10/28/2022 12:49 PM EDT Patient Phone Message Reason for Call: [facility] is returning Julia's call. They have scheduled the EMG on 11/26 @10:00. Best contact number and optimal time of day to reach caller: [phone] Note: Please do not reply to this message. Follow-up communication and further actions as a result of this message need to be communicated with the patient directly, if the patient is not active onMyChart. If the patient is active on MyChart, they will receive notification of the communication/outcome via MyChart. documented in this encounter Plan of Treatment Not on file documented as of this encounter Visit Diagnoses Not on filedocumented in this encounter Additional Health Concerns Assessment Noted Time A fall risk assessment has been complete d for the patient 10/18/2022 8:44 AM EDT A Body Mass Index follow-up plan has been documented for the patient 10/18/2022 9:35 AM EDT documented as of this encounter Care Teams Electrical Engineer Mep Relationship Specialty Start Date End Date Cm Barth MD [address] [place] [id number] PCP - General 09/29/20 documented as of this encounter
--- OUTSIDE RECORDS SUMMARY | 2024-03-31 08:44 | XMS_ITS | Encounter Summary ---
Author Organization [facility] Address [address] [place] [address] Care Team Providers Care Financial Solutions Advisor Name Role Phone Cm Barth MD Primary Care Provider [phone] Encounter Details Date Type Department Care Team (Latest Contact Info) Description 10/18/2022 Travel Social History Tobacco Use Types Packs/Day Years [...] AM EDT documented as of this encounter Plan of Treatment Not on [...] documented as of this encounter Care Teams Financial Solutions Advisor Relationship Specialty Start Date End Date Cm Barth MD [address] [place] [id number] PCP - General 09/29/20 documented as of this encounter
--- OUTSIDE RECORDS SUMMARY | 2024-03-31 08:44 | XMS_ITS | Encounter Summary ---
Author Organization [facility] Address [address] [place] [address] Care Team Providers Care Cargo Router Name Role Phone Cm Barth MD Primary Care Provider [phone] Encounter Details Date Type Department Care Team (Latest Contact Info) Description 10/18/2022 9:17 AM EDT - 10/18/2022 11:59 PM EDT [facility] [address] [place] [id number] Low back pain with right-sided sciatica, unspecified back pain laterality, unspecified chronicity Discharge Disposition: Home or Self Care Social History Tobacco Use Types Packs/Day Years [...] AM EDT documented as of this encounter Medications at Time of Discharge albuterol 108 (90 Base) MCG/ACT inhaler ProAir HFA 90 mcg/actuation aerosol inhaler 2 puffs as needed ALPRAZolam (XANAX PO) Xanax 1/2 to 1 tablet prm Breo Ellipta 200-25 MCG/ACT aerosol powder INHALE 1 PUFF BY MOUTH EVERY DAY. --RINSE MOUTH AFTER USE-- 06/25/2022 busPIRone (Buspar) 7.5 MG tablet 1 (one) time each day. 11/10/2018 Chlorcyclizine-P seudoephed (Stahist AD) 25-60 MG tablet Stahist AD 25 mg-60 mg tablet Two times a day ergocalciferol 1.25 MG (73926 UT) capsule 07/22/2022 fexofenadine (Jeanine) 180 MG tablet 11/10/2018 Flovent HFA 110 MCG/ACT inhaler Inhale 2 puffs. 11/29/2021 gabapentin (Neurontin) 300 MG capsule 1 capsule every 12 (twelve) hours. 08/10/2018 hydrocortisone 2.5 % cream 10/15/2022 lidocaine-priloc blanco (Emla) 2.5-2.5 % cream 1 g every 12 (twelve) hours. ondansetron (Zofran) 8 MG tablet every 8 (eight) hours. Ozempic, 0.25 or 0.5 MG/DOSE, 2 MG/3ML solution pen-injector 09/16/2022 PHENobarbital-hy oscyamine-atropi ne-scopoloamine () 16.2 MG tablet 16.2 mg-0.1037 mg-0.0194 mg tablet Every eight hours as needed phentermine (Adipex-P) 37.5 MG tablet Take one tablet by mouth daily (30 minutes before or 1-2 hour(s) after breakfast). 08/08/2022 polyethylene glycol (Miralax) 17 GM/SCOOP powder 1 (one) time each day. potassium chloride CR (Klor-Con M20) 20 MEQ ER tablet 07/22/2022 pregabalin (Lyrica) 150 MG capsule TAKE ONE CAPSULE BY MOUTH TWICE DAILY MAY CAUSE DROWSINESS 09/24/2022 tiZANidine (Zanaflex) 4 MG tablet 10/09/2022 traMADol (Ultram) 50 MG tablet every 6 (six) hours. 10/19/2018 documented as of this encounter Plan of Treatment Not on file documented as of this encounter Procedures Procedure Name Priority Date/Time Associated Diagnosis Comments XR LUMBAR SPINE 2 OR 3 VIEWS Routine 10/18/2022 9:24 AM EDT Low back pain with right-sided sciatica, unspecified back pain laterality, unspecified chronicity documented in this encounter Results * XR Lumbar Spine 2 or 3 Views (10/18/2022 9:24 AM EDT) Anatomical Region Laterality Modality Spine, L-spine Digital Radiogra phy Impressions 10/18/2022 3:10 PM EDT No dynamic instability of the lumbar spine is demonstrated. CRITICAL RESULT: ?? No. COMMUNICATION: Per this written report. Drafted by Wilfrid Renae MD on 10/18/2022 3:10 PM Final report signed by Wilfrid Renae MD on 10/18/2022 3:10 PM Narrative 10/18/2022 3:10 PM EDT CLINICAL INDICATION: Lumbar spine pain. TECHNIQUE: XR LUMBAR SPINE 2 OR 3 VIEWS COMPARISON: 10/06/2018 MRI lumbar spine.. FINDINGS: No fracture, subluxation, or dislocation identified. Cholecystectomy clips. At least mild to moderate L4-5 discogenic disease with moderate to severe L4-5 and L5-S1 facet arthropathy. Mild to moderate L3-4 facet arthropathy. I do not see pars defects. Procedure Note Wilfrid Renae MD - 10/18/2022 CLINICAL INDICATION: Lumbar spine pain. TECHNIQUE: XR LUMBAR SPINE 2 OR 3 VIEWS COMPARISON: 10/06/2018 MRI lumbar spine.. FINDINGS: No fracture, subluxation, or dislocation identified. Cholecystectomyclips. At least mild to moderate L4-5 discogenic disease with moderate tosevere L4-5 and L5-S1 facet arthropathy. Mild to moderate L3-4 facetarthropathy. I do not see pars defects. IMPRESSION: No dynamic instability of the lumbar spine is demonstrated. CRITICAL RESULT: No. COMMUNICATION: Per this written report. Drafted by Wilfrid Renae MD on 10/18/2022 3:10 PM Final report signed by Wilfrid Renae MD on 10/18/2022 3:10 PM Julia [facility]TI[facility] IMG XR PROCEDURES Final Result documented in this encounter Visit Diagnoses Diagnosis Low back pain with right-sided sciatica, unspecified back pain laterality, unspecified chronicity documented in this encounter Additional Health Concerns Assessment Noted Time A fall risk assessment has been complete d for the patient 10/18/2022 8:44 AM EDT A Body Mass Index follow-up plan has been documented for the patient 10/18/2022 9:35 AM EDT documented as of this encounter Care Teams Cargo Router Relationship Specialty Start Date End Date Cm Barth MD [address] [place] [id number] PCP - General 09/29/20 documented as of this encounter
--- OUTSIDE RECORDS SUMMARY | 2024-03-31 08:44 | XMS_ITS | Clinical Summary ---
Author Organization [facility] Address [address] [place] [address] Care Team Providers Care Ton Container Shipper Name Role Phone Cm Barth MD Primary Care Provider [phone] Allergies Active Allergy Reactions Criticality Noted Date Comments Cephalexin Hives,Rash,Unknown - Patient states they do not know rxn details Medium 03/02/2013 Medications albuterol 108 (90 Base) MCG/ACT inhaler ProAir HFA 90 mcg/actuation aerosol inhaler 2 puffs as needed Active ALPRAZolam (XANAX PO) Xanax 1/2 to 1 tablet prm Active busPIRone (Buspar) 7.5 MG tablet 1 (one) time each day. 9 Active Chlorcyclizine- Pseudoephed (Stahist AD) 25-60 MG tablet Stahist AD 25 mg-60 mg tablet Two times a day Active ergocalciferol 1.25 MG (41957 UT) capsule 3 Active fexofenadine (Jeanine) 180 MG tablet 9 Active Breo Ellipta 200-25 MCG/ACT aerosol powder INHALE 1 PUFF BY MOUTH EVERY DAY. --RINSE MOUTH AFTER USE-- 3 Active Flovent HFA 110 MCG/ACT inhaler Inhale 2 puffs. 2 Active gabapentin (Neurontin) 300 MG capsule 1 capsule every 12 (twelve) hours. 9 Active hydrocortisone 2.5 % cream 3 Active lidocaine-prilo radha (Emla) 2.5-2.5 % cream 1 g every 12 (twelve) hours. Active ondansetron (Zofran) 8 MG tablet every 8 (eight) hours. Active PHENobarbital-h yoscyamine-atro pine-scopoloami ne () 16.2 MG tablet 16.2 mg-0.1037 mg-0.0194 mg tablet Every eight hours as needed Active phentermine (Adipex-P) 37.5 MG tablet Take one tablet by mouth daily (30 minutes before or 1-2 hour(s) after breakfast). 3 Active polyethylene glycol (Miralax) 17 GM/SCOOP powder 1 (one) time each day. Active potassium chloride CR (Klor-Con M20) 20 MEQ ER tablet 3 Active pregabalin (Lyrica) 150 MG capsule TAKE ONE CAPSULE BY MOUTH TWICE DAILY MAY CAUSE DROWSINESS 3 Active Ozempic, 0.25 or 0.5 MG/DOSE, 2 MG/3ML solution pen-injector 3 Active tiZANidine (Zanaflex) 4 MG tablet 3 Active traMADol (Ultram) 50 MG tablet every 6 (six) hours. 9 Active Social History Tobacco Use Types Packs/Day Years Used Date Smoking Tobacco: Never Smokeless Tobacco: Never Tobacco Cessation:Counseling Given: Not Answered Alcohol Use Standard Drinks/Week Comments Yes 0 (1 standard drink = 0.6 oz pur e alcohol) Comments Unknown Sex and Gender Information Value Date Recorded Sex Assigned at Female 10/18/2022 8:50 AM EDT Legal Sex Female 6:33 PM EDT Gender Identity Female 10/18/2022 8:50 AM EDT Sexual Orientation Straight 10/18/2022 8: 50 AM EDT Last Filed Vital Signs Vital Sign Reading Time Taken Comments Blood Pressure 124/84 10/18/2022 8:41 AM EDT Pulse - - Temperature - - Respiratory Rate - - Oxygen Saturation - - Inhaled Oxygen Concentration - - Weight 100 kg (221 lb) 10/18/2022 8:41 AM EDT Height 157.5 cm (5' 2 ) 10/18/2022 8:41 AM EDT Body Mass Index 40.42 10/18/2022 8:41 AM EDT Plan of Treatment Health Maintenance Due Date Last Done Comments [facility]-Depression Screening 1985 [facility]-HIV Screening 1985 [facility]-Hepatitis C Screening 1985 [facility]-Infant/Child/Adol SDOH Screenings 1985 [facility]-Varicella Vaccines (1 of 2 - 13+ 2-dose series) 1998 [facility]- SDOH Screenings 2003 [facility]-Adult SDOH Screenings 2003 [facility]-Pap Smear 2006 [facility]-Cervical Cancer Screening 2015 [facility]-HPV/Cotest 2015 [facility]-Hepatitis B Vaccines (2 of 3 - 19+ 3-dose series) 01/19/2016 12/22/2015 [id number] Vaccine (4 - 2022- season) 2024 03/26/2021, 06/16/2020, 05/17/2020 [facility]-Influenza Vaccine (#1) 01/18/202402/07, 02/11/2017, 03/04/2016, Additional history exists [facility]-DTaP,Tdap,and Td Vaccines (2 - Td or Tdap) 12/21/2025 12/22/2015 [facility]-Zoster Vaccines (1 of 2) 2035 [facility]-RSV Vaccine: 60+ Years or (1 - 1-dose 60+ series) 2045 [facility]-Obesity Intervention Completed 10/18/2022 [facility]-HIB Vaccines Aged Out No longer e ligible based on patient's age to complete this topic [facility]-HPV Vaccines Aged Out No longer e ligible based on patient's age to complete this topic [facility]-Hepatitis A Vaccines Aged Out No longer eligible based on patient's age to complete this topic [facility]-IPV Vaccines Aged Out No longer e ligible based on patient's age to complete this topic [facility]-Pneumococcal Vaccine: Pediatrics (0 to 5 Years) and At-Risk Patients (6 to 64 Years) Aged Out No longer eligible based on patient's age to complete this topic [facility]-Rotavirus Vaccines Aged Out No lo nger eligible based on patient's age to complete this topic Insurance [facility] Care Teams Ton Container Shipper Relationship Specialty Start Date End Date Cm Barth MD [address] [place] [id number] PCP - General 09/29/20
--- OUTSIDE RECORDS SUMMARY | 2024-03-31 08:45 | XMS_ITS | Encounter Summary ---
Author Organization [facility] Address [address] [place] [address] Care Team Providers Care Steam Box Tender Name Role Phone Cm Barth MD Primary Care Provider [phone] Reason for Visit * Reason Comments Consult * Consultation (Routine) - Closed Specialty Diagnoses / Procedures Referred By Contac t Referred To Contact Neurosurgery Diagnoses Low back pain with right-sided sciatica, unspecified back pain laterality, unspecified chronicity Cm Barth MD [address] [place] [address] Phone: tel: fax: [facility] [address] [place] [address] Phone: tel: fax: Referral ID Status Reason Start Date Expiration Date V isits Requested Visits Authorized [id number] Closed Specialty Services Required 08/30/2022 02/29/2024 1 1 Encounter Details Date Type Department Care Team (Late st Contact Info) Description 10/18/2022 8:40 AM EDT Consult [facility] [address] [place] [address] Julia Keenan PA [address] [place] [address] Neck pain (Primary Dx); Low back pain with right-sided sciatica, unspecified back pain laterality, unspecified chronicity; Paresthesia of both lower extremities; Hyperreflexia; Pepe's reflex positive; History of lumbar laminectomy Social History Tobacco Use Types Packs/Day Years [...] AM EDT documented as of this encounter Last Filed Vital Signs Vital Sign Reading Time Taken Comments Blood Pressure 124/84 10/18/2022 8:41 AM EDT Pulse - - Temperature - - Respiratory Rate - - Oxygen Saturation - - Inhaled Oxygen Concentration - - Weight 100 kg (221 lb) 10/18/2022 8:41 AM EDT Height 157.5 cm (5' 2 ) 10/18/2022 8:41 AM EDT Body Mass Index 40.42 10/18/2022 8:41 AM EDT documented in this encounter Miscellaneous Notes * Progress Notes - Julia Keenan PA - 10/18/2022 8:40 AM EDT Cm Barth MD We had the pleasure of seeing your patient in our clinic today for Neurosurgical consultation. I personally reviewed approximately 2 pages of new patient referral paperwork that was sent to the clinic. Chief Complaint Bilateral lower extremity paresthesias greater than low back pain. History Of Present Illness Anitha Beatty is a 37 y.o. female presenting today for neurosurgical consultation regarding low backpain and bilateral lower extremity paresthesias. The patient has had chronic low back pain and bilateral lower extremity paresthesias status post a lumbar laminectomy and diskectomy completed by Dr. Santo in 2012. The patient reports some improvement postoperatively but still dealt with low back pain and numbness in both legs. She was re-evaluated by Dr. Santo for residual symptoms. New MRI imagingshowed scar tissue formation. It was recommended the defer neurosurgical intervention as debriding scar tissue could make symptoms worse. Symptoms have been gradually progressing especially since shefell in June 2022 while scooting forward in a chair and fell to her bottom. She presents today with axial low back pain; however, she is more concerned of the numbness and tingling in both legs that radiate from her buttocks down to her feet in a nondermatomal distribution. The numbness and tingling is associated with a burning/stinging/pins and needles sensation triggered with standing and lying down. Her left leg is worse than the right. She reports subjective weakness in the left lower extremity. She does note saddle anesthesias when lying flat or sitting for prolonged periods of time.She reports occasional bowel accidents but denies complete loss of bowels. 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 She takes pregabalin 150 mg twice daily which does provide some relief. She also takes Zanaflex which helps her rest at night. She completed 1 epidural injection approximately [address] Deal, reporting equivocal results. She has had physical therapy in the past after her 1st back surgery which only made symptoms worse. She also notes neck pain that radiates to the bilateral shoulders and upper arms, left greater thanright. She does report unsteady gait at times and falls. She denies any numbness or tingling in herarms or hands but does drop items at times. 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 She is a nonsmoker. Past Medical History She has a past medical history of Other specified disorders of the skin and subcutaneous tissue, Personal history of diseases of the skin and subcutaneous tissue, and Personal history of other diseases of the respiratory system. Surgical History She has a past surgical history that includes Tonsillectomy (N/A); Cholecystectomy (N/A); Tubal ligation (N/A); and Other surgical history (N/A). Family History History reviewed. No pertinent family history. Social History She reports that she has never smoked. She has never used smokeless tobacco. She reports current alcohol use. She reports that she does not use drugs. Medications Current Outpatient Medications Medication Sig Dispense Refill albuterol 108 (90 Base) MCG/ACT inhaler ProAir HFA 90 mcg/actuation aerosol inhaler 2 puffs as needed Ozempic, 0.25 or 0.5 MG/DOSE, 2 MG/3ML solution pen-injector pregabalin (Lyrica) 150 MG capsule TAKE ONE CAPSULE BY MOUTH TWICE DAILY MAY CAUSE DROWSINESS tiZANidine (Zanaflex) 4 MG tablet ALPRAZolam (XANAX PO) Xanax 1/2 to 1 tablet prm (Patient not taking: Reported on 10/18/2022) Breo Ellipta 200-25 MCG/ACT aerosol powder INHALE 1 PUFF BY MOUTH EVERY DAY. --RINSE MOUTH AFTER USE-- (Patient not taking: Reported on 10/18/2022) busPIRone (Buspar) 7.5 MG tablet 1 (one) time each day. (Patient not taking: Reported on 10/18/2022) Chlorcyclizine-Pseudoephed (Stahist AD) 25-60 MG tablet Stahist AD 25 mg-60 mg tablet Two times a day (Patient not taking: Reported on 10/18/2022) ergocalciferol 1.25 MG (86939 UT) capsule (Patient not taking: Reported on 10/18/2022) fexofenadine (Jeanine) 180 MG tablet (Patient not taking: Reported on 10/18/2022) Flovent HFA 110 MCG/ACT inhaler Inhale 2 puffs. (Patient not taking: Reported on 10/18/2022) gabapentin (Neurontin) 300 MG capsule 1 capsule every 12 (twelve) hours. (Patient not taking: Reported on 10/18/2022) hydrocortisone 2.5 % cream (Patient not taking: Reported on 10/18/2022) lidocaine-prilocaine (Emla) 2.5-2.5 % cream 1 g every 12 (twelve) hours. (Patient not taking: Reported on 10/18/2022) ondansetron (Zofran) 8 MG tablet every 8 (eight) hours. (Patient not taking: Reported on 10/18/2022) QZFCdzdpxxvjv-renoyfohgfh-ujmltvjz-scopoloamine () 16.2 MG tablet 16.2 mg-0.1037 mg-0.0194 mg tablet Every eight hours as needed (Patient not taking: Reported on 10/18/2022) phentermine (Adipex-P) 37.5 MG tablet Take one tablet by mouth daily (30 minutes before or 1-2 hour(s) after breakfast). (Patient not taking: Reported on 10/18/2022) polyethylene glycol (Miralax) 17 GM/SCOOP powder 1 (one) time each day. (Patient not taking: Reported on 10/18/2022) potassium chloride CR (Klor-Con M20) 20 MEQ ER tablet (Patient not taking: Reported on 10/18/2022) traMADol (Ultram) 50 MG tablet every 6 (six) hours. (Patient not taking: Reported on 10/18/2022) No current facility-administered medications for this visit. Allergies Cephalexin Review of Systems 14 point review of systems was performed and was negative except as noted per HPI. PHYSICAL EXAMINATION GENERAL: The patient is a pleasant female in no apparent distress. General Physical Exam Constitutional Oriented to person, place, and time. Appears well-developed and well-nourished. Head Normocephalic and atraumatic. Eyes Pupils are equal, round, and reactive to light. Neck No tracheal deviation or JVD noted. No previous surgical scars Cardiovascular Minimal to no peripheral edema, intact distal pulses Pulmonary/Chest Effort normal, no shortness of breath Neurological Alert and oriented to person, place, and time Skin Skin is warm and dry Psychiatric Normal mood and affect, behavior and judgment Objective: MUSCULOSKELETAL EXAM: Motor Strength Right Left C5: Shoulder abduction (Deltoid) 09/20 09/20 C5: Elbow flexion (Biceps, Brachialis) 09/20 09/20 C6: Wrist extension (ECRB, ECRL) 09/20 09/20 C7: Elbow extension (Triceps) 09/20 09/20 C8: Finger flexion (Finance Admin Strength) 09/20 09/20 T1: Finger abduction 09/20 09/20 Sensation Right Left Neck normal normal C5: Shoulder normal normal C6: Thumb, radial aspect hand/forearm (Radial Nerve) normal normal C7: Long finger (Median Nerve) normal normal C8: Little finger, ulnar aspect of hand/forearm (Ulnar n.) normal normal T1: Medial forearm/arm normal normal Reflexes Right Left C5: Biceps 3/4 3/4 C6: Brachioradialus 3/4 3/4 C7: Triceps 3/4 3/4 Hoffmans Positive absent Clonus <3 beat <3 beat Motor Strength Right Left L2: Hip flexion (Iliopsoas) 09/20 5 L3: Knee extension (Quad) 09/20 09/20 L4: Ankle DF (TA) 09/20 09/20 L5: Great Toe DF (EHL) 09/20 09/20 S1: Ankle Pf, Foot Eversion (Peroneal longus/brevis) 09/20 09/20 S2: Great toe flexion (FHL), Knee flexion 09/20 09/20 Sensation Right Left L2: Proximal anterior thigh Normal Normal L3: Mid anterior thigh Normal Normal L4: Medial leg/foot, great toe (Saphenous n.) Normal Normal L5: Dorsum of mid foot Normal Normal S1: Lateral leg/foot, little toe, Back of leg (Sural n.) Normal Normal Reflexes Right Left L4: Patellar 2/4 Brisk S1: Achilles 2/4 Brisk Babinski Absent Absent Clonus 0 0 Positive SLR on the left Negative Barry's BL Negative Raymundo's BL Last Recorded Vitals Visit Vitals BP 124/84 Ht 1.575 m (5' 2 ) Wt 100 kg (221 lb) BMI 40.42 kg/m?? Smoking Status Never BSA 2.09 m?? Labs No lab exists for component: ALB Imaging MRI of the lumbar spine dated 08/26/2022 was personally reviewed today by myself with the patient present. Imaging demonstrates postoperative changes on the left at L4-5 with no definite recurrent disc herniation. The canal is patent with no evidence of nerve root compression. We elected to obtain lumbar flexion- extension x-ray films at today's appointment. Images were personally reviewed and interpreted. Imaging demonstrates advanced degenerative disc disease with loss of disc height at L4-5 without dynamic instability in flexion or extension views. Assessment and Plan Anitha Beatty is a 37 y.o. female presenting with chronic low back pain and bilateral lower extremity pain status post a lumbar laminectomy and diskectomy in 2012 returns today with progressively worsening symptoms of bilateral lower extremity paresthesias following a fall in June 2022. Her MRI was personally reviewed and did not reveal any pathology to explain the patient's symptomatology. Her lumbar MRI shows a widely patent canal without evidence of nerve root compression. Given the progression of her bilateral lower extremity paresthesias, we will request an EMG/NCV of the bilateral lower extremities. She also reports neck pain and symptoms concerning for cervical myelopathy. We will also request an MRI of the cervical spine to rule out cord compression. We will schedule testing jonel done at [facility] in [place], [place]. We will set up a telehealth appointment to discuss results once received. The patient is agreeable to plan of care. They had the opportunity to ask questions, all of which were answered to their satisfaction. Assessment/Plan Active Problems: There are no active Hospital Problems. Julia Keenan PA-C [facility] Department of Neurosurgery documented in this encounter Plan of Treatment Not on file documented as of this encounter Results * XR Lumbar Spine [...] documented in this encounter Visit Diagnoses Diagnosis Neck pain- Primary Cervicalgia Low back pain with right-sided sciatica, unspecified back pain laterality, unspecified chronicity Paresthesia of both lower extremities Hyperreflexia Abnormal reflex Pepe's reflex positive Abnormal reflex History of lumbar laminectomy Low back pain with right-sided sciatica, unspecified back pain laterality, unspecified chronicity documented in this encounter Additional Health Concerns Assessment Noted Time A fall risk assessment has been complete d for the patient 10/18/2022 8:44 AM EDT A Body Mass Index follow-up plan has been documented for the patient 10/18/2022 9:35 AM EDT documented as of this encounter Care Teams Steam Box Tender Relationship Specialty Start Date End Date Cm Barth MD [address] [place] [id number] PCP - General 09/29/20 documented as of this encounter
--- OUTSIDE RECORDS SUMMARY | 2024-03-31 08:45 | XMS_ITS | Encounter Summary ---
Author Organization [facility] Address [address] [id number] Care Team Providers Care Sharepoint Administrator Name Role Phone Cm Barth MD Primary Care Provider [phone] Encounter Details Date Type Department Care Team (Late st Contact Info) Description 09/11/2022 Telephone [facility] Clinic [facility] [address], [address] [place] [address] Julia Zhao, PA [address] [place] [address] Social History Tobacco Use Types Packs/Day Years Used Date Smoking Tobacco: Never Comments Unknown Sex and Gender Information Value Date Recorded Sex Assigned at Female 10/18/2022 8:50 AM EDT Legal Sex Female 6:33 PM EDT Gender Identity Female 10/18/2022 8:50 AM EDT Sexual Orientation Straight 10/18/2022 8: 50 AM EDT documented as of this encounter Miscellaneous Notes * Telephone Encounter - Guido Busby - 09/11/2022 3:34 PM EDT Spoke to patient, advised 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 * Telephone Encounter - Christina Lan - 09/11/2022 3:10 PM EDT Patient Phone Message Reason for Call: Patient called to check status of referral and I gave her appointment time but she had a new address so I updated it and and she is asking if paperwork can be sent to new address. Please advise. Best contact number and optimal time of day to reach caller: [phone] Note: Please do not reply to this message. Follow-up communication and further actions as a result of this message need to be communicated with the patient directly, if the patient is not active onMyChart. If the patient is active on MyChart, they will receive notification of the communication/outcome via [employer]. documented in this encounter Plan of Treatment Not on file documented as of this encounter Visit Diagnoses Not on filedocumented in this encounter Care Teams Sharepoint Administrator Relationship Specialty Start Date End Date Cm Barth MD [address] [place] [phone] PCP - General 09/29/20 documented as of this encounter
--- OUTSIDE RECORDS SUMMARY | 2024-03-31 08:45 | XMS_ITS | Clinical Summary ---
Author Organization [facility] Address [address] [place] [address] Care Team Providers Care Dough Mixer Helper Name Role Phone Cm Barth MD Primary Care Provider [phone] Allergies Active Allergy Reactions Criticality Noted Date Comments Cephalexin Hives,Rash Low 07/28/2019 Medications albuterol sulfate HFA 108 (90 Base) MCG/ACT inhaler Inhale 2 puffs Every 4 (Four) Hours As Needed for Wheezing. Active busPIRone (BUSPAR) 7.5 MG tablet Take 7.5 mg by mouth every night at bedtime. Active ondansetron (ZOFRAN) 4 MG tablet Take 4 mg by mouth Every 8 (Eight) Hours As Needed for Nausea or Vomiting. Active pregabalin (LYRICA) 75 MG capsule Take 75 mg by mouth 2 (Two) Times a Day. Active SUMAtriptan (IMITREX) 50 MG tablet Take 50 mg by mouth Every 2 (Two) Hours As Needed for Migraine. Take one tablet at onset of headache. May repeat dose one time in 2 hours if headache not relieved. Active traMADol (ULTRAM) 50 MG tablet Take 50 mg by mouth Every 6 (Six) Hours As Needed for Moderate Pain . Active cyclobenzaprine (FLEXERIL) 10 MG tablet Take 10 mg by mouth 3 (Three) Times a Day. 07/23/2019 Active Active Problems No known active problems Social History Tobacco Use Types Packs/Day Years Used Date Smoking Tobacco: Never Smokeless Tobacco: Never Alcohol Use Standard Drinks/Week Comments Never 0 (1 standard drink = 0.6 oz pur e alcohol) AUDIT-C Answer Date Recorded Frequency of Alcohol Consumption Never 07/27/2019 Average Number of Drinks Not on file 020 Frequency of Binge Drinking Not on file 07/17 Abuse Screen Answer Date Recorded Unsafe at Home or Work/School Not on file Feels Threatened by Someone? Not on file 01/2023 Does Anyone Keep You from Co ntacting Others or Doint Things Outside the Home? Not on file 02/24/2023 Physical Sign of Abuse Present Not on file 1 Housing Stability Answer Date Recorded Current Living Arrangements Not on file 01/2023 Potentially Unsafe Housing Conditions Not on patel e 02/24/2023 Family and Community Support Answer Trev e Recorded Help with Day-to-Day Activities Not on file 02/24/2023 Lonely or Isolated Not on file 02/24/2023 Employment Answer Date Recorded Do you want help finding or keeping work or a lou b? Not on file 02/24/2023 Disabilities Answer Date Recorded Concentrating, Remembering, or Making Decisions Difficulty Not on file 02/24/2023 Doing Errands Independently Difficulty Not on fi le 02/24/2023 Education Answer Date Recorded Help with school or training? Not on file Preferred Language Not on file 02/24/2023 Comments Unknown Sex and Gender Information Value Date Recorded Sex Assigned at Not on file Legal Sex Female 1:16 PM EDT Gender Identity Not on file Sexual Orientation Not on file Last Filed Vital Signs Vital Sign Reading Time Taken Comments Blood Pressure - - Pulse - - Temperature 36.2 ??C (97.1 ??F) 07/28/2019 12:57 PM E DT Respiratory Rate 14 07/28/2019 12:57 PM EDT Oxygen Saturation - - Inhaled Oxygen Concentration - - Weight 99.4 kg (219 lb 3.2 oz) 07/28/2019 12:57 PM EDT Height 157.5 cm (5' 2 ) 07/28/2019 12:57 PM EDT Body Mass Index 40.09 07/28/2019 12:57 PM EDT Plan of Treatment Health Maintenance Due Date Last Done Comments Annual Gynecologic Pelvic an d Breast Exam 1985 ANNUAL PHYSICAL 07/27/2019 HEPATITIS C SCREENING 07/27/2019 PAP SMEAR 07/27/2019 INFLUENZA VACCINE 12/18/2023 COVID-19 Vaccine (2023-2 5 season) 2024 TDAP/TD VACCINES (2 - Td or Tdap) 12/21/2025 016 Pneumococcal Vaccine 0-64 Aged Out No longer eligible based on patient's age to complete this topic Insurance [employer] Care Teams Dough Mixer Helper Relationship Specialty Start Date End Date Cm Barth MD [address] [facility] [address] [address] PCP - General Adolescent Medicine 07/27/19
--- OUTSIDE RECORDS SUMMARY | 2024-03-31 08:45 | XMS_ITS | Encounter Summary ---
Author Organization [facility] Address [address] [place] [address] Care Team Providers Care Private Watchman Name Role Phone Cm Barth MD Primary Care Provider [phone] Reason for Visit * Consultation (Routine) - Closed Specialty Diagnoses / Procedures Referred By Contac t Referred To Contact Neurosurgery Diagnoses Protrusion of lumbar intervertebral disc DDD (degenerative disc disease), lumbar Dominic Deal MD [address] [place] [address] Phone: tel:[phone] fax: Jeffrey Hernandez MD [address] [address] Phone: tel: fax: Referral ID Status Reason Start Date Expiration Date Visits Re quested Visits Authorized [id number] Closed 07/27/2019 07/26/2020 1 1 Encounter Details Date Type Department Care Team (Late st Contact Info) Description 07/28/2019 12:40 PM EDT Office Visit [facility] NEUROSURGERY [address] [phone] Jeffrey Hernandez MD [address] [place] [address] Mechanical back pain (Primary Dx); DDD (degenerative disc disease), lumbar; Hx of lumbar discectomy Social History Tobacco Use Types Packs/Day Years Used Date Smoking Tobacco: Never Smokeless Tobacco: Never Alcohol Use Standard Drinks/Week Comments Never 0 (1 standard drink = 0.6 oz pur e alcohol) AUDIT-C Answer Date Recorded Frequency of Alcohol Consumption Never 07/27/2019 Average Number of Drinks Not on file 020 Frequency of Binge Drinking Not on file 07/17 Comments Unknown Sex and Gender Information Value Date Recorded Sex Assigned at Not on file Legal Sex Female 1:16 PM EDT Gender Identity Not on file Sexual Orientation Not on file documented as of this encounter Last Filed [...] Mass Index 40.09 07/28/2019 12:57 PM EDT documented in this encounter Progress Notes * Jeffrey Hernandez MD - 07/28/2019 12:40 PM EDT Patient: Ingrid Beatty : 1985 Primary Care Provider: Cm Barth MD Requesting Provider: As above History Chief Complaint: Low back and bilateral lower extremity pain. 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 Santo. She had ongoing low back and left leg pain. She saw Dr. Santo in 2013 and granulation tissue was noted. She did some physical therapy. Last year she was lifting a patientand developed increasing pain with numbness and tingling in her legs. Dr. Deal treated her with epidural injections or more recently facet blocks which were quite painful and not particularly helpful.2 weeks ago while brushing her horse she developed increasing pain as well as a single episode of urinary incontinence. She has had pain extending from her back down both legs. She has had some numbness in her toes, right greater than left. She has had no further bladder difficulty. She is worse with standing, bending, stepping. Lumbar traction and lying down in certain positions is helpful. Review of Systems Constitutional: Positive for activity change and fatigue. Negative for appetite change, chills, diaphoresis, fever and unexpected weight change. HENT: Positive for sinus pressure. Negative for congestion, dental problem, drooling, ear discharge, ear pain, facial swelling, hearing loss, mouth sores, nosebleeds, postnasal drip, rhinorrhea, sneezing, sore throat, tinnitus, trouble swallowing and voice change. Eyes: Negative for photophobia, pain, discharge, redness, itching and visual disturbance. Respiratory: Negative for apnea, cough, choking, chest tightness, shortness of breath, wheezing andstridor. Cardiovascular: Negative for chest pain, palpitations and leg swelling. Gastrointestinal: Positive for constipation, diarrhea and nausea. Negative for abdominal distention, abdominal pain, anal bleeding, blood in stool, rectal pain and vomiting. Endocrine: Negative for cold intolerance, heat intolerance, polydipsia, polyphagia and polyuria. Genitourinary: Negative for decreased urine volume, difficulty urinating, dysuria, enuresis, flank pain, frequency, genital sores, hematuria and urgency. Musculoskeletal: Positive for arthralgias and back pain. Negative for gait problem, joint swelling,myalgias, neck pain and neck stiffness. Skin: Negative for color change, pallor, rash and wound. Allergic/Immunologic: Positive for environmental allergies. Negative for food allergies and immunocompromised state. Neurological: Positive for numbness and headaches. Negative for dizziness, tremors, seizures, syncope, facial asymmetry, speech difficulty, weakness and light-headedness. Hematological: Negative for adenopathy. Does not bruise/bleed easily. Psychiatric/Behavioral: Negative for agitation, behavioral problems, confusion, decreased concentration, dysphoric mood, hallucinations, self-injury, sleep disturbance and suicidal ideas. The patientis not nervous/anxious and is not hyperactive. All other systems reviewed and are negative. The patient's past medical history, past surgical history, family history, and social history have been reviewed at length in the electronic medical record. Physical Exam: Temp 97.1 ??F (36.2 ??C) (Temporal) Resp 14 Ht 157.5 cm (62 ) Wt 99.4 kg (219 lb 3.2 oz) BMI 40.09 kg/m?? CONSTITUTIONAL: Patient is well-nourished, pleasant and appears stated age. CV: Heart regular rate and rhythm without murmur, rub, or gallop. PULMONARY: Lungs are clear to ascultation. MUSCULOSKELETAL: Straight leg raising is negative. Barry's Sign is negative. ROM in back normal. Tenderness in the back to palpation is not observed. NEUROLOGICAL: Orientation, memory, attention span, language function, and cognition have been examined and are intact. Strength is intact in the lower extremities to direct testing. Muscle tone is normal throughout. Station and gait are normal. Sensation is intact to light touch testing throughout. Deep tendon reflexes are 1+ and symmetrical. Coordination is intact. Medical Decision Making Data Review: MRI of the lumbar spine dated 07/19/2019 demonstrates some loss of signal within the disc at L4-5 andL5-S1. There is some central disc protrusion perhaps very slightly rightward at L4-5. There is a modest amount of disc bulging at L5-S1. At no level is there significant root or canal compromise. There is a laminotomy defect as expected on the left at L4-5. Diagnosis: Lumbar postlaminectomy syndrome. Treatment Options: At this juncture I do not think the patient is going to benefit from additional surgical intervention. Treatment should remain symptomatic. Diagnosis Plan 1. Mechanical back pain 2. DDD (degenerative disc disease), lumbar 3. Hx of lumbar discectomy Scribed for Jeffrey Hernandez MD by Marylou Johnson CMA on 07/28/2019 13:29 I, Dr. Hernandez, personally performed the services described in the documentation, as scribed in my presence, and it is both accurate and complete. documented in this encounter Plan of Treatment Not on file documented as of this encounter Results * MRI outside films (07/28/2019 1:10 PM EDT) Narrative SYSTEMGENERATED, DOCUMENTATION - 07/28/2019 1:10 PM EDT This procedure was auto-finalized with no dictation required. us Jeffrey Hernandez MD IMG MRI ORDERABLES Final Resu lt documented in this encounter Visit Diagnoses Diagnosis Mechanical back pain- Primary DDD (degenerative disc disease), lumbar Degeneration of lumbar or lumbosacral intervertebral disc Hx of lumbar discectomy documented in this encounter Care Teams Private Watchman Relationship Specialty Start Date End Date Cm Barth MD [address] [place] [facility] [address] [facility] [address] [place] [address] PCP - General Adolescent Medicine 07/27/19 documented as of this encounter
--- OUTSIDE RECORDS SUMMARY | 2024-03-31 08:45 | XMS_ITS | Encounter Summary ---
[facility] Address [address] [place] [address] Care Team Providers Care Finishing Powder Press Operator Name Role Phone Unavailable Primary Care Provider Unavailabl e Encounter Details Date Type Department Care Team (Late st Contact Info) Description 11/29/2010 Conversion Encounter [facility] HISTORICAL CONV [address] [place] [address] Interface, See Report Social History Tobacco Use Types Packs/Day Years Used Date Smoking Tobacco: Never Assessed Comments Unknown Sex and Gender Information Value Date Recorded Sex Assigned at Not on file Legal Sex Female 1:16 PM EDT Gender Identity Not on file Sexual Orientation Not on file documented as of this encounter Plan of Treatment Not on file documented as of this encounter Procedures Procedure Name Priority Date/Time Associated Diagnosis Comments CONVERTED (HISTORICAL) SURGICAL PATHOLOGY Routine 11/29/2010 11:11 AM EDT documented in this encounter Results * Converted Surgical Pathology (11/29/2010 11:11 AM EDT) 11/29/2010 11:1 1 AM EDT [facility] LABORATORY - 11/30/2010 1:38 [place] [address] SURGICAL PATHOLOGY REPORT Patient Name: BRANDON FARIAS MR#: [id number] : 1985 Gender: F Ordering Physician: KINGA HARRIS Copy To: [facility] Location: [facility] Collected: 11/29/2010 Received: 11/29/2010 Reported: 11/30/2010 Clinical Diagnosis and History The working history is chronic tonsillitis. Final Diagnosis RIGHT AND LEFT TONSILS, BILATERAL TONSILLECTOMY (1 AND 2): ? Lymphoid follicular hyperplasia. Focal acute cryptitis. FLP/sk Amendments: Electronically Signed Out By Trini Kim Specimen(s) Received: 1: Tonsils 2: Tonsils Gross Description Specimen 1 received in formalin labeled right tonsil is a 2.5 x 1 x 1 cm tonsil. Representatively sampled in cassette 1. Specimen 2 received in formalin labeled left tonsil is a 2 x 2 x 0.8 cm tonsil, representatively sampled in cassette 2. ??RLL/sk Microscopic Description Slides are reviewed and demonstrates histopathologic features supporting the above rendered diagnosis. ??FLP/sk Procedures/Addenda us See Report Interface PATHOLOGY/CYTOLOGY ORDERABL ES Final Result [facility] [address] [place] [address], documented in this encounter Visit Diagnoses Not on filedocumented in this encounter
--- OUTSIDE RECORDS SUMMARY | 2024-03-31 08:45 | XMS_ITS | Encounter Summary ---
[facility] Address [address] [place] [address] Care Team Providers Care Manager Food Beverage Name Role Phone Unavailable Primary Care Provider Unavailabl e Encounter Details Date Type Department Care Team (Late st Contact Info) Description 02/17/2014 10:30 AM EDT - 12/28/2014 1:03 PM EDT Hospital Encounter [facility] DIABETES ED [address] [facility] [address] [place] [phone] Indio Palencia MD [address] [place] [address] Social History Tobacco Use Types Packs/Day Years [...]
--- OUTSIDE RECORDS SUMMARY | 2024-03-31 08:45 | XMS_ITS | Encounter Summary ---
[facility] Address [address] [place] [address] Care Team Providers Care Incident Response Coordinator Name Role Phone Unavailable Primary Care Provider Unavailabl e Encounter Details Date Type Department Care Team (Late st Contact Info) Description 03/28/2013 Conversion Encounter [facility] HISTORICAL CONV [address] [place] [address] Interface, See Report Social History [...] Diagnosis Comments CONVERTED (HISTORICAL) SURGICAL PATHOLOGY Routine 03/28/2013 7:03 PM EST documented in this encounter Results * Converted Surgical Pathology (03/28/2013 7:03 PM EST) 03/28/2013 7:03 PM EST Narrative [facility] LABORATORY - 04/01/2013 12:54 PM EST [facility] [address] [place] [address] SURGICAL PATHOLOGY REPORT Patient Name: BRANDON FARIAS MR#: [id number] : 1985 Gender: F Ordering Physician: LEXII MARS Copy To: ?? Location: 5225- Collected: 03/30/2013 Received: 03/30/2013 Reported: 04/01/2013 Clinical Diagnosis and History The working history is not provided. Final Diagnosis GALLBLADDER: ? Mild chronic cholecystitis, cholesterolosis. No stones present. TDC/sk Amendments: Electronically Signed Out By Junito Ballard M.D. Specimen(s) Received: Gallbladder Gross Description Received in formalin labeled gallbladder is a 9.5 x 4.0 x 4.0 cm intact gallbladder with attached cystic duct. The serosa is parnell/green smooth and glistening with focal fatty adhesions. The lumen contains an abundant amount of dark green viscid bile. No choleliths are present. The mucosa is dark green and velvety and the wall thickness averages 0.3 cm. No masses are appreciated. Swiss Type Screw Machine Operator sections to include the cystic duct margin, neck, body and fundus are submitted in one cassette. M/sk Microscopic Description Sections show muscular hypertrophy with mild chronic inflammation and foamy macrophages within mucosal papillae. TDC/sk Procedures/Addenda us See Report Interface PATHOLOGY/CYTOLOGY ORDERABL ES Final Result [facility] [address] [place] [address], documented in this encounter Visit Diagnoses Not on filedocumented in this encounter
--- NOTE | 2024-03-31 10:27 | A.OFFVIS_ITS ---
[facility] Disclaimer: The information contained in this section may have been updated after the patient was seen, as this information can be updated by other users. Medical History Cervical cancer Head trauma Fall Lumbar disc disease with radiculopathy Abdominal pain Renal mass Vomiting Urinary frequency Recurrent UTI Diabetes Renal calculus, right Abdominal tenderness, LLQ (left lower quadrant) Thrombophlebitis of vein of pelvis Abdominal tenderness, RLQ (right lower quadrant) Urinary urgency Abnormal uterine bleeding Sinusitis Adenocarcinoma in situ of endocervix Perianal fissure PCOS (polycystic ovarian syndrome) Dyspareunia Endometriosis Chronic pelvic pain in female Morbid obesity with BMI of 40.0-44.9, adult Shingles Anxiety Shingles (herpes zoster) polyneuropathy Surgical History S/P laparoscopic hysterectomy with bilateral salpingectomy 05/15/23 History of colonoscopy S/P cone biopsy of cervix History of cholecystectomy History of delivery History of tonsillectomy H/O tubal ligation Family History Other Anemia Asthma Atrial fibrillation Cancer Diabetes Heart disease Hyperlipidemia Hypertension No significant family history Thyroid disorder Social History Smoking Status: Never smoker alcohol intake: current alcohol intake frequency: other substance use type: denies use current occupational status: employed Travel in the last 8 weeks: None household members: other housing: house marital status: number of children: 2 education level: college current occupational exposures/hazards: Yes caffeine: Yes PM Subjective & Objective Subjective Subjective:: Patient is a pleasant 38-year-old female who presents today for follow-up of lumbar epidural steroid injection L4-L5 on 03/23/2024. Today she rates her pain a 2 out of 10 in her overall low back and to a 5 out of 10 in and around her neck. Patient does state that she had at least 100% improvement following the lumbar epidural and feels like it is still working well. Patient does state that she may have overdone it and did a lot of housework on Friday and so was hurting a little bit more yesterday however it is eased off now. Patient does state that what is really bothering her today is the chronic neck pressure and tension as well as daily headaches and migraines along with some numbness and tingling that goes into her bilateral hands. Patient states that a lot of this is been going on for some time but she would state that her headaches and migraines have increased significantly over the last 8 months unrelated to any new injury or trauma. Patient does state that she has been to see neuro and that is on Qulipta currently however has tried multiple medications for these issues with no real changes. Patient has tried Excedrin, ibuprofen, Tylenol, Nurtec, amitriptyline and Imitrex with minimal changes. Patient states that her headaches are daily and that in the past she used to only have migraines once every 3 months however that is completely changed over the last 8 months and that she has them almost daily. Patient states that it is interfering with her ability perform activities of daily living such as cooking and cleaning. Patient is interested if we can help with any of this pain. Her Joe has been reviewed and is appropriate. Review of Systems: General: No recent weight changes, no fever, no sleep disturbances Respiratory: No cough, no shortness of air, no recurring pulmonary infections Cardiovascular/peripheral vascular: No chest pain, no palpitations, no edema, no shortness of breath Gastrointestinal: No new onset incontinence, normal bowel movements reported Genitourinary: No new onset incontinence Musculoskeletal: Neck pain/pressure, hand numbness tingling, headaches, migraines Psychiatric: [Normal mood/affect] Neurological: [Denies weakness in extremities], [denies balance issues] Pain at rest (0-10 scale): 5 Objective Objective:: Physical Exam: General: Alert and oriented x3, no acute distress, pleasant and cooperative Lungs: Respirations even and unlabored, symmetrical chest expansion Eyes: PERRL Musculoskeletal: Flexion and extension of cervical [spine] somewhat guarded secondary to pain, [antalgic gait noted] positive Spurling's test Neurological: Speech clear, no gross sensory deficit FINDINGS: Multiplanar MR imaging of the cervical spine was performed without contrast. On the sagittal T2-weighted images, disc degeneration is seen at multiple levels. There is no evidence of fracture. The vertebral alignment is normal. The cervical spinal cord has an unremarkable appearance without evidence of mass, edema or syrinx. The cervicomedullary junction is normal. C2-3: There is no significant canal stenosis or neural foraminal narrowing. C3-4: There is no significant canal stenosis or neural foraminal narrowing. C4-5: Small central disc protrusion is present. There is no significant canal stenosis or neural foraminal narrowing. C5-6: An annular bulge is present. There is a small central disc protrusion. There is mild central canal stenosis with an AP diameter of the thecal sac of 8 mm. C6-7: There is no significant canal stenosis or neural foraminal narrowing. C7-T1: There is no significant canal stenosis or neural foraminal narrowing. IMPRESSION: Central disc protrusions at C4-5 and C5-6 with mild central canal stenosis at C5-6. Reviewed, Interpreted and Dictated by Benito Simpson III, MD Transcribed by Yumiko Gallardo Authenticated and ERN Has patient had previous pain injection?: Yes Percent improvement in pain since last injection: 100% Conservative treatment options previously tried: Home exercise plan Length of treatment: Longer than 12 weeks Meds Home Medications and Allergies Home Medications ?Medication ?Instructions ?Recorded ?Confirmed ?Type lisinopril 10 1 tab PO DAILY High Blood Pressure 10/22/23 03/29/24 Rx mg-hydrochlorothiazide 12.5 mg #90 tabs tablet atogepant 60 mg tablet (Qulipta) 60 mg PO DAILY #90 tabs 12/01/23 03/29/24 Rx albuterol sulfate 90 mcg/actuation 2 inh inhalation Q6HP PRN 01/28/24 03/29/24 Rx aerosol inhaler Shortness Of Breath Or Wheezing #8.5 grams tizanidine 4 mg tablet (Zanaflex) 4 mg PO HS Muscle Spasm #30 tabs 03/10/24 03/29/24 Rx pregabalin 150 mg capsule (Lyrica) 150 mg PO BID Pain #60 caps 03/29/24 03/29/24 Rx New Prescriptions to Start Prescriptions: Allergies Allergy/AdvReac Type Severity Reaction Status Date / Time amitriptyline Allergy Intermediate Anaphylaxis Verified 03/29/24 13:21 cephalexin (From Keflex) Allergy Intermediate Verified 03/29/24 13:21 cinnamon Allergy Verified 03/29/24 13:21 Assessment and Plan *Assessment and plan (1) Degenerative disc disease, cervical: Status: Acute Category: Medical Code(s): M50.30 - Other cervical disc degeneration, unspecified cervical region (2) Cervical radiculopathy: Status: Acute Category: Medical Code(s): M54.12 - Radiculopathy, cervical region (3) Sleep-disordered breathing: Status: Suspected Category: Medical Code(s): G47.30 - Sleep apnea, unspecified (4) Chronic headache: Status: Acute Qualifiers: Headache type: post-traumatic Intractability: not intractable Qualified Code(s): G44.329 - Chronic post-traumatic headache, not intractable Category: Medical Code(s): R51.9 - Headache, unspecified; G89.29 - Other chronic pain Plan Patient is experiencing significant pain with numbness and tingling into her bilateral hands at different times. Patient does have daily headaches and frequent migraines that have progressed over the last 8 months. Patient has tried and failed conservative treatment including multiple oral medications for headache and migraines as well as continued at home stretching exercise for longer than 12 weeks. I did discuss with patient that I do believe she would benefit from a cervical epidural as well as possible Botox injections for migraine. Risk and benefits were explained with both of these procedures and she would like to proceed forward with this plan of care. Patient will be scheduled for a SAL[place] C5-C6 under fluoroscopy. Patient has not had a cervical epidural in the past however does have significant findings with narrowing at the C5-C6 level. We will also submit for approval in the future of Botox injections for migraine. Patient has been instructed to contact the clinic with any concerns before the next appointment. Dr. Deal has reviewed this note and agrees with this plan of care. This note was dictated using voice recognition software and make contain errors or omissions. All injections are used with Lidocaine or Bupivacaine and Depo Medrol.
[2024-03-31 10:54] VITALS: BP 115/70; PULSE 80; RESP 16; O2SAT 99; BMI 43.9
== END 2024-03-31 23:59 | disposition home or self-care (01) ==
LOC: SC.PAIN 08:43
PROVIDERS: PCP Family Medicine; Visit Provider Nurse Practitioner Family
DX: M50.10 Cervical disc disorder with radiculopathy, unspecified cervical region (principal); G47.30 Sleep apnea, unspecified; G44.329 Chronic post-traumatic headache, not intractable; Z73.89 Other problems related to life management difficulty
CPT/HCPCS: 99212; G0463

== ENCOUNTER 2024-04-20 10:55 | Day surgery (SDC) | payer OTHER, SELFPAY ==
[2024-04-20 11:06] VITALS: BP 124/64; PULSE 80; RESP 16; TEMP 36.4; O2SAT 96; BMI 43.9
--- OUTSIDE RECORDS SUMMARY | 2024-04-20 11:09 | XMS_ITS | Encounter Summary ---
[facility] Address [address] [place] [address] Care Team Providers Care Mattress Maker Name Role Phone Unavailable Primary Care Provider Unavailabl e Encounter Details Date Type Department Care Team (Late st Contact Info) Description 11/29/2010 Conversion Encounter [facility] HISTORICAL CONV [address] [place] [address] Interface, See Report Social History [...] AM EDT) 11/29/2010 11:1 1 AM EDT [facility] LABORATORY - 11/30/2010 1:38 [place] [address] SURGICAL PATHOLOGY REPORT Patient Name: BRANDON FARIAS MR#: [id number] : 1985 Gender: F Ordering Physician: KINGA HARRIS Copy To: [facility] Location: [facility] Collected: 11/29/2010 Received: 11/29/2010 Reported: 11/30/2010 Clinical [...] Report Interface PATHOLOGY/CYTOLOGY ORDERABL ES Final Result [facility] [address] [place] [address], documented in this encounter Visit Diagnoses Not on filedocumented in this encounter
--- OUTSIDE RECORDS SUMMARY | 2024-04-20 11:09 | XMS_ITS | Clinical Summary ---
Author Organization [facility] Address [address] [place] [address] Care Team Providers Care Schedule Supervisor Name Role Phone Cm Barth MD Primary Care Provider [phone] Allergies Active Allergy Reactions Criticality Noted Date [...] times a day Active ergocalciferol 1.25 MG (61352 UT) capsule 3 Active fexofenadine (Jeanine) 180 [...] [facility]-HIV Screening 1985 [facility]-Hepatitis C Screening 1985 [facility]-/Child/Adol SDOH Screenings 1985 [facility]-Varicella Vaccines (1 of 2 - 13+ 2-dose series) 1998 [facility]- SDOH Screenings 2003 [facility]-Adult SDOH Screenings 2003 [facility]-Pap Smear 2006 [facility]-Cervical Cancer Screening 2015 [facility]-HPV/Cotest 2015 [facility]-Hepatitis B Vaccines (2 of 3 - 19+ 3-dose series) 01/19/2016 12/22/2015 [id number] Vaccine (4 - season) 2024 03/26/2021, 06/16/2020, 05/17/2020 [facility]-Influenza Vaccine (#1) 01/18/202402/07, 02/11/2017, 03/04/2016, Additional history exists [facility]-DTaP,Tdap,and Td Vaccines (2 - Td or Tdap) 12/21/2025 12/22/2015 [facility]-Zoster Vaccines (1 of 2) 2035 [facility]-RSV Vaccine: 60+ Years or (1 - 1-dose 75+ series) 2060 [facility]-Obesity Intervention Completed 10/18/2022 [facility]-HIB Vaccines Aged [...] patient's age to complete this topic Insurance [facility] Care Teams Schedule Supervisor Relationship Specialty Start Date End Date Cm Barth MD [address] [place] [address] PCP - General 09/29/20
--- OUTSIDE RECORDS SUMMARY | 2024-04-20 11:09 | XMS_ITS | Encounter Summary ---
Author Organization [facility] Address [address] [place] [address] Care Team Providers Care Mill Worker Name Role Phone Cm Barth MD Primary Care Provider [phone] Encounter Details Date Type Department Care Team (Latest Contact Info) Description 10/18/2022 9:17 AM EDT - 10/18/2022 11:59 PM EDT Hospital Encounter [facility] [address], [address] [place] [id number] Low back pain with right-sided sciatica, unspecified [...] Two times a day ergocalciferol 1.25 MG (31622 UT) capsule 07/22/2022 fexofenadine (Jeanine) 180 MG [...] documented as of this encounter Care Teams Mill Worker Relationship Specialty Start Date End Date Cm Barth MD [address] [place] [address] PCP - General 09/29/20 documented as of this encounter
--- OUTSIDE RECORDS SUMMARY | 2024-04-20 11:09 | XMS_ITS | Encounter Summary ---
Author Organization [facility] Address [address] [place] [address] Care Team Providers Care Director Of The Biophysics Facility Name Role Phone Cm Barth MD Primary Care Provider [phone] Reason for Visit * Consultation (Routine) - Closed Specialty Diagnoses / Procedures Referred By Contac t Referred To Contact Neurosurgery Diagnoses Protrusion of lumbar intervertebral disc DDD (degenerative disc disease), lumbar Dominic Deal MD [address] [place] [address] Phone: tel:[phone] fax: Jeffrey Hernandez MD [address] [address] Phone: tel: fax: Referral ID Status Reason Start Date Expiration Date Visits Re quested Visits Authorized [id number] Closed 07/27/2019 07/26/2020 1 1 Encounter Details Date Type Department Care Team (Late st Contact Info) Description 07/28/2019 12:40 PM EDT Office Visit [facility] NEUROSURGERY [address] [phone] Jeffrey Hernandez MD [address] [place] [address] Mechanical back pain (Primary Dx); DDD (degenerative [...] discectomy documented in this encounter Care Teams Director Of The Biophysics Facility Relationship Specialty Start Date End Date Cm Barth MD [address] [place] [facility] [address] [facility] [address] [place] [address] PCP - General Adolescent Medicine 07/27/19 documented as of this encounter
--- OUTSIDE RECORDS SUMMARY | 2024-04-20 11:09 | XMS_ITS | Encounter Summary ---
Author Organization [facility] Address [address] [place] [address] Care Team Providers Care Control Supervisor Name Role Phone Unavailable Primary Care Provider Unavailabl e Encounter Details Date Type Department Care Team (Late st Contact Info) Description 03/28/2013 Conversion Encounter [facility] HISTORICAL CONV [address] [place] [address] Interface, See Report Social History [...] PM EST) 03/28/2013 7:03 PM EST Narrative [facility] - 04/01/2013 12:54 PM EST [facility] [address] [place] [address] SURGICAL PATHOLOGY REPORT Patient Name: BRANDON FARIAS MR#: [id number] : 1985 Gender: F Ordering Physician: LEXII [...] averages 0.3 cm. No masses are appreciated. Sales Coach sections to include the cystic duct margin, neck, body and fundus are submitted in one cassette. M/sk Microscopic Description Sections show muscular hypertrophy with mild chronic inflammation and foamy macrophages within mucosal papillae. TDC/sk Procedures/Addenda us See Report Interface PATHOLOGY/CYTOLOGY ORDERABL ES Final Result [facility] [address] [place] [address], documented in this encounter Visit Diagnoses Not on filedocumented in this encounter
--- OUTSIDE RECORDS SUMMARY | 2024-04-20 11:09 | XMS_ITS | Encounter Summary ---
Author Organization [facility] Address [address] [place] [address] Care Team Providers Care Mechanical Product Engineer Name Role Phone Cm Barth MD Primary Care Provider [phone] Encounter Details Date Type Department Care Team [...] documented as of this encounter Care Teams Mechanical Product Engineer Relationship Specialty Start Date End Date Cm Barth MD [address] [place] [address] PCP - General 09/29/20 documented as of this encounter
--- OUTSIDE RECORDS SUMMARY | 2024-04-20 11:09 | XMS_ITS | Encounter Summary ---
Author Organization [facility] Address [address] [place] [address] Care Team Providers Care Centrifugal Casting Machine Tender Name Role Phone Cm Barth MD Primary Care Provider [phone] Reason for Visit * Reason Comments Consult * Consultation (Routine) - Closed Specialty Diagnoses / Procedures Referred By Contac t Referred To Contact Neurosurgery Diagnoses Low back pain with right-sided sciatica, unspecified back pain laterality, unspecified chronicity Cm Barth MD [address] [place] [address] Phone: tel: fax: [facility] [address], [address] [place] [address] Phone: tel: fax: Referral ID Status Reason Start Date Expiration Date V isits Requested Visits Authorized [id number] Closed Specialty Services Required 08/30/2022 02/29/2024 1 1 Encounter Details Date Type Department Care Team (Late st Contact Info) Description 10/18/2022 8:40 AM EDT Consult [facility] [address], [address] [place] [address] Julia Keenan PA [address] [place] [address] Neck pain (Primary Dx); Low [...] taking: Reported on 10/18/2022) ergocalciferol 1.25 MG (85328 UT) capsule (Patient not taking: Reported on [...] hours. (Patient not taking: Reported on 10/18/2022) PCKMwbewutayg-afscylzgyep-eoaippdg-scopoloamine () 16.2 MG tablet 16.2 mg-0.1037 mg-0.0194 [...] extension (Triceps) 09/20 09/20 C8: Finger flexion (Benefits Director Strength) 09/20 09/20 T1: Finger abduction 09/20 [...] We will schedule testing jonel done at [facility] in [place], [place]. We will set up a telehealth appointment to discuss results once received. The patient is agreeable to plan of care. They had the opportunity to ask questions, all of which were answered to their satisfaction. Assessment/Plan Active Problems: There are no active Hospital Problems. Julia Keenan PA-C [facility] Department of Neurosurgery documented in this [...] documented as of this encounter Care Teams Centrifugal Casting Machine Tender Relationship Specialty Start Date End Date Cm Barth MD [address] [place] [address] PCP - General 09/29/20 documented as of this encounter
--- OUTSIDE RECORDS SUMMARY | 2024-04-20 11:09 | XMS_ITS | Clinical Summary ---
Author Organization [facility] Address [address] [place] [address] Care Team Providers Care Order Entry Administrator Name Role Phone Cm Barth MD Primary Care Provider [phone] Allergies Active Allergy Reactions Criticality Noted Date [...] SCREENING 07/27/2019 PAP SMEAR 07/27/2019 INFLUENZA VACCINE 11/17/2023 COVID-19 Vaccine (2023-2 5 season) 2024 TDAP/TD VACCINES (2 - Td or Tdap) 12/21/2025 016 Pneumococcal Vaccine 0-64 Aged Out No longer eligible based on patient's age to complete this topic Insurance [employer] Care Teams Order Entry Administrator Relationship Specialty Start Date End Date Cm Barth MD [address] [facility] [address] [address] PCP - General Adolescent Medicine 07/27/19
--- OUTSIDE RECORDS SUMMARY | 2024-04-20 11:09 | XMS_ITS | Encounter Summary ---
Author Organization [facility] Address [address] [place] [id number] Care Team Providers Care Chip Mucker Name Role Phone Cm Barth MD Primary Care Provider [phone] Reason for Visit * Reason Onset Date Comments HCN - Patient Message 10/28/2022 emg Encounter Details Date Type Department Care Team (Late st Contact Info) Description 10/28/2022 Telephone [place] [facility] [address] [place] [address] Julia Zhao PA [address] [place] [address] HCN - Patient Message (emg) [...] EDT Patient Phone Message Reason for Call: [facility] is returning Julia's call. They have scheduled the EMG on 11/26 @10:00. Best contact number and optimal time of day to reach caller: [phone] Note: Please do not reply to this [...] documented as of this encounter Care Teams Chip Mucker Relationship Specialty Start Date End Date Cm Barth MD [address] [place] [address] PCP - General 09/29/20 documented as of this encounter
--- OUTSIDE RECORDS SUMMARY | 2024-04-20 11:09 | XMS_ITS | Encounter Summary ---
Author Organization [facility] Address [address] [place] [address] Care Team Providers Care Steel Plate Caulker Name Role Phone Unavailable Primary Care Provider Unavailabl e Encounter Details Date Type Department Care Team (Late st Contact Info) Description 02/17/2014 10:30 AM EDT - 12/28/2014 1:03 PM EDT Hospital Encounter [facility] DI[facility] ED [address] [facility] [address] [place] [phone] Indio Palencia MD [address] [place] [address] Social History Tobacco Use Types Packs/Day Years [...]
--- OUTSIDE RECORDS SUMMARY | 2024-04-20 11:09 | XMS_ITS | Encounter Summary ---
Author Organization [facility] Address [address] [place] [id number] Care Team Providers Care Billing Assistant Name Role Phone Cm Barth MD Primary Care Provider [phone] Encounter Details Date Type Department Care Team (Late st Contact Info) Description 09/11/2022 Telephone [place] [facility] [address], [address] [place] [address] Julia Zhao, PA [address] [place] [address] Social History Tobacco Use Types [...] PM EDT Spoke to patient, advised a DIESEL AUTOMOTIVE TECHNICIAN packet will be mailed to new address. [...] optimal time of day to reach caller: [phone] Note: Please do not reply to this message. Follow-up communication and further actions as a result of this message need to be communicated with the patient directly, if the patient is not active onMyChart. If the patient is active on MyChart, they will receive notification of the communication/outcome via [employer]. documented in this encounter Plan of Treatment Not on file documented as of this encounter Visit Diagnoses Not on filedocumented in this encounter Care Teams Billing Assistant Relationship Specialty Start Date End Date Cm Barth MD [address] [place] [address] PCP - General 09/29/20 documented as of this encounter
[2024-04-20 11:23] VITALS: BP 132/91; PULSE 81; RESP 18; O2SAT 95
[2024-04-20] MEDS: methylPREDNISolone ACETATE 80MG/ML VIAL 80 MG (11:23)
[2024-04-20 11:25] VITALS: BP 132/91; PULSE 82; RESP 18; O2SAT 96
[2024-04-20] MEDS: IOPAMIDOL-200 (41%);10ML VIAL 10 ML IV (11:28)
[2024-04-20 11:30] VITALS: BP 103/69; PULSE 71; RESP 16; O2SAT 96
--- NOTE | 2024-04-20 11:30 | P.PCN_ITS ---
Procedure Date: 04/20/24 Time: 11:20 Anesthesiologist:: Barry Cohen CRNA Complications:: None Pre-procedure Diagnosis:: Degenerative disc cervical spine multilevels. Cervical radiculopathy. Post-procedure Diagnosis:: Same. Indications for Procedure:: Patient is a pleasant 38-year-old female comes our clinic today for cervical epidural steroid injection. Patient describes posterior cervical neck pain as well as bilateral arm radicular symptoms. She rates her pain 7/10. Procedure Details:: Procedure:Cervical epidural steroid injection Informed consent was obtained and the risks and benefits of the procedure were explained to the patient. The patient was taken to the procedure room and noninvasive monitors placed, including noninvasive blood pressure cuff and pulse oximeter. The neck was prepped using Chloraprep as a cleansing solution. The C6- C7 interspace was viewed using fluroscopy. The skin and subcutaneous tissues were anesthetized using lidocaine 1.5% and a 25-gauge needle. After this an 18- gauge Touhy epidural needle was placed into the C6-C7 interspace under fluroscopy guidance and advanced using loss of resistance to air until the epidural space was encountered. After confirmation of needle placement in the epidural space using contrast dye, a solution containing normal saline, 2 mL and Depo-Medrol 80 mg was incrementally injected into the cervical epidural space.~ The patient tolerated the procedure well with no complications. The patient was observed in the Pain Clinic and then discharged home neurologically intact. Plan and Disposition:: Patient was discharged without incident.
== END 2024-04-20 11:30 | disposition home or self-care (01) ==
PROVIDERS: PCP Family Medicine; Visit Provider Nurse Anesthetist, Certified Registered
DX: M50.30 Other cervical disc degeneration, unspecified cervical region (principal); M54.12 Radiculopathy, cervical region
CPT/HCPCS: 62321; J1010; Q9966

== ENCOUNTER 2024-04-26 14:34 | Day surgery (SDC) | payer OTHER, SELFPAY ==
--- NOTE | 2024-04-26 14:55 | EXP.PAIN.PRO ---
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 Today she rates her pain a 6 out of 10. Patient denies any new trauma or injury. She does state that she did get 3 days of really good relief with this injection. She states that she is scheduled for her 2-week follow-up on the of this month. Patient does state that she is still getting significant headaches daily and migraines frequently. Patient does state that it does bother her vision that she just does not feel like she can focus and that it will cause nausea patient has just recently had a cervical epidural last week. To the extent that even cause her to vomit from time to time. Patient does state that sometimes it is altered by smells or certain foods where it can be triggered. Patient is prescribed tizanidine 4 mg at bedtime from our office. She denies any side effects from this medication. Patient does just take this at bedtime because it does cause drowsiness. Patient did recently get a 3-month supply that is good up until May. Her Joe has been reviewed and is appropriate. Physical Exam: General: Alert and oriented x3, no acute distress, pleasant and cooperative Lungs: Respirations even and unlabored, symmetrical chest expansion Eyes: PERRL Musculoskeletal: Flexion and extension of cervical [spine] somewhat guarded secondary to pain Neurological: Speech clear, no gross sensory deficit Procedure Details:: Patient was taken to the procedure room and placed in a seated position. The area over injection sites was cleansed with alcohol pads. Onabotulinum toxin a at a dilution of 5 units per 0.1 mL (50 units per 1 mL) was injected via a 30-gauge by 0.5 inch disposable needle with the following muscles: 1. Left hospital recruiter?1 site, 5 units 2. Right core greater?1 site, 5 units 3. Procerus?1 site, 5 units 4. Frontalis?4 sites, 20 units 5. Left temporalis?4 sites, 20 units 6. Right temporalis?4 sites, 20 units 7. Left occipitalis?3 sites, 15 units 8. Right occipitalis?3 sites, 15 units 9. Left cervical paraspinous muscles?2 sites, 10 units 10. Right cervical paraspinous muscles?2 sites, 10 units 11. Left trapezius?3 sites, 15 units 12. Right trapezius?3 sites, 15 units Plan and Disposition:: Patient tolerated the procedure well with no complications and was discharged neurologically intact. Patient does already have a follow-up for her cervical epidural coming up. We will follow-up with this appointment as well. Patient has been instructed to contact the clinic with any concerns before the next appointment. Dr. Deal has reviewed this note and agrees with this plan of care. This note was dictated using voice recognition software and make contain errors or omissions. All injections are used with Lidocaine or Bupivacaine and Depo Medrol.
[2024-04-26 15:01] VITALS: BP 140/86; BP 99/67; PULSE 79; PULSE 85; RESP 18; O2SAT 98; BMI 43.9
[2024-04-26] MEDS: BOTULINUM TOXIN TYPE A 100 UNIT/ML 155 UNIT IM (15:17)
[2024-04-26 16:20] VITALS: BP 111/69; PULSE 88; RESP 18; O2SAT 97
--- OUTSIDE RECORDS SUMMARY | 2024-04-27 22:21 | XMS_ITS | Encounter Summary ---
[facility] Organization [facility] Address [address] [place] [address] Care Team Providers Care Microsoft Infrastructure Consultant Name Role Phone Unavailable Primary Care Provider Unavailabl e Encounter Details Date Type Department Care Team (Late st Contact Info) Description 03/28/2013 Conversion Encounter [facility] [address] [place] [address] Interface, See Report Social History [...] PM EST) 03/28/2013 7:03 PM EST Narrative [facility] - 04/01/2013 12:54 PM EST [facility] [address] [place] [address] SURGICAL PATHOLOGY REPORT Patient Name: BRANDON FARIAS MR#: [id number] : 1985 Gender: F Ordering Physician: LEXII [...] averages 0.3 cm. No masses are appreciated. Tennis Racket Repairer sections to include the cystic duct margin, neck, body and fundus are submitted in one cassette. M/sk Microscopic Description Sections show muscular hypertrophy with mild chronic inflammation and foamy macrophages within mucosal papillae. TDC/sk Procedures/Addenda us See Report Interface PATHOLOGY/CYTOLOGY ORDERABL ES Final Result [facility] [address] [place] [address], documented in this encounter Visit Diagnoses Not on filedocumented in this encounter
--- OUTSIDE RECORDS SUMMARY | 2024-04-27 22:21 | XMS_ITS | Encounter Summary ---
Author Organization [facility] Address [address] [phone] Care Team Providers Care Mortgage Branch Manager Name Role Phone Cm Barth MD Primary Care Provider [phone] Reason for Visit * Reason Onset Date Comments HCN - Patient Message 10/28/2022 emg Encounter Details Date Type Department Care Team (Late st Contact Info) Description 10/28/2022 [facility]phone [facility] [address], [address] [place] [address] Julia Zhao PA [address] [place] [address] HCN - Patient Message (emg) [...] EDT Patient Phone Message Reason for Call: [facility] is returning Julia's call. They have scheduled the EMG on 11/26 @10:00. Best contact number and optimal time of day to reach caller: [phone] Note: Please do not reply to this [...] documented as of this encounter Care Teams Mortgage Branch Manager Relationship Specialty Start Date End Date Cm Barth MD [address] [place] [address] PCP - General 09/29/20 documented as of this encounter
--- OUTSIDE RECORDS SUMMARY | 2024-04-27 22:21 | XMS_ITS | Encounter Summary ---
Author Organization [facility] Address [address] [id number] Care Team Providers Care Parts Person Name Role Phone Cm Barth MD Primary Care Provider [phone] Encounter Details Date Type Department Care Team (Late st Contact Info) Description 09/11/2022 Telephone [place] [facility] [address], [address] [place] [address] Julia Zhao, PA [address] [place] [address] Social History Tobacco Use Types [...] PM EDT Spoke to patient, advised a SUPERVISOR ALUM PLANT packet will be mailed to new address. [...] optimal time of day to reach caller: [phone] Note: Please do not reply to this message. Follow-up communication and further actions as a result of this message need to be communicated with the patient directly, if the patient is not active onMyChart. If the patient is active on MyChart, they will receive notification of the communication/outcome via [employer]. documented in this encounter Plan of Treatment Not on file documented as of this encounter Visit Diagnoses Not on filedocumented in this encounter Care Teams Parts Person Relationship Specialty Start Date End Date Cm Barth MD [address] [place] [address] PCP - General 09/29/20 documented as of this encounter
--- OUTSIDE RECORDS SUMMARY | 2024-04-27 22:21 | XMS_ITS | Encounter Summary ---
Author Organization [facility] Address [address] [place] [address] Care Team Providers Care Supervising Fire Marshal Name Role Phone Cm Barth MD Primary Care Provider [phone] Encounter Details Date Type Department Care Team [...] documented as of this encounter Care Teams Supervising Fire Marshal Relationship Specialty Start Date End Date Cm Barth MD [address] [place] [address] PCP - General 09/29/20 documented as of this encounter
--- OUTSIDE RECORDS SUMMARY | 2024-04-27 22:21 | XMS_ITS | Encounter Summary ---
[facility] Address [address] [place] [address] Care Team Providers Care Java Websphere Developer Name Role Phone Unavailable Primary Care Provider Unavailabl e Encounter Details Date Type Department Care Team (Late st Contact Info) Description 11/29/2010 Conversion Encounter [facility] HISTORICAL CONV [address] [place] [address] Interface, See Report Social History [...] AM EDT) 11/29/2010 11:1 1 AM EDT [facility] LABORATORY - 11/30/2010 1:38 [place] [address] SURGICAL PATHOLOGY REPORT Patient Name: BRANDON FARIAS MR#: [id number] : 1985 Gender: F Ordering Physician: KINGA HARRIS Copy To: [facility] Location: [facility] Collected: 11/29/2010 Received: 11/29/2010 Reported: 11/30/2010 [...] ORDERABL ES Final Result [facility] [address] [place] [address], documented in this encounter Visit Diagnoses Not on filedocumented in this encounter
--- OUTSIDE RECORDS SUMMARY | 2024-04-27 22:21 | XMS_ITS | Encounter Summary ---
Author Organization [facility] Address [address] [place] [address] Care Team Providers Care Director Game Name Role Phone Unavailable Primary Care Provider Unavailabl e Encounter Details Date Type Department Care Team (Late st Contact Info) Description 02/17/2014 10:30 AM EDT - 12/28/2014 1:03 PM EDT Hospital Encounter [facility] ED [address] [facility] [address] [place] [phone] Indio Palencia MD [address] [place] [address] Social History Tobacco Use Types Packs/Day Years [...]
--- OUTSIDE RECORDS SUMMARY | 2024-04-27 22:21 | XMS_ITS | Encounter Summary ---
Author Organization [facility] Address [address] [place] [address] Care Team Providers Care Canal Boat Operator Name Role Phone Cm Barth MD Primary Care Provider [phone] Reason for Visit * Consultation (Routine) - Closed Specialty Diagnoses / Procedures Referred By Contac t Referred To Contact Neurosurgery Diagnoses Protrusion of lumbar intervertebral disc DDD (degenerative disc disease), lumbar Dominic Deal MD [address] [place] [address] Phone: tel:[phone] fax: Jeffrey Hernandez MD [address] [address] Phone: tel: fax: Referral ID Status Reason Start Date Expiration Date Visits Re quested Visits Authorized [id number] Closed 07/27/2019 07/26/2020 1 1 Encounter Details Date Type Department Care Team (Late st Contact Info) Description 07/28/2019 12:40 PM EDT Office Visit [facility] NEUROS[facility]GERY [address] [phone] Jeffrey Hernandez MD [address] [place] [address] Mechanical back pain (Primary Dx); DDD (degenerative [...] discectomy documented in this encounter Care Teams Canal Boat Operator Relationship Specialty Start Date End Date Cm Barth MD [address] [place] [facility] [address] [facility] [address] [place] [address] PCP - General Adolescent Medicine 07/27/19 documented as of this encounter
--- OUTSIDE RECORDS SUMMARY | 2024-04-27 22:21 | XMS_ITS | Encounter Summary ---
Author Organization [facility] Address [address] [place] [address] Care Team Providers Care Network Cabler Name Role Phone Cm Barth MD Primary Care Provider [phone] Reason for Visit * Reason Comments Consult * Consultation (Routine) - Closed Specialty Diagnoses / Procedures Referred By Contac t Referred To Contact Neurosurgery Diagnoses Low back pain with right-sided sciatica, unspecified back pain laterality, unspecified chronicity Cm Barth MD [address] [place] [address] Phone: tel: fax: [facility] [address], [address] [place] [address] Phone: tel: fax: Referral ID Status Reason Start Date Expiration Date V isits Requested Visits Authorized [id number] Closed Specialty Services Required 08/30/2022 02/29/2024 1 1 Encounter Details Date Type Department Care Team (Late st Contact Info) Description 10/18/2022 8:40 AM EDT Consult [facility] [address] [place] [address] Julia Keenan PA [address] [place] [address] Neck pain (Primary Dx); Low [...] taking: Reported on 10/18/2022) ergocalciferol 1.25 MG (59988 UT) capsule (Patient not taking: Reported on [...] hours. (Patient not taking: Reported on 10/18/2022) LYYWyfqptdvki-solcerfzvwu-ptpmfekj-scopoloamine () 16.2 MG tablet 16.2 mg-0.1037 mg-0.0194 [...] extension (Triceps) 09/20 09/20 C8: Finger flexion (Felt Hooker Strength) 09/20 09/20 T1: Finger abduction 09/20 [...] We will schedule testing jonel done at [facility] in [place], [place]. We will set up a telehealth appointment to discuss results once received. The patient is agreeable to plan of care. They had the opportunity to ask questions, all of which were answered to their satisfaction. Assessment/Plan Active Problems: There are no active Hospital Problems. Julia Keenan PA-C [facility] Department of Neurosurgery documented in this [...] documented as of this encounter Care Teams Network Cabler Relationship Specialty Start Date End Date Cm Barth MD [address] [place] [address] PCP - General 09/29/20 documented as of this encounter
--- OUTSIDE RECORDS SUMMARY | 2024-04-27 22:21 | XMS_ITS | Clinical Summary ---
Author Organization [facility] Address [address] [place] [address] Care Team Providers Care Airplane Designer Name Role Phone Cm Barth MD Primary Care Provider [phone] Allergies Active Allergy Reactions Criticality Noted Date [...] complete this topic Insurance [employer] Care Teams Airplane Designer Relationship Specialty Start Date End Date Cm Barth MD [address] [facility] [address] [address] PCP - General Adolescent Medicine 07/27/19
--- OUTSIDE RECORDS SUMMARY | 2024-04-27 22:21 | XMS_ITS | Encounter Summary ---
Author Organization [facility] Address [address] [place] [address] Care Team Providers Care Homemaker Companion Name Role Phone Cm Barth MD Primary Care Provider [phone] Encounter Details Date Type Department Care Team (Latest Contact Info) Description 10/18/2022 9:17 AM EDT - 10/18/2022 11:59 PM EDT Hospital Encounter [facility] [address] [place] [id number] Low back pain with right-sided sciatica, unspecified [...] Two times a day ergocalciferol 1.25 MG (47755 UT) capsule 07/22/2022 fexofenadine (Jeanine) 180 MG [...] 3:10 PM Final report signed by Wilfrid Renea MD on 10/18/2022 3:10 PM Narrative 10/18/2022 [...] documented as of this encounter Care Teams Homemaker Companion Relationship Specialty Start Date End Date Cm Barth MD [address] [place] [address] PCP - General 09/29/20 documented as of this encounter
--- OUTSIDE RECORDS SUMMARY | 2024-04-27 22:21 | XMS_ITS | Clinical Summary ---
Author Organization [facility] Address [address] [place] [address] Care Team Providers Care Full Service Supervisor Name Role Phone Cm Barth MD Primary Care Provider [phone] Allergies Active Allergy Reactions Criticality Noted Date [...] times a day Active ergocalciferol 1.25 MG (54050 UT) capsule 3 Active fexofenadine (Jeanine) 180 [...] 3 - 19+ 3-dose series) 01/19/2016 12/22/2015 [id number] Vaccine (4 - season) 2024 03/26/2021, 06/16/2020, [...] patient's age to complete this topic Insurance [facility] Care Teams Full Service Supervisor Relationship Specialty Start Date End Date Cm Barth MD [address] [place] [address] PCP - General 09/29/20
== END 2024-04-26 15:00 | disposition home or self-care (01) ==
PROVIDERS: PCP Family Medicine; Visit Provider Nurse Practitioner Family
DX: M50.10 Cervical disc disorder with radiculopathy, unspecified cervical region (principal); M51.16 Intervertebral disc disorders with radiculopathy, lumbar region; G43.909 Migraine, unspecified, not intractable, without status migrainosus
CPT/HCPCS: 20553; J0585

== ENCOUNTER 2024-04-30 18:39 | Outpatient (CLI) | payer OTHER, SELFPAY | END 2024-04-30 23:59 | disposition home or self-care (01) | LOC: LAB 18:40 | PROVIDERS: PCP Family Medicine; Visit Provider Family Medicine | DX: N39.0 Urinary tract infection, site not specified (principal) | CPT/HCPCS: 87086 ==

== ENCOUNTER 2024-05-27 08:54 | Outpatient (POV) | payer OTHER, SELFPAY ==
[2024-05-27 09:06] VITALS: BP 126/95; PULSE 79; RESP 18; O2SAT 98; BMI 43.9
--- NOTE | 2024-05-27 09:25 | EXP.PAIN.SOA ---
[facility] Disclaimer: The information contained in this section may have been updated after the patient was seen, as this information can be updated by other users. Medical History Cervical cancer Head trauma Fall Lumbar disc disease with radiculopathy Abdominal pain Renal mass Vomiting Urinary frequency Recurrent UTI Diabetes Renal calculus, right Abdominal tenderness, LLQ (left lower quadrant) Thrombophlebitis of vein of pelvis Abdominal tenderness, RLQ (right lower quadrant) Urinary urgency Abnormal uterine bleeding Sinusitis Adenocarcinoma in situ of endocervix Perianal fissure PCOS (polycystic ovarian syndrome) Dyspareunia Endometriosis Chronic pelvic pain in female Morbid obesity with BMI of 40.0-44.9, adult Shingles Anxiety Shingles (herpes zoster) polyneuropathy Surgical History S/P laparoscopic hysterectomy with bilateral salpingectomy 05/15/23 History of colonoscopy S/P cone biopsy of cervix History of cholecystectomy History of delivery History of tonsillectomy H/O tubal ligation Family History Other Anemia Asthma Atrial fibrillation Cancer Diabetes Heart disease Hyperlipidemia Hypertension No significant family history Thyroid disorder Social History Smoking Status: Never smoker alcohol intake: current alcohol intake frequency: other substance use type: denies use current occupational status: employed Travel in the last 8 weeks: None household members: other housing: house marital status: number of children: 2 education level: college current occupational exposures/hazards: Yes caffeine: Yes PM Subjective & Objective Subjective Subjective:: Patient is a pleasant 38-year-old female who presents today for follow-up of Botox injections for migraine on 04/26/2024. Today she rates her pain a 0 out of 10. Patient does state that it did take about a week for it to really kick in however she has had no headaches or migraines whatsoever over the last week. Patient states she feels much more functional and is very pleased with how this has gone. Patient does state that she will definitely want to continue this regimen. Patient did also have a cervical epidural prior to the Botox and she does states she feels like that did help additionally. She denies any new falls or injuries. Her Joe has been reviewed and is appropriate. Review of Systems: General: No recent weight changes, no fever, no sleep disturbances Respiratory: No cough, no shortness of air, no recurring pulmonary infections Cardiovascular/peripheral vascular: No chest pain, no palpitations, no edema, no shortness of breath Gastrointestinal: No new onset incontinence, normal bowel movements reported Genitourinary: No new onset incontinence Musculoskeletal: Neck pain, headaches Psychiatric: [Normal mood/affect] Neurological: [Denies weakness in extremities], [denies balance issues] Pain at rest (0-10 scale): 0 Objective Objective:: Physical Exam: General: Alert and oriented x3, no acute distress, pleasant and cooperative Lungs: Respirations even and unlabored, symmetrical chest expansion Eyes: PERRL Musculoskeletal: Flexion and extension of cervical spine within normal limits Neurological: Speech clear, no gross sensory deficit Has patient had previous pain injection?: Yes Percent improvement in pain since last injection: 100% Conservative treatment options previously tried: Home exercise plan Length of treatment: Longer than 12 weeks Meds Home Medications and Allergies Home Medications ?Medication ?Instructions ?Recorded ?Confirmed ?Type lisinopril 10 1 tab PO DAILY High Blood Pressure 10/22/23 05/27/24 Rx mg-hydrochlorothiazide 12.5 mg #90 tabs tablet atogepant 60 mg tablet (Qulipta) 60 mg PO DAILY #90 tabs 12/01/23 05/27/24 Rx albuterol sulfate 90 mcg/actuation 2 inh inhalation Q6HP PRN 01/28/24 05/27/24 Rx aerosol inhaler Shortness Of Breath Or Wheezing #8.5 grams tizanidine 4 mg tablet (Zanaflex) 4 mg PO HS Muscle Spasm #30 tabs 03/10/24 05/27/24 Rx pregabalin 150 mg capsule (Lyrica) 150 mg PO BID Pain #60 caps 03/29/24 05/27/24 Rx New Prescriptions to Start Prescriptions: Allergies Allergy/AdvReac Type Severity Reaction Status Date / Time amitriptyline Allergy Intermediate Anaphylaxis Verified 04/30/24 14:58 cephalexin (From Keflex) Allergy Intermediate Verified 04/30/24 14:58 cinnamon Allergy Verified 04/30/24 14:58 Assessment and Plan *Assessment and plan (1) Cervical radiculopathy: Status: Acute Category: Medical Code(s): M54.12 - Radiculopathy, cervical region (2) Degenerative disc disease, cervical: Status: Acute Category: Medical Code(s): M50.30 - Other cervical disc degeneration, unspecified cervical region (3) Episodic migraine: Status: Chronic Category: Medical Code(s): G43.909 - Migraine, unspecified, not intractable, without status migrainosus Plan Patient has had significant improvement with the combination of her cervical epidural and Botox and does not require any additional injection therapy at this time. Patient will return to clinic in 6 weeks for reevaluation of symptoms and plan of care. Patient has been instructed to contact the clinic with any concerns before the next appointment. Dr. Deal has reviewed this note and agrees with this plan of care. This note was dictated using voice recognition software and make contain errors or omissions. All injections are used with Lidocaine, Bupivacaine and Depo Medrol. Occasionally urine drug screen is needed to verify patient's compliance with our office pain contract. This is ordered based off specific treatments related to chronic pain with the potential to abuse certain medications.
== END 2024-05-27 23:59 | disposition home or self-care (01) ==
LOC: SC.PAIN 08:55
PROVIDERS: PCP Family Medicine; Visit Provider Nurse Practitioner Family
DX: M50.10 Cervical disc disorder with radiculopathy, unspecified cervical region (principal); G43.909 Migraine, unspecified, not intractable, without status migrainosus
CPT/HCPCS: 99212; G0463

== ENCOUNTER 2024-07-08 08:45 | Outpatient (POV) | payer OTHER, SELFPAY ==
[2024-07-08 09:12] VITALS: BP 134/70; PULSE 81; RESP 16; O2SAT 98; BMI 42.0
--- NOTE | 2024-07-08 10:06 | EXP.PAIN.SOA ---
[facility] Disclaimer: The information contained in this section may have been updated after the patient was seen, as this information can be updated by other users. Medical History Cervical cancer Head trauma Fall Lumbar disc disease with radiculopathy Abdominal pain Renal mass Vomiting Urinary frequency Recurrent UTI Diabetes Renal calculus, right Abdominal tenderness, LLQ (left lower quadrant) Thrombophlebitis of vein of pelvis Abdominal tenderness, RLQ (right lower quadrant) Urinary urgency Abnormal uterine bleeding Sinusitis Adenocarcinoma in situ of endocervix Perianal fissure PCOS (polycystic ovarian syndrome) Dyspareunia Endometriosis Chronic pelvic pain in female Morbid obesity with BMI of 40.0-44.9, adult Shingles Anxiety Shingles (herpes zoster) polyneuropathy Surgical History S/P laparoscopic hysterectomy with bilateral salpingectomy 05/15/23 History of colonoscopy S/P cone biopsy of cervix History of cholecystectomy History of delivery History of tonsillectomy H/O tubal ligation Family History Other Anemia Asthma Atrial fibrillation Cancer Diabetes Heart disease Hyperlipidemia Hypertension No significant family history Thyroid disorder Social History (Updated 07/08/24 @ 09:07 by Jenniffer Ocampo RN) Smoking Status: Never smoker alcohol intake: current alcohol intake frequency: other substance use type: denies use current occupational status: employed Travel in the last 8 weeks: None household members: other housing: house marital status: number of children: 2 education level: college current occupational exposures/hazards: Yes caffeine: Yes PM Subjective & Objective Subjective Subjective:: Patient is a pleasant 38-year-old female who presents today for worsening pain. She rates her pain a 6 out of 10. Patient does state from her last appointment she did just have a recent fall related to the snow and ice. She states that she thinks around Friday she was going out and ended up slipping causing her feet to come out from under her and landing all across her left hip and low back area. Patient has had chronic pain in this area in the past however felt like this aggravated her chronic symptoms and made her by track for the progress she had made. Patient describes it as a constant aching, throbbing sensation that is worse with increased activity or movement. Patient does state the pain is interfering with her ability perform activities of daily living such as cooking and cleaning. Patient has continued conservative treatment with no additional changes. Patient is prescribed tizanidine 4 mg at bedtime from our office and denies any side effects from this or the compounded cream. She is requesting refills on both. Her Joe has been reviewed and is appropriate. Review of Systems: General: No recent weight changes, no fever, no sleep disturbances Respiratory: No cough, no shortness of air, no recurring pulmonary infections Cardiovascular/peripheral vascular: No chest pain, no palpitations, no edema, no shortness of breath Gastrointestinal: No new onset incontinence, normal bowel movements reported Genitourinary: No new onset incontinence Musculoskeletal: Low back pain, left hip pain Psychiatric: [Normal mood/affect] Neurological: [Denies weakness in extremities], [denies balance issues] Pain at rest (0-10 scale): 6 Objective Objective:: Physical Exam: General: Alert and oriented x3, no acute distress, pleasant and cooperative Lungs: Respirations even and unlabored, symmetrical chest expansion Eyes: PERRL Musculoskeletal: Flexion and extension of lumbar [spine] somewhat guarded secondary to pain, [antalgic gait noted] point tenderness along left SI with positive left Raymundo's, Radha's, Gaenslen's, compression and distraction exam and point tenderness along left bursa Neurological: Speech clear, no gross sensory deficit Has patient had previous pain injection?: No Conservative treatment options previously tried: Home exercise plan Length of treatment: Longer than 12 weeks Meds Home Medications and Allergies Home Medications ?Medication ?Instructions ?Recorded ?Confirmed ?Type lisinopril 10 1 tab PO DAILY High Blood Pressure 10/22/23 05/27/24 Rx mg-hydrochlorothiazide 12.5 mg #90 tabs tablet atogepant 60 mg tablet (Qulipta) 60 mg PO DAILY #90 tabs 12/01/23 05/27/24 Rx albuterol sulfate 90 mcg/actuation 2 inh inhalation Q6HP PRN 01/28/24 05/27/24 Rx aerosol inhaler Shortness Of Breath Or Wheezing #8.5 grams tizanidine 4 mg tablet (Zanaflex) 4 mg PO HS Muscle Spasm #30 tabs 03/10/24 05/27/24 Rx pregabalin 150 mg capsule (Lyrica) 150 mg PO BID Pain #60 caps 03/29/24 05/27/24 Rx New Prescriptions to Start Prescriptions: Allergies Allergy/AdvReac Type Severity Reaction Status Date / Time amitriptyline Allergy Intermediate Anaphylaxis Verified 04/30/24 14:58 cephalexin (From Keflex) Allergy Intermediate Verified 04/30/24 14:58 cinnamon Allergy Verified 04/30/24 14:58 Assessment and Plan *Assessment and plan (1) Chronic back pain: Status: Acute Category: Medical Code(s): M54.9 - Dorsalgia, unspecified; G89.29 - Other chronic pain (2) Sacroiliitis: Status: Acute Category: Medical Code(s): M46.1 - Sacroiliitis, not elsewhere classified (3) Greater trochanteric bursitis of left hip: Status: Acute Category: Medical Code(s): M70.62 - Trochanteric bursitis, left hip Plan Patient is experiencing worsening pain along the low back and left hip. They did have limited range of motion of the lumbar spine along with point tenderness along her left l SI joint and left bursa and a positive left Raymundo's, Radha's, Gaenslen's, compression and distraction exam. I did discuss with the patient that I do believe they would benefit from a left SI injection and left bursa injection. Risk and benefits were discussed with the patient and they would like to proceed forward with this option. Patient has tried and failed conservative therapy including continued at home stretching exercise for longer than 12 weeks. Patient does have a longstanding history of chronic low back and hip pain that is going on for longer than 6 months. I will refill the patient's compounded cream and tizanidine and provide a 6-month supply of the tizanidine. Patient will be scheduled for left SI and left bursa injection under fluoroscopy. Patient has been instructed to contact the clinic with any concerns before the next appointment. Dr. Deal has reviewed this note and agrees with this plan of care. This note was dictated using voice recognition software and make contain errors or omissions. All injections are used with Lidocaine or Bupivacaine and Depo Medrol.
== END 2024-07-08 23:59 | disposition home or self-care (01) ==
PROVIDERS: PCP Family Medicine; Visit Provider Nurse Practitioner Family
DX: M54.9 Dorsalgia, unspecified (principal); G89.29 Other chronic pain; M46.1 Sacroiliitis, not elsewhere classified; M70.62 Trochanteric bursitis, left hip; Z73.89 Other problems related to life management difficulty
CPT/HCPCS: 99212; G0463

== ENCOUNTER 2024-08-24 10:44 | Day surgery (SDC) | payer OTHER, SELFPAY ==
[2024-08-24 10:51] VITALS: BP 112/74; PULSE 83; RESP 17; TEMP 37; O2SAT 98; BMI 40.2
--- NOTE | 2024-08-24 10:59 | P.PCN_ITS ---
Procedure Date: 08/24/24 Time: 10:45 Anesthesiologist:: Barry Cohen CRNA Complications:: None Pre-procedure Diagnosis:: Left sacroiliitis. Left trochanteric bursitis. Post-procedure Diagnosis:: Same. Indications for Procedure:: Patient is a pleasant 39-year-old female who comes our clinic today for left sacroiliac joint injection as well as left trochanteric bursa injection. Patient describes left low lumbar back pain as constant, dull, aching. She has extreme point tenderness over the left sacroiliac joint. Patient also has left lateral hip pain that she describes as constant, sharp, stabbing. She rates her pain 7/10. Procedure Details:: Procedure:Left trochanteric bursa injection under fluoroscopy We then moved to the left trochanteric bursa.~ C-arm fluoroscopy was used to view the left greater trochanter.~ The skin and subcutaneous tissues overlying the left greater trochanter were anesthetized using lidocaine, 1.5% and a 25- gauge needle.~ After this, a 22-gauge spinal needle was inserted and advanced until it contacted the left greater trochanter.~ Dye was injected and good spread was seen throughout the left trochanteric bursa. After this, approximately 5 mL of bupivacaine, 0.25% and Depo-Medrol, 40 mg was inc rementally injected into the left trochanteric bursa.~ The patient tolerated the procedure well with no complications. Procedure: Left sacroiliac injection under fluoroscopy Informed consent was obtained and the risk and benefits of the procedure were explained to the patient.~ The patient was taken to the procedure room and noninvasive monitors were placed including noninvasive blood pressure cuff and pulse oximeter.~ The patient was placed prone on the procedure table.~ The~ left hip was cleansed using Betadine as a cleansing solution.~ C-arm fluorosocpy was used to view the left SI joint.~ The skin and subcutaneous tissues were anesthetized using Lidocaine 1.5% and a 25-gauge needle.~ After this, a 22-gauge spinal needle was inserted under fluoroscopic guidance into the inferior aspect of the left SI joint.~ Omnipaque dye was injected and a good spread was seen throughout the joint.~ After this, approximately 5 mL of bupivacaine 0.25% and Depo-Medrol 40 mg was incrementally injected into the sacroiliac joint.~ The patient tolerated the procedure well with no complications.~ The patient was observed in the Pain Clinic for a period of 30-45 minutes, then discharged home neurologically intact.~ Plan and Disposition:: Patient was discharged without incident.
[2024-08-24 11:01] VITALS: BP 141/84; PULSE 80; RESP 18; O2SAT 100
[2024-08-24] MEDS: BUPIVACAINE 0.25% 10ML INJ 25 MG IJ (11:02)
[2024-08-24 11:03] VITALS: BP 129/62; PULSE 79; RESP 18; O2SAT 98
[2024-08-24] MEDS: methylPREDNISolone ACETATE 80MG/ML VIAL 80 MG (11:03)
[2024-08-24] MEDS: LIDOCAINE 1% 5ML PF VIAL 5 ML (11:03)
[2024-08-24 11:05] VITALS: BP 129/62; PULSE 79; RESP 18; O2SAT 98
== END 2024-08-24 11:01 | disposition home or self-care (01) ==
PROVIDERS: PCP Family Medicine; Visit Provider Nurse Anesthetist, Certified Registered
DX: M70.62 Trochanteric bursitis, left hip (principal)
CPT/HCPCS: 20610; 27096; 77002; G0260; J1010

== ENCOUNTER 2024-09-08 10:09 | Outpatient (POV) | payer OTHER, SELFPAY ==
[2024-09-08 10:36] VITALS: BP 121/77; PULSE 79; RESP 18; O2SAT 99; BMI 40.2
--- NOTE | 2024-09-08 10:37 | A.OFFVIS_ITS ---
[facility] Disclaimer: The information contained in this section may have been updated after the patient was seen, as this information can be updated by other users. Medical History Renal calculus, right Ureterolithiasis Urinary tract infection Hematuria Right nephrolithiasis UTI (urinary tract infection) Cervical cancer Head trauma Fall Lumbar disc disease with radiculopathy Abdominal pain Renal mass Vomiting Urinary frequency Recurrent UTI Diabetes Abdominal tenderness, LLQ (left lower quadrant) Thrombophlebitis of vein of pelvis Abdominal tenderness, RLQ (right lower quadrant) Urinary urgency Abnormal uterine bleeding Sinusitis Adenocarcinoma in situ of endocervix Perianal fissure PCOS (polycystic ovarian syndrome) Dyspareunia Endometriosis Chronic pelvic pain in female Morbid obesity with BMI of 40.0-44.9, adult Shingles Anxiety Shingles (herpes zoster) polyneuropathy Surgical History S/P laparoscopic hysterectomy with bilateral salpingectomy 05/15/23 History of colonoscopy S/P cone biopsy of cervix History of cholecystectomy History of delivery History of tonsillectomy H/O tubal ligation Family History Other Anemia Asthma Atrial fibrillation Cancer Diabetes Heart disease Hyperlipidemia Hypertension No significant family history Thyroid disorder Social History Smoking Status: Never smoker alcohol intake: current alcohol intake frequency: other substance use type: denies use current occupational status: employed Travel in the last 8 weeks: None household members: other housing: house marital status: number of children: 2 education level: college current occupational exposures/hazards: Yes caffeine: Yes PM Subjective & Objective Subjective Subjective:: Patient is a pleasant 39-year-old female who presents today for follow-up of left bursa and left SI injection on 08/24/2024. Today she rates her pain a 4 out of 10. Patient does state that she noticed a bigger improvement with the bursa injection rating it at least 100%. Patient does state that the SI injection helped as well however she does still have tenderness along that side when she sits for prolonged periods or certain type of chairs that she send. Patient does state that as soon as she gets up and starts walking that the pain does go more to a 1 out of 10. Patient does feel like the pain is much more manageable. She denies any other changes. Patient is currently managed with tizanidine 4 mg at bedtime and compounded cream from our office. Patient does state that the last time she went to get a refill of this medication they stated there was not any additional refills. Her Joe has been reviewed and is appropriate. Review of Systems: General: No recent weight changes, no fever, no sleep disturbances Respiratory: No cough, no shortness of air, no recurring pulmonary infections Cardiovascular/peripheral vascular: No chest pain, no palpitations, no edema, no shortness of breath Gastrointestinal: No new onset incontinence, normal bowel movements reported Genitourinary: No new onset incontinence Musculoskeletal: Low back pain Psychiatric: [Normal mood/affect] Neurological: [Denies weakness in extremities], [denies balance issues] Pain at rest (0-10 scale): 4 Objective Objective:: Physical Exam: General: Alert and oriented x3, no acute distress, pleasant and cooperative Lungs: Respirations even and unlabored, symmetrical chest expansion Eyes: PERRL Musculoskeletal: Flexion and extension of lumbar [spine] somewhat guarded secondary to pain Neurological: Speech clear, no gross sensory deficit Has patient had previous pain injection?: Yes Percent improvement in pain since last injection: 100% Conservative treatment options previously tried: Home exercise plan Length of treatment: Longer than 12 weeks Meds Home Medications and Allergies Home Medications ?Medication ?Instructions ?Recorded ?Confirmed ?Type lisinopril 10 1 tab PO DAILY High Blood Pressure 10/22/23 07/28/24 Rx mg-hydrochlorothiazide 12.5 mg #90 tabs tablet atogepant 60 mg tablet (Qulipta) 60 mg PO DAILY #90 tabs 12/01/23 07/28/24 Rx tizanidine 4 mg tablet (Zanaflex) 4 mg PO HS Muscle Spasm #30 tabs 07/08/24 07/28/24 Rx albuterol sulfate 90 mcg/actuation 2 inh inhalation Q6HP PRN 07/28/24 07/28/24 Rx aerosol inhaler Shortness Of Breath Or Wheezing #8.5 grams pregabalin 150 mg capsule (Lyrica) 150 mg PO BID Pain #60 caps 07/28/24 07/28/24 Rx ondansetron 4 mg disintegrating 4 mg PO TID PRN nausea and 08/18/24 Rx tablet vomiting 4 days #30 tabs New Prescriptions to Start Prescriptions: Allergies Allergy/AdvReac Type Severity Reaction Status Date / Time amitriptyline Allergy Intermediate Anaphylaxis Verified 08/24/24 10:53 cephalexin (From Keflex) Allergy Intermediate Unknown Verified 08/24/24 10:53 allergy reaction cinnamon Allergy Unknown Verified 08/24/24 10:53 allergy reaction Assessment and Plan *Assessment and plan (1) Sacroiliitis: Status: Acute Category: Medical Code(s): M46.1 - Sacroiliitis, not elsewhere classified Plan Patient has had significant relief and does not require any additional interventions at this time. I did discuss with patient that the tizanidine was actually sent to clinic pharmacy. Today I will send in refills to [facility] here in [place] with a 6-month supply. Patient will be given a 6-week tentative follow-up appointment. Patient agrees with this plan of care. Patient has been instructed to contact the clinic with any concerns before the next appointment. Dr. Deal has reviewed this note and agrees with this plan of care. This note was dictated using voice recognition software and make contain errors or omissions. All injections are used with Lidocaine, Bupivacaine and dexamethasone. Occasionally urine drug screen is needed to verify patient's compliance with our office pain contract. This is ordered based off specific treatments related to chronic pain with the potential to abuse certain medications.
== END 2024-09-08 23:59 | disposition home or self-care (01) ==
PROVIDERS: PCP Family Medicine; Visit Provider Nurse Practitioner Family
DX: M46.1 Sacroiliitis, not elsewhere classified (principal)
CPT/HCPCS: 99212; G0463

== ENCOUNTER 2024-10-16 08:41 | Emergency (ER) | payer OTHER, SELFPAY ==
--- OUTSIDE RECORDS SUMMARY | 2024-10-16 08:52 | XMS_ITS | Data Portability ---
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 2. Past medical history of morbid obesity, asthma, anemia, , cholecystectomy, tubal ligation. 3. Status post exam under anesthesia with seton placement on 05/05/2017. POSTOPERATIVE DIAGNOSES: 1. 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 2. Past medical history of morbid obesity, asthma, anemia, , cholecystectomy, tubal ligation. 3. Status post exam under anesthesia with seton placement on 05/05/2017. PROCEDURE: 1. Exam under anesthesia. 2. Anal mucosal advancement flap. ANESTHESIA: General endotracheal anesthesia, local. ESTIMATED BLOOD LOSS: 10 mL. SPECIMENS: Fistula. DRAINS: None. COMPLICATIONS: None. FINDINGS: Anal mucosal advancement flap with the base twice as wide as the distal end with no tension. No division of muscle. SURGEON: Lexii Pereira MD INDICATIONS: A 32-year-old female with a 2-year history of a knot to her right peritoneum, which will intermittently increase in size and become painful with previous incision and drainage at the site. The patient was seen, evaluated and felt to have a possible fistula. She underwent exam under anesthesia with seton placement on 05/05/2017 for a transsphincteric right anterolateral fistula in ano. She was offered the procedure above and agreed after risks, benefits, and alternatives explained. OPERATIVE NOTE: After the patient was identified with informed consent verified, she was brought to the operating room per stretcher and placed in supine position, arms out, all extremities padded. Bilateral lower extremity SCDs placed. General endotracheal anesthesia induced. The patient rotated prone jackknife with all extremities padded appropriately. The patient's buttocks were taped apart. The patient's perianal area was prepped with Betadine and draped in the usual sterile fashion. Critical time-out was taken. I began the procedure with exam under anesthesia. Four-quadrant exam with medium Hill-Gotti retractor was circumferential with grade 1 to 2 internal hemorrhoids. The seton was seen in the right anterolateral position transsphincteric. I removed the seton intact. I then used a Velazco bivalve retractor to infiltrate with lidocaine with epinephrine for the planned anal mucosal advancement flap. I then used Bovie electrocautery to outline the flap. The base was twice as wide as the most distal end. I then excised starting distal to the internal os sharply elevating a very minimal portion of flap. I curetted the internal os and closed this with several interrupted Vicryl sutures. I also curetted the external os. I then continued elevating the mucosal advancement flap. I then excised the distal end of the flap containing the internal os. It was sent to pathology for permanent. I then secured the flap over the internal os without tension with interrupted Vicryl sutures. I then placed Xeroform gauze inside the anus. I infiltrated with local anesthesia in an anal block fashion. At the end of the procedure, all sponge, instrument, and needle counts were correct. I was present and scrubbed for the procedure. [email or web address] Not available 07/22/2017 13:37:15 Plan of Treatment Reminders Order Date Submit Date Provider Last Modified By Organization Details Last Modified Time Details Appointments None recorded. Lab rapid flu (A+B) 2017 018 [email or web address] Not available 8 14:56:52 Referral None recorded. Procedures None recorded. Surgeries None recorded. Imaging None recorded. Medication Orders Percocet 5 mg-325 mg tablet 2017 018 [email or web address] [facility][id number], [address] [place], [address], 8 16:11:00 Miralax 17 gram oral powder packet 2017 018 INTERFACE [facility][id number], [address] [place], [address], 8 13:27:33 doxycyclin e hyclate 100 mg capsule 2017 018 INTERFACE [facility][id number], [address] [place], [address], 8 14:56:53 Celestone Soluspan 6 mg/mL suspension for injection 2017 018 [email or web address] Not available 8 14:14:44 prednisone 10 mg tablet 2017 018 [email or web address] [facility] #[id number], [address] , [place], [place], [id number], 8 14:14:26 Kenalog 40 mg/mL suspension for injection 2017 018 [email or web address] Not available 8 14:14:15 Patient TargetsNo targets recorded. Patient Instructions Encounter Date Encounter Id Patient Instructions Last Modified By Organization Details Last Modified Time 05/23/2017 [id number] pityriasis rosea : care instructions [email or web address] Not available 05/23/2017 13:38:17 06/27/2017 [id number] bronchitis: care instructions [email or web address] Not available 06/27/2017 14:56:52 Reason for Referral None Reported. Results Created Date Observation Date Name Description Value Unit Range Abnormal Flag Note LastModifiedBy Organization Detail LastModifiedTime 06/27/19 18 06/27/2017 rapid flu (A+B) Flu A Negati ve Not Available [facility] [address], [place], [address], 06/27/2017 14:15:17 06/27/19 18 06/27/2017 rapid flu (A+B) Flu B Negati ve Not Available [facility] [address] [place], [address], 06/27/2017 14:15:17 06/27/19 18 06/27/2017 rapid flu (A+B) QC Okay Not Available [facility] [address] [place], [address], 06/27/2017 14:15:17 04/22/20 17 04/22/2017 drug scree n, urine Marijuana (THC50) Negati ve Not Available [address], [place], [address], 04/22/2017 10:21:42 04/22/20 17 04/22/2017 drug scree n, urine Cocaine ([id number]) Negati ve Not Available [address], [place], [address], 04/22/2017 10:21:42 04/22/20 17 04/22/2017 drug scree n, urine Opiates ([id number]) Negati ve Not Available [address], [place], [address], 04/22/2017 10:21:42 04/22/20 17 04/22/2017 drug scree n, urine Amphetamine ([id number]) Negati ve Not Available [address], [place], [address], 04/22/2017 10:21:42 04/22/20 17 04/22/2017 drug scree n, urine Methamphetam ine (ZUU0001) Negati ve Not Available [address], [place], [address], 04/22/2017 10:21:42 04/22/20 17 04/22/2017 drug scree n, urine Phencyclidin e (PCP25) Negati ve Not Available [address], [place], [address], 04/22/2017 10:21:42 04/22/20 17 04/22/2017 drug scree n, urine Ectasy ([id number]) Negati ve Not Available [address] , [place], [address], 04/22/2017 10:21:42 04/22/20 17 04/22/2017 drug scree n, urine Barbituates (XVR070) Negati ve Not Available [address], [place], [address], 04/22/2017 10:21:42 04/22/20 17 04/22/2017 drug scree n, urine Benzodiazepi davin (GYU559) Negati ve Not Available [address], [place], [address], 04/22/2017 10:21:42 04/22/20 17 04/22/2017 drug scree n, urine Methadone (GBF356) Negati ve Not Available [address], [place], [address], 04/22/2017 10:21:42 04/22/20 17 04/22/2017 drug scree n, urine Tricyclic Antidepressa nts ([id number]) Negati ve Not Available [address], [place], [address], 04/22/2017 10:21:42 04/22/20 17 04/22/2017 drug scree n, urine Oxycodone (JKP217) Negati ve Not Available [address], [place], [address], 04/22/2017 10:21:42 04/22/20 17 04/22/2017 drug scree n, urine Internal QC Okay Not Available [facility] [address] , [place], [address], 04/22/2017 10:21:42 07/22/19 18 07/21/2017 surgi elli patho logy study surgical pathology procedure SEE BELOW Depar tment of Patho logy Surgi elli Patho logy Repor t NAME: ASIF CHUNG ND PATH. :ST-1 Copy to: Diagn osis: Speci men desig nated anore ctal fistu la: Focal mucos al ulcer ation with acute infla mmati on and infla med granu latio n tissu e. SOURC E OF SPECI MEN: FISTU LA CLINI ELLI INFOR MATIO N: ANORE CTAL FISTU LA Gross Descr iptio n: Recei abdoulaye in forma lv label ed with the patie nt's name and desig nated fist you are two pink- red tissu e fragm ents (1.3 x 0.7 x 0.3 cm and 1.7 x 1.4 x 0.8 cm), both of which are parti ally surfa ravi by pinki sh white glist ening mucos a. There is no disti nct/p robab le fistu la tract s ident ified . Repre senta tive secti ons to inclu de each tissu e are submi tted in one casse tte. CMJ 07/21 06:00 PM Micro scopi c Descr iptio n: Secti ons show porti ons of tissu e which are parti ally cover ed by benlynda lau squam ous epith elium . There is an area of ulcer ation with assoc iated acute infla mmati on and infla med granu latio n tissu e. The featu res are chela tible with the clini elli impre ssion Ramsey IRIZARRY MD Ami d Out Date: 07/22 09:39 Page 1 of 1 Not Available [facility] [address] [place] [address], [place], [address], 07/22/2017 09:40:18 06/06/19 18 06/06/2017 XR, ankle , 3 or more view Fabio [place] [address] [place] [address] Yosvany christie Name: ADELINA christie : 986 Yosvany christie Devyn ng Provid er: ANUP ORNELAS EXAM DATE: 2017 EXAM: XR RT ANKLE COMPLE TE COMPAR MONIE: 2013 HISTOR Y: Right ankle pain. FINDIN GS: The bones of the right ankle are normal in alignm ent. There is no displa ravi fractu re. There is no degene rative change . There is no joint effusi on. IMPRES YANY: 1. This is a normal radiog raphic examin ation of the right ankle. Interp reted By: Phill sage MD Electr onical ly Signed By: Phill sage MD on 018 12:13 PM [email or web address] [facility] [address] , [place], [address], 06/06/2017 13:12:12 Result Notes None recorded. Problems Name Problem SNOMED Code Status Onset Date Resolution Date Notes Provider Name and Address Organization Details Recorded Time Acute sinusitis 92680893 Active 2015 From Automated Load;Provi pam: Jake Valdez tatus: Active Not Available [facility] 6 04:42:32 Urinary incontine ile 477401759 Active 2015 From Automated Load;Provi pam: Gillian Soliz;Stat us: Active Not Available [facility] 6 04:42:33 Abscess of vulva 86362014 Active 2015 From Automated Load;Provi pam: Arturo Mancini;Shiva tatus: Active Not Available [facility] 6 04:42:33 Nausea 215462386 Active 2015 From Automated Load;Provi pam: Jake Valdez tatus: Active Not Available [facility] 6 04:42:33 Right lower quadrant pain 938892325 Active 2015 From Automated Load;Provi pam: Swathi Valdez;Shiva tatus: Active Not Available [facility] 6 04:42:33 Lack of energy 799862742 Active 2015 From Automated Load;Provi pam: Swathi Valdez;Shiva tatus: Active Not Available [facility] 6 04:42:33 Celiac disease 683930419 Active 2014 From Automated Load;Provi pam: Lexii Palencia;St atus: Active Not Available [facility] 6 04:42:33 Allergic rhinitis 56697302 Active 2015 From Automated Load;Provi pam: MalviniblyCyndee;Sta tus: Active Not Available [facility] 6 04:42:33 Spasm 24375930 Active 2015 From Automated Load;Provi pam: Malvinibly Cyndee;Sta tus: Active Not Available [facility] 6 04:42:33 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 2015 From Automated Load;Provi pam: Swathi Valdez;Shiva tatus: Active Not Available [facility] 6 04:42:33 Disorder of upper respirato ry system 278152175 Active 2015 From Automated Load;Provi pam: Swathi Valdez;Shiva tatus: Active Not Available [facility] 6 04:42:33 Epigastri c pain 08356678 Active 2014 From Automated Load;Provi pam: Swathi Valdez;S tatus: Active Not Available [facility] 6 04:42:33 Migraine with aura 0661513 Active 2014 From Automated Load;Provi pam: Jake Valdez tatus: Active Not Available [facility] 6 04:42:33 Morbid obesity 397854297 Active 2014 From Automated Load;Provi pam: Swathi Valdez;S tatus: Active Not Available [facility] 6 04:42:33 Upper abdominal pain 63661932 Active 2014 From Automated Load;Provi pam: Gillian Soliz;Stat us: Active Not Available [facility] 6 04:42:33 Lower abdominal pain 50643324 Active 2014 From Automated Load;Provi pam: Gillian Soliz;Stat us: Active Not Available [facility] 6 04:42:34 Diarrhea 48713405 Active 2014 From Automated Load;Provi pam: Lexii Palencia;St atus: Active Not Available [facility] 6 04:42:34 Kidney stone 98479379 Active 2015 From Automated Load;Provi pam: Monnig, Cm;St atus: Active Not Available [facility] 6 04:42:34 Backache 496079688 Active 2015 From Automated Load;Provi pam: Monnig, Cm;St atus: Active Not Available [facility] 6 04:42:34 Neuropath y 129200130 Active 2015 From Automated Load;Provi pam: Gillian Soliz;Stat us: Active Not Available [facility] 6 04:42:34 Low back pain 036625060 Active 2014 From Automated Load;Provi pam: Swathi Valdez;S tatus: Active Not Available [facility] 6 04:42:34 Refractor y migraine 163913398 Active 2014 From Automated Load;Provi pam: Swathi Valdez;S tatus: Active Not Available [facility] 6 04:42:34 Obesity 408066982 Active 2014 From Automated Load;Provi pam: Swathi Valdez;S tatus: Active Not Available [facility] 6 04:42:34 Cough 91962783 Active 2015 From Automated Load;Provi pam: Rakel Oseguera;Statu s: Active Not Available [facility] 7 06:23:13 Tracheobr onchitis 11517250 Active 2015 From Automated Load;Provi pam: Gillian Soliz;Stat us: Active Not Available [facility] 7 07:46:22 Panic disorder with agoraphob ia 82119624 Active 2015 From Automated Load;Provi pam: Swathi Valdez;Shiva tatus: Active Not Available [facility] 7 07:47:[address] Concept Active 2015 From Automated Load;Provi pam: Swathi Valdez;Shiva tatus: Active Not Available [facility] 7 07:47:28 Pharyngit is 690719086 Active 2015 From Automated Load;Provi pam: Rakel Oseguera;Statu s: Active Not Available [facility] 08:20:20 Problem Notes Documentation Provider Name and Address Organization Details Recorded Time General Surgeon Consult Note : [facility] [address] [facility] [address]LWMQREI, JESSICA (id #[id number], : 1985) [facility] GENERAL SURGERY [address] [facility] [address] [place] [address] Date: 08/06/2017RE: Brandon Chungrabia, : 1985, PT ID #[id number] Valdez PA-C, I would like to thank you for referring Brandon Beatty to our practice for consultation and evaluation. I have enclosed a copy of the office evaluation for your records. Sincerely, Electronically Signed by: LEXII PEREIRA [facility] Reason/Date Initial follow up after an anal mucosal advancement flap for a fistula .. 08/06/2017 - 09:30AM - GENERAL SURGERY SB History of Present Illness Ms. Beatty is a 32-year-old female with a past medical history of morbid obesity with a BMI of 41, asthma, easy bruising, anemia, questionable celiac disease, , cholecystectomy, tubal ligation previously seen with two-year history of a knot to her right perineum which will intermittently increase in size and become painful worse with sitting. Previous incision and drainage with cheeselike output. Since that time she's had intermittent flareups of pain with brown creamy drainage at least once a month that is malodorous. Previously painful this past Friday although improved and currently 3 out of 10 pain. Improved with walking. Worse with sitting. No history of the same prior. No history of MRSA. Previous history of hematochezia as well as GI complaints with colonoscopy in 2013 with questionable celiac disease. No personal or family history of Crohn's disease. status post . Exam under anesthesia.2. Seton placement3. Right anterolateral transsphincteric [id number]. status post . Exam under anesthesia. 2. Anal mucosal advancement flap. she comes in for follow-up. she is doing well. Her pain is improving. Minimal drainage from the external os. She is using fiber. No fever. she is pleased with her surgery.Review of SystemsROS as noted in the HPIPhysical ExamPatient is a 32-year-old female. external os very shallow with no evidence of infection, no evidence of abscessProcedure DocumentationNone recordedAssessment/Plan1. Anorectal fistula-Ms. Beatty is a 32-year-old female with a past medical history of morbid obesity with a BMI of 41, asthma, easy bruising, anemia, questionable celiac disease, , cholecystectomy, tubal ligation external os near the right posterior fourchette With palpable cord towards the anus concerning for transsphincteric fistula status post . Exam under anesthesia.2. Seton placement/3. Right anterolateral transsphincteric rvlolqv-[id number]. status post . Exam under anesthesia. 2. Anal mucosal advancement flap. after verbal consent, I applied silver nitrate to help the area to close. I encouraged her to contact me if she has concern for recurrence as she may develop an abscess to the area. Follow-up with me as needed. No sex for 6 weeks from the time of surgery. Continue fiber. All questions answered. She agrees with the plan. she is aware I'm leaving the clinic. I gave her recommendations for colorectal surgeons to follow up with if she has recurrence or she is welcome to come see me at my new location. Thank you for allowing me to take part in this patient's care.K60.5: Anorectal fistula Return to Office None recorded Janell Stovall [facility] 08/06/2017 11:57:30 Procedures Surgical History Date Name Laterality Status Provider Name and Address Organization Details Recorded Time 017 Tympanogram completed DEEPIKA MONAHAN, AUD [address] [place], [address], [facility] 06/19/2016 16:36:46 017 Audiogram completed DEEPIKA MONAHAN, AUD [address] [place] [place], [address], [facility] 06/19/2016 16:36:44 017 Nasopharyngoscopy completed PATRICE EDWARDS MD [address] [place], [address], [facility] 05/31/2016 13:47:21 016 Tubal Ligation completed [facility] 08/14/2016 14:21:17 013 Other completed [facility] 08/14/2016 14:22:02 013 Cholecystectomy completed [facility] 08/14/2016 14:20:45 delivery completed [facility] 08/14/2016 14:20:27 Removal of tonsils completed [facility] 08/14/2016 14:21:31 EXAM UNDER ANESTHESIA (SURG) completed [facility] 05/18/2017 17:10:02 Imaging Results None recorded. Procedure Notes None recorded. Medical Equipment None Reported. Allergies Allergen ID Allergen Name Allergen Category Reaction Reaction Severity Criticality Documentation Date Start Date Code Code System Note Provider Name and Address Organization Details Recorded Time 703993 Keflex medicatio n Not available Not available Not available 04/12/2016201216 7 RxNorm Comme nt: rash; updat ed [address] [facility] 8 10:07:41 710091 acetamino phen / oxycodone medicatio n Not available Not available Not available 07/22/20172017 22920 3 RxNorm ... JItte ry/ Heart racin g ./ Insom yashira INTOL ERANT OF SIDE EFFEC TS Anuradha [facility] 8 10:07:59 Medications Name Sig Start Date Stop Date Status Note LastModified by Organization Details LastModified Time Miralax 17 gram oral powder packet Take 1 packet every day by oral route for 7 days. 2017 active Not Available Not Available Not Avai lable cyclobenz aprine 10 mg tablet Two to three times a day 2015 active Duration : 30 days;John quency: bid-tid; Medicati on Descript ion: cycloben zaprine; Dosage:1 ; Route:or al; refills: 1; Quantity :90 tablet Not Available Not Available Not Available Augmentin 875 mg-125 mg tablet Take 1 tablet every 12 hours by oral route. 05/31 completed Not Available Not Available Not Available prednison e 10 mg tablet take 6 tabs po on day 1, 5 on day 2, 4 on day 3, 3 on day 4, 2 on day 5, and 1 on day 6 06/27 completed Not Available Not Available Not Available doxycycli ne hyclate 100 mg capsule Take 1 capsule twice a day by oral route for 10 days. 2017 active Not Available Not Available Not Avai lable sumatript an 100 mg tablet TAKE 1/2 TO 1 TABLET BY MOUTH NEEDED FOR MIGRAINE . MAY REPEAT DOSE X1. MAX 2 PER 24 HOURS. 04/02 completed Not Available Not Available Not Available Celestone Soluspan 6 mg/mL suspensio n for injection IM 9MG/ML LEFT DORSOGLU TEAL 06/27 completed [id number] 01 Not Available Not Available Not Available Medrol (Raheel) 4 mg tablets in a dose pack Take 1 package by oral route. 08/14 completed Not Available Not Available Not Available Prilosec 40 mg capsule,d elayed release Daily 2013 active Duration : 30 days;John quency: daily;Me dication Descript ion: omeprazo le; Dosage:1 ; Route:or al; refills: 3; Quantity :90 delayed release capsule Not Available Not Available Not Available Diflucan 150 mg tablet Take 1 tablet by oral route. 06/27 completed Not Available Not Available Not Available Biaxin 500 mg tablet Take 1 tablet every 12 hours by oral route. 05/31 completed Not Available Not Available Not Available tramadol 50 mg tablet Take 1 tablet every 6 hours by oral route as directed for 3 days. 2017 active Not Available Not Available Not Avai lable lidocaine -prilocai ne 2.5 %-2.5 % topical cream Apply 1 g twice a day by topical route. 2017 active Not Available Not Available Not Avai lable Depo-Medr ol 80 mg/mL suspensio n for injection Take 1 mg by injectio n route. 08/14 completed [facility] 0009-030 6-02 Not Available Not Available Not Available Kenalog 40 mg/mL suspensio n for injection Take 40 mg by injectio n route. 06/27 completed 0003-029 3-20 Not Available Not Available Not Available prednison e 10 mg tablets in a dose pack Take 1 dose pk by oral route. 05/14 completed Not Available Not Available Not Available Zofran 8 mg tablet Take 1 tablet 3 times a day by oral route for 2 days. 2016 active Not Available Not Available Not Avai lable gabapenti n 300 mg capsule Take 1 capsule twice a day by oral route in the evening. 2016 active swathi harper for herniate d disk Not Available Not Available Not Available buspirone 7.5 mg tablet Take 1 tablet every day by oral route. 2016 active Not Available Not Available Not Avai lable ketorolac 60 mg/2 mL intramusc ular solution Inject 1 mL every 6 hours by intramus cular route. 04/02 completed [facility] 42886-13 1-02 Not Available Not Available Not Available Percocet 5 mg-325 mg tablet Take 1 tablet every 6 hours by oral route as needed for 3 days. 07/22 completed Not Available Not Available Not Available Bactrim DS 800 mg-160 mg tablet Take 1 tablet every 12 hours by oral route for 10 days. 10/15 completed Not Available Not Available Not Available 16.2 mg-0.1037 mg-0.0194 mg tablet Every eight hours as needed 2016 active Not Available Not Available Not Avai lable Lexapro 10 mg tablet Take 1 tablet every day by oral route. 10/15 completed Not Available Not Available Not Available Tylenol Extra Strength 500 mg/15 mL oral liquid 05/21 completed Medicati on Descript ion: acetamin ophen; Route:or al; refills: 0; Quantity :6 liquid Not Available Not Available Not Available clarithro mycin 08/14 completed Not Available Not Available Not Available Xanax 1/2 to 1 tablet prm active Not Available Not Available No t Available ProAir HFA 90 mcg/actua tion aerosol inhaler 2 puffs as needed 2017 active Not Available Not Available Not Avai lable Jeanine 30 mg/5 mL oral suspensio n Daily 07/30 completed [facility] y: daily;Me dication Descript ion: fexofena dine; Dosage:1 ; Route:or al; refills: 0 Not Available Not Available Not Available Xifaxan 550 mg tablet Three times a day 05/21 completed Duration : 14 days;John quency: tid;Medi cation Descript ion: rifaximi n; Dosage:1 ; Route:or al; refills: 2; Quantity :42 tablet Not Available Not Available Not Available Probiotic active Not Available Not Olena ilable Not Available Jeanine Allergy active OTC PRN Not Available Not Available Not Available Stahist AD 25 mg-60 mg tablet Two times a day 2016 active Not Available Not Available Not Avai lable Flonase Allergy Relief 50 mcg/actua tion nasal spray,alice pension As Directed 04/02 completed Duration : 90 days;Ins truction s: SPRAY 1 TO 2 SPRAYS INTO NOSTRIL( S) ONCE A DAY AT BEDTIME; Frequenc y: as direct.; Medicati on Descript ion: fluticas one nasal; Dosage:a s directed ; Route:na hood; refills: 1; Quantity :3 spray Not Available Not Available Not Available Vitals Date Recorded Body height Body mass index (BMI) Body weight Heart rate Body temperature Systolic blood pressure Diastolic blood pressure Provider Name and Address Organization Details Last Updated DateTime 8 157.48 cm 41.3 kg/m2 070798. 88 g 52 /min 98.2 [degF] 112 mm[Hg] 82 mm[Hg] Renetta Denis [facility] 8 10:01:23 Date Recorded Body height Body mass index (BMI) Body weight Heart rate Oxygen saturation Oxygen saturation in Arterial blood by Pulse oximetry Body temperature Systolic blood pressure Diastolic blood pressure Provider Name and Address Organization Details Last Updated DateTime 8 157.48 cm 41.9 kg/m2 856137. 65 g 95 /min 99 % 99 % 99 [degF] 120 mm[Hg] 82 mm[Hg] Jose L Gutierres [facility] 8 14:13:59 Date Recorded Body height Heart rate Body mass index (BMI) Body weight Systolic blood pressure Diastolic blood pressure Provider Name and Address Organization Details Last Updated DateTime 8 157.48 cm 76 /min 41.9 kg/m2 154032. 65 g 102 mm[Hg] 60 mm[Hg] Anuradha Karis cyndie [facility] 8 10:07:31 Social History Question Answer Notes LastModified by HTP Details LastModified Time Tobacco Smoking Status Never Smoker Amanda barnes, [facility] 05/21/2016 10:15:23 What Is Your Level Of Caffeine Consumption? Moderate Information not available 08/14/2016 Marital Status [email or web address] Informatio n not available 08/14/2016 What Was The Date Of Your Most Recent Tobacco Screening? 06/27/2017 Information n ot available 07/06/2019 Sex: Unknown Functional Status Question Answer Note LastModified by HTP Details LastModified Time What is your level of alcohol consumption? Occasional [email or web address] Information not available 08/14/2016 Mental Status None recorded. Family History Relationship Description Onset Age of this Age Resolved Age Notes LastModified by Organization Details LastModified Time Maternal Grandmother Heart disease [email or web address] Not available 08/14 14:19:10 Maternal Grandmother Hypertensive disorder [email or web address] Not available 08/14 14:19:26 Maternal Grandmother Depressive disorder [email or web address] Not available 2016 14:18:01 Maternal Grandfather Disorder of thyroid gland [email or web address] Not available 08/14 14:19:41 Maternal Grandfather Carcinoma of thyroid [email or web address] Not available 2016 14:17:21 Maternal Grandfather Depressive disorder [email or web address] Not available 2016 14:18:01 Mother Anemia [email or web address] Not available 14:16:53 Sister Depressive disorder [email or web address] Not available 2016 14:18:01 Medical History Condition Response Coronary Artery Disease N Other N Gout N Atrial Fibrillation N Kidney Stones Y Hyperthyroidism N Blood Transfusion N COPD N Depression N Anxiety Disorder N Muscle, Joint, or Bone Problems N Vision or Eye Problems N Arthritis N Infertility N Polyps N Blood Clot N Acid Reflux (GERD) Y Cancer N Stroke N Varicosities N Fibromyalgia N Headaches N Kidney Disease N Heart Problems N Ear or Hearing Problems N Hospitalizations N Skin Problems N Eating Disorder N Constipation N Bleeding Disorder Tuberculosis N Asthma Y GERD/Reflux Y Hepatitis N Pulmonary Embolism N Chronic Ear Infections N Chicken Pox N Thrombophilias N Hypothyroidism N Lung Disease N Breast Problem N Difficulty Swallowing N Meniere's disease N Endometriosis N Bladder or Kidney Problems N High Cholesterol N Liver Disease N Allergies/Hayfever N Parkinson's Disease N Alzheimer's N Thyroid Problems N GI Problems N Anemia N Mental Illness N Ovarian Cancer N Diabetes N Seizures/Epilepsy N Eczema N Diverticulitis N Reflux/GERD Y Sleep Apnea N Heart Disease N Pre-Eclampsia N Hypertension N Osteoporosis N Gynecological History Statement/Question Response Menses Monthly Y Abnormal Pap N Age at Menarche 14 Current Control Method Tubal Ligat ion Date of LMP 06/11/2017 Sexually Active? Y Obstetrics History GPAL:G 4 P 2 0 2 0 Type Value Full Term 2 Spontaneous 2 Total 4 Immunizations Vaccine Type Date Status Note Provider Nam e and Address Organization Details Recorded Time Influenza, split virus, quadrivalent, preservative 7 completed Not Available [facility] 06/19/2019 02:19:04 Influenza, split virus, quadrivalent, preservative 6 completed Abimael Dela Cruz [facility] 05/27/2016 11:49:19 Hep B, adult 6 [facility] 05/27/2016 11:49:44 Tdap 6 completed Abimael Dela Cruz [facility] 05/27/2016 11:50:01 Past Encounters Encounter ID Performer Location Encounter Start Date Encounter Closed Date Diagnosis/Indication Diagnosis SNOMED-CT Code Diagnosis ICD10 Code Diagnosis Note [id number] MATHEUS SAMANIEGO MD SAME DAY [facility] [address] [place] [address] 05/21/2016 08:28:50 05/22/2016 09:48:13 Closed fracture of nasal bones 82142609 S02.2XXA [id number] SWATHI VALDEZ PA-C FAMILY [address] [place] [address] 05/27/2016 11:36:52 05/27/2016 16:25:15 Acute otitis media 9420826 H66.91 ENT referral if no improvemen t. Acute sinusitis 16695269 J01.90 as above. [id number] PATRICE EDWARDS MD ENT [facility] [address] [place] [address] 05/31/2016 13:07:00 05/31/2016 14:28:31 Acute non-suppurative serous otitis media 553720345 H65.02 due to recent aom. Infection resolved. Fluid should resolve with time. Observe. F/U in 1 month. No pathology seen in the nasopharyn x on endoscopy. Left condu ctive hearing loss [id number] 107 H90.12 by tuning fork exam. She doesn't have time to wait for an audiogram today. Deviated nasal septum 12 9555476 J34.2 [id number] DEEPIKANICOLAS DAVIES ENT [facility] [address] [place] [address] 05/31/2016 14:02:49 05/31/2016 16:53:43 [id number] NICOLAS ORTIZ ENT [facility] [address] [place] [address] 06/19/2016 14:34:17 06/19/2016 16:38:42 Hearing examination 284832054 Z01.10 [id number] SWATHI VALDEZ PA-C [address] [place] [address] 07/01/2016 09:43:37 07/01/2016 11:52:42 Mixed anxiety and depressive disorder 871626588 F41.8 [id number] SWATHI VALDEZ PA-C [address] [place] [address] 07/30/2016 15:04:56 07/31/2016 14:12:59 Low back pain 000201185 M54.5 PT if no improvemen t after 1 week. [id number] TERRY THOMAS PA-C [employer] [facility] CLOSED [address] [place] [id number] 08/14/2016 14:10:00 08/14/2016 14:50:58 Abscess of vulva 10565580 N76.4 [id number] SWATHI VALDEZ PA-C [address] [place] [address] 10/15/2016 12:43:13 10/17/2016 09:06:51 Adult health examination 531595494 Z00.00 utd with immunizati ons and screenings . Migraine with aura 58336 06 G43.109 push fluids, rest and recheck with appt with neurology if no improvemen t Backache 743108908 M54.9 stable Lack of energy 016429046 R53.83 stable Panic diso rder with agoraphobia 15265476 F40.01 stable Neuropathy 336489058 G62 .9 stable [id number] ARTURO MANCINI MD [employer] [facility] [address] [place] [id number] 12/05/2016 11:06:58 12/05/2016 12:16:27 Perineal fistula 067477351 N36.0 is some type of fistula tract. refer to colorectal surgery [id number] LEXII PEREIRA MD GENERAL SURGERY [address] [place] [address] 04/02/2017 13:44:45 04/02/2017 17:30:18 Anorectal fistula 62111884 K60.5 Ms. Beatty is a 31-year-ol d female with a past medical history of morbid obesity with a BMI of 41, asthma, easy bruising, anemia, questionab le celiac disease, , cholecyste ctomy, tubal ligation external os near the right posterior fourchette With palpable cord towards the anus concerning for transsphin cteric fistulaInc reased surgical risks due to nature of possible fistula as well as morbid obesity I had a long discussion with the patient. I explained her I believe she has a possible fistula. I explained what that was. I recommende d exam under anesthesia with possible seton placement, possible fistulotom y. I explained the procedure recovery. Risk of the procedure including but not limited to risk of anesthesia , bleeding, infection, need for more surgery, change in her continence were discussed. She wishes to proceed. She will receive an enema on the day of surgery. All questions answered. She agrees with the plan. Thank you for allowing me to take part in this patient's care. [id number] SWATHI VALDEZ PA-C [address] [place] [address] 04/22/2017 09:42:24 04/22/2017 13:35:40 Sciatica 31223350 M54.32 worsened of late, if no improvemen t, PT and/or MRI Chronic back pain 209826 002 M54.9 as above Low back pain 299350608 M54.5 avinash and suha jaime. rx refill today Allergic rhinitis 473753 04 J30.9 [id number] LEXII PEREIRA MD SURGERY SCHEDULE [address] [place] [address] 05/05/2017 12:11:35 05/05/2017 12:13:40 Anorectal fistula 78541252 K60.5 [id number] LEXII PEREIRA MD GENERAL SURGERY [address] [place] [address] 05/14/2017 14:58:18 05/14/2017 16:04:51 Anorectal fistula 13665573 K60.5 Ms. Beatty is a 31-year-ol d female with a past medical history of morbid obesity with a BMI of 41, asthma, easy bruising, anemia, questionab le celiac disease, , cholecyste ctomy, tubal ligation external os near the right posterior fourchette With palpable cord towards the anus concerning for transsphin cteric fistula status post 05/05/2017 1. Exam under anesthesia . 2. Seton placement/ 3. 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 I recommende d to her that we proceed with surgery in [facility] 6 weeks to help make her fistula go away. I explained exam under anesthesia with possible ligation of intersphin cteric fistula tract versus anal mucocutane ous advancemen t flap. I explained both procedures and the recovery. Risk of the procedure including but not limited to risk of anesthesia , , bleeding, infection, pain, incontinen ce, change in her continence , need for more surgery, recurrence of the fistula were discussed. She will receive an enema on the day of surgery. All questions answered. She agrees with the plan. Thank you for allowing me to take part in this patient's care. [id number] GILLIAN SOLIZ PA-C FAMILY [facility] [address] [place] [address] 05/23/2017 09:55:48 05/23/2017 14:02:56 Acute dermatitis 50943985 L30.9 start 6 day prednisone taper as directed. kenalog IM given in office. Stahist daily continue to use benadryl at hs. mild unscented soap/deter gent. If not improving over the next several days, rtc. consider dermatolog y referral if not improving. [id number] SHEA NUÑEZ PA-C [facility] [address] [place] [address] 05/23/2017 12:03:32 05/26/2017 08:15:41 Pityriasis rosea 79988884 L42 Early NC vs other viral exanthemSi gnificant itchingIM celestone given -- SE/R/B reviewedBe nadryl 25 mg 1-2 po qhs [id number] WILLIAM CRUMP APRN [facility] [place] [facility] [address] [place] [address] 06/27/2017 13:37:06 06/27/2017 14:48:28 Fever 424773874 R50.9 Acute bronchitis 1117557 2 J20.9 advised mucinex once or twice daily 600mg ER; increase fluids, rest off work today and tomorrow return if not improving in next few days, sooner if worsening; [id number] LEXII PEREIRA MD SURGERY SCHEDULE [address] [place] [address] 07/21/2017 11:13:39 07/21/2017 11:19:42 Anorectal fistula 10970450 K60.5 [id number] LEXII PEREIRA MD GENERAL SURGERY [address] [place] [address] 08/06/2017 09:51:35 08/11/2017 08:55:25 Anorectal fistula 43724606 K60.5 Ms. Beatty is a 32-year-ol d female with a past medical history of morbid obesity with a BMI of 41, asthma, easy bruising, anemia, questionab le celiac disease, , cholecyste ctomy, tubal ligation external os near the right posterior fourchette With palpable cord towards the anus concerning for transsphin cteric fistula status post 05/05/2017 1. Exam under anesthesia .2. Seton placement/ 3. 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 status post 07/21/20171. Exam under anesthesia . 2. Anal mucosal advancemen t flap. after verbal consent, I applied silver nitrate to help the area to close. I encouraged her to contact me if she has concern for recurrence as she may develop an abscess to the area. Follow-up with me as needed. No sex for 6 weeks from the time of surgery. Continue fiber. All questions answered. She agrees with the plan. she is aware I'm leaving the clinic. I gave her recommenda tions for colorectal surgeons to follow up with if she has recurrence or she is welcome to come see me at my new location. Thank you for allowing me to take part in this patient's care. Health Concerns Section Related Observation LastModified by Organization Detai ls LastModified Time None Recorded Concern Status LastModified by Organization Details LastModified Time None Recorded Advance Directives Directive None Recorded Payers Insurance Date Sequence Insurance Name Policy Number Policy Farah Covered Member ID Farah Member ID Guarantor Name 06/26/2018 1 [id number] Rosales Velasquez [id number] Brandon Downeybelkis 03/25/2018 PAYMENT PLAN Brandon Chungrabia 01/08/2024 1 [facility] [id number] Brandon Beatty [id number] Brandon Downeybelkis 01/08/2024 1 [facility] [id number] Brandon Beatty [id number] Brandon Beatty Notes Date Note Type Note Provider Name and Address Organization Details Recorded Time 05/23/2017 text/html patient presents with onset of rash midmorning yesterday that she believes started after her used a new fabric softener. She states that blotches started on her neck and upper chest and gradually spread downward to her legs. She also ate Luxembourgish food at lunch yesterday which had chestnuts in it, and though she is not sure if she is allergic to these, she has never had them before. The rash seemed to acutely worsen after lunch. The rash is pruritic but does not crust or drain. She has no fever/chills, body aches, headaches, nausea/vomiting/diarr hea, chest pain, shortness of air, or wheezing. She continues to take Stahist during the day and has been taking Benadryl at night. She also has been using calamine lotion on the spots. 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 LOCATION: neck, trunk, proximal lower extremities DURATION: days SYMPTOMS: red, itching TREATMENT: K40 inj Recovering from recent URI SHEA NUÑEZ PA-C [address] [place], [address], [facility] 05/23/2017 13:43:13 06/27/2017 text/html Pt is here repor ts past 2 days having cough, chest congestion, had feve rot 102.9 late on Friday Evening (2 days ago) with chills, has felt congested/tight in chest past 24 hrs, no significant cough; now reports it hurts to breathe left side anteriorly and posteriorly with inspiration/expiratio n; has had wheezing, use of Proair does improve her dyspnea and wheezing; no further temp since 2 nights ago; WILLIAM CRUMP, [employer] [address] [place], [address], [facility] 06/27/2017 14:57:27 08/06/2017 text/html Ms. Beatty is a 32-year-old female with a past medical history of morbid obesity with a BMI of 41, asthma, easy bruising, anemia, questionable celiac disease, , cholecystectomy, tubal ligation previously seen with two-year history of a knot to her right perineum which will intermittently increase in size and become painful worse with sitting. Previous incision and drainage with cheeselike output. Since that time she's had intermittent flareups of pain with brown creamy drainage at least once a month that is malodorous. Previously painful this past Friday although improved and currently 3 out of 10 pain. Improved with walking. Worse with sitting. No history of the same prior. No history of MRSA. Previous history of hematochezia as well as GI complaints with colonoscopy in 2013 with questionable celiac disease. No personal or family history of Crohn's disease. status post . Exam under anesthesia.2. Seton placement3. Right anterolateral transsphincteric [id number]. status post . Exam under anesthesia. 2. Anal mucosal advancement flap. she comes in for follow-up. she is doing well. Her pain is improving. Minimal drainage from the external os. She is using fiber. No fever. she is pleased with her surgery. LEXII PEREIRA MD [facility] [place], [address], [place] [facility] 08/06/2017 10:32:20 OBGyn Episode No OBEpisode recorded.
--- NOTE | 2024-10-16 08:53 | PC.NURSE ---
pt is soaking right foot in hibiclens at this time
--- NOTE | 2024-10-16 08:56 | XR_ITS ---
PROCEDURE INFORMATION: Exam: XR Right Foot Exam date and time: 10/16/2024 9:05 AM Age: 39 years old Clinical indication: Injury or trauma; Other: Object dropped on 2nd toe; Blunt trauma and laceration; Toes; Right lesser toe(s); Right first toe; Foreign body involvement not specified; Injury details: Toenail bloodied; Additional info: Weight vs 2nd toe TECHNIQUE: Imaging protocol: Radiologic exam of the right foot. Views: 3 or more views. COMPARISON: No relevant prior studies available. FINDINGS: Bones/joints: Small plantar calcaneal enthesopathy is noted. There is no evidence for acute fracture or dislocation. Overall bony mineralization is within normal limits. Joint spaces are preserved. Soft tissues: There is mild soft tissue swelling. IMPRESSION: No evidence acute fracture of the right foot. Calcaneal enthesopathy. Soft tissue swelling.
--- NOTE | 2024-10-16 08:58 | ED_ITS ---
Discharge Plan Disposition Patient Disposition: Home, Self-Care Prescriptions Prescriptions: New sulfamethoxazole-trimethoprim [Bactrim DS] 800-160 mg tablet 1 tab PO BID 5 Days Qty: 10 0RF No Action Qulipta 60 mg tablet 60 mg PO DAILY Qty: 90 3RF lisinopril-hydrochlorothiazide 10-12.5 mg tablet 1 tab PO DAILY Qty: 90 2RF albuterol sulfate 90 mcg/actuation HFA aerosol inhaler 2 inh inhalation Q6HP PRN (Reason: Shortness Of Breath Or Wheezing) Qty: 8.5 4RF pregabalin [Lyrica] 150 mg capsule 150 mg PO BID Qty: 60 3RF ondansetron 4 mg tablet,disintegrating 4 mg PO TID PRN (Reason: nausea and vomiting) 4 Days Qty: 30 0RF tizanidine [Zanaflex] 4 mg tablet 4 mg PO HS Qty: 30 5RF Referrals Follow up/Referrals: Nikkie Perez APRN [Primary Care Provider, Family Practice] - See instructions Activity Restrictions/Add. Instructions Additional Instructions/Restrictions: At this time it was felt you are safe to be discharged home. If new or worsening symptoms please do not hesitate to return the emergency department. The numbness in your foot before we injected with lidocaine is likely neuropraxia (transient sensation loss) I am hopeful it will return. The vasospasm from the epinephrine we used should subside within 8 to 10 hours however if your toe begins to turn purple or black for a prolonged amount of time please not hesitate to return for continued evaluation. Clinical Impressions Clinical Impression: Nailbed laceration, toe, Crush injury of toe Print Language Print Language: Amharic Discharge ED Provider: Taz Garza General Adult HPI General Chief complaint: Extremity Injury, Lower Stated complaint: Right foot, 2nd toe nailbed injury Time Seen by Provider: 10/16/24 08:52 History of Present Illness HPI narrative: Patient is a 39-year-old female no pertinent past medical history presents emergency department for evaluation of trauma to her right second toe. Patient inadvertently dropped an object on her second toe causing an injury with partial nail avulsion. Last Tdap greater than 5 years ago. She has partial sensory changes on the dorsal aspect of the affected toe. No other acute complaints at this time. Please note that above description of symptoms, in this electronic medical record under categorization of recalled from ER triage doctor by RN are ref lective of an initial nursing assessment, however, is not reflective of my full history and physical exam that was personally taken and clarified. Consequentially, this preceding description of symptoms, which may include the patient's categorized chief complaint in the EMR, do not reflect my personal clinical impression, and the ultimate description of history of present illness and patient stated complaints should be deferred to this section of the note. Unless stated otherwise or congruent with this section of the note, additional signs, symptoms, or incongruence should be interpreted as inaccurate with my clinical impression. Related Data Previous Rx's ?Medication ?Instructions ?Recorded lisinopril 10 1 tab PO DAILY High Blood Pr essure 10/22/23 mg-hydrochlorothiazide 12.5 mg #90 tabs tablet atogepant 60 mg tablet (Qulipta) 60 mg PO DAILY #90 ta bs 12/01/23 albuterol sulfate 90 mcg/actuation 2 inh inhalation Q6 HP PRN 07/28/24 aerosol inhaler Shortness Of Breath Or Wheez ing #8.5 grams pregabalin 150 mg capsule (Lyrica) 150 mg PO BID Pain #60 caps 07/28/24 ondansetron 4 mg disintegrating 4 mg PO TID PRN nausea and 08/18/24 tablet vomiting 4 days #30 tabs tizanidine 4 mg tablet (Zanaflex) 4 mg PO HS Muscle Sp asm #30 tabs 09/08/24 sulfamethoxazole 800 1 tab PO BID Infection proph ylaxis 10/16/24 mg-trimethoprim 160 mg tablet 5 days #10 tabs (Bactrim DS) Allergies Allergy/AdvReac Type Severity Reaction Status Date / Time amitriptyline Allergy Intermediate Anaphylaxis Verified 08/24/24 10:53 cephalexin (From Keflex) Allergy Intermediate Unknown Verified 08/24/24 10:53 allergy reaction cinnamon Allergy Unknown Verified 08/24/24 10:53 allergy reaction PFSH PFSH Disclaimer: The information contained in this section may have been updated after the patient was seen, as this information can be updated by other users. Medical History Renal calculus, right Ureterolithiasis Urinary tract infection Hematuria Right nephrolithiasis UTI (urinary tract infection) Cervical cancer Head trauma Fall Lumbar disc disease with radiculopathy Abdominal pain Renal mass Vomiting Urinary frequency Recurrent UTI Diabetes Abdominal tenderness, LLQ (left lower quadrant) Thrombophlebitis of vein of pelvis Abdominal tenderness, RLQ (right lower quadrant) Urinary urgency Abnormal uterine bleeding Sinusitis Adenocarcinoma in situ of endocervix Perianal fissure PCOS (polycystic ovarian syndrome) Dyspareunia Endometriosis Chronic pelvic pain in female Morbid obesity with BMI of 40.0-44.9, adult Shingles Anxiety Shingles (herpes zoster) polyneuropathy Surgical History S/P laparoscopic hysterectomy with bilateral salpingectomy 05/15/23 History of colonoscopy S/P cone biopsy of cervix History of cholecystectomy History of delivery History of tonsillectomy H/O tubal ligation Family History Other Anemia Asthma Atrial fibrillation Cancer Diabetes Heart disease Hyperlipidemia Hypertension No significant family history Thyroid disorder Social History Smoking Status: Never smoker alcohol intake: current alcohol intake frequency: other substance use type: denies use current occupational status: employed Travel in the last 8 weeks?: None household members: other housing: house marital status: number of children: 2 education level: college current occupational exposures/hazards: Yes caffeine: Yes Have you lived/traveled outside [place] in past 30 days?: No Contact w/someone who lives/traveled outside [place] past 30 days?: No Exposure to someone with infectious disease in past 14 days?: No Do you have a fever (greater than 100.4 F or 38 C)?: No Have you tested positive for COVID-19?: No Exposed to someone with COVID-19 in past 14 days?: No Do you have a sore throat?: No Do you have a cough?: No Do you have any weakness?: No Do you have any diarrhea?: No Are you experiencing any unusual bleeding?: No Do you have any muscle aches/pain?: No Do you have any abdominal pain?: No Are you experiencing loss of taste or smell?: No Other Medical History Have you received the Flu Vaccine for this season: Yes Have you received the Pneumonia Vaccine: No ROS Obtained: Yes Systems reviewed as appropriate & no additional complaints except as documented Physical Exam General General appearance: alert and in no apparent distress Head Head exam: atraumatic and normocephalic Eye Eye exam: Present PERRL ENT ENT exam: Present mucous membranes moist Neck Neck exam: Present normal inspection Chest Chest inspection: Present normal inspection and symmetric chest wall rise Respiratory Respiratory exam: Absent respiratory distress Cardiovascular Cardiovascular exam: Present regular rate Extremities Exam Extremities exam: Present other (Right second toe has partial nail avulsion with maceration, capillary refill preserved less than 2 seconds second toe, no tenderness over the remainder of the toes. Decreased sensation on the dorsal aspect of the second toe.); Absent normal inspection Neurological Exam Neurological exam: Present alert Psychiatric Psychiatric exam: Present normal affect Skin Skin exam: Present warm and dry Medical Decision Making Medical Records Screening: Per USPSTF and CDC recommendations, given the prevalence of disease in our region, it is our hospital?s policy to screen for HIV and viral Hepatitis for all patients aged 18 and over and those with ongoing risk factors. Joe Inquiry Pt receiving controlled substance: No Vital Signs: 10/16/24 09:05 10/16/24 10:10 Temperature 98.4 F 98.4 F Temperature Source Oral Pulse Rate 85 Pulse Rate [Right Radial] 109 H Respiratory Rate 16 16 Blood Pressure 105/75 L Blood Pressure [Right Arm] 141/83 H Blood Pressure Mean [Right Arm] 102 02 Sat by Pulse Oximetry 97 Oxygen Delivery Method Room Air Room Air Orders (Tests/Meds): ED MEDICATIONS Discontinued Medications Generic Name Dose Route Start Last Admin Trade Name Freq PRN Reason Stop Dose Admin Lidocaine/Epinephrine 5 ml 10/16/24 08:56 10/16/24 09:16 Lidocaine 1% W/Epi 1:100,000 20ml Vial IM 10/16/24 08:57 5 ml ONCE ONE Administration Tetanus/Reduced Diphtheria/Acell Pertussis 0.5 ml 10/16/24 08:56 10/16/24 09:23 Tet/Diphth/Pert-Adult 0.5ml Syringe IM 10/16/24 08:57 0.5 ml .ONCE ONE Administration ORDERS Category Date Time Status Foot XR right minimum 3 views [XR foot RT min 3V] Stat Exams 10/16/24 08:56 Completed Medical Decision Narrative: In summary patient is a 39-year-old female with past medical history described above who presents emergency department for evaluation of toe injury. Patient is hemodynamically stable upon arrival. Based on history and physical exam differential includes nail avulsion, fracture, among others. Workup will be conducted with plain film of the affected foot. Tdap will be updated. Hematologic labs were considered but are not likely to reveal anything pertinent to this condition will be deferred. X-ray informally visualized by me, no acute displaced fracture of the second toe. Formal read shows no acute fracture of the right foot. Patient underwent examination of the toe after digital block was performed. She did have anesthesia achieved with digital block however had a robust response to the lidocaine with epinephrine, although there is theoretical risk of necrosis it is not well reported in the literature and I have no concerns at this time patient tolerated the toe repair well and was given multiple extensive return precautions and verbalized understanding. Procedure: Procedure performed was toe trauma examination and wound repair. Facilitated by digital block with lidocaine 1% with epinephrine approximately 3 cc infected into the base of the toe and a ring block around the metatarsal phalangeal joint. Anesthesia achieved. Nail was removed and wound was macerated therefore debrided revealing a 1 cm curvilinear laceration at the base of the nailbed just distal to the germinal matrix. Nailbed laceration was approximated with 5-0 fast gut, number of sutures placed with 2 in simple interrupted fashion. Nail was cleaned and debrided, Dermabond was placed over the nailbed and the nail was situated into the eponychial fold and toe was dressed at bedside. Patient tolerated the procedure well there were no immediate complications. Hvac Refrigeration Technician disclaimer Much of this encounter note is an electronic tube drawing supervisor spoken language to printed text. Electronic tube drawing supervisor of the spoken language may permit errors. Although I have reviewed the note, some errors may still exist. Critical Care Critical Care Time Critical Care Time: No
[2024-10-16 09:05] VITALS: BP 141/83; PULSE 109; RESP 16; TEMP 36.9; O2SAT 97; BMI 39.4
[2024-10-16] MEDS: LIDOCAINE 1% W/EPI 1:100,000 20ML VIAL 5 ML IM (09:16)
[2024-10-16] MEDS: TET/DIPHTH/PERT-ADULT 0.5ML SYRINGE 0.5 ML IM (09:23)
[2024-10-16 10:10] VITALS: BP 105/75; PULSE 85; RESP 16; TEMP 36.9; O2SAT 98
== END 2024-10-16 10:10 | disposition home or self-care (01) ==
PROVIDERS: Emergency Provider Emergency Medicine; PCP Family Medicine
DX: S97.121A Crushing injury of right lesser toe(s), initial encounter (principal); W20.8XXA Other cause of strike by thrown, projected or falling object, initial encounter; Z23 Encounter for immunization
CPT/HCPCS: 11730; 73630; 90471; 90715; 99283; J2004

== ENCOUNTER 2024-10-25 09:01 | Outpatient (POV) | payer BC, SELFPAY ==
--- OUTSIDE RECORDS SUMMARY | 2024-10-25 09:08 | XMS_ITS | Data Portability ---
Author Organization [facility] OPAL Garcia BRON[facility] CLOSED Address [address] [facility] [address] [place] [address] Care Team Providers Care Sorority Supervisor Name Role Phone SWATHI VALDEZ Primary Care [...] recorded. Lab rapid flu (A+B) 2017 018 [email or web address] Not available 8 14:56:52 Referral None recorded. Procedures None recorded. Surgeries None recorded. Imaging None recorded. Medication Orders Percocet 5 mg-325 mg tablet 2017 018 [email or web address] [facility] #[id number], [address] [place], [address], 8 16:11:00 Miralax 17 gram oral powder packet 2017 018 INTERFACE [facility] #[id number], [address] [place], [address], 8 13:27:33 doxycyclin e hyclate 100 mg capsule 2017 018 INTERFACE [facility]3016, [address] [place], [address], 8 14:56:53 Celestone Soluspan 6 mg/mL suspension for injection 2017 018 [email or web address] Not available 8 14:14:44 prednisone 10 mg tablet 2017 018 [email or web address] [facility] #[id number], [address] , [place], [place], [id number], 8 14:14:26 Kenalog 40 mg/mL suspension for injection 2017 018 [email or web address] Not available 8 14:14:15 Patient TargetsNo targets recorded. Patient Instructions Encounter Date Encounter Id Patient Instructions Last Modified By Organization Details Last Modified Time 05/23/2017 [id number] pityriasis rosea : care instructions [email or web address] Not available 05/23/2017 13:38:17 06/27/2017 [id number] bronchitis: care instructions [email or web address] Not available 06/27/2017 14:56:52 Reason for Referral None Reported. Results Created Date Observation Date Name Description Value Unit Range Abnormal Flag Note LastModifiedBy Organization Detail LastModifiedTime 06/27/19 18 06/27/2017 rapid flu (A+B) Flu A Negati ve Not Available [facility] [place] [address] [facility], [place], [address], 06/27/2017 14:15:17 06/27/19 18 06/27/2017 rapid flu (A+B) Flu B Negati ve Not Available [facility] [place] [address] [place], [address], 06/27/2017 14:15:17 06/27/19 18 06/27/2017 rapid flu (A+B) QC Okay Not Available [facility] [place] [address] [place], [address], 06/27/2017 14:15:17 04/22/20 17 04/22/2017 drug scree n, urine Marijuana (THC50) Negati ve Not Available [address], [place], [address], 04/22/2017 10:21:42 04/22/20 17 04/22/2017 drug scree n, urine Cocaine (HWD566) Negati ve Not Available [address], [place], [address], 04/22/2017 10:21:42 04/22/20 17 04/22/2017 drug scree n, urine Opiates (EPF0274) Negati ve Not Available [address], [place], [address], 04/22/2017 10:21:42 04/22/20 17 04/22/2017 drug scree n, urine Amphetamine (AHY0872) Negati ve Not Available [address], [place], [address], 04/22/2017 10:21:42 04/22/20 17 04/22/2017 drug scree n, urine Methamphetam ine (XDH5772) Negati ve Not Available [address], [place], [address], 04/22/2017 10:21:42 04/22/20 17 04/22/2017 drug scree n, urine Phencyclidin e (PCP25) Negati ve Not Available [address], [place], [address], 04/22/2017 10:21:42 04/22/20 17 04/22/2017 drug scree n, urine Ectasy (VNTG729) Negati ve Not Available [address] , [place], [address], 04/22/2017 10:21:42 04/22/20 17 04/22/2017 drug scree n, urine Barbituates (NHR173) Negati ve Not Available [address], [place], [address], 04/22/2017 10:21:42 04/22/20 17 04/22/2017 drug scree n, urine Benzodiazepi davin (DCQ621) Negati ve Not Available [address], [place], [address], 04/22/2017 10:21:42 04/22/20 17 04/22/2017 drug scree n, urine Methadone (FCZ749) Negati ve Not Available [address], [place], [address], 04/22/2017 10:21:42 04/22/20 17 04/22/2017 drug scree n, urine Tricyclic Antidepressa nts (DCX0944) Negati ve Not Available [address], [place], [address], 04/22/2017 10:21:42 04/22/20 17 04/22/2017 drug scree n, urine Oxycodone (IKH656) Negati ve Not Available [address], [place], [address], 04/22/2017 10:21:42 04/22/20 17 04/22/2017 drug scree n, urine Internal QC Okay Not Available [facility] [address] , [place], [address], 04/22/2017 10:21:42 07/22/19 18 07/21/2017 surgi elli [...] 09:39 Page 1 of 1 Not Available [facility] Laboratory [address] [place] [address], [place], [address], 07/22/2017 09:40:18 06/06/19 18 06/06/2017 XR, ankle , 3 or more view Fabio millard [address] [place] [address] Yosvany christie Name: ADELINA christie : 986 [...] Phill sage MD on 018 12:13 PM [email or web address] [facility] Radiology [address] , [place], [address], 06/06/2017 13:12:12 Result Notes None recorded. Problems Name Problem SNOMED Code Status Onset Date Resolution Date Notes Provider Name and Address Organization Details Recorded Time Acute sinusitis 01891122 Active 2015 From Automated Load;Provi pam: Jake Valdez tatus: Active Not Available [facility] 6 04:42:32 Urinary incontine lae 781762458 Active 2015 From Automated Load;Provi pam: Gillian Soliz;Stat us: Active Not Available [facility] 6 04:42:33 Abscess of vulva 30473109 Active 2015 From Automated Load;Provi pam: Arturo Mancini;Shiva tatus: Active Not Available [facility] 6 04:42:33 Nausea 594855643 Active 2015 From Automated Load;Provi pam: Jake Valdez tatus: Active Not Available [facility] 6 04:42:33 Right lower quadrant pain 869662413 Active 2015 From Automated Load;Provi pam: Swathi Valdez;Shiva tatus: Active Not Available [facility] 6 04:42:33 Lack of energy 324721483 Active 2015 From Automated Load;Provi pam: Swathi Valdez;Shiva tatus: Active Not Available [facility] 6 04:42:33 Celiac disease 813098408 Active 2014 From Automated Load;Provi pam: Lexii Palencia;St atus: Active Not Available [facility] 6 04:42:33 Allergic rhinitis 73802082 Active 2015 From Automated Load;Provi pam: MalviniblyCyndee;Sta tus: Active Not Available [facility] 6 04:42:33 Spasm 32222610 Active 2015 From Automated Load;Provi pma: Malvinibly Cyndee;Sta tus: Active Not Available [facility] 6 04:42:33 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 2015 From Automated Load;Provi pam: Swathi Valdez;Shiva tatus: Active Not Available [facility] 6 04:42:33 Disorder of upper respirato ry system 957594880 Active 2015 From Automated Load;Provi pam: Swathi Valdez;Shiva tatus: Active Not Available [facility] 6 04:42:33 Epigastri c pain 98727686 Active 2014 From Automated Load;Provi pam: Swathi Valdez;S tatus: Active Not Available [facility] 6 04:42:33 Migraine with aura 6923906 Active 2014 From Automated Load;Provi pam: Jake Valdez tatus: Active Not Available [facility] 6 04:42:33 Morbid obesity 280097256 Active 2014 From Automated Load;Provi pam: Swathi Valdez;S tatus: Active Not Available [facility] 6 04:42:33 Upper abdominal pain 05908476 Active 2014 From Automated Load;Provi pam: Gillian Soliz;Stat us: Active Not Available [facility] 6 04:42:33 Lower abdominal pain 80415343 Active 2014 From Automated Load;Provi pam: Gillian Soliz;Stat us: Active Not Available [facility] 6 04:42:34 Diarrhea 40191673 Active 2014 From Automated Load;Provi pam: Lexii Palencia;St atus: Active Not Available [facility] 6 04:42:34 Kidney stone 34376745 Active 2015 From Automated Load;Provi pam: Monnig, Cm;St atus: Active Not Available [facility] 6 04:42:34 Backache 149439824 Active 2015 From Automated Load;Provi pam: Monnig, Cm;St atus: Active Not Available [facility] 6 04:42:34 Neuropath y 310545643 Active 2015 From Automated Load;Provi pam: Gillian Soliz;Stat us: Active Not Available [facility] 6 04:42:34 Low back pain 461255833 Active 2014 From Automated Load;Provi pam: Swathi Valdez;S tatus: Active Not Available [facility] 6 04:42:34 Refractor y migraine 728966863 Active 2014 From Automated Load;Provi pam: Swathi Valdez;S tatus: Active Not Available [facility] 6 04:42:34 Obesity 026790894 Active 2014 From Automated Load;Provi pam: Swathi Valdez;S tatus: Active Not Available [facility] 6 04:42:34 Cough 88805618 Active 2015 From Automated Load;Provi pam: Rakel Oseguera;Statu s: Active Not Available [facility] 7 06:23:13 Tracheobr onchitis 36289810 Active 2015 From Automated Load;Provi pam: Gillian Soliz;Stat us: Active Not Available [facility] 7 07:46:22 Panic disorder with agoraphob ia 63307942 Active 2015 From Automated Load;Provi pam: Swathi Valdez;Shiva tatus: Active Not Available [facility] 7 07:47:[address] Concept Active 2015 From Automated Load;Provi pam: Swathi Valdez;Shiva tatus: Active Not Available [facility] 7 07:47:28 Pharyngit is 511142116 Active 2015 From Automated Load;Provi pam: Rakel Oseguera;Statu s: Active Not Available [facility] 08:20:20 Problem Notes Documentation Provider Name and Address Organization Details Recorded Time General Surgeon Consult Note : [facility] [address] [facility] [address]ADKNGJT, JESSICA (id #[id number], : 1985) [facility] GENERAL SURGERY [address] [facility] [address] [place] [address] Date: 08/06/2017RE: Brandon Chungrabia, : 1985, PT ID #[id number] Valdez PA-C, I would like to thank you for referring Brandon Beatty to our practice for consultation and evaluation. I have enclosed a copy of the office evaluation for your records. Sincerely, Electronically Signed by: [facility] Reason/Date Initial follow up after an anal [...] under anesthesia.2. Seton placement3. Right anterolateral transsphincteric pvntqvm-[id number]-xdz. status post . Exam under anesthesia. 2. [...] under anesthesia.2. Seton placement/3. Right anterolateral transsphincteric ezhhmjy-yl-jik. status post . Exam under anesthesia. 2. [...] Return to Office None recorded Janell Stovall [facility] 08/06/2017 11:57:30 Procedures Surgical History Date Name Laterality Status Provider Name and Address Organization Details Recorded Time 017 Tympanogram completed DEEPIKA MONAHAN, AUD [address] [place], [address], [facility] 06/19/2016 16:36:46 017 Audiogram completed DEEPIKA MONAHAN, AUD [address] [place], [address], [facility] 06/19/2016 16:36:44 017 Nasopharyngoscopy completed PATRICE EDWARDS MD [address] [place], [address], [facility] 05/31/2016 13:47:21 016 Tubal Ligation completed [facility] 08/14/2016 14:21:17 013 Other completed [facility] 08/14/2016 14:22:02 013 Cholecystectomy completed [facility] 08/14/2016 14:20:45 delivery completed [facility] 08/14/2016 14:20:27 Removal of tonsils completed [facility] 08/14/2016 14:21:31 EXAM UNDER ANESTHESIA (SURG) completed Janell [facility] 05/18/2017 17:10:02 Imaging Results None recorded. Procedure Notes None recorded. Medical Equipment None Reported. Allergies Allergen ID Allergen Name Allergen Category Reaction Reaction Severity Criticality Documentation Date Start Date Code Code System Note Provider Name and Address Organization Details Recorded Time 673360 Keflex medicatio n Not available Not available Not available 04/12/2016201216 7 RxNorm Comme nt: rash; updat ed 8 [facility] 8 10:07:41 072772 acetamino phen / oxycodone medicatio n Not available Not available Not available 07/22/20172017 41600 3 RxNorm ... JItte ry/ Heart racin g ./ Insom yashira INTOL ERANT OF SIDE EFFEC TS [facility] 8 10:07:59 Medications Name Sig Start [...] IM 9MG/ML LEFT DORSOGLU TEAL 06/27 completed 47025087 01 Not Available Not Available Not Available [...] mg by injectio n route. 08/[address] [facility] 0009-030 6-02 Not Available Not Available Not [...] hours by intramus cular route. 04/[address] [facility] 53567-98 1-02 Not Available Not Available Not Available [...] Updated DateTime 8 157.48 cm 41.3 kg/m2 540173. 88 g 52 /min 98.2 [degF] 112 mm[Hg] 82 mm[Hg] Renetta Denis [facility] 8 10:01:23 Date Recorded Body height Body mass index (BMI) Body weight Heart rate Oxygen saturation Oxygen saturation in Arterial blood by Pulse oximetry Body temperature Systolic blood pressure Diastolic blood pressure Provider Name and Address Organization Details Last Updated DateTime 8 157.48 cm 41.9 kg/m2 948316. 65 g 95 /min 99 % 99 % 99 [degF] 120 mm[Hg] 82 mm[Hg] Jose L Gutierres [facility] 8 14:13:59 Date Recorded Body height Heart rate Body mass index (BMI) Body weight Systolic blood pressure Diastolic blood pressure Provider Name and Address Organization Details Last Updated DateTime 8 157.48 cm 76 /min 41.9 kg/m2 488541. 65 g 102 mm[Hg] 60 mm[Hg] Anuradha Karis cyndie [facility] 8 10:07:31 Social History Question Answer Notes LastModified by [employer] Details LastModified Time Tobacco Smoking Status Never Smoker Amanda barnes, [facility] 05/21/2016 10:15:23 What Is Your Level Of Caffeine Consumption? Moderate [email or web address] Information not available 08/14/2016 Marital Status [email or web address] Informatio n not available 08/14/2016 What Was The Date Of Your Most Recent Tobacco Screening? 06/27/2017 Information n ot available 07/06/2019 Sex: Unknown Functional Status Question Answer Note LastModified by [employer] Details LastModified Time What is your level of alcohol consumption? Occasional Information not available 08/14/2016 Mental Status None recorded. Family History Relationship Description Onset Age of this Age Resolved Age Notes LastModified by Organization Details LastModified Time Maternal Grandmother Heart disease [email or web address] Not available 08/14 14:19:10 Maternal Grandmother Hypertensive disorder [email or web address] Not available 08/14 14:19:26 Maternal Grandmother Depressive disorder [email or web address] Not available 2016 14:18:01 Maternal Grandfather Disorder of thyroid gland Not available 08/14 14:19:41 Maternal Grandfather Carcinoma of thyroid [email or web address] Not available 2016 14:17:21 Maternal Grandfather Depressive disorder [email or web address] Not available 2016 14:18:01 Mother Anemia [email or web address] Not available 14:16:53 Sister Depressive disorder [email or web address] Not available 2016 14:18:01 Medical History Condition Response Coronary Artery Disease N Other N Gout N Atrial Fibrillation N Kidney Stones Y Hyperthyroidism N Blood Transfusion N Depression N COPD N Lung Disease N Hypothyroidism N Breast Problem N Difficulty Swallowing N Anxiety Disorder N Meniere's disease N Muscle, Joint, or Bone Problems N Vision or Eye Problems N Arthritis N Polyps N Infertility N Blood Clot N Acid Reflux (GERD) Y Cancer N Varicosities N Stroke N Endometriosis N Bladder or Kidney Problems N High Cholesterol N Liver Disease N Headaches N Fibromyalgia N Kidney Disease N Allergies/Hayfever N Heart Problems N Ear or Hearing Problems N Parkinson's Disease N Hospitalizations N Alzheimer's N Thyroid Problems N GI Problems N Skin Problems N Eating Disorder N Anemia N Constipation N Mental Illness N Ovarian Cancer N Diabetes N Bleeding Disorder Seizures/Epilepsy N Tuberculosis N Eczema N Diverticulitis N Asthma Y Reflux/GERD Y Sleep Apnea N GERD/Reflux Y Hepatitis N Heart Disease N Pulmonary Embolism N Chronic Ear Infections N Pre-Eclampsia N Hypertension N Chicken Pox N Osteoporosis N Thrombophilias N Gynecological History Statement/Question Response Menses Monthly [...] virus, quadrivalent, preservative 7 completed Not Available [facility] 06/19/2019 02:19:04 Influenza, split virus, quadrivalent, preservative 6 completed Abimael Dela Cruz [facility] 05/27/2016 11:49:19 Hep B, adult 6 [facility] 05/27/2016 11:49:44 Tdap 6 completed Abimael Dela Cruz [facility] 05/27/2016 11:50:01 Past Encounters Encounter ID Performer Location Encounter Start Date Encounter Closed Date Diagnosis/Indication Diagnosis SNOMED-CT Code Diagnosis ICD10 Code Diagnosis Note [id number] MATHEUS SAMANIEGO MD SAME DAY [facility] [address] [place] [address] 05/21/2016 08:28:50 05/22/2016 09:48:13 Closed fracture of nasal bones 59715150 S02.2XXA [id number] SWATHI VALDEZ PA-C FAMILY [address] [place] [address] 05/27/2016 11:36:52 05/27/2016 16:25:15 Acute otitis media 8075658 H66.91 ENT referral if no improvemen t. Acute sinusitis 92846972 J01.90 as above. [id number] PATRICE EDWARDS MD ENT [facility] [address] [place] [address] 05/31/2016 13:07:00 05/31/2016 14:28:31 Acute non-suppurative serous otitis media 995239171 H65.02 due to recent aom. Infection resolved. Fluid should resolve with time. Observe. F/U in 1 month. No pathology seen in the nasopharyn x on endoscopy. Left condu ctive hearing loss 0071222893 107 H90.12 by tuning fork exam. She doesn't have time to wait for an audiogram today. Deviated nasal septum 12 0072470 J34.2 [id number] DEEPIKANICOLAS DAVIES ENT [facility] [address] [place] [address] 05/31/2016 14:02:49 05/31/2016 16:53:43 [id number] NICOLAS ORTIZ ENT [facility] [address] [place] [address] 06/19/2016 14:34:17 06/19/2016 16:38:42 Hearing examination 391502654 Z01.10 [id number] SWATHI VALDEZ PA-C [address] [place] [address] 07/01/2016 09:43:37 07/01/2016 11:52:42 Mixed anxiety and depressive disorder 610949842 F41.8 [id number] SWATHI VALDEZ PA-C [address] [place] [address] 07/30/2016 15:04:56 07/31/2016 14:12:59 Low back pain 397322556 M54.5 PT if no improvemen t after 1 week. [id number] TERRY THOMAS PA-C [employer] [facility] [address] [facility] [address] [place] [address] 08/14/2016 14:10:00 08/14/2016 14:50:58 Abscess of vulva 32427938 N76.4 [id number] SWATHI VALDEZ PA-C [address] [place] [address] 10/15/2016 12:43:13 10/17/2016 09:06:51 Adult health examination 464828514 Z00.00 utd with immunizati ons and screenings . 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 refer to colorectal surgery [id number] LEXII PEREIRA MD GENERAL SURGERY [address] [place] [address] 04/02/2017 13:44:45 04/02/2017 17:30:18 Anorectal fistula 52400693 K60.5 Ms. Beatty is a 31-year-ol d [...] to take part in this patient's care. [id number] SWATHI VALDEZ PA-C [address] [place] [address] 04/22/2017 09:42:24 04/22/2017 13:35:40 Sciatica 22745563 M54.32 worsened of late, if no improvemen t, PT and/or MRI Chronic back pain 551509 002 M54.9 as above Low back pain 411504424 M54.5 avinash and suha jaime. rx refill today Allergic rhinitis 833303 04 J30.9 [id number] LEXII PEREIRA MD SURGERY SCHEDULE [address] [place] [address] 05/05/2017 12:11:35 05/05/2017 12:13:40 Anorectal fistula 13009445 K60.5 [id number] LEXII PEREIRA MD GENERAL SURGERY [address] [place] [address] 05/14/2017 14:58:18 05/14/2017 16:04:51 Anorectal fistula 10363324 K60.5 Ms. Beatty is a 31-year-ol d [...] her that we proceed with surgery in [facility] 6 weeks to help make her fistula [...] to take part in this patient's care. [id number] GILLIAN SOLIZ PA-C [facility]ILY [facility] [address] [place] [address] 05/23/2017 09:55:48 05/23/2017 14:02:56 Acute dermatitis 43188000 L30.9 start 6 day prednisone taper as directed. kenalog IM given in office. Stahist daily continue to use benadryl at hs. mild unscented soap/deter gent. If not improving over the next several days, rtc. consider dermatolog y referral if not improving. [id number] SHEA NUÑEZ PA-C [facility] [address] [place] [address] 05/23/2017 12:03:32 05/26/2017 08:15:41 Pityriasis rosea 64459023 L42 Early IA vs other viral exanthemSi gnificant itchingIM celestone given -- SE/R/B reviewedBe nadryl 25 mg 1-2 po qhs [id number] WILLIAM CRUMP APRN [facility] [place] CLOSED [address] [place] [address] 06/27/2017 13:37:06 06/27/2017 14:48:28 Fever 928411339 R50.9 Acute bronchitis 8547510 2 J20.9 advised mucinex once or twice daily 600mg ER; increase fluids, rest off work today and tomorrow return if not improving in next few days, sooner if worsening; [id number] LEXII PEREIRA MD SURGERY SCHEDULE [address] [place] [address] 07/21/2017 11:13:39 07/21/2017 11:19:42 Anorectal fistula 44107278 K60.5 [id number] LEXII PEREIRA MD GENERAL SURGERY [address] [place] [address] 08/06/2017 09:51:35 08/11/2017 08:55:25 Anorectal fistula 15729996 K60.5 Ms. Beatty is a 32-year-ol d [...] ID Guarantor Name 06/26/2018 1 [place] ([place]) [id number] Rosales Velasquez [id number] Brandon Downeybelkis 03/25/2018 PAYMENT PLAN Brandon Chungrabia 01/08/2024 1 [facility] [id number] Brandon Beatty [id number] Brandon Downeybelkis 01/08/2024 1 [facility] [id number] Brandon Beatty [id number] Brandon Beatty Notes Date Note Type Note Provider Name and Address Organization Details Recorded Time 05/23/2017 text/html patient presents with onset of rash midmorning yesterday that she believes started after her used a new fabric softener. She states that blotches started on her neck and upper chest and gradually spread downward to her legs. She also ate Korean food at lunch yesterday which had chestnuts [...] on the spots. 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 LOCATION: neck, trunk, proximal lower extremities DURATION: days SYMPTOMS: red, itching TREATMENT: K40 inj Recovering from recent URI SHEA NUÑEZ PA-C [address] [place], [address], [facility] 05/23/2017 13:43:13 06/27/2017 text/html Pt is [...] temp since 2 nights ago; WILLIAM CRUMP, [employer] PROF[employer] [address] [place], [address], [facility] 06/27/2017 14:57:27 08/06/2017 text/html Ms. Beatty [...] under anesthesia.2. Seton placement3. Right anterolateral transsphincteric mklrpjp-co-tbu. status post . Exam under anesthesia. 2. Anal mucosal advancement flap. she comes in for follow-up. she is doing well. Her pain is improving. Minimal drainage from the external os. She is using fiber. No fever. she is pleased with her surgery. LEXII PEREIRA MD [facility] [place], [address], [place] [facility] [facility] 08/06/2017 10:32:20 OBGyn Episode No OBEpisode recorded.
--- OUTSIDE RECORDS SUMMARY | 2024-10-25 09:08 | XMS_ITS | Clinical Summary ---
Author Organization [facility] Address [address] [place] [address] Care Team Providers Care Elementary Esl Teacher Name Role Phone Cm Barth MD Primary Care Provider [phone] Allergies Active Allergy Reactions Criticality Noted Date [...] times a day Active ergocalciferol 1.25 MG (61179 UT) capsule 3 Active fexofenadine (Jeanine) 180 [...] of 2 - 13+ 2-dose series) 1998 HPV Vaccines (1 - 3-dose series) 2000 [facility]- SDOH Screenings 2003 [facility]-Adult SDOH Screenings 2003 [facility]-Pap Smear 2006 [facility]-Cervical Cancer Screening 2015 [facility]-HPV/Cotest 2015 [facility]-Hepatitis B Vaccines (2 of 3 - 19+ 3-dose series) 01/19/2016 12/22/2015 [id number] Vaccine (4 - season) 2024 03/26/2021, 06/16/2020, 05/17/2020 [facility]-Influenza Vaccine (Season Ended) 2025 02/07/2021, 02/11/2017, 03/04/2016, Additional history exists [facility]-DTaP,Tdap,and Td Vaccines (2 - Td or Tdap) 12/21/2025 12/22/2015 [facility]-Zoster Vaccines (1 of 2) 2035 [facility]-Obesity Intervention Completed 10/18/2022 [facility]-HIB Vaccines Aged [...] 5 Years) and At-Risk Patients (6 to 49 Years) Aged Out No longer eligible based on patient's age to complete this topic [facility]-Rotavirus Vaccines Aged Out No lo nger eligible based on patient's age to complete this topic Insurance NA[place]arden [id number] [facility] Care Teams Elementary Esl Teacher Relationship Specialty Start Date End Date Cm Barth MD [address] [place] [address] [place] [id number] PCP - General 09/29/20
--- NOTE | 2024-10-25 09:20 | A.OFFVIS_ITS ---
[facility] Disclaimer: The information contained in this section may have been updated after the patient was seen, as this information can be updated by other users. Medical History Renal calculus, right Ureterolithiasis Urinary tract infection Hematuria Right nephrolithiasis UTI (urinary tract infection) Cervical cancer Head trauma Fall Lumbar disc disease with radiculopathy Abdominal pain Renal mass Vomiting Urinary frequency Recurrent UTI Diabetes Abdominal tenderness, LLQ (left lower quadrant) Thrombophlebitis of vein of pelvis Abdominal tenderness, RLQ (right lower quadrant) Urinary urgency Abnormal uterine bleeding Sinusitis Adenocarcinoma in situ of endocervix Perianal fissure PCOS (polycystic ovarian syndrome) Dyspareunia Endometriosis Chronic pelvic pain in female Morbid obesity with BMI of 40.0-44.9, adult Shingles Anxiety Shingles (herpes zoster) polyneuropathy Surgical History S/P laparoscopic hysterectomy with bilateral salpingectomy 05/15/23 History of colonoscopy S/P cone biopsy of cervix History of cholecystectomy History of delivery History of tonsillectomy H/O tubal ligation Family History Other Anemia Asthma Atrial fibrillation Cancer Diabetes Heart disease Hyperlipidemia Hypertension No significant family history Thyroid disorder Social History Smoking Status: Never smoker alcohol intake: current alcohol intake frequency: other substance use type: denies use current occupational status: employed Travel in the last 8 weeks?: None household members: other housing: house marital status: number of children: 2 education level: college current occupational exposures/hazards: Yes caffeine: Yes Have you lived/traveled outside US in past 30 days?: No Contact w/someone who lives/traveled outside US past 30 days?: No Exposure to someone with infectious disease in past 14 days?: No Do you have a fever (greater than 100.4 F or 38 C)?: No Have you tested positive for COVID-19?: No Exposed to someone with COVID-19 in past 14 days?: No Do you have a sore throat?: No Do you have a cough?: No Do you have any weakness?: No Do you have any diarrhea?: No Are you experiencing any unusual bleeding?: No Do you have any muscle aches/pain?: No Do you have any abdominal pain?: No Are you experiencing loss of taste or smell?: No PM Subjective & Objective Subjective Subjective:: Patient is a pleasant 39-year-old female who presents today for increased migraines. She rates her pain today a 5 out of 10. Patient does state couple of weeks she does feel like her migraines have picked up to twice a week. Patient does also state that she feels like increased stress may be playing a role where she did take a new job. Patient states that the Botox injections that we previously did did significantly decreased down her headaches by least 50% and she would like to see about getting repeat injections. Patient has also had the most recent injections of left bursa and left SI in August that did provide significant relief however she states that she did end up having an injury 3 where there was an object that dropped on her toe along the right side. Patient has ended up having to wear a boot and feel like this has altered the way she walks and has flared up some of her overall left hip pain. Patient denies any other changes. She is prescribed compounded cream from our office and tizanidine 4 mg at bedtime. Her Joe has been reviewed and is appropriate. Review of Systems: General: No recent weight changes, no fever, no sleep disturbances Respiratory: No cough, no shortness of air, no recurring pulmonary infections Cardiovascular/peripheral vascular: No chest pain, no palpitations, no edema, no shortness of breath Gastrointestinal: No new onset incontinence, normal bowel movements reported Genitourinary: No new onset incontinence Musculoskeletal: Migraines Psychiatric: [Normal mood/affect] Neurological: [Denies weakness in extremities], [denies balance issues] Pain at rest (0-10 scale): 5 Objective Objective:: Physical Exam: General: Alert and oriented x3, no acute distress, pleasant and cooperative Lungs: Respirations even and unlabored, symmetrical chest expansion Eyes: PERRL Musculoskeletal: Flexion and extension of cervical [spine] within normal limits Neurological: Speech clear, no gross sensory deficit Has patient had previous pain injection?: No Conservative treatment options previously tried: Home exercise plan Length of treatment: Longer than 12 weeks Meds Home Medications and Allergies Home Medications ?Medication ?Instructions ?Recorded ?Confirmed ?Type lisinopril 10 1 tab PO DAILY High Blood Pr essure 10/22/23 09/08/24 Rx mg-hydrochlorothiazide 12.5 mg #90 tabs tablet atogepant 60 mg tablet (Qulipta) 60 mg PO DAILY #90 ta bs 12/01/23 09/08/24 Rx albuterol sulfate 90 mcg/actuation 2 inh inhalation Q6 HP PRN 07/28/24 09/08/24 Rx aerosol inhaler Shortness Of Breath Or Wheez ing #8.5 grams pregabalin 150 mg capsule (Lyrica) 150 mg PO BID Pain #60 caps 07/28/24 09/08/24 Rx ondansetron 4 mg disintegrating 4 mg PO TID PRN nausea and 08/18/24 09/08/24 Rx tablet vomiting 4 days #30 tabs tizanidine 4 mg tablet (Zanaflex) 4 mg PO HS Muscle Sp asm #30 tabs 09/08/24 Rx sulfamethoxazole 800 1 tab PO BID Infection proph ylaxis 10/16/24 Rx mg-trimethoprim 160 mg tablet 5 days #10 tabs (Bactrim DS) fluconazole 150 mg tablet 150 mg PO DAILY 3 days #3 ta bs 10/19/24 Rx New Prescriptions to Start Prescriptions: Allergies Allergy/AdvReac Type Severity Reaction Status Date / Time amitriptyline Allergy Intermediate Anaphylaxis Verified 08/24/24 10:53 cephalexin (From Keflex) Allergy Intermediate Unknown Verified 08/24/24 10:53 allergy reaction cinnamon Allergy Unknown Verified 08/24/24 10:53 allergy reaction Assessment and Plan *Assessment and plan (1) Episodic migraine: Status: Chronic Category: Medical Code(s): G43.909 - Migraine, unspecified, not intractable, without status migrainosus Plan I did review over the risk and benefits of repeat Botox injections for migraines and she would like to proceed forward with this plan of care. Patient will be scheduled for Botox injections. Patient's last Botox injections were done in April and did provide more than 50% improvement. These will be done without fluoroscopic guidance or ultrasound. Patient has been instructed to contact the clinic with any concerns before the next appointment. Dr. Deal has reviewed this note and agrees with this plan of care. This note was dictated using voice recognition software and make contain errors or omissions. All injections are used with Lidocaine, Bupivacaine and dexamethasone. Occasionally urine drug screen is needed to verify patient's compliance with our office pain contract. This is ordered based off specific treatments related to chronic pain with the potential to abuse certain medications.
[2024-10-25 09:33] VITALS: BP 120/75; PULSE 71; RESP 18; O2SAT 98; BMI 39.4
--- NOTE | 2024-10-25 15:10 | XR_ITS ---
FINAL REPORT TECHNIQUE: Chest PA & Lateral CLINICAL HISTORY: Nonspecific cough COMPARISON: None FINDINGS: 2 views of the chest were performed. The heart size is normal. The mediastinum is within normal limits. There is no acute cardiopulmonary process. There are no pleural effusions. There is no pneumothorax. The bony thorax appears intact. IMPRESSION: No acute cardiopulmonary process. Reviewed, Interpreted and Dictated by Elias Yuan MD Transcribed by Kimberly Bermudez Authenticated and [facility]
== END 2024-10-25 23:59 | disposition home or self-care (01) ==
PROVIDERS: PCP Family Medicine; Visit Provider Nurse Practitioner Family
DX: G43.909 Migraine, unspecified, not intractable, without status migrainosus (principal)
CPT/HCPCS: 71046; 99212; G0463

== ENCOUNTER 2024-11-04 08:36 | Day surgery (SDC) | payer BC, SELFPAY ==
[2024-11-04 08:51] VITALS: BP 108/73; PULSE 72; RESP 16; O2SAT 97; BMI 38.7
[2024-11-04 08:53] VITALS: BP 108/67; PULSE 69; RESP 18; O2SAT 99
[2024-11-04 08:55] VITALS: BP 108/67; PULSE 69; RESP 18; O2SAT 99
[2024-11-04] MEDS: BOTULINUM TOXIN TYPE A 100 UNIT/ML 155 UNIT IM (08:59)
--- NOTE | 2024-11-04 09:14 | P.HP_ITS ---
History of Present Illness *Admission Date: 11/04/24 *Reason for visit:: Botox injections for migraines *History of present illness: Headaches/migraines [facility] Disclaimer: The information contained in this section may have been updated after the patient was seen, as this information can be updated by other users. Medical History Renal calculus, right Ureterolithiasis Urinary tract infection Hematuria Right nephrolithiasis UTI (urinary tract infection) Cervical cancer Head trauma Fall Lumbar disc disease with radiculopathy Abdominal pain Renal mass Vomiting Urinary frequency Recurrent UTI Diabetes Abdominal tenderness, LLQ (left lower quadrant) Thrombophlebitis of vein of pelvis Abdominal tenderness, RLQ (right lower quadrant) Urinary urgency Abnormal uterine bleeding Sinusitis Adenocarcinoma in situ of endocervix Perianal fissure PCOS (polycystic ovarian syndrome) Dyspareunia Endometriosis Chronic pelvic pain in female Morbid obesity with BMI of 40.0-44.9, adult Shingles Anxiety Shingles (herpes zoster) polyneuropathy Surgical History S/P laparoscopic hysterectomy with bilateral salpingectomy 05/15/23 History of colonoscopy S/P cone biopsy of cervix History of cholecystectomy History of delivery History of tonsillectomy H/O tubal ligation Family History Other Anemia Asthma Atrial fibrillation Cancer Diabetes Heart disease Hyperlipidemia Hypertension No significant family history Thyroid disorder Social History Smoking Status: Never smoker alcohol intake: current alcohol intake frequency: other substance use type: denies use current occupational status: employed Travel in the last 8 weeks?: None household members: other housing: house marital status: number of children: 2 education level: college current occupational exposures/hazards: Yes caffeine: Yes Have you lived/traveled outside US in past 30 days?: No Contact w/someone who lives/traveled outside US past 30 days?: No Exposure to someone with infectious disease in past 14 days?: No Do you have a fever (greater than 100.4 F or 38 C)?: No Have you tested positive for COVID-19?: No Exposed to someone with COVID-19 in past 14 days?: No Do you have a sore throat?: No Do you have a cough?: No Do you have any weakness?: No Do you have any diarrhea?: No Are you experiencing any unusual bleeding?: No Do you have any muscle aches/pain?: No Do you have any abdominal pain?: No Are you experiencing loss of taste or smell?: No Other Medical History Have you received the Flu Vaccine for this season: Yes Have you received the Pneumonia Vaccine: No Review of Systems Review of Systems Review of systems:: pertinent systems reviewed and negative unless documented below Review of systems (narrative): Review of Systems: General: No recent weight changes, no fever, no sleep disturbances Respiratory: No cough, no shortness of air, no recurring pulmonary infections Cardiovascular/peripheral vascular: No chest pain, no palpitations, no edema, no shortness of breath Gastrointestinal: No new onset incontinence, normal bowel movements reported Genitourinary: No new onset incontinence Musculoskeletal: Headaches/migraines Psychiatric: [Normal mood/affect] Neurological: [Denies weakness in extremities], [denies balance issues] Meds Home Medications and Allergies Home Medications ?Medication ?Instructions ?Recorded ?Confirmed ?Type lisinopril 10 1 tab PO DAILY High Blood Pr essure 10/22/23 10/25/24 Rx mg-hydrochlorothiazide 12.5 mg #90 tabs tablet atogepant 60 mg tablet (Qulipta) 60 mg PO DAILY #90 ta bs 12/01/23 10/25/24 Rx albuterol sulfate 90 mcg/actuation 2 inh inhalation Q6 HP PRN 07/28/24 10/25/24 Rx aerosol inhaler Shortness Of Breath Or Wheez ing #8.5 grams pregabalin 150 mg capsule (Lyrica) 150 mg PO BID Pain #60 caps 07/28/24 10/25/24 Rx ondansetron 4 mg disintegrating 4 mg PO TID PRN nausea and 08/18/24 10/25/24 Rx tablet vomiting 4 days #30 tabs tizanidine 4 mg tablet (Zanaflex) 4 mg PO HS Muscle Sp asm #30 tabs 09/08/24 10/25/24 Rx azithromycin 250 mg tablet See Rx Instructions PO .COM PLEX #6 10/25/24 10/25/24 Rx (Zithromax Z-Raheel) tabs methylprednisolone 4 mg tablets in See Rx Instructions PO PER PKG DIR 10/25/24 10/25/24 Rx a dose pack (Medrol (Raheel)) #21 tabs New Prescriptions to Start Prescriptions: Allergies Allergy/AdvReac Type Severity Reaction Status Date / Time amitriptyline Allergy Intermediate Anaphylaxis Verified 10/25/24 14:07 cephalexin (From Keflex) Allergy Intermediate Unknown Verified 10/25/24 14:07 allergy reaction cinnamon Allergy Unknown Verified 10/25/24 14:07 allergy reaction Exam Data for Last 24 hours Vital signs and Labs for Last 24 Hours: Pulse Resp BP Pulse Ox O2 Del Method 69 18 108/67 L 99 Room Air 11/04/24 08:55 11/04/24 08:55 11/04/24 08:55 11/04/24 08:55 11/04/24 08:55 Constitutional Constitutional: no acute distress *Routine HEENT Exam Head: Present normocephalic and atraumatic Eye: Present PERRL ENT: Present mucous membranes moist *Routine Neck Exam Neck: Present supple *Routine Respiratory Exam Respiratory: Present CTA bilaterally *Routine Cardiovascular Exam Cardiovascular: Present RRR *Routine Abdominal Exam Abdominal: Present soft *Routine Rectal Exam Rectal:: deferred *Routine Genitalia Exam Genitalia:: deferred Routine Back/Spine/Pelvis Exam Back/Spine: Present full ROM *Routine Skin Exam Skin: Present intact, dry and warm *Routine Neurological Exam Neurological: Present alert and oriented X3 Routine Psychiatric Exam Psychiatric: Present normal affect and normal thought process Assessment and Plan *Assessment and plan (1) Degenerative disc disease, cervical: Status: Acute Category: Medical Code(s): M50.30 - Other cervical disc degeneration, unspecified cervical region (2) Cervical radiculopathy: Status: Acute Category: Medical Code(s): M54.12 - Radiculopathy, cervical region (3) Chronic headache: Status: Acute Qualifiers: Headache type: post-traumatic Intractability: not intractable Qualified Code(s): G44.329 - Chronic post-traumatic headache, not intractable Category: Medical Code(s): R51.9 - Headache, unspecified; G89.29 - Other chronic pain (4) Migraines: Status: Acute Category: Medical Code(s): G43.909 - Migraine, unspecified, not intractable, without status migrainosus Plan Patient has been instructed to contact the clinic with any concerns before the next appointment. Dr. Deal has reviewed this note and agrees with this plan of care. This note was dictated using voice recognition software and make contain errors or omissions. All injections are used with Lidocaine, Bupivacaine and dexamethasone. Occasionally urine drug screen is needed to verify patient's compliance with our office pain contract. This is ordered based off specific treatments related to chronic pain with the potential to abuse certain medications.
--- NOTE | 2024-11-04 09:16 | EXP.PAIN.PRO ---
Procedure Date: 11/04/24 Time: 09:16 Anesthesiologist:: Ayanna Modi APRN Complications:: None Pre-procedure Diagnosis:: Degenerative disc disease of cervical spine with cervical radiculopathy symptoms, chronic headaches and migraines Post-procedure Diagnosis:: Same Indications for Procedure:: Patient is a pleasant 39-year-old female who presents today for Botox injections. Today she rates her pain as 6 out of 10. Patient states she has been experiencing worsening headaches and migraines. She denies any new falls or injuries. Patient does feel like the combination of cervical epidurals and Botox has really helped significantly and improved by more than 50% if not longer. Patient is prescribed compounded cream and tizanidine 4 mg at bedtime for office. She denies any side effects. Her Joe has been reviewed and is appropriate. Physical Exam: General: Alert and oriented x3, no acute distress, pleasant and cooperative Lungs: Respirations even and unlabored, symmetrical chest expansion Eyes: PERRL Musculoskeletal: Flexion and extension of cervical [spine] within normal limits Neurological: Speech clear, no gross sensory deficit Procedure Details:: Patient was taken to the procedure room and placed in a seated position. The area over injection sites was cleansed with alcohol pads. Onabotulinum toxin a at a dilution of 5 units per 0.1 mL (50 units per 1 mL) was injected via a 30-gauge by 0.5 inch disposable needle with the following muscles: 1. Left big machine consultant?1 site, 5 units 2. Right core greater?1 site, 5 units 3. Procerus?1 site, 5 units 4. Frontalis?4 sites, 20 units 5. Left temporalis?4 sites, 20 units 6. Right temporalis?4 sites, 20 units 7. Left occipitalis?3 sites, 15 units 8. Right occipitalis?3 sites, 15 units 9. Left cervical paraspinous muscles?2 sites, 10 units 10. Right cervical paraspinous muscles?2 sites, 10 units 11. Left trapezius?3 sites, 15 units 12. Right trapezius?3 sites, 15 units Plan and Disposition:: Patient tolerated the procedure well with no complications and was discharged neurologically intact. Patient will return to clinic in 1 month for reevaluation of symptoms and plan of care. Patient has been instructed to contact the clinic with any concerns before the next appointment. Dr. Deal has reviewed this note and agrees with this plan of care. This note was dictated using voice recognition software and make contain errors or omissions. All injections are used with Lidocaine, Bupivacaine and dexamethasone. Occasionally urine drug screen is needed to verify patient's compliance with our office pain contract. This is ordered based off specific treatments related to chronic pain with the potential to abuse certain medications.
[2024-11-04 09:17] VITALS: BP 114/67; PULSE 73; RESP 16; O2SAT 98
== END 2024-11-04 09:20 | disposition home or self-care (01) ==
PROVIDERS: PCP Family Medicine; Visit Provider Nurse Practitioner Family
DX: M50.10 Cervical disc disorder with radiculopathy, unspecified cervical region (principal); G43.909 Migraine, unspecified, not intractable, without status migrainosus; R51.0 Headache with orthostatic component, not elsewhere classified; F41.9 Anxiety disorder, unspecified; E11.9 Type 2 diabetes mellitus without complications; E66.01 Morbid (severe) obesity due to excess calories; Z68.39 Body mass index [BMI] 39.0-39.9, adult; Z88.1 Allergy status to other antibiotic agents; Z88.8 Allergy status to other drugs, medicaments and biological substances; Z91.018 Allergy to other foods; Z79.899 Other long term (current) drug therapy
CPT/HCPCS: 64615; J0585

== ENCOUNTER 2024-11-17 09:53 | Outpatient (POV) | payer BC, SELFPAY ==
--- OUTSIDE RECORDS SUMMARY | 2024-11-17 09:55 | XMS_ITS | Clinical Summary ---
Author Organization [facility] Address [address] [place] [address] Care Team Providers Care Product Development Worker Name Role Phone Cm Barth MD Primary Care Provider [phone] Allergies Active Allergy Reactions Criticality Noted Date [...] times a day Active ergocalciferol 1.25 MG (76384 UT) capsule 3 Active fexofenadine (Jeanine) 180 [...] 3 - 19+ 3-dose series) 01/19/2016 12/22/2015 [id number] Vaccine (4 - season) 2024 03/26/2021, 06/16/2020, [...] to complete this topic Insurance NAHUN Darden [id number] [facility] Care Teams Product Development Worker Relationship Specialty Start Date End Date Cm Barth MD [address] [place] [address] [place] [id number] PCP - General 09/29/20
--- OUTSIDE RECORDS SUMMARY | 2024-11-17 09:55 | XMS_ITS | Data Portability ---
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 Lab rapid flu (A+B) 2017 018 [email or web address] Not available 8 14:56:52 Referral None recorded. Procedures None recorded. Surgeries None recorded. Imaging None recorded. Medication Orders Percocet 5 mg-325 mg tablet 2017 018 [email or web address] [facility][id number], [address] [place], [address], 8 16:11:00 Miralax 17 gram oral powder packet 2017 018 INTERFACE [facility], [address] [place], [address], 8 13:27:33 doxycyclin e hyclate 100 mg capsule 2017 018 INTERFACE [facility], [address] [place], [address], 8 14:56:53 Celestone Soluspan 6 mg/mL suspension for injection 2017 018 [email or web address] Not available 8 14:14:44 prednisone 10 mg tablet 2017 018 [email or web address] [facility]6942, [address] , [place], [place], [id number], 8 14:14:26 Kenalog 40 mg/mL suspension for injection 2017 018 [email or web address] Not available 8 14:14:15 Patient TargetsNo targets recorded. Patient Instructions Encounter Date Encounter Id Patient Instructions Last Modified By Organization Details Last Modified Time 05/23/2017 [id number] pityriasis rosea : care instructions Not available 05/23/2017 13:38:17 06/27/2017 [id number] bronchitis: care instructions [email or web address] Not available 06/27/2017 14:56:52 Reason for Referral None Reported. Results Created Date Observation Date Name Description Value Unit Range Abnormal Flag Note LastModifiedBy Organization Detail LastModifiedTime 06/27/19 18 06/27/2017 rapid flu (A+B) Flu A Negati ve Not Available [facility] [place] [address] [facility], [place], [address], 06/27/2017 14:15:17 06/27/19 18 06/27/2017 rapid flu (A+B) Flu B Negati ve Not Available [facility] [place] [address] [place], [address], 06/27/2017 14:15:17 06/27/19 18 06/27/2017 rapid flu (A+B) QC Okay Not Available [facility] [place] [address] [place], [address], 06/27/2017 14:15:17 04/22/20 17 04/22/2017 drug scree n, urine Marijuana (THC50) Negati ve Not Available [address], [place], [address], 04/22/2017 10:21:42 04/22/20 17 04/22/2017 drug scree n, urine Cocaine (JGT451) Negati ve Not Available [address], [place], [address], 04/22/2017 10:21:42 04/22/20 17 04/22/2017 drug scree n, urine Opiates ([id number]) Negati ve Not Available [address], [place], [address], 04/22/2017 10:21:42 04/22/20 17 04/22/2017 drug scree n, urine Amphetamine ([id number]) Negati ve Not Available [address], [place], [address], 04/22/2017 10:21:42 04/22/20 17 04/22/2017 drug scree n, urine Methamphetam ine ([id number]) Negati ve Not Available [address], [place], [address], 04/22/2017 10:21:42 04/22/20 17 04/22/2017 drug scree n, urine Phencyclidin e (PCP25) Negati ve Not Available [address], [place], [address], 04/22/2017 10:21:42 04/22/20 17 04/22/2017 drug scree n, urine Ectasy (UXID753) Negati ve Not Available [address] , [place], [address], 04/22/2017 10:21:42 04/22/20 17 04/22/2017 drug scree n, urine Barbituates (LJZ417) Negati ve Not Available [address], [place], [address], 04/22/2017 10:21:42 04/22/20 17 04/22/2017 drug scree n, urine Benzodiazepi davin (IFZ764) Negati ve Not Available [address], [place], [address], 04/22/2017 10:21:42 04/22/20 17 04/22/2017 drug scree n, urine Methadone (MEX769) Negati ve Not Available [address], [place], [address], 04/22/2017 10:21:42 04/22/20 17 04/22/2017 drug scree n, urine Tricyclic Antidepressa nts (PQO0354) Negati ve Not Available [address], [place], [address], 04/22/2017 10:21:42 04/22/20 17 04/22/2017 drug scree n, urine Oxycodone (OOG828) Negati ve Not Available [address], [place], [address], 04/22/2017 10:21:42 04/22/20 17 04/22/2017 drug scree n, urine Internal QC Okay Not Available [facility] [address] [place] [address] , [place], [address], 04/22/2017 10:21:42 07/22/19 18 07/21/2017 surgi luis patho logy study surgical pathology procedure SEE BELOW Depar tment of Patho logy Surgi luis Patho logy Repor t NAME: ASIF CHUNG ND PATH. :ST-1 74 Copy to: Diagn osis: Speci men desig nated anore ctal fistu la: Focal mucos al ulcer ation with acute infla mmati on and infla med granu latio n tissu e. SOURC E OF SPECI MEN: FISTU LA CLINI LUIS INFOR MATIO N: ANORE CTAL FISTU LA [...] which are parti ally cover ed by benig n squam ous epith elium . There is an area of ulcer ation with assoc iated acute infla mmati on and infla med granu latio n tissu e. The featu res are chela tible with the clini luis impre ssion Ramsey IRIZARRY MD Ami d Out Date: 07/22 09:39 Page 1 of 1 Not Available [facility], [place], [address], 07/22/2017 09:40:18 06/06/19 18 06/06/2017 XR, ankle , 3 or more view [address] [place] [address] Yosvany christie Name: ADELINA christie : 986 Yosvany christie Devyn Seals er: ANUP ORNELAS EXAM DATE: 2017 EXAM: [...] Phill sage MD on 018 12:13 PM [email or web address] [facility] [address] [place], [address], 06/06/2017 13:12:12 Result Notes Documentation Provider Name and Address Organization Details Recorded Time Xr, Ankle, 3 Or More View : [address] [place] [address] Patient Name: INGRID FARIAS Patient : 1985 Patient Ordering Provider: SAMUEL ORNELAS EXAM DATE: 06/06/2017 EXAM: XR RT ANKLE COMPLETE COMPARISON: 05/05/2014 HISTORY: Right ankle pain. FINDINGS: The bones of the right ankle are normal in alignment. There is no displaced fracture. There is no degenerative change. There is no joint effusion. IMPRESSION: 1. This is a normal radiographic examination of the right ankle. Interpreted By: Brent Goddard MD N Cat - [facility] 06/06/2017 13:12:12 Problems Name Problem SNOMED Code Status Onset Date Resolution Date Notes Provider Name and Address Organization Details Recorded Time Acute sinusitis 84516456 Active 2015 From Automated Load;Provi pam: Jacquie Valdez;Shiva tatus: Active Not Available [facility] 6 04:42:32 Urinary incontine nce 186779663 Active 2015 From Automated Load;Provi pam: Shabnam Soliz;Stat us: Active Not Available [facility] 6 04:42:33 Abscess of vulva 12270620 Active 2015 From Automated Load;Provi pam: Arturo Mancini;S tatus: Active [facility] Available [facility] 6 04:42:33 Nausea 701545958 Active 2015 From Automated Load;Provi pam: Jacquie Valdez;Shiva tatus: Active Not Available [facility] 6 04:42:33 Right lower quadrant pain 250184046 Active 2015 From Automated Load;Provi pam: Jacquie Valdez;S tatus: Active Not Available [facility] 6 04:42:33 Lack of energy 635708144 Active 2015 From Automated Load;Provi pam: Jacquie Valdez;S tatus: Active Not Available [facility] 6 04:42:33 Celiac disease 871580345 Active 2014 From Automated Load;Provi pam: Lexii Palencia;St atus: Active Not Available 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 6 04:42:33 Disorder of upper respirato ry system 512237852 Active 2015 From Automated Load;Provi pam: Jacquie Valdez;S tatus: Active Not Available [facility] 6 04:42:33 Epigastri c pain 61249708 Active 2014 From Automated Load;Provi pam: Jacquie Valdez;S tatus: Active Not Available [facility] 6 04:42:33 Migraine with aura 3964076 Active 2014 From Automated Load;Provi pam: Jacquie Valdez;S tatus: Active Not Available [facility] 6 04:42:33 Morbid obesity 493913867 Active 2014 From Automated Load;Provi pam: Jacquie Valdez;S tatus: Active Not Available [facility] 6 04:42:33 Upper abdominal pain 14738872 Active 2014 From Automated Load;Provi pam: Shabnam Soliz;Stat us: Active Not Available [facility] 6 04:42:33 Lower abdominal pain 62567706 Active 2014 From Automated Load;Provi pam: Shabnam Soliz;Stat us: Active Not Available [facility] 6 04:42:34 Diarrhea 62379926 Active 2014 From Automated Load;Provi pam: Lexii Palencia;St atus: Active Not Available [facility] 6 04:42:34 Kidney stone 96268468 Active 2015 From Automated Load;Provi pam: Cm Kan;St atus: Active Not Available [facility] 6 04:42:34 Backache 809067658 Active 2015 From Automated Load;Provi pam: Cm Kan;St atus: Active Not Available [facility] 6 04:42:34 Neuropath y 668320802 Active 2015 From Automated Load;Provi pam: Shabnam Soliz;Stat us: Active Not Available [facility] 6 04:42:34 Low back pain 633474217 Active 2014 From Automated Load;Provi pam: Jacquie Valdez;S tatus: Active Not Available [facility] 6 04:42:34 Refractor y migraine 414385468 Active 2014 From Automated Load;Provi pam: Jacquie Valdez;S tatus: Active Not Available [facility] 6 04:42:34 Obesity 586257628 Active 2014 From Automated Load;Provi pam: Jacquie Valdez;S tatus: Active Not Available [facility] 6 04:42:34 Cough 16664671 Active 2015 From Automated Load;Provi pam: Rakel Oseguera;Statu s: Active Not Available [facility] 7 06:23:13 Tracheobr onchitis 12347439 Active 2015 From Automated Load;Provi pam: Shabnam Soliz;Stat us: Active Not Available [facility] 7 07:46:22 Panic disorder with agoraphob ia 68800771 Active 2015 From Automated Load;Provi pam: Jacquie Valdez;S tatus: Active Not Available [facility] 7 07:47:[address] Concept Active 2015 From Automated Load;Provi pam: Jacquie Valdez;S tatus: Active Not Available [facility] 7 07:47:28 Pharyngit is 866216634 Active 2015 From Automated Load;Provi pam: Rakel Oseguera;Statu s: Active Not Available [facility] 7 08:20:20 Problem Notes Documentation Provider Name and Address Organization Details Recorded Time General Surgeon Consult Note : [facility] [address] [address]BINGRID CADENA (id #[id number], : 1985) [facility] GENERAL SURGERY [address] [place] [address] Date: 08/06/2017RE: Ingrid Farias, : 1985, PT ID #[id number] Valdez PA-C, I would like to thank you for referring Ingrid Farias to our practice for consultation and evaluation. I have enclosed a copy of the office evaluation for your records. Sincerely, Electronically Signed by: LEXII PEREIRA [facility] Reason/Date Initial follow up after an anal mucosal advancement flap for a fistula .. 08/06/2017 - 09:30AM - GENERAL SURGERY SB History of Present Illness Ms. Farias is a 32-year-old female with a past [...] under anesthesia.2. Seton placement3. Right anterolateral transsphincteric mzrlrzi-sf-gap. status post . Exam under anesthesia. 2. [...] evidence of abscessProcedure DocumentationNone recordedAssessment/Plan1. Anorectal fistula-Ms. 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 Exam under anesthesia.2. Seton placement/3. Right anterolateral transsphincteric xzoteiq-kh-xyq. status post . Exam under anesthesia. 2. [...] Return to Office None recorded [facility] 11:57:30 Procedures Surgical History Date Name Laterality Status Provider Name and Address Organization Details Recorded Time 017 Tympanogram completed DEEPIKA MONAHAN, AUD [address], [address], [facility] 06/19/2016 16:36:46 017 Audiogram completed DEEPIKA MONAHAN, AUD [address], [address], [facility] 06/19/2016 16:36:44 017 Nasopharyngoscopy completed PATRICE EDWARDS MD [address], [address], [facility] 05/31/2016 13:47:21 016 Tubal Ligation completed Ana María Leon [facility] 08/14/2016 14:21:17 013 Other completed Ana María Quintero [facility] 08/14/2016 14:22:02 013 Cholecystectomy completed Ana María Quintero [facility] 08/14/2016 14:20:45 delivery completed Ana María [facility] 08/14/2016 14:20:27 Removal of tonsils completed Ana María Quintero [facility] 08/14/2016 14:21:31 EXAM UNDER ANESTHESIA (SURG) completed Janell Stovall [facility] 05/18/2017 17:10:02 Imaging Results None recorded. Procedure Notes None recorded. Medical Equipment None Reported. Allergies Allergen ID Allergen Name Allergen Category Reaction Reaction Severity Criticality Documentation Date Start Date Code Code System Note Provider Name and Address Organization Details Recorded Time 889369 Keflex medicatio n Not available Not available Not available 04/12/20162012 7 RxNorm Comme nt: rash; updat ed 8 Anuradha Kaitlinyeni cyndie [facility] 8 10:07:41 026008 acetamino phen / oxycodone medicatio n Not available Not available Not available 07/22/20172017 62502 3 RxNorm ... JItte ry/ Heart racin g ./ Insom yashira INTOL ERANT OF SIDE EFFEC TS Anuradha Karis [facility] 8 10:07:59 Medications Name Sig Start [...] IM 9MG/ML LEFT DORSOGLU TEAL 06/27 completed 05860799 01 Not Available Not Available Not Available [...] mg by injectio n route. 08/14 completed [facility] 0009-030 6-02 Not Available Not Available Not [...] oral route in the evening. 2016 active jacquie avalos es for herniate d disk Not Available Not Available Not Available buspirone 7.5 mg tablet Take 1 tablet every day by oral route. 2016 active Not Available Not Available Not Avai lable ketorolac 60 mg/2 mL intramusc ular solution Inject 1 mL every 6 hours by intramus cular route. 04/02 completed [facility] 02833-45 1-02 Not Available Not Available Not Available [...] Updated DateTime 8 157.48 cm 41.3 kg/m2 748714. 88 g 52 /min 98.2 [degF] 112 mm[Hg] 82 mm[Hg] Renetta Denis [facility] 8 10:01:23 Date Recorded Body height Body mass index (BMI) Body weight Heart rate Oxygen saturation Oxygen saturation in Arterial blood by Pulse oximetry Body temperature Systolic blood pressure Diastolic blood pressure Provider Name and Address Organization Details Last Updated DateTime 8 157.48 cm 41.9 kg/m2 260746. 65 g 95 /min 99 % 99 % 99 [degF] 120 mm[Hg] 82 mm[Hg] Jose L Gutierres [facility] 8 14:13:59 Date Recorded Body height Heart rate Body mass index (BMI) Body weight Systolic blood pressure Diastolic blood pressure Provider Name and Address Organization Details Last Updated DateTime 8 157.48 cm 76 /min 41.9 kg/m2 789350. 65 g 102 mm[Hg] 60 mm[Hg] Anuradha agee [facility] 8 10:07:31 Social History Question Answer Notes LastModified by Organizat ion Details LastModified Time Tobacco Smoking Status Never Smoker [facility] 05/21/2016 10:15:23 What Is Your Level Of Caffeine Consumption? Moderate [email or web address] Information not available 08/14/2016 Marital Status [email or web address] Informatio n not available 08/14/2016 What Was The Date Of Your Most Recent Tobacco Screening? 06/27/2017 Information n ot available 07/06/2019 Sex: Unknown Functional Status Question Answer Note LastModified by Organizat ion Details LastModified Time What is your level of alcohol consumption? Occasional Information not available 08/14/2016 Mental Status None recorded. Family History Relationship Description Onset Age of this Age Resolved Age Notes LastModified by Organization Details LastModified Time Maternal Grandmother Heart disease Not available 08/14 14:19:10 Maternal Grandmother Hypertensive disorder Not available 08/14 14:19:26 Maternal Grandmother Depressive disorder [email or web address] Not available 2016 14:18:01 Maternal Grandfather Disorder of thyroid gland [email or web address] Not available 08/14 14:19:41 Maternal Grandfather Carcinoma of thyroid [email or web address] Not available 2016 14:17:21 Maternal Grandfather Depressive disorder [email or web address] Not available 2016 14:18:01 Mother Anemia [email or web address] Not available 14:16:53 Sister Depressive disorder [email or web address] Not available 2016 14:18:01 Medical History Condition Response Coronary Artery Disease N Gout N Other N Atrial Fibrillation N Kidney Stones Y Hyperthyroidism N Blood Transfusion N Hypothyroidism N Lung Disease N Depression N COPD N Breast Problem N Difficulty Swallowing N Anxiety Disorder N Meniere's disease N Muscle, Joint, or Bone Problems N Vision or Eye Problems N Arthritis N Infertility N Polyps N Blood Clot N Acid Reflux (GERD) Y Cancer N Stroke N Varicosities N Endometriosis N Bladder or Kidney Problems N High Cholesterol N Liver Disease N Fibromyalgia N Headaches N Kidney Disease N Allergies/Hayfever N Heart Problems N Parkinson's Disease N Ear or Hearing Problems N Hospitalizations N Alzheimer's N Thyroid Problems N GI Problems N Eating Disorder N Skin Problems N Anemia N Constipation N Mental Illness N Diabetes N Ovarian Cancer N Bleeding Disorder Seizures/Epilepsy N Tuberculosis N [...] virus, quadrivalent, preservative 7 completed Not Available [facility] 06/19/2019 02:19:04 Influenza, split virus, quadrivalent, preservative 6 completed Abimael Dela Cruz [facility] 05/27/2016 11:49:19 Hep B, adult 6 completed Abimael Dela Cruz [facility] 05/27/2016 11:49:44 Tdap 6 completed Abimael Dela Cruz [facility] 05/27/2016 11:50:01 Past Encounters Encounter ID Performer Location Encounter Start Date Encounter Closed Date Diagnosis/Indication Diagnosis SNOMED-CT Code Diagnosis ICD10 Code Diagnosis Note [id number] MATHEUS SAMANIEGO MD [facility] [address] [place] [address] 05/21/2016 08:28:50 05/22/2016 09:48:13 Closed fracture of nasal bones 13741887 S02.2XXA [id number] JACQUIE VALDEZ PA-C [facility] [address] [address] 05/27/2016 11:36:52 05/27/2016 16:25:15 Acute otitis media 3155161 H66.91 ENT referral if no improvemen t. Acute sinusitis 64838943 J01.90 as above. [id number] PATRICE EDWARDS MD ENT [place] [address] [place] [address] 05/31/2016 13:07:00 05/31/2016 14:28:31 Acute non-suppurative serous otitis media 794114428 H65.02 due to recent aom. Infection resolved. Fluid should resolve with time. Observe. F/U in 1 month. No pathology seen in the nasopharyn x on endoscopy. Left condu ctive hearing loss 3134509758 107 H90.12 by tuning fork exam. She doesn't have time to wait for an audiogram today. Deviated nasal septum 12 6536493 J34.2 [id number] DEEPIKA MONAHAN, AUD ENT [place] [address] [place] [address] 05/31/2016 14:02:49 05/31/2016 16:53:43 [id number] DEEPIKA MONAHAN AUD ENT [place] [address] [place] [address] 06/19/2016 14:34:17 06/19/2016 16:38:42 Hearing examination 192644456 Z01.10 [id number] JACQUIE VALDEZ PA-C [address] [place] [address] 07/01/2016 09:43:37 07/01/2016 11:52:42 Mixed anxiety and depressive disorder 589581189 F41.8 [id number] JACQUIE VALDEZ PA-C [address] [place] [address] 07/30/2016 15:04:56 07/31/2016 14:12:59 Low back pain 050132356 M54.5 PT if no improvemen t after 1 week. [id number] TERRY THOMAS PA-C [employer] [facility] [address] [place] [address] 08/14/2016 14:10:00 08/14/2016 14:50:58 Abscess of vulva 46335675 N76.4 [id number] JACQUIE VALDEZ PA-C [address] [place] [address] 10/15/2016 12:43:13 10/17/2016 09:06:51 Adult health examination 828534698 Z00.00 utd with immunizati ons and screenings . 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 refer to colorectal surgery [id number] LEXII PEREIRA MD GENERAL SURGERY [address] [place] [address] 04/02/2017 13:44:45 04/02/2017 17:30:18 Anorectal fistula 63518326 K60.5 Ms. Farias is a 31-year-ol d female with a [...] to take part in this patient's care. [id number] JACQUIE VALDEZ PA-C FAMILY [address] [place] [address] 04/22/2017 09:42:24 04/22/2017 13:35:40 Sciatica 33846424 M54.32 worsened of late, if no improvemen t, PT and/or MRI Chronic back pain 448747 002 M54.9 as above Low back pain 628127789 M54.5 avinash and suha appropriat e. rx refill today Allergic rhinitis 785799 04 J30.9 [id number] LEXII PEREIRA MD SURGERY SCHEDULE [address] [place] [address] 05/05/2017 12:11:35 05/05/2017 12:13:40 Anorectal fistula 82195154 K60.5 [id number] LEXII PEREIRA MD GENERAL SURGERY [address] [place] [address] 05/14/2017 14:58:18 05/14/2017 16:04:51 Anorectal fistula 20797331 K60.5 Ms. Farias is a 31-year-ol d female with a [...] [facility] [...] to take part in this patient's care. [id number] SHABNAM SOLIZ PA-C FAMILY MEDICINE [facility] [address] [place] [address] 05/23/2017 09:55:48 05/23/2017 14:02:56 Acute dermatitis 07803113 L30.9 start 6 day prednisone taper as directed. kenalog IM given in office. Stahist daily continue to use benadryl at hs. mild unscented soap/deter gent. If not improving over the next several days, rtc. consider dermatolog y referral if not improving. [id number] SHEA NUÑEZ PA-C [facility] [address] [place] [address] 05/23/2017 12:03:32 05/26/2017 08:15:41 Pityriasis rosea 19915909 L42 Early HI vs other viral exanthemSi gnificant itchingIM celestone given -- SE/R/B reviewedBe nadryl 25 mg 1-2 po qhs [id number] [facility] [place] [facility] [address] [place] [address] 06/27/2017 13:37:06 06/27/2017 14:48:28 Fever 976106923 R50.9 Acute bronchitis 1882248 2 J20.9 advised mucinex once or twice daily 600mg ER; increase fluids, rest off work today and tomorrow return if not improving in next few days, sooner if worsening; [id number] LEXII PEREIRA MD SURGERY SCHEDULE [address] [place] [address] 07/21/2017 11:13:39 07/21/2017 11:19:42 Anorectal fistula 32518730 K60.5 [id number] LEXII PEREIRA MD GENERAL SURGERY [address] [place] [address] 08/06/2017 09:51:35 08/11/2017 08:55:25 Anorectal fistula [id number] K60.5 Ms. Farias is a 32-year-ol d female with a [...] Farah Member ID Guarantor Name 06/26/2018 1 [facility] [facility] [id number] Rosalesshahnaz Velasquez [id number] 49 Ingrid Briland 03/25/2018 PAYMENT PLAN Ingrid Briland 01/08/2024 1 [facility] [id number] Ingrid Briland [id number] 00 Ingrid Briland 01/08/2024 1 [facility] [id number] Ingrid Briland [id number] Ingrid Briland Notes Date Note Type Note Provider Name and Address Organization Details Recorded Time 05/23/2017 text/html patient presents with onset of rash midmorning yesterday that she believes started after her used a new fabric softener. She states that blotches started on her neck and upper chest and gradually spread downward to her legs. She also ate Divehi food at lunch yesterday which had chestnuts [...] been using calamine lotion on the spots. 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 LOCATION: neck, trunk, proximal lower extremities DURATION: days SYMPTOMS: red, itching TREATMENT: K40 inj Recovering from recent URI SHEA NUÑEZ PA-C [address] [place], [address], [facility] 05/23/2017 13:43:13 06/27/2017 text/html Pt is here [...] temp since 2 nights ago; WILLIAM CRUMP, SUCKER MACHINE OPERATOR [address] [place], [address], [facility] 06/27/2017 14:57:27 08/06/2017 text/html Ms. Farias is a 32-year-old female with a past [...] under anesthesia.2. Seton placement3. Right anterolateral transsphincteric [id number]. status post . Exam under anesthesia. 2. Anal mucosal advancement flap. she comes in for follow-up. she is doing well. Her pain is improving. Minimal drainage from the external os. She is using fiber. No fever. she is pleased with her surgery. LEXII PEREIRA MD [address] [place], [address], [facility] 08/06/2017 10:32:20 OBGyn Episode No OBEpisode recorded.
[2024-11-17 10:22] VITALS: BP 107/70; PULSE 76; RESP 18; O2SAT 96; BMI 39.3
--- NOTE | 2024-11-17 10:23 | A.OFFVIS_ITS ---
[facility] Disclaimer: The information contained in this section may have been updated after the patient was seen, as this information can be updated by other users. Medical History Renal calculus, right Ureterolithiasis Urinary tract infection Hematuria Right nephrolithiasis UTI (urinary tract infection) Cervical cancer Head trauma Fall Lumbar disc disease with radiculopathy Abdominal pain Renal mass Vomiting Urinary frequency Recurrent UTI Diabetes Abdominal tenderness, LLQ (left lower quadrant) Thrombophlebitis of vein of pelvis Abdominal tenderness, RLQ (right lower quadrant) Urinary urgency Abnormal uterine bleeding Sinusitis Adenocarcinoma in situ of endocervix Perianal fissure PCOS (polycystic ovarian syndrome) Dyspareunia Endometriosis Chronic pelvic pain in female Morbid obesity with BMI of 40.0-44.9, adult Shingles Anxiety Shingles (herpes zoster) polyneuropathy Surgical History S/P laparoscopic hysterectomy with bilateral salpingectomy 05/15/23 History of colonoscopy S/P cone biopsy of cervix History of cholecystectomy History of delivery History of tonsillectomy H/O tubal ligation Family History Other Anemia Asthma Atrial fibrillation Cancer Diabetes Heart disease Hyperlipidemia Hypertension No significant family history Thyroid disorder Social History Smoking Status: Never smoker alcohol intake: current alcohol intake frequency: other substance use type: denies use current occupational status: employed Travel in the last 8 weeks?: None household members: other housing: house marital status: number of children: 2 education level: college current occupational exposures/hazards: Yes caffeine: Yes PM Subjective & Objective Subjective Subjective:: Patient is a pleasant 39-year-old female who presents today for follow-up of her Botox injections for migraines. Today she rates her pain a 2 out of 10. She denies any new falls or injuries. She does state that she has had at least 75% improvement following those injections and feels like they have really made a difference bringing her headaches down to about 2 a week. Patient does however states she has been having a little bit more light sensitivity which is not uncommon for her. Patient does also have a eczema flareup around her eyes today. She states that she will have it occasionally flareup on her face or neck. Patient is managed with compounded cream and tizanidine 4 mg at bedtime from our office. She denies any side effects but does feel like on occasion she has where the tizanidine carries over and she feels a little bit more groggy during the day. She does state it is worse when she is not able to take the tizanidine until late in the night. She states this summer they are very busy with ball and sometimes that they will be out till 11:12 at night. Her Joe has been reviewed and is appropriate. Review of Systems: General: No recent weight changes, no fever, no sleep disturbances Respiratory: No cough, no shortness of air, no recurring pulmonary infections Cardiovascular/peripheral vascular: No chest pain, no palpitations, no edema, no shortness of breath Gastrointestinal: No new onset incontinence, normal bowel movements reported Genitourinary: No new onset incontinence Musculoskeletal: Headache, neck pain Psychiatric: [Normal mood/affect] Neurological: [Denies weakness in extremities], [denies balance issues] Pain at rest (0-10 scale): 2 Objective Objective:: Physical Exam: General: Alert and oriented x3, no acute distress, pleasant and cooperative Lungs: Respirations even and unlabored, symmetrical chest expansion Eyes: PERRL Musculoskeletal: Flexion and extension of cervical [spine] within normal limits Neurological: Speech clear, no gross sensory deficit Has patient had previous pain injection?: Yes Percent improvement in pain since last injection: 75% Conservative treatment options previously tried: Home exercise plan Length of treatment: Longer than 12 weeks Meds Home Medications and Allergies Home Medications ?Medication ?Instructions ?Recorded ?Confirmed ?Type lisinopril 10 1 tab PO DAILY High Blood Pr essure 10/22/23 11/17/24 Rx mg-hydrochlorothiazide 12.5 mg #90 tabs tablet atogepant 60 mg tablet (Qulipta) 60 mg PO DAILY #90 ta bs 12/01/23 11/17/24 Rx albuterol sulfate 90 mcg/actuation 2 inh inhalation Q6 HP PRN 07/28/24 11/17/24 Rx aerosol inhaler Shortness Of Breath Or Wheez ing #8.5 grams pregabalin 150 mg capsule (Lyrica) 150 mg PO BID Pain #60 caps 07/28/24 11/17/24 Rx ondansetron 4 mg disintegrating 4 mg PO TID PRN nausea and 08/18/24 11/17/24 Rx tablet vomiting 4 days #30 tabs tizanidine 4 mg tablet (Zanaflex) 4 mg PO HS Muscle Sp asm #30 tabs 09/08/24 11/17/24 Rx New Prescriptions to Start Prescriptions: Allergies Allergy/AdvReac Type Severity Reaction Status Date / Time amitriptyline Allergy Intermediate Anaphylaxis Verified 10/25/24 14:07 cephalexin (From Keflex) Allergy Intermediate Unknown Verified 10/25/24 14:07 allergy reaction cinnamon Allergy Unknown Verified 10/25/24 14:07 allergy reaction Assessment and Plan *Assessment and plan (1) Cervical radiculopathy: Status: Acute Category: Medical Code(s): M54.12 - Radiculopathy, cervical region (2) Degenerative disc disease, cervical: Status: Acute Category: Medical Code(s): M50.30 - Other cervical disc degeneration, unspecified cervical region (3) Migraines: Status: Acute Category: Medical Code(s): G43.909 - Migraine, unspecified, not intractable, without status migrainosus (4) Chronic headache: Status: Acute Qualifiers: Headache type: post-traumatic Intractability: not intractable Qualified Code(s): G44.329 - Chronic post-traumatic headache, not intractable Category: Medical Code(s): R51.9 - Headache, unspecified; G89.29 - Other chronic pain Plan I did discuss with the patient that I will change her tizanidine to 2 mg at bedtime. Patient was counseled on days that she has done more and feels like her pain and muscle spasms are worse that she can still take 2 of these to combined to make the 4 mg however the 2milligram may be more beneficial to where she does not feel like it carries over onto the next day. She agrees with this plan of care. Patient has had significant improvement with her Botox for migraines. We will follow-up with her in 6 weeks for reevaluation of symptoms and plan of care. Patient has been instructed to contact the clinic with any concerns before the next appointment. Dr. Deal has reviewed this note and agrees with this plan of care. This note was dictated using voice recognition software and make contain errors or omissions. All injections are used with Lidocaine, Bupivacaine and dexamethasone. Occasionally urine drug screen is needed to verify patient's compliance with our office pain contract. This is ordered based off specific treatments related to chronic pain with the potential to abuse certain medications.
== END 2024-11-17 23:59 | disposition home or self-care (01) ==
PROVIDERS: PCP Family Medicine; Visit Provider Nurse Practitioner Family
DX: M50.10 Cervical disc disorder with radiculopathy, unspecified cervical region (principal); G43.909 Migraine, unspecified, not intractable, without status migrainosus; G44.329 Chronic post-traumatic headache, not intractable; Z79.899 Other long term (current) drug therapy
CPT/HCPCS: 99212; G0463

== ENCOUNTER 2025-02-02 14:00 | Outpatient (CLI) | payer BC, SELFPAY ==
[2025-02-02 20:00] LABS: Hematocrit 38.5 % (37.0-47.0); Hemoglobin 11.6 g/dL (12.2-16.2); Immature Granulocytes % 0.2 %; Mean Corpuscular HGB Conc 30.1 g/dL (31.8-35.4); Mean Corpuscular Hemoglobin 25.7 pg (27.0-31.2); Mean Corpuscular Volume 85.4 fl (81-99); Nucleated Red Blood Cells % 0 %; Platelet Count 170 K/mm3 (142-424); Red Blood Count 4.51 M/mm3 (4.20-5.40); Red Cell Distribution Width-SD 46.0 fL; White Blood Count 12.6 K/mm3 (4.8-10.8)
--- OUTSIDE RECORDS SUMMARY | 2025-02-03 11:02 | XMS_ITS | Clinical Summary ---
Author Organization Healthcare Address [address] [place] [address] Care Team Providers Care Openstack Developer Name Role Phone Cm Barth MD Primary Care Provider [phone] Allergies Active Allergy Reactions Criticality Noted Date [...] times a day Active ergocalciferol 1.25 MG (89817 UT) capsule 3 Active fexofenadine (Jeanine) 180 [...] [facility]-Adult SDOH Screenings 2003 [facility]-Pap Smear 2006 HPV Vaccines (1 - 3-dose SCDM series) 2012 [facility]-Cervical Cancer Screening 2015 [facility]-HPV/Cotest 2015 [facility]-Hepatitis B Vaccines (2 of 3 - 19+ 3-dose series) 01/19/2016 12/22/2015 [id number] Vaccine (4 - season) 2025 03/26/2021, 06/16/2020, 05/17/2020 [facility]-Influenza Vaccine (#1) 01/17/202502/07, 02/11/2017, 03/04/2016, Additional history exists [facility]-DTaP,Tdap,and Td [...] patient's age to complete this topic Insurance [facility] Care Teams Openstack Developer Relationship Specialty Start Date End Date Cm Barth MD [address] [place] [phone] PCP - General 09/29/20
--- OUTSIDE RECORDS SUMMARY | 2025-02-03 11:02 | XMS_ITS | Clinical Summary ---
Author Organization [facility] Address [address] [place] [address] Care Team Providers Care Lead Neurodiagnostic Technologist Name Role Phone Cm Barth MD Primary Care Provider + [phone] Allergies Active Allergy Reactions Criticality Noted Date [...] - - Pulse - - Temperature 36.2 C (97.1 F) 07/28/2019 12:57 PM EDT Respiratory Rate 14 07/28/2019 12:57 PM EDT Oxygen Saturation - - Inhaled Oxygen Concentration - - Weight 99.4 kg (219 lb 3.2 oz) 07/28/2019 12:57 PM EDT Height 157.5 cm (5' 2 ) 07/28/2019 12:57 PM EDT Body Mass Index 40.09 07/28/2019 12:57 PM EDT Plan of Treatment Health Maintenance Due Date Last Done Comments Annual Gynecologic Pelvic an d Breast Exam 1985 PAP SMEAR 2006 ANNUAL PHYSICAL 07/27/2019 HEPATITIS C SCREENING 07/27/2019 INFLUENZA VACCINE 12/17/2024 TDAP/TD VACCINES (2 - Td or Tdap) 12/21/2025 016 Pneumococcal Vaccine 0-49 Aged Out No longer eligible based on patient's age to complete this topic Insurance [employer] Care Teams Lead Neurodiagnostic Technologist Relationship Specialty Start Date End Date Cm Barth MD [address] [facility] [address] [address] PCP - General Adolescent Medicine 07/27/19
== END 2025-02-02 23:59 ==
LOC: LAB.DROPOF 02-03 11:00
PROVIDERS: PCP Student in an Organized Health Care Education/Training Program; Visit Provider Student in an Organized Health Care Education/Training Program
DX: R59.9 Enlarged lymph nodes, unspecified (principal); J20.9 Acute bronchitis, unspecified; R68.89 Other general symptoms and signs; Z68.41 Body mass index [BMI] 40.0-44.9, adult
CPT/HCPCS: 85025

== ENCOUNTER 2025-02-04 09:20 | Outpatient (CLI) | payer BC, SELFPAY ==
--- OUTSIDE RECORDS SUMMARY | 2025-02-04 09:22 | XMS_ITS | Clinical Summary ---
Author Organization [facility] Address [address] [place] [address] Care Team Providers Care Assistant Clinical Nurse Manager Name Role Phone Cm Barth MD Primary Care Provider + [phone] Allergies Active Allergy Reactions Criticality Noted Date [...] complete this topic Insurance [employer] Care Teams Assistant Clinical Nurse Manager Relationship Specialty Start Date End Date Cm Barth MD [address] [facility] [address] [address] PCP - General Adolescent Medicine 07/27/19
--- OUTSIDE RECORDS SUMMARY | 2025-02-04 09:22 | XMS_ITS | Clinical Summary ---
Author Organization Healthcare Address [address] [place] [address] Care Team Providers Care Teacher Of Gifted Students Name Role Phone Cm Barth MD Primary Care Provider [phone] Allergies Active Allergy Reactions Criticality Noted Date [...] times a day Active ergocalciferol 1.25 MG (15134 UT) capsule 3 Active fexofenadine (Jeanine) 180 [...] 3 - 19+ 3-dose series) 01/19/2016 12/22/2015 [id number] Vaccine (4 - season) 2025 03/26/2021, 06/16/2020, [...] patient's age to complete this topic Insurance [facility] Care Teams Teacher Of Gifted Students Relationship Specialty Start Date End Date Cm Barth MD [address] [place] [phone] PCP - General 09/29/20
[2025-02-04 09:50] LABS: Blood Urea Nitrogen 15 mg/dl (7-17); Creatinine,Serum 0.70 mg/dl (0.52-1.04); Estimated Glomerular Filt Rate 93 ml/min (>60); GFR (African American) 113 ML/MIN (>60)
--- NOTE | 2025-02-04 10:00 | CT_ITS ---
FINAL REPORT TECHNIQUE: The patient was injected with IV contrast. Axial images were obtained of the chest by computed tomography. Precontrast images were also obtained. This study was performed with techniques to keep radiation doses as low as reasonably achievable (ALARA). Individualized dose reduction techniques using automated exposure control or adjustment of mA and/or kV according to the patient's size were employed. CLINICAL HISTORY: persistent cough >7 wks, new night sweats lymph COMPARISON: none FINDINGS: CT OF THE CHEST WITH AND WITHOUT CONTRAST: There are few mildly enlarged lymph nodes. A right paratracheal node on image 25 measures 7 x 12 mm. A right subcarinal lymph node measures 21 x 11 mm. A left infrahilar lymph node measures 10 mm. A lower right axillary node measures 15 mm. Heart size is normal. There is no pericardial or pleural effusion identified. There is no suspicious pulmonary nodule or infiltrate identified. Limited images of the upper abdomen are unremarkable. IMPRESSION: No acute lung disease or lung mass identified. Mild nonspecific thoracic adenopathy. 3-month follow-up may be considered. Reviewed, Interpreted and Dictated by Gracy Dong MD Transcribed by Luann Ballard Authenticated and [facility]
--- NOTE | 2025-02-04 10:00 | CT_ITS ---
FINAL REPORT TECHNIQUE: Thin section axial CT images with coronal and sagittal reformats were performed after the administration of IV contrast. Precontrast images were also obtained. This study was performed with techniques to keep radiation doses as low as reasonably achievable (ALARA). Individualized dose reduction techniques using automated exposure control or adjustment of mA and/or kV according to the patient''s size were employed. CLINICAL HISTORY: persistent cough >7 wks, new night sweats lymph COMPARISON: none FINDINGS: Salivary glands are normal. Mild ethmoid sinusitis. Mucous retention cyst in the right sphenoid measuring 15 mm. Widespread adenopathy along the bilateral jugular chains, submandibular regions, and posterior triangle based on excessive number of normal to mildly enlarged lymph nodes. Largest left sided node is seen on image #39 involving the upper left jugular chain measuring 16 x 15 mm. Largest right sided node is located within the upper right jugular chain measuring 15 x 12 mm. Larynx is normal. Right thyroid mass is noted measuring 8 mm. IMPRESSION: Moderate widespread adenopathy based largely on excessive number of normal to mildly enlarged lymph nodes. If tissue diagnosis is needed, surgical lymph node excision would be required. Reviewed, Interpreted and Dictated by Gracy Dong MD Transcribed by Luann Ballard Authenticated and [facility]
[2025-02-04] MEDS: IOPAMIDOL-370 (76%);100ML BOTTLE 75 ML IV (10:28)
[2025-02-04] MEDS: SODIUM CHLORIDE 0.9% 10ML SYR (RAD ONLY) 10 ML IV (10:28)
== END 2025-02-04 23:59 | disposition home or self-care (01) ==
LOC: RAD 09:20
PROVIDERS: PCP Family Medicine; Visit Provider Student in an Organized Health Care Education/Training Program
DX: R59.1 Generalized enlarged lymph nodes (principal); R13.10 Dysphagia, unspecified; R61 Generalized hyperhidrosis; R05.3 Chronic cough
CPT/HCPCS: 36415; 70492; 71270; 82565; 84520; Q9967

== ENCOUNTER 2025-03-02 16:39 | Outpatient (CLI) | payer BC, SELFPAY ==
--- OUTSIDE RECORDS SUMMARY | 2025-03-02 16:42 | XMS_ITS | Clinical Summary ---
Author Organization [facility] Address [address] [place] [address] Care Team Providers Care Boarder Hand Name Role Phone Cm Barth MD Primary Care Provider [phone] Allergies Active Allergy Reactions Criticality Noted Date [...] times a day Active ergocalciferol 1.25 MG (46925 UT) capsule 3 Active fexofenadine (Jeanine) 180 [...] 3 - 19+ 3-dose series) 01/19/2016 12/22/2015 [id number] Vaccine (4 - season) 2025 03/26/2021, 06/16/2020, [...] patient's age to complete this topic Insurance [facility] Care Teams Boarder Hand Relationship Specialty Start Date End Date Cm Barth MD [address] [place] [phone] PCP - General 09/29/20
[2025-03-02 16:59] LABS: Hematocrit 39.6 % (37.0-47.0); Hemoglobin 12.3 g/dL (12.2-16.2); Immature Granulocytes % 0.4 %; Mean Corpuscular HGB Conc 31.1 g/dL (31.8-35.4); Mean Corpuscular Hemoglobin 25.7 pg (27.0-31.2); Mean Corpuscular Volume 82.8 fl (81-99); Nucleated Red Blood Cells % 0 %; Platelet Count 195 K/mm3 (142-424); Red Blood Count 4.78 M/mm3 (4.20-5.40); Red Cell Distribution Width-SD 44.9 fL; White Blood Count 14.9 K/mm3 (4.8-10.8)
[2025-03-02 17:16] LABS: D-Dimer 0.95 ug/mL (0.0-0.5)
[2025-03-02 17:45] LABS: Hemoglobin A1C 5.8 % (4.0-6.0)
[2025-03-02 18:20] LABS: Albumin Level 4.0 g/dl (3.5-5.0); Chloride 103 mmol/L (98-107)
[2025-03-02 18:21] LABS: Potassium 3.7 mmoL/L (3.5-5.1); Sodium 139 mmol/L (136-145)
[2025-03-02 18:23] LABS: Alanine Aminotransferase 18 U/L (12-78); Albumin/Globulin Ratio 1.3 (1.1-1.8); Alkaline Phosphatase 100 U/L (38-126); Anion Gap 14.7 mEq/L (5-15); Aspartate Amino Transferase 23 U/L (14-36); Bilirubin,Total 0.6 mg/dl (0.2-1.3); Blood Urea Nitrogen 14 mg/dl (7-17); Carbon Dioxide 25 mmol/L (22.0-30.0); Cholesterol 200 mg/dl (140-200); Creatinine,Serum 0.70 mg/dl (0.52-1.04); Estimated Glomerular Filt Rate 93 ml/min (>60); GFR (African American) 113 ML/MIN (>60); Globulin 3.2 g/dL (1.3-3.2); Iron 53 ug/dL (37-170); Total Protein,Serum 7.2 g/dl (6.3-8.2); Triglycerides 88 mg/dl (30-150)
[2025-03-02 18:24] LABS: Calcium 9.1 mg/dl (8.4-10.2); Glucose 88 mg/dl (74-100); HDL Cholesterol 54 mg/dl (40-60)
[2025-03-02 18:33] LABS: Total Iron Binding Capacity 366 ug/dL (265-497)
[2025-03-02 19:08] LABS: Ferritin 31.4 ng/ml (6.24-137); Thyroid Stimulating Hormone 0.43 uIU/mL (0.465-4.68)
== END 2025-03-02 23:59 | disposition home or self-care (01) ==
LOC: LAB 16:40
PROVIDERS: PCP Student in an Organized Health Care Education/Training Program; Visit Provider Family Medicine
DX: D64.9 Anemia, unspecified (principal); R73.03 Prediabetes
CPT/HCPCS: 36415; 80053; 80061; 82728; 83036; 83540; 83550; 84443; 85025; 85378

== ENCOUNTER 2025-03-10 11:42 | Outpatient (CLI) | payer BC, SELFPAY ==
--- OUTSIDE RECORDS SUMMARY | 2025-02-10 15:35 | XMS_ITS | Encounter Summary ---
Author Organization [facility] Address [address] [place] [address] Care Team Providers Care Wafer Slicer Name Role Phone Nikkie Perez APRN Primary Care Provider [phone] Encounter Details Date Type Department Care Team (Late st Contact Info) Description 02/10/2025 3:35 PM EDT Lab [facility] [address] [place] [phone] Wheezing Social History Tobacco Use Types Packs/Day Years [...] as of this encounter Plan of Treatment Upcoming Encounters Date Type Department Care Team (Late st Contact Info) Description 03/11/2025 11:00 AM EDT Appointment [facility] [address] [place] [address] 04/07/2025 8:30 AM EST Office Visit [facility] PULMON[facility]ICAL CARE MEDICINE [address] [place] [address] 04/07/2025 9:00 AM EST Office Visit [facility] MEDICINE [address] [place] [address] Julio Cesar Belle, [address] [place] [address] documented as of this encounter Procedures Procedure Name Priority Date/Time Associated Diagnosis Comments EBV ANTIBODY PROFILE Routine 02/10/2025 3:09 PM EDT Wheezing CMV IGG IGM Routine 02/10/2025 3:09 PM EDT Wheezing ANGIOTENSIN CONVERTING ENZYME Routine 02/10/2025 3:09 PM EDT Wheezing documented in this encounter Results * Angiotensin Converting Enzyme (02/10/2025 3:09 PM EDT) Angiotensin Converting Enzyme 34 14 - 82 U/L 02/11/2025 4:12 PM EDT [facility] Blood Venipuncture / Unknown 02/10/2025 3:09 PM EDT 02/10/2025 3:09 PM EDT Narrative [facility] - 02/11/2025 4:12 PM EDT Performed at: [address] [place] [id number] Locomotive Electrician: Armand Neville PhD, Phone: [phone] Brock Hoover MD LAB BLOOD ORDERABLES Fin al Result Performing Organization Address [facility] Co de Phone Number [facility] [address] [place] [address], [place] [phone] * (ABNORMAL) CMV IgG IgM (02/10/2025 3:09 PM EDT) [facility] CMV IgG 5.10(H) 0.00 - 0.59 U/mL 02/11/2025 7:10 AM EDT [facility] Comment: Negative <0.60 Equivocal 0.60 - 0.69 Positive >0.69 CMV IgM <30.0 0.0 - 29.9 AU/mL 02/11/2025 7:10 AM EDT [facility] Comment: Negative <30.0 Equivocal 30.0 - 34.9 Positive >34.9 A positive result is generally indicative of acute infection, reactivation or persistent IgM production. Blood Venipuncture / Unknown 02/10/2025 3:09 PM EDT 02/10/2025 3:09 PM EDT Narrative [facility] - 02/11/2025 7:10 AM EDT Performed at: [address] [place] [id number] Locomotive Electrician: Armand Neville PhD, Phone: [phone] Brock Hoover MD LAB BLOOD ORDERABLES Fin al Result Performing Organization Address [facility] Co de Phone Number [facility] [address] [place] [address], [place] [phone] * (ABNORMAL) EBV Antibody Profile (02/10/2025 3:09 PM EDT) [facility] EBV VCA IgM <36.0 0.0 - 35.9 U/mL 02/11/2025 4:12 PM EDT [facility] Comment: Negative <36.0 Equivocal 36.0 - 43.9 Positive >43.9 EBV VCA IgG 508.0(H) 0.0 - 17.9 U/mL 02/11/2025 4:12 PM EDT [facility] Comment: Negative <18.0 Equivocal 18.0 - 21.9 Positive >21.9 EBV Nuclear Antigen Ab, IgG 50.0(H) 0.0 - 17.9 U/mL 02/11/2025 4:12 PM EDT [facility] Comment: Negative <18.0 Equivocal 18.0 - 21.9 Positive >21.9 Interpretation Comment 02/11/2025 4:12 PM EDT [facility] Comment: EBV Interpretation Chart Mejía: Antibody Present + Antibody Absent - Interpretation VCA-IgM VCA-IgG EBNA-IgG No previous infection/ - - - Susceptible Primary infection (new + + - or recent) Past Infection +or- + + See comment below* + - - *Results indicate infection with EBV at some time however cannot predict the timing of the infection since antibodies to EBNA usually develop after primary infection or, alternatively, approximately 5-10% of patients with EBV never develop antibodies to EBNA. Blood Venipuncture / Unknown 02/10/2025 3:09 PM EDT 02/10/2025 3:09 PM EDT Narrative [facility] - 02/11/2025 4:12 PM EDT Performed at: [address] [id number] Locomotive Electrician: Armand Neville PhD, Phone: [phone] us Brock Hoover MD LAB BLOOD ORDERABLES Fin al Result [address] [address], documented in this encounter Visit Diagnoses Diagnosis Wheezing documented in this encounter Care Teams Wafer Slicer Relationship Specialty Start Date End Date Nikkie Perez APRN [address] [place] [address] PCP - General Family Medicine 02/10/25 documented as of this encounter
--- OUTSIDE RECORDS SUMMARY | 2025-03-10 11:50 | XMS_ITS | Encounter Summary ---
Author Organization [facility] Address [address] [place] [address] Care Team Providers Care Waste Hand Name Role Phone Nikkie Perez LARISSA Primary Care Provider [phone] Encounter Details Date Type Department Care Team (Latest Contact Info) Description 02/10/2025 Travel Social History Tobacco Use Types Packs/Day [...] Info) Description 03/11/2025 11:00 AM EDT Appointment [facility] [address] [place] [address] 04/07/2025 8:30 AM EST Office Visit [facility] PULMONARY & CRITICAL CARE MEDICINE [address] [place] [address] 04/07/2025 9:00 AM EST Office Visit [facility] PULMON[facility] & [facility]ITICAL CARE MEDICINE [address] [facility] [place] [address] Julio Cesar Belle DO [address] [place] [address] documented as of this encounter Visit Diagnoses Not on filedocumented in this encounter Care Teams Waste Hand Relationship Specialty Start Date End Date Nikkie Perez APRN [address] [place] [address] PCP - General Family Medicine 02/10/25 documented as of this encounter
--- OUTSIDE RECORDS SUMMARY | 2025-03-10 11:50 | XMS_ITS | Clinical Summary ---
Author Organization Healthcare Address [address] [place] [address] Care Team Providers Care Engineer Internship Name Role Phone Cm Barth MD Primary Care Provider [phone] Allergies Active Allergy Reactions Criticality Noted Date [...] times a day Active ergocalciferol 1.25 MG (44523 UT) capsule 3 Active fexofenadine (Jeanine) 180 [...] 3 - 19+ 3-dose series) 01/19/2016 12/22/2015 [id number] Vaccine (4 - season) 2025 03/26/2021, 06/16/2020, [...] patient's age to complete this topic Insurance [facility] Care Teams Engineer Internship Relationship Specialty Start Date End Date Cm Barth MD [address] [place] [phone] PCP - General 09/29/20
--- OUTSIDE RECORDS SUMMARY | 2025-03-10 11:50 | XMS_ITS | Clinical Summary ---
[facility] Address [address] [place] [address] Care Team Providers Care Toy Assembler Wood Name Role Phone Nikkie Perez APRN Primary Care Provider [phone] Allergies Active Allergy Reactions Criticality Noted Date Comments Amitriptyline Anaphylaxis High 02/09/2025 Cephalexin Hives,Rash Low 07/28/2019 Medications albuterol sulfate [...] 3 (Three) Times a Day. 07/23/2019 Active predniSONE 5 MG (21) tablet therapy pack dose pack Take As Directed per package instructions. 21 tablet 02/09/2025 2:07 PM EDT 02/09/2025 Active Active Problems No known active problems Encounters Date Type Department Care Team Description 02/10/2025 3:35 PM EDT Lab [facility] [place] [address] [facility] 02/10/2025 Travel from Last 3 Months Social History Tobacco Use Types Packs/Day Years [...] 07/28/2019 12:57 PM EDT Plan of Treatment Upcoming Encounters Date Type Department Care Team (Late st Contact Info) Description 03/11/2025 11:00 AM EDT Appointment [facility] [place] [address] [place] [address] 04/07/2025 8:30 AM EST Office Visit [facility] PUL[facility]ITICAL CARE MEDICINE [address] [place] [address] 04/07/2025 9:00 AM EST Office Visit [facility] PUL[facility]ITICAL CARE MEDICINE [address] [place] [address] Julio Cesar Belle DO [address] [place] [address] Health Maintenance Due Date Last Done Comments Annual Gynecologic Pelvic and Breast Exam 1985 PAP SMEAR 2006 ANNUAL PHYSICAL 07/27/2019 HEPATITIS C SCREENING 07/27/2019 INFLUENZA VACCINE 12/17/2024 02/07/2021, , 03/04/2016, Additional history exists TDAP/TD VACCINES (3 - Td or Tdap) 10/16/2034 10/16/2024, 12/22/2015 Pneumococcal Vaccine 0-49 Aged Out No longer eligible based on patient's age to complete this topic Procedures Procedure Name Priority Date/Time Associated Diagnosis Comments ANGIOTENSIN CONVERTING ENZYME Routine 02/10/2025 3:09 PM EDT Wheezing CMV IGG IGM Routine 02/10/2025 3:09 PM EDT Wheezing EBV ANTIBODY PROFILE Routine 02/10/2025 3:09 PM EDT Wheezing HEPATITIS B SURFACE ANTIBODY STAT 02/10/2025 3:00 PM EDT Encounter for general adult medical examination without abnormal findings SCANNED - IMAGING 02/04/2025 from Last 3 Months Results * (ABNORMAL) EBV Antibody Profile (02/10/2025 3:09 PM EDT) EBV VCA IgM <36.0 0.0 - 35.9 [...] PM EDT 02/10/2025 3:09 PM EDT Narrative [facility] - 02/11/2025 4:12 PM EDT Performed at: [address] [place] [id number] Enterprise Cloud Architect: Armand Neville PhD, Phone: [phone] us Brock Hoover MD LAB BLOOD ORDERABLES Fin al Result [facility] [address] [place] [address], * (ABNORMAL) CMV IgG IgM (02/10/2025 3:09 PM EDT) [facility] CMV IgG 5.10(H) 0.00 - 0.59 U/mL 02/11/2025 7:10 AM EDT [facility] Comment: Negative <0.60 Equivocal 0.60 - 0.69 Positive >0.69 CMV IgM <30.0 0.0 - 29.9 AU/mL 02/11/2025 7:10 AM EDT [facility] Comment: Negative <30.0 Equivocal 30.0 - 34.9 Positive >34.9 A positive result is generally indicative of acute infection, reactivation or persistent IgM production. Blood Venipuncture / Unknown 02/10/2025 3:09 PM EDT 02/10/2025 3:09 PM EDT N[facility]ative [facility] - 02/11/2025 7:10 AM EDT Performed at: [address] [place] [id number] Enterprise Cloud Architect: Armand Neville PhD, Phone: [phone] Brock Hoover MD LAB BLOOD ORDERABLES Fin al Result [facility] [address] [place] [address], * Angiotensin Converting Enzyme (02/10/2025 3:09 PM EDT) [facility] Angiotensin Converting Enzyme 34 14 - 82 U/L 02/11/2025 4:12 PM EDT [facility] Blood Venipuncture / Unknown 02/10/2025 3:09 PM EDT 02/10/2025 3:09 PM EDT Narrative [facility] - 02/11/2025 4:12 PM EDT Performed at: [address] [place] [id number] Enterprise Cloud Architect: Armand Neville PhD, Phone: [phone] Brock Hoover MD LAB BLOOD ORDERABLES Fin al Result [facility] [address] [place] [address], * Hepatitis B Surface Antibody (02/10/2025 3:00 PM EDT) Hep B S Ab Reactive 02/10/2025 7:57 PM EDT [facility] Blood Venipuncture / Unknown 02/10/2025 3:00 PM EDT 02/10/2025 3:01 PM EDT Narrative [facility] - 02/10/2025 7:57 PM EDT Non-Reactive - Individual is considered to be not immune to infection with HBV. Equivocal - Unable to determine if anti-HBs is present at levels consistent with immunity. The individual should be further assessed by associated risk factors and the use of additional diagnositc information, or another sample may be collected and tested. Reactive - Anti-HBs concentration detected at >10 mIU/mL. Individual is considered to be immune to infection with HBV. Results may be falsely decreased if patient taking Biotin. [place] APRN LAB BLOOD ORDERABLES Fin al Result Performing Organization Address City/[facility]/ZIP Co de Phone Number [facility]
[address] [place] [address], * IMAGING SCANNED (02/04/2025) Anatomical Region Laterality Modality Radiographic Zaida ging [facility] IMG DIAGNOSTIC IMAGING ORDERA BLES Final Result from Last 3 Months Insurance [employer] Care Teams Toy Assembler Wood Relationship Specialty Start Date End Date Nikkie Perez APRN [address] [place] [address] PCP - General Family Medicine 02/10/25
== END 2025-03-10 23:59 | disposition home or self-care (01) ==
LOC: RT 11:42
PROVIDERS: PCP Family Medicine; Visit Provider Student in an Organized Health Care Education/Training Program
DX: R06.02 Shortness of breath (principal)
CPT/HCPCS: 94010

== ENCOUNTER 2025-04-21 10:05 | Outpatient (CLI) | payer BC, SELFPAY ==
--- OUTSIDE RECORDS SUMMARY | 2025-03-11 09:48 | XMS_ITS | Encounter Summary ---
Author Organization [facility] Address [address] [place] [address] Care Team Providers Care Chute Feeder Name Role Phone Nikkie Perez APRN Primary Care Provider [phone] Reason for Referral * MRI/CAT/PET Scan (Routine) - Closed Specialty Diagnoses / Procedures Referred By Jose Manuel christie Referred To Contact Radiology Diagnoses Other specified abnormal findings of blood chemistry Procedures CT Angiogram Chest Nikkie Perez APRN [address] [place] [address] Phone: tel: fax: [address] [address] Phone: tel: Referral ID Status Reason Start Date Expiration Date Visits Re quested Visits Authorized [id number] Closed 03/08/2025 06/07/2026 1 1 Reason for Visit * MRI/CAT/PET Scan (Routine) - Closed Specialty Diagnoses / Procedures Referred By Jose Manuel christie Referred To Contact Radiology Diagnoses Other specified abnormal findings of blood chemistry Procedures CT Angiogram Chest Nikkie Perez APRN [address] [place] [address] Phone: tel: fax: [address] [address] Phone: tel: Referral ID Status Reason Start Date Expiration Date Visits Re quested Visits Authorized [id number] Closed 03/08/2025 06/07/2026 1 1 Encounter Details Date Type Department Care Team (Latest Contact Info) Description 03/11/2025 10:48 AM EDT - 03/11/2025 11:59 PM EDT Hospital Encounter [facility] [address] [place] [address] Nikkie Perez, TOPPER PRESS OPERATOR [employer] [address] [place] [address] Other specified abnormal findings of blood chemistry Discharge Disposition: Home or Self Care Social [...] Value Date Recorded Sex Assigned at Female 03/24/2025 10:39 AM EST Legal Sex Female 1:16 PM EDT Gender Identity Not on file Sexual Orientation Straight 03/24/2025 10 :39 AM EST documented as of this encounter Medications at Time of Discharge albuterol (PROVENTIL) (2.5 MG/3ML) 0.083% nebulizer solution USE 1 VIAL IN NEBULIZER EVERY 6 HOURS 02/21/2025 hydroCHLOROthiaz eliot 25 MG tablet Take 1 tablet by mouth Daily. 03/06/2025 omeprazole (PrilOSEC) 40 MG capsule Prilosec 40 mg capsule,delayed release Daily 09/02/2013 ondansetron (ZOFRAN) 4 MG tablet Take 4 mg by mouth Every 8 (Eight) Hours As Needed for Nausea or Vomiting. pregabalin (LYRICA) 150 MG capsule TAKE 1 CAPSULE BY MOUTH TWICE DAILY FOR PAIN 03/08/2025 TiZANidine (ZANAFLEX) 2 MG capsule TAKE 1 CAPSULE BY MOUTH AT BEDTIME NIGHTLY 03/08/2025 albuterol sulfate HFA 108 (90 Base) MCG/ACT inhaler Inhale 2 puffs Every 4 (Four) Hours As Needed for Wheezing. 5 busPIRone (BUSPAR) 7.5 MG tablet Take 7.5 mg by mouth every night at bedtime. 5 cyclobenzaprine (FLEXERIL) 10 MG tablet Take 10 mg by mouth 3 (Three) Times a Day. 07/23/2019 5 predniSONE 5 MG (21) tablet therapy pack dose pack Take As Directed per package instructions. 21 tablet 02/09/2025 2:07 PM EDT 02/09/2025 pregabalin (LYRICA) 75 MG capsule Take 75 mg by mouth 2 (Two) Times a Day. 5 SUMAtriptan (IMITREX) 50 MG tablet Take 50 mg by mouth Every 2 (Two) Hours As Needed for Migraine. Take one tablet at onset of headache. May repeat dose one time in 2 hours if headache not relieved. 5 traMADol (ULTRAM) 50 MG tablet Take 50 mg by mouth Every 6 (Six) Hours As Needed for Moderate Pain . documented as of this encounter Plan of Treatment Upcoming Encounters Date Type Department Care Team (Late st Contact Info) Description 05/23/2025 10:00 AM EST Office Visit [facility] PULMONARY & CRITICAL CARE MEDICINE [address] [place] [id number] Julio Cesar sol Mitesh, [address] [place], [place] [id number] documented as of this encounter Procedures Procedure Name Priority Date/Time Associated Diagnosis Comments CT ANGIOGRAM CHEST W WO CONTRAST Routine 03/11/2025 11:11 AM EDT Other specified abnormal findings of blood chemistry documented in this encounter Results * CT Angiogram Chest (03/11/2025 11:11 AM EDT) Anatomical Region Laterality Modality Chest, Vascular N/A Computed Tomogra phy 03/11/2025 4:40 PM EDT Impressions 03/11/2025 4:43 PM EDT Impression: No pulmonary embolus or other acute finding in the chest. Electronically Signed: Casa Olson MD 03/11/2025 4:43 PM EDT Workstation ID: [id number] Narrative 03/11/2025 4:[address] ANGIOGRAM CHEST Date of Exam: 03/11/2025 10:53 AM EDT Indication: R79.89. Comparison: None available. Technique: CTA of the chest was performed after the uneventful intravenous administration of iodinated contrast. Reconstructed coronal and sagittal images were also obtained. In addition, a 3-D volume rendered image was created for interpretation. Automated exposure control and iterative reconstruction methods were used. Findings: There is no pathologic axillary adenopathy or other worrisome body wall soft tissue finding in the chest. No acute findings are present in the partially characterized upper abdomen. There is no pleural or pericardial effusion. There is no pathologic mediastinal adenopathy. Nonaneurysmal thoracic aorta. The pulmonary arteries are well-opacified and without evidence of focal filling defect concerning for acute pulmonary embolus. Evaluation of the osseous structures demonstrates no evidence of acute fracture or aggressive osseous lesion. The lung coe are clear without evidence of infectious process or suspicious pulmonary nodularity. Procedure Note Jeb Olson MD - 03/11/2025 CT ANGIOGRAM CHEST Date of Exam: 03/11/2025 10:53 AM EDT Indication: R79.89. Comparison: None available. Technique: CTA of the chest was performed after the uneventful intravenousadministration of iodinated contrast. Reconstructed coronal and sagittalimages were also obtained. In addition, a 3-D volume rendered image wascreated for interpretation. Automated exposure control and iterative reconstruction methods wereused. Findings: There is no pathologic axillary adenopathy or other worrisome body wallsoft tissue finding in the chest. No acute findings are present in thepartially characterized upper abdomen. There is no pleural or pericardialeffusion. There is no pathologic mediastinal adenopathy. Nonaneurysmal thoracic aorta. The pulmonaryarteries are well-opacified and without evidence of focal filling defectconcerning for acute pulmonary embolus. Evaluation of the osseousstructures demonstrates no evidence of acute fracture or aggressive osseous lesion. The lung coe are clear withoutevidence of infectious process or suspicious pulmonary nodularity. IMPRESSION: Impression: No pulmonary embolus or other acute finding in the chest. Electronically Signed: Casa Olson MD 03/11/2025 4:43 PM EDT Workstation ID: [id number] Nikkie Perez APRN IM CT ORDERABLES Final Result documented in this encounter Visit Diagnoses Diagnosis Other specified abnormal findings of blood chemistry documented in this encounter Administered Medications Inactive Administered Medications - up to 3 most recent administrations Medication Order MAR Action Action Date Dose Rate Site iopamidol (ISOVUE-370) 76 % injection 100 mL 100 mL, Intravenous, Once in Imaging, On Fri03/11/25 at 1200, For 1 dose Given 03/11/2025 11:09 AM EDT 75 mL documented in this encounter Care Teams Chute Feeder Relationship Specialty Start Date End Date Nikkie Perez APRN [address] [place] [address] PCP - General Family Medicine 02/10/25 documented as of this encounter
--- OUTSIDE RECORDS SUMMARY | 2025-03-24 14:00 | XMS_ITS | Encounter Summary ---
Author Organization [facility] Address [address] [place] [address] Care Team Providers Care Belly Dump Driver Name Role Phone Nikkie Perez APRN Primary Care Provider [phone] Reason for Referral * Diagnostic Imaging (Routine) - Closed Specialty Diagnoses / Procedures Referred By Jose Manuel christie Referred To Contact Radiology Diagnoses Dysphagia, unspecified type Procedures FL ESOPHAGRAM SINGLE CONTRAST FL Video Swallow With Speech Nikkie Perez APRN [address] [place] [address] Phone: tel: fax: [address] [address] Phone: tel: Referral ID Status Reason Start Date Expiration Date Visits Re quested Visits Authorized [id number] Closed 03/07/2025 06/06/2026 1 1 Reason for Visit * Diagnostic Imaging (Routine) - Closed Specialty Diagnoses / Procedures Referred By Jose Manuel christie Referred To Contact Radiology Diagnoses Dysphagia, unspecified type Procedures FL ESOPHAGRAM SINGLE CONTRAST FL Video Swallow With Speech Nikkie Perez APRN [address] [place] [address] Phone: tel: fax: [address] [address] Phone: tel: Referral ID Status Reason Start Date Expiration Date Visits Re quested Visits Authorized [id number] Closed 03/07/2025 06/06/2026 1 1 Encounter Details Date Type Department Care Team (Latest Contact Info) Description 03/24/2025 2:00 PM EST - 03/24/2025 11:59 PM [facility] Hospital Encounter [facility] [address] [place] [address] Nikkie Perez, CLEATER [address] [place] [address] Dysphagia, unspecified type Discharge Disposition: Home or Self Care Social [...] (Four) Hours As Needed for Wheezing. 5 Arnuity Ellipta 100 MCG/ACT aerosol powder Inhale 1 puff Daily. 03/23/2025 5 busPIRone (BUSPAR) 7.5 MG tablet Take 7.5 mg by mouth every night at bedtime. 5 cyclobenzaprine (FLEXERIL) 10 MG tablet Take 10 mg by mouth 3 (Three) Times a Day. 07/23/2019 5 predniSONE 5 MG (21) tablet therapy pack dose pack Take As Directed per package instructions. 21 tablet 02/09/2025 2:07 PM EDT 02/09/2025 5 pregabalin (LYRICA) 75 MG capsule Take 75 [...] Hours As Needed for Moderate Pain . 5 documented as of this encounter Plan of Treatment Upcoming Encounters Date Type Department Care Team (Late st Contact Info) Description 05/23/2025 10:00 AM EST Office Visit [facility] PUL[facility]ICINE [address] [facility] [place] [id number] Julio Cesar Belle DO [address] [place] [address] documented as of this encounter Procedures Procedure Name Priority Date/Time Associated Diagnosis Comments FL ESOPHAGRAM SINGLE CONTRAST Routine 03/24/2025 2:43 PM EST Dysphagia, unspecified type documented in this encounter Results * FL ESOPHAGRAM SINGLE CONTRAST (03/24/2025 2:43 PM EST) Anatomical Region Laterality Modality Head and Neck N/A Radio Fluoroscop y 03/24/2025 3:24 PM EST Impressions 03/24/2025 5:15 PM EST Impression: 1. Mild gastroesophageal reflux to the level of the midesophagus 2. Small sized sliding-type hiatal hernia Report dictated by: Danielle Grant PA-c I have personally reviewed this case and agree with the findings above: Electronically Signed: Chandu Garcia MD 03/24/2025 5:15 PM EST Workstation ID: [id number] Narrative 03/24/2025 5:15 PM EST FL ESOPHAGRAM SINGLE CONTRAST Date of Exam: 03/24/2025 2:20 PM EST Indication: Dysphagia. Comparison: None available. Technique: Shower Screen Installer imaging was obtained. The patient ingested thin barium for fluoroscopic guided imaging of the esophagus. Fluoroscopic Time: 1 minute Number of Images: 12 associated fluoroscopic series were saved Findings: Shower Screen Installer imaging reveals a nonobstructive bowel gas pattern. The oral phase of deglutition appeared normal. The esophageal mucosa appeared grossly normal. There was no evidence of a focal esophageal stricture. Examination of the stomach demonstrated mild gastroesophageal reflux to the level of the midesophagus. Examination of the stomach demonstrated a a sized sliding-type hiatal hernia. Multiple filling defects seen within the stomach likely represent undigested food. Procedure Note Chanud Garcia MD - 03/24/2025 FL ESOPHAGRAM SINGLE CONTRAST Date of Exam: 03/24/2025 2:20 PM EST Indication: Dysphagia. Comparison: None available. Technique: Shower Screen Installer imaging was obtained. The patient ingested thin bariumfor fluoroscopic guided imaging of the esophagus. Fluoroscopic Time: 1 minute Number of Images: 12 associated fluoroscopic series were saved Findings: Shower Screen Installer imaging reveals a nonobstructive bowel gas pattern. The oral phaseof deglutition appeared normal. The esophageal mucosa appeared grosslynormal. There was no evidence of a focal esophageal stricture. Examinationof the stomach demonstrated mild gastroesophageal reflux to the level of the midesophagus. Examination ofthe stomach demonstrated a a sized sliding-type hiatal hernia. Multiplefilling defects seen within the stomach likely represent undigestedfood. IMPRESSION: Impression: 1. Mild gastroesophageal reflux to the level of the midesophagus 2. Small sized sliding-type hiatal hernia Report dictated by: Danielle Grant PA-c I have personally reviewed this case and agree with the findings above: Electronically Signed: Chandu Garcia MD 03/24/2025 5:15 PM EST Workstation ID: [id number] Nikkie Perez APRN IMG FLUOROSCOPY ORDERABLES Aria l Result documented in this encounter Visit Diagnoses Diagnosis Dysphagia, unspecified type documented in this encounter Administered Medications Inactive Administered Medications - up to 3 most recent administrations Medication Order MAR Action Action Date Dose Rate Site barium sulfate (E-Z-PAQUE) 96 % oral suspension reconstituted suspension 183 mL 183 mL, Oral, Once in Imaging, On Kristina 03/24/25 at 1433, For 1 dose, (BKC) Mix with water according to package insert. Shake well before administration. Given 03/24/2025 2:31 PM EST 183 mL documented in this encounter Care Teams Belly Dump Driver Relationship Specialty Start Date End Date Nikkie Perez APRN [address] [place] [address] PCP - General Family Medicine 02/10/25 documented as of this encounter
--- OUTSIDE RECORDS SUMMARY | 2025-04-07 09:00 | XMS_ITS | Encounter Summary ---
Author Organization [facility] Address [address] [place] [id number] Care Team Providers Care Die Stamper Name Role Phone Nikkie Perez APRN Primary Care Provider [phone] Reason for Referral * Diagnostic Medical (Routine) - Authorized Specialty Diagnoses / Procedures Referred By Contfrancisca t Referred To Contact Pulmonology Diagnoses Severe persistent asthma without complication Procedures Spirometry with Diffusion Capacity & Lung Volumes Julio Cesar Belle DO [address] [place] [address] Phone: tel: fax: [facility] PULMONARY & [facility]ITICAL [facility]ARE MEDICINE [address] [facility] [place] [address] Phone: tel: fax: Referral ID Status Reason Start Date Expiration Date V isits Requested Visits Authorized [id number] Authorized 04/07/2025 07/07/2026 1 1 Reason for Visit * Reason Comments Wheezing * Consultation (Routine) - Closed Specialty Diagnoses / Procedures Referred By Contac t Referred To Contact Pulmonology Diagnoses Expiratory wheezing Brock Lujan MD [address] [address] Phone: tel: fax: [facility] PULMONARY [facility]ITICAL [facility] MEDICINE [address] [place] [id number] Phone: tel: fax: Referral ID Status Reason Start Date Expiration Date Visits Re quested Visits Authorized [id number] Closed 02/17/2025 05/19/2026 1 1 Encounter Details Date Type Department Care Team (Late st Contact Info) Description 04/07/2025 9:00 AM EST Office Visit [facility] PULMONARY [facility]ITICAL CARE MEDICINE [address] [place] [address] Julio Cesar Belle, DO [address] [place] [address] Severe persistent asthma without complication (Primary Dx); GERD without esophagitis Social History Tobacco Use Types Packs/Day Years Used Date Smoking Tobacco: Never Smokeless Tobacco: Never Tobacco Cessation:Counseling Given: Not Answered Alcohol Use Standard Drinks/Week Comments Never 0 [...] AM EST documented as of this encounter Last Filed Vital Signs Vital Sign Reading Time Taken Comments Blood Pressure 130/82 04/07/2025 8:44 AM EST Pulse 73 04/07/2025 8:44 AM EST Temperature 35.4 C (95.8 F) 04/07/2025 8:44 AM EST Respiratory Rate - - Oxygen Saturation 98% 04/07/2025 8:4 4 AM EST Room air at rest Inhaled Oxygen Concentration - - Weight 101 kg (223 lb) 04/07/2025 8:44 AM EST Height 157.5 cm (5' 2 ) 04/07/2025 8:44 AM EST Body Mass Index 40.79 04/07/2025 8:44 AM EST documented in this encounter Progress Notes * Julio Cesar Belle, - 04/07/2025 9:00 AM EST New Patient Pulmonary Office Visit Patient Name: Ingrid Beatty Referring Physician: Brock Lujan MD Chief Complaint: Chief Complaint Patient presents with Wheezing History of Present Illness: Ingrid Beatty is a 39 y.o. female who is here today to establish care with Pulmonary. Patient has no significant past medical history. The patient is a 39-year-old female referred to pulmonary for wheezing. She presents with persistent wheezing and shortness of breath, symptoms that have been ongoing since 12/2024. Initially, she was diagnosed with bronchitis and treated with a Z-Raheel and steroids, whichprovided temporary relief. However, the symptoms recurred after two weeks. Her primary care physician suspected sinusitis or postnasal drip and prescribed [id number]-[id number] medications such as Sudafed. She experienced a severe cough without colored drainage, which was so intense that it induced vomiting and disrupted her speech. A chest x-ray was performed, yielding negative results. Her physicianconsidered GERD as a potential cause and increased her omeprazole dosage from 20 mg to 40 mg daily. Despite this, her condition worsened, leading to hemoptysis. A CT scan revealed widespread lymphadenopathy and a thyroid mass. An ENT specialist conducted a rigid scope examination, identifying enlarged adenoids. She had a tonsillectomy in 2011, but her adenoids were left intact as they appeared normal. The ENT specialist also noted significant wheezing. She reports no chest pain but experiences chest tightness. She has a history of exercise-induced asthma and random shortness of breath, but these symptoms have never been severe enough to interfere with her work or require frequent breaks. She has been on steroids for a month and a half, which have improved her condition, but symptoms return within two days of discontinuation. She reports no known allergies but has a history of eczema andoccasionally experiences skin allergies, runny nose, and itchy eyes. She has been taking Zyrtec or Claritin daily to manage these symptoms. She finds albuterol helpful but notes that its effects are short- lived. She has been sleeping on a couch in a recliner to manage her symptoms. She is currentlyon Arnuity and uses a rescue inhaler and nebulizer treatments. Review of Systems: Review of Systems Constitutional: Negative for chills, fatigue and fever. HENT: Negative for congestion and voice change. Eyes: Negative for blurred vision. Respiratory: Positive for cough, shortness of breath and wheezing. Cardiovascular: Negative for chest pain. Skin: Negative for dry skin. Hematological: Negative for adenopathy. Psychiatric/Behavioral: Negative for agitation and depressed mood. Past Medical History: Past Medical History: Diagnosis Date Allergic rhinitis Anemia Asthma, extrinsic Asthma, intrinsic Chronic bronchitis Deep vein thrombosis Essential hypertension GERD (gastroesophageal reflux disease) Pneumonia Past Surgical History: Past Surgical History: Procedure Laterality Date BACK SURGERY Left 05/13/[address] L4-[address] Santo SECTION CHOLECYSTECTOMY TONSILLECTOMY TUBAL ABDOMINAL LIGATION Family History: Family History Problem Relation Name Age of Onset Diabetes Mother Hypertension Mother Cancer Maternal Grandfather Thyroid Social History: Social History Socioeconomic History Marital status: Tobacco Use Smoking status: Never Smokeless tobacco: Never Substance and Sexual Activity Alcohol use: Never Drug use: Never Sexual activity: Defer Medications: Current Outpatient Medications: albuterol (PROVENTIL) (2.5 MG/3ML) 0.083% nebulizer solution, USE 1 VIAL IN NEBULIZER EVERY 6 HOURS, Disp: , Rfl: albuterol sulfate HFA 108 (90 Base) MCG/ACT inhaler, Inhale 2 puffs Every 4 (Four) Hours As Needed for Wheezing., Disp: 18 g, Rfl: 11 hydroCHLOROthiazide 25 MG tablet, Take 1 tablet by mouth Daily., Disp: , Rfl: omeprazole (PrilOSEC) 40 MG capsule, Prilosec 40 mg capsule,delayed release Daily, Disp: , Rfl: ondansetron (ZOFRAN) 4 MG tablet, Take 4 mg by mouth Every 8 (Eight) Hours As Needed for Nausea or Vomiting., Disp: , Rfl: pregabalin (LYRICA) 150 MG capsule, TAKE 1 CAPSULE BY MOUTH TWICE DAILY FOR PAIN, Disp: , Rfl: TiZANidine (ZANAFLEX) 2 MG capsule, TAKE 1 CAPSULE BY MOUTH AT BEDTIME NIGHTLY, Disp: , Rfl: budesonide-formoterol (SYMBICORT) 160-4.5 MCG/ACT inhaler, Inhale 2 puffs 2 (Two) Times a Day., Disp: 10.2 g, Rfl: 11 Allergies: Allergies Allergen Reactions Amitriptyline Anaphylaxis Cinnamon Other (See Comments) Cephalexin Hives and Rash Physical Exam: Vital Signs: Vitals: 04/07/25 0844 BP: 130/82 Pulse: 73 Temp: 95.8 ??F (35.4 ??C) TempSrc: Temporal SpO2: 98% Comment: Room air at rest Weight: 101 kg (223 lb) Height: 157.5 cm (62 ) Physical Exam Vitals and nursing note reviewed. Constitutional: General: She is not in acute distress. Appearance: She is well-developed and normal weight. She is not ill-appearing or toxic-appearing. HENT: Head: Normocephalic and atraumatic. Cardiovascular: Rate and Rhythm: Normal rate and regular rhythm. Pulses: Normal pulses. Heart sounds: Normal heart sounds. No murmur heard. No friction rub. No gallop. Pulmonary: Effort: Pulmonary effort is normal. No respiratory distress. Breath sounds: Wheezing present. No rhonchi or rales. Musculoskeletal: Right lower leg: No edema. Left lower leg: No edema. Skin: General: Skin is warm and dry. Neurological: Mental Status: She is alert and oriented to person, place, and time. Immunization History Administered Date(s) Administered 31-influenza Vac Quardvalent Preservativ 03/04/2016, 02/11/2017 COVID-19 (MODERNA) 1st,2nd,3rd Dose Monovalent 05/17/2020, 06/16/2020, 03/26/2021 Flublok 18+yrs 02/07/2021 Fluzone (or Fluarix & Flulaval for VFC) >6mos 03/10/2025 Hepatitis B 2 Dose Vaccine Heplisav-B 09/10/2024, 11/08/2024 Hepatitis B Adult/Adolescent IM 12/22/2015 Influenza Seasonal Injectable 03/23/2007, 07/05/2015, 03/04/2016 Tdap 12/22/2015, 10/16/2024 Results Review: - I personally reviewed the pts imaging from CT of the chest from 03/11/2025 showed no acute cardiopulmonary process - I personally reviewed the pts PFT from 04/07/2025 showed moderate obstruction without restrictionsignificant air trapping and normal DLCO - I personally reviewed the pts chart with regards to evaluation by ENT. Assessment: Diagnoses and all orders for this visit: 1. Severe persistent asthma without complication (Primary) - budesonide-formoterol (SYMBICORT) 160-4.5 MCG/ACT inhaler; Inhale 2 puffs 2 (Two) Times a Day. Dispense: 10.2 g; Refill: 11 - albuterol sulfate HFA 108 (90 Base) MCG/ACT inhaler; Inhale 2 puffs Every 4 (Four) Hours As Needed for Wheezing. Dispense: 18 g; Refill: 11 - ANCA Panel - Allergens, Zone 8 - Aspergillus Fumigatus IgE - CBC & Differential - IgE - Spirometry with Diffusion Capacity & Lung Volumes 2. GERD without esophagitis Plan: Asthma - Symptoms: wheezing and shortness of breath suggest asthma - Current treatment with Arnuity is insufficient - Steroids improved condition but symptoms return within two days of discontinuation - No known allergies, history of eczema, occasional skin allergies, runny nose, and itchy eyes, we discussed the Dupixent may have been making her asthma better over the last couple of years. Given that she got shingles I would reconsider utilizing biologic therapy if needed. -We will discontinue the Arnuity and start Symbicort 160 mcg 2 puffs twice daily with albuterol every 4 hours as needed -Will send off lab work for secondary causes of asthma as noted above GERD without esophagitis - Continue reflux management regimen: omeprazole 40 mg daily, elevate head of bed by 2 to 6 inches,avoid food and drink 2 hours before sleep Follow Up: Return in about 6 weeks (around 05/19/2025). Arely Belle DO Pulmonary and Critical Care Medicine Note Electronically Signed Part of this note may be an electronic keymodule assembly machine tender/translation of spoken language to printed textusing the Bitmenuation System. Patient or patient inside sales account representative verbalized consent for the use of Ambient Listening during the visit with Julio Cesar Belle DO for chart documentation. 04/07/2025 09:38 EST documented in this encounter Plan of Treatment Upcoming Encounters Date Type Department Care Team (Late st Contact Info) Description 05/23/2025 10:00 AM EST Office Visit [facility] PULMON[facility] & [facility]ICAL [facility]ARE MEDICINE [address] [facility] [place] [id number] Julio Cesar Belle DO [address] [place], [place] [id number] documented as of this encounter Procedures Procedure Name Priority Date/Time Associated Diagnosis Comments PULMONARY FUNCTION TEST Routine 04/07/2025 9:26 AM EST Severe persistent asthma without complication ALLERGENS, ZONE 8 Routine 04/07/2025 9:1 9 AM EST Severe persistent asthma without complication ANCA PANEL Routine 04/07/2025 9:19 AM EST Severe persistent asthma without complication CBC WITH AUTO DIFFERENTIAL Routine 04/07/2025 9:19 AM EST Severe persistent asthma without complication ALLERGEN ASPERGILLUS FUMAGATUS Routine 04/07/2025 9:19 AM EST Severe persistent asthma without complication CBC AND DIFFERENTIAL Routine 04/07/2025 9:19 AM EST Severe persistent asthma without complication IGE Routine 04/07/2025 9:19 AM EST Severe persistent asthma without complication documented in this encounter Results * Spirometry with Diffusion Capacity & Lung Volumes (04/07/2025 9:26 AM EST) Julio Cesar Belle DO PFT ORDERABLES Fin al Result * (ABNORMAL) CBC Auto Differential (04/07/2025 9:19 AM EST) WBC 11.19(H) 3.40 - 10.80 10*3/mm3 04/08/2025 1:00 AM [facility] RBC 5.04 3.77 - 5.28 10*6/mm3 04/08/2025 1:00 AM [facility] Hemoglobin 12.8 12.0 - 15.9 g/dL 04/08/2025 1:00 AM [facility] Hematocrit 40.4 34.0 - 46.6 % 04/08/2025 1:00 AM [facility] MCV 80.2 79.0 - 97.0 fL 04/08/2025 1:00 AM [facility] MCH 25.4(L) 26.6 - 33.0 pg 04/08/2025 1:00 AM [facility] MCHC 31.7 31.5 - 35.7 g/dL 04/08/2025 1:00 AM [facility] RDW 13.5 12.3 - 15.4 % 04/08/2025 1:00 AM [facility] RDW-SD 39.2 37.0 - 54.0 fl 04/08/2025 1:00 AM [facility] MPV 13.2(H) 6.0 - 12.0 fL 04/08/2025 1:00 AM [facility] Platelets 180 140 - 450 10*3/mm3 04/08/2025 1:00 AM [facility] Neutrophil % 73.6 42.7 - 76.0 % 04/08/2025 1:00 AM [facility] Lymphocyte % 15.6(L) 19.6 - 45.3 % 04/08/2025 1:00 AM [facility] Monocyte % 2.3(L) 5.0 - 12.0 % 04/08/2025 1:00 AM [facility] Eosinophil % 7.8(H) 0.3 - 6.2 % 04/08/2025 1:00 AM [facility] Basophil % 0.4 0.0 - 1.5 % 04/08/2025 1:00 AM [facility] Immature Grans % 0.3 0.0 - 0.5 % 04/08/2025 1:00 AM [facility] Neutrophils, Absolute 8.23(H) 1.70 - 7.00 10*3/mm3 04/08/2025 1:00 AM [facility] Lymphocytes, Absolute 1.75 0.70 - 3.10 10*3/mm3 04/08/2025 1:00 AM [facility] Monocytes, Absolute 0.26 0.10 - 0.90 10*3/mm3 04/08/2025 1:00 AM [facility] Eosinophils, Absolute 0.87(H) 0.00 - 0.40 10*3/mm3 04/08/2025 1:00 AM [facility] Basophils, Absolute 0.05 0.00 - 0.20 10*3/mm3 04/08/2025 1:00 AM [facility] Immature Grans, Absolute 0.03 0.00 - 0.05 10*3/mm3 04/08/2025 1:00 AM [facility] Blood Structure of right upper limb / Unknown Venipuncture / Unknown 04/07/2025 9:19 AM EST 04/07/2025 9:19 AM EST us Julio Cesar Belle DO LAB BLOOD ORDERABLE S Final Result [facility]
[address] [place] [address], * IgE (04/07/2025 9:19 AM EST) Pathologist [facility] IgE 390 6 - 495 IU/mL 04/13/2025 6:09 PM EST [facility] Blood Structure of right upper limb / Unknown Venipuncture / Unknown 04/07/2025 9:19 AM EST 04/07/2025 9:19 AM EST Narrative [facility] - 04/13/2025 6:09 PM EST Performed at: [address] [id number] Manager Roofing: Cristela Kohler MD, Phone: [phone] Julio Cesar Belle LAB BLOOD ORDERABLE S Final Result [facility] [address] [place] [address], * Aspergillus Fumigatus IgE (04/07/2025 9:19 AM EST) [facility] Aspergillus fumigatus <0.10 Class 0 kU/L 04/13/2025 6:09 PM EST [facility] Comment: Levels of Specific IgE Class Description of Class ----- < 0.10 0 Negative 0.10 - 0.31 0/I Equivocal/Low 0.32 - 0.55 I Low 0.56 - 1.40 II Moderate 1.41 - 3.90 III High 3.91 - 19.00 IV Very High 19.01 - 100.00 V Very High >100.00 Very High Blood Structure of right upper limb / Unknown Venipuncture / Unknown 04/07/2025 9:19 AM EST 04/07/2025 9:19 AM EST Narrative [facility] - 04/13/2025 6:09 PM EST Performed at: [address], [place] [id number] Manager Roofing: Cristela Kohler MD, Phone: [phone] us Julio Cesar Belle DO LAB BLOOD ORDERABLE S Final Result [facility] [address] [place] [address], * (ABNORMAL) Allergens, Zone 8 (04/07/2025 9:19 AM EST) Class Description Comment 025 11:07 PM EST [facility] Comment: Levels of Specific IgE Class Description of Class ----- < 0.10 0 Negative 0.10 - 0.31 0/I Equivocal/Low 0.32 - 0.55 I Low 0.56 - 1.40 II Moderate 1.41 - 3.90 III High 3.91 - 19.00 IV Very High 19.01 - 100.00 V Very High >100.00 Very High D. pteronyssinus (dust mite) <0.10 Class 0 kU/L 04/16/2025 11:07 PM EST [facility] D. farinae (dust mite) <0.10 Class 0 kU/L 04/16/2025 11:07 PM EST [facility] Cat Dander <0.10 Class 0 kU/L 04/16/2025 11:07 PM EST [facility] Dog Dander, IgE <0.10 Class 0 kU/L 04/16/2025 11:07 PM EST [facility] B[place] Grass <0.10 Class 0 kU/L 04/16/2025 11:07 PM EST [facility] [place] IgE 0.11(A) Class 0/I kU/L 04/16/2025 11:07 PM EST [facility] [place] Grass <0.10 Class 0 kU/L 04/16/2025 11:07 PM EST [facility] Bahia Grass <0.10 Class 0 kU/L 04/16/2025 11:07 PM EST [facility] Cockroach, Tristanian <0.10 Class 0 kU/L 04/16/2025 11:07 PM EST [facility] Penicillium chrysogen <0.10 Class 0 kU/L 04/16/2025 11:07 PM EST [facility] Cladosporium herbarum <0.10 Class 0 kU/L 04/16/2025 11:07 PM EST [facility] Aspergillus fumigatus <0.10 Class 0 kU/L 04/16/2025 11:07 PM EST [facility] Mucor racemosus <0.10 Class 0 kU/L 04/16/2025 11:07 PM EST [facility] Alternaria alternata <0.10 Class 0 kU/L 04/16/2025 11:07 PM EST [facility] Stemphylium herbarum <0.10 Class 0 kU/L 04/16/2025 11:07 PM EST [facility] [place], White <0.10 Class 0 kU/L 04/16/2025 11:07 PM EST [facility] Elm, Tristanian <0.10 Class 0 kU/L 04/16/2025 11:07 PM EST [facility] Maple/Teton <0.10 Class 0 kU/L 04/16/2025 11:07 PM EST [facility] Hazelnut Tree <0.10 Class 0 kU/L 04/16/2025 11:07 PM EST [facility] Merrick, White <0.10 Class 0 kU/L 04/16/2025 11:07 PM EST [facility] Maple [place] <0.10 Class 0 kU/L 04/16/2025 11:07 PM EST [facility] White [place] <0.10 Class 0 kU/L 04/16/2025 11:07 PM EST [facility] [place], Mountain <0.10 Class 0 kU/L 04/16/2025 11:07 PM EST [facility] Sweet Gum <0.10 Class 0 kU/L 04/16/2025 11:07 PM EST [facility] Ragweed, Common/Short 0.32(A) Class I kU/L 04/16/2025 11:07 PM EST [facility] Mugwort <0.10 Class 0 kU/L 04/16/2025 11:07 PM EST [facility] Surinamese Plantain <0.10 Class 0 kU/L 04/16/2025 11:07 PM EST [facility] Pigweed, Rough/Common <0.10 Class 0 kU/L 04/16/2025 11:07 PM EST [facility] Sheep [employer] <0.10 Class 0 kU/L 04/16/2025 11:07 PM EST [facility] Nettle 0.11(A) Class 0/I kU/L 04/16/2025 11:07 PM EST [facility] Blood Structure of right upper limb / Unknown Venipuncture / Unknown 04/07/2025 9:19 AM EST 04/07/2025 9:19 AM EST Narrative [facility] - 04/16/2025 11:07 PM EST Test(s) [id number] Cockroach, Tristanian; [id number]-IcS Merrick, White; [id number] Sweet Gum were developed and had performance characteristics determined by [facility]. These tests have not been cleared or approved by the U.S. Food and Drug Administration. The FDA has determined that such clearance or approval is not necessary. These tests are used for clinical purposes. These should not be regarded as investigational or for research. Performed at: [address] [id number] Manager Roofing: Cristela Kohler MD, Phone: [phone] Julio Cesar Belle DO LAB BLOOD ORDERABLE S Final Result [facility] [address] [place] [address], * ANCA Panel (04/07/2025 9:19 AM EST) ANTI-MPO ANTIBODIES <0.2 0.0 - 0.9 units 04/11/2025 7:09 PM EST [facility] ANTI-PR3 ANTIBODIES <0.2 0.0 - 0.9 units 04/11/2025 7:09 PM EST [facility] C-ANCA <1:20 Neg:<1:20 titer 04/11/2025 7:09 PM EST [facility] P-ANCA <1:20 Neg:<1:20 titer 04/11/2025 7:09 PM EST [facility] Comment: The presence of positive fluorescence exhibiting P-ANCA or C-ANCA patterns alone is not specific for the diagnosis of Rosa's Granulomatosis (WG) or microscopic polyangiitis. Decisions about treatment should not be based solely on ANCA IFA results. The International ANCA Group Consensus recommends follow up testing of positive sera with both UT-3 and MPO-ANCA enzyme immunoassays. As many as 5% serum samples are positive only by EIA. Ref. AM J Clin Pathol 1999;111:507-513. Atypical pANCA <1:20 Neg:<1:20 titer 04/11/2025 7:09 PM EST [facility] Comment: The atypical pANCA pattern has been observed in a significant percentage of patients with ulcerative colitis, primary sclerosing cholangitis and autoimmune hepatitis. Blood Structure of right upper limb / Unknown Venipuncture / Unknown 04/07/2025 9:19 AM EST 04/07/2025 9:19 AM EST Narrative [facility] - 04/11/2025 7:09 PM EST Performed at: - [address] [id number] Manager Roofing: Cristela Kohler MD, Phone: [phone] Performed at: - [address] [id number] Manager Roofing: Armand Neville PhD, Phone: [phone] us Julio Cesar Belle DO LAB BLOOD ORDERABLE S Final Result [facility] [address] [place] [id number], documented in this encounter Visit Diagnoses Diagnosis Severe persistent asthma without complication- Primary GERD without esophagitis Esophageal reflux documented in this encounter Care Teams Die Stamper Relationship Specialty Start Date End Date Nikkie Perez APRN [address] [place] [address] PCP - General Family Medicine 02/10/25 documented as of this encounter
--- NOTE | 2025-04-21 10:00 | US_ITS ---
PROCEDURE: US TRANSVAGINAL CLINICAL INDICATION: pelvic pain COMPARISON: CT CT ABDOMEN PELVIS WO/W CON from 08/29/2023 FINDINGS: Transvaginal sonographic images of the pelvis were obtained. UTERUS: The uterus is surgically absent. The vaginal vault is intact LEFT OVARY: 3.1cmx3.1cmx2.8cm with a volume of 13.8ml. There are several small peripheral follicles. There is a dominant follicle measuring 1.4 cm x 1.0 cm x 1.0 cm. RIGHT OVARY: 3.1cmx 2.0cm with a volume of . There are several small peripheral follicles. There is a small amount of free fluid adjacent to the right ovary. Both ovaries are seen and appear normal. Doppler flow to both ovaries are seen. There is no fluid in the cul-de-sac. IMPRESSION: 1. The uterus is surgically absent. The vaginal vault is intact. 2. Both ovaries are seen and appear normal. They both have multiple small peripheral follicles. The right ovary has a dominant follicle measuring 1.4 cm. 3. There appears to be a small amount of fluid adjacent to the right ovary. No fluid in the cul-de-sac. Dictated by: Moise Lanza MD 04/21/2025 14:41 Moise Lanza MD in OV 04/21/2025 14:41
--- OUTSIDE RECORDS SUMMARY | 2025-04-21 10:21 | XMS_ITS | Clinical Summary ---
Author Organization [facility] Address [address] [place] [address] Care Team Providers Care Counselor Camp Name Role Phone Nikkie Perez LARISSA Primary Care Provider [phone] Allergies Active Allergy Reactions Criticality Noted Date Comments Amitriptyline Anaphylaxis High 02/09/2025 Cephalexin Hives,Rash Low 07/28/2019 Cinnamon Other (See Comments) 04/30/2024 Medications ondansetron (ZOFRAN) 4 MG tablet Take 4 mg by mouth Every 8 (Eight) Hours As Needed for Nausea or Vomiting. Active hydroCHLOROthia zide 25 MG tablet Take 1 tablet by mouth Daily. 03/06/20 25 Active omeprazole (PrilOSEC) 40 MG capsule Prilosec 40 mg capsule,patric yed release Daily 09/03/19 14 Active albuterol (PROVENTIL) (2.5 MG/3ML) 0.083% nebulizer solution USE 1 VIAL IN NEBULIZER EVERY 6 HOURS 02/22/20 25 Active pregabalin (LYRICA) 150 MG capsule TAKE 1 CAPSULE BY MOUTH TWICE DAILY FOR PAIN 03/08/20 25 Active TiZANidine (ZANAFLEX) 2 MG capsule TAKE 1 CAPSULE BY MOUTH AT BEDTIME NIGHTLY 03/08/20 25 Active budesonide-form oterol (SYMBICORT) 160-4.5 MCG/ACT inhalerIndicati ons:Severe persistent asthma without complication Inhale 2 puffs 2 (Two) Times a Day. 10.2 g 11 04/07/20 25 Active albuterol sulfate HFA 108 (90 Base) MCG/ACT inhalerIndicati ons:Severe persistent asthma without complication Inhale 2 puffs Every 4 (Four) Hours As Needed for Wheezing. 18 g 11 04/07/20 Active albuterol sulfate HFA 108 (90 Base) MCG/ACT inhaler Inhale 2 puffs Every 4 (Four) Hours As Needed for Wheezing. Discontinued(Re order) busPIRone (BUSPAR) 7.5 MG tablet Take 7.5 mg by mouth every night at bedtime. 025 Discontinued pregabalin (LYRICA) 75 MG capsule Take 75 mg by mouth 2 (Two) Times a Day. Discontinued SUMAtriptan (IMITREX) 50 MG tablet Take 50 mg by mouth Every 2 (Two) Hours As Needed for Migraine. Take one tablet at onset of headache. May repeat dose one time in 2 hours if headache not relieved. Discontinued traMADol (ULTRAM) 50 MG tablet Take 50 mg by mouth Every 6 (Six) Hours As Needed for Moderate Pain . 025 Discontinued cyclobenzaprine (FLEXERIL) 10 MG tablet Take 10 mg by mouth 3 (Three) Times a Day. 07/23/19 Discontinued predniSONE 5 MG (21) tablet therapy pack dose pack Take As Directed per package instructions . 21 tablet 2:07 PM EDT 02/10/20 Discontinued(*T herapy completed) Arnuity Ellipta 100 MCG/ACT aerosol powder Inhale 1 puff Daily. 03/23/20 025 Discontinued Active Problems No known active problems Encounters Date Type Department Care Team Description 04/07/2025 9:00 AM EST Office Visit [facility] PULMONARY & CRITICAL CARE MEDICINE [address] [place] [address] Julio Cesar Belle DO Severe persistent asthma without complication (Primary Dx); GERD without esophagitis 04/07/2025 Travel 03/24/2025 2:00 PM EST - 03/24/2025 11:59 PM EST Hospital Encounter [facility] [address] [place] [id number] Nikkie Perez APRN Dysphagia, unspecified type Discharge Disposition: Home or Self Care 03/24/2025 Travel 03/11/2025 10:48 AM EDT - 03/11/2025 11:59 PM EDT Hospital Encounter [facility] [place] [address] [place] [address] Nikkie Perez, LARISSA Other specified abnormal findings of blood chemistry Discharge Disposition: Home or Self Care 03/11/2025 Travel 02/10/2025 3:35 PM EDT Lab [facility] [address] [place] [address] Wheezing 02/10/2025 Travel from Last 3 Months Immunizations Immunization Administration Dates Next Due 31-influenza Vac Quardvalent Preservativ 017,03/04/2016 Flublok 18+yrs 02/07/2021 Fluzone (or Fluarix & Flulav al for VFC) >6mos 03/10/2025 Hepatitis B 2 Dose Vaccine Heplisav-B 11/08/2024 ,09/10/2024 Hepatitis B Adult/Adolescent IM 12/22/2015 Influenza Seasonal Injectable 03/04/2016, 016,03/23/2007 Tdap 10/16/2024,12/22/2015 Family History Medical History Relation Name Comments Cancer Maternal Grandfather Thyroid Diabetes Mother Hypertension Mother Relation Name Status Comments Maternal Grandfather Mother Alive Social History Tobacco Use Types Packs/Day Years [...] Orientation Straight 03/24/2025 10 :39 AM EST Last Filed Vital Signs Vital Sign Reading Time Taken Comments Blood Pressure 130/82 04/07/2025 8:44 AM EST Pulse 73 04/07/2025 8:44 AM EST Temperature 35.4 C (95.8 F) 04/07/2025 8:44 AM EST Respiratory Rate 14 07/28/2019 12:5 7 PM EDT Oxygen Saturation 98% 04/07/2025 8:4 4 AM EST Room air at rest Inhaled Oxygen Concentration - - Weight 101 kg (223 lb) 04/07/2025 8:44 AM EST Height 157.5 cm (5' 2 ) 04/07/2025 8:44 AM EST Body Mass Index 40.79 04/07/2025 8:44 AM EST Plan of Treatment Upcoming Encounters Date Type Department Care Team (Late st Contact Info) Description 05/23/2025 10:00 AM EST Office Visit [facility] PULMONARY & CRITICAL CARE MEDICINE [address] [place] [address] Julio Cesar Belle, [address] [place], [place] [id number] Health Maintenance Due Date Last Done Comments Annual Gynecologic Pelvic an d Breast Exam 1985 Pneumococcal Vaccine 0-49 (1 of 2 - PCV) 2004 PAP SMEAR 2006 ANNUAL PHYSICAL 07/27/2019 HEPATITIS C SCREENING 07/27/2019 TDAP/TD VACCINES (3 - Td or Tdap) 10/16/2034 025, 12/22/2015 INFLUENZA VACCINE Completed 03/10/2025, , 02/11/2017, Additional history exists Procedures Procedure Name Priority Date/Time Associated Diagnosis [...] AM EST Severe persistent asthma without complication FL ESOPHAGRAM SINGLE CONTRAST Routine 03/24/2025 2:43 PM EST Dysphagia, unspecified type CT ANGIOGRAM CHEST W WO CONTRAST Routine 03/11/2025 11:11 AM EDT Other specified abnormal findings of blood chemistry ANGIOTENSIN CONVERTING ENZYME Routine 02/10/2025 3:09 PM EDT Wheezing CMV IGG IGM Routine 02/10/2025 3:09 PM EDT Wheezing EBV ANTIBODY PROFILE Routine 02/10/2025 3:09 PM EDT Wheezing HEPATITIS B SURFACE ANTIBODY STAT 02/10/2025 3:00 PM EDT Encounter for general adult medical examination without abnormal findings CT OUTSIDE CHEST Routine 02/04/2025 12:0 0 AM EDT SCANNED - IMAGING 02/04/2025 from Last 3 Months Results * Spirometry with Diffusion Capacity & Lung Volumes (04/07/2025 9:26 AM EST) Maynoryudelka Mitesh Ranikika DO PFT ORDERABLES Fin al Result * (ABNORMAL) Allergens, Zone 8 (04/07/2025 9:19 AM EST) Pathologist [facility] Class Description Comment 025 11:07 PM EST [...] 04/16/2025 11:07 PM EST [facility] Cockroach, Belgian <0.10 Class 0 kU/L 04/16/2025 11:07 PM [...] kU/L 04/16/2025 11:07 PM EST [facility] Water Mill, White <0.10 Class 0 kU/L 04/16/2025 11:07 PM EST [facility] Elm, Belgian <0.10 Class 0 kU/L 04/16/2025 11:07 PM EST [facility] Maple/Effingham <0.10 Class 0 kU/L 04/16/2025 11:07 PM EST [facility] Hazelnut Tree <0.10 Class 0 kU/L 04/16/2025 11:07 PM EST [facility] Middle River, White <0.10 Class 0 kU/L 04/16/2025 11:07 PM EST [facility] [place] <0.10 Class 0 kU/L 04/16/2025 11:07 PM EST [facility] White [place] <0.10 Class 0 kU/L 04/16/2025 11:07 PM EST [facility] [place], Mountain <0.10 Class 0 kU/L 04/16/2025 11:07 PM EST [facility] Sweet Gum <0.10 Class 0 kU/L 04/16/2025 11:07 PM EST [facility] Ragweed, Common/Short 0.32(A) Class I kU/L 04/16/2025 11:07 PM EST [facility] Mugwort <0.10 Class 0 kU/L 04/16/2025 11:07 PM EST [facility] Ivorian Plantain <0.10 Class 0 kU/L 04/16/2025 11:07 PM EST [facility] Pigweed, Rough/Common <0.10 Class 0 kU/L 04/16/2025 11:07 PM EST [facility] Sheep [place] <0.10 Class 0 kU/L 04/16/2025 11:07 PM EST [facility] Nettle 0.11(A) Class 0/I kU/L 04/16/2025 11:07 PM EST [facility] Blood Structure of right upper limb / Unknown Venipuncture / Unknown 04/07/2025 9:19 AM EST 04/07/2025 9:19 AM EST [facility] - 04/16/2025 11:07 PM EST Test(s) [id number] Cockroach, Belgian; [id number]- [id number]-VhR [place], White; [id number] Sweet Gum were developed and had performance characteristics determined by [facility]. These tests have not been cleared or approved by the U.S. Food and Drug Administration. The FDA has determined that such clearance or approval is not necessary. These tests are used for clinical purposes. These should not be regarded as investigational or for research. Performed at: - [address] [id number] Forge Operator Helper: Cristela Kohler MD, Phone: [phone] us Julio Cesar Belle DO LAB BLOOD ORDERABLE S Final Result [facility] [address] [place] [address], * ANCA Panel (04/07/2025 9:19 AM EST) [...] up testing of positive sera with both NE-3 and MPO-ANCA enzyme immunoassays. As many as [...] 9:19 AM EST 04/07/2025 9:19 AM EST [facility] - 04/11/2025 7:09 PM EST Performed at: 01 - [address] [id number] Forge Operator Helper: Cristela Kohler MD, Phone: [phone] Performed at: 02 - [address] [id number] Forge Operator Helper: Armand Neville PhD, Phone: [phone] us Julio Cesar Belle DO LAB BLOOD ORDERABLE S Final Result [facility] [address] [place] [address], * (ABNORMAL) CBC Auto Differential (04/07/2025 9:19 AM [facility]) WBC 11.19(H) 3.40 - 10.80 10*3/mm3 04/08/2025 1:00 AM [facility] RBC 5.04 3.77 - 5.28 10*6/mm3 04/08/2025 1:00 AM [facility] Hemoglobin 12.8 12.0 - 15.9 g/dL 04/08/2025 1:00 AM [facility] Hematocrit 40.4 34.0 - 46.6 % 04/08/2025 1:00 AM [facility] MCV 80.2 79.0 - 97.0 fL 04/08/2025 1:00 AM [facility] MCH 25.4(L) 26.6 - 33.0 pg 04/08/2025 1:00 AM [facility] MCHC 31.7 31.5 - 35.7 g/dL 04/08/2025 1:00 AM [facility] RDW 13.5 12.3 - 15.4 % 04/08/2025 1:00 AM [facility] RDW-SD 39.2 37.0 - 54.0 fl 04/08/2025 1:00 AM [facility] MPV 13.2(H) 6.0 - 12.0 fL 04/08/2025 1:00 AM [facility] Platelets 180 140 - 450 10*3/mm3 04/08/2025 1:00 AM [facility] Neutrophil % 73.6 42.7 - 76.0 % 04/08/2025 1:00 AM [facility] Lymphocyte % 15.6(L) 19.6 - 45.3 % 04/08/2025 1:00 AM [facility] Monocyte % 2.3(L) 5.0 - 12.0 % 04/08/2025 1:00 AM [facility] Eosinophil % 7.8(H) 0.3 - 6.2 % 04/08/2025 1:00 AM [facility] Basophil % 0.4 0.0 - 1.5 % 04/08/2025 1:00 AM [facility] Immature Grans % 0.3 0.0 - 0.5 % 04/08/2025 1:00 AM [facility] Neutrophils, Absolute 8.23(H) 1.70 - 7.00 10*3/mm3 04/08/2025 1:00 AM EST [facility] Lymphocytes, Absolute 1.75 0.70 - 3.10 10*3/mm3 04/08/2025 1:00 AM [facility] Monocytes, Absolute 0.26 0.10 - 0.90 10*3/mm3 04/08/2025 1:00 AM [facility] Eosinophils, Absolute 0.87(H) 0.00 - 0.40 10*3/mm3 04/08/2025 1:00 AM [facility] Basophils, Absolute 0.05 0.00 - 0.20 10*3/mm3 04/08/2025 1:00 AM [facility] Immature Grans, Absolute 0.03 0.00 - 0.05 10*3/mm3 04/08/2025 1:00 AM [facility] Blood Structure of right upper limb / Unknown Venipuncture / Unknown 04/07/2025 9:19 AM EST 04/07/2025 9:19 AM EST Julio Cesar Belle DO LAB BLOOD ORDERABLE S Final Result [facility]
[address] [place] [address], * Aspergillus Fumigatus IgE (04/07/2025 9:19 AM EST) Aspergillus fumigatus <0.10 Class 0 kU/L 04/13/2025 [...] - 04/13/2025 6:09 PM EST Performed at: [address] [place] [id number] Forge Operator Helper: Cristela Kohler MD, Phone: [phone] [facility] LAB BLOOD ORDERABLE S Final Result Performing Organization Address [facility] de Phone Number [facility] [address] [place] [address], [place] [phone] * IgE (04/07/2025 9:19 AM EST) IgE 390 6 - 495 IU/mL 04/13/2025 6:09 PM EST [facility] Blood Structure of right upper limb / Unknown Venipuncture / Unknown 04/07/2025 9:19 AM EST 04/07/2025 9:19 AM EST Narrative [facility] - 04/13/2025 6:09 PM EST Performed at: [address] [place] [id number] Forge Operator Helper: Cristela Kohler MD, Phone: [phone] [facility] Sag[facility] BLOOD ORDERABLE S Final Result Performing Organization Address [facility] de Phone Number [facility] [address] [place] [address], [place] [phone] * FL ESOPHAGRAM SINGLE CONTRAST (03/24/2025 2:43 [...] MD 03/24/2025 5:15 PM EST Workstation ID: [id number] Narrative 03/24/2025 5:15 PM EST FL ESOPHAGRAM SINGLE CONTRAST Date of Exam: 03/24/2025 2:20 PM EST Indication: Dysphagia. Comparison: None available. Technique: Plating Operator imaging was obtained. The patient ingested thin barium for fluoroscopic guided imaging of the esophagus. Fluoroscopic Time: 1 minute Number of Images: 12 associated fluoroscopic series were saved Findings: Plating Operator imaging reveals a nonobstructive bowel gas pattern. [...] stomach likely represent undigested food. Procedure Note Chandu Garcia MD - 03/24/2025 FL ESOPHAGRAM SINGLE CONTRAST Date of Exam: 03/24/2025 2:20 PM EST Indication: Dysphagia. Comparison: None available. Technique: Plating Operator imaging was obtained. The patient ingested thin bariumfor fluoroscopic guided imaging of the esophagus. Fluoroscopic Time: 1 minute Number of Images: 12 associated fluoroscopic series were saved Findings: Plating Operator imaging reveals a nonobstructive bowel gas pattern. [...] MD 03/24/2025 5:15 PM EST Workstation ID: [id number] us Nikkie Chris COUNTER TOP ASSEMBLER IMG FLUOROSCOPY ORDERABLES Aria l Result * CT Angiogram Chest (03/11/2025 11:11 AM EDT) Anatomical Region Laterality Modality Chest, Vascular N/A Computed Tomogra phy 03/11/2025 4:40 PM EDT Impressions 03/11/2025 4:43 PM EDT Impression: No pulmonary embolus or other acute finding in the chest. Electronically Signed: Casa Olson MD 03/11/2025 4:43 PM EDT Workstation ID: [id number] Narrative 03/11/2025 4:[address] ANGIOGRAM [...] MD 03/11/2025 4:43 PM EDT Workstation ID: [id number] Nikkie Chris [facility] IM CT ORDERABLES Final Result * (ABNORMAL) EBV Antibody Profile (02/10/2025 3:09 [...] - 02/11/2025 4:12 PM EDT Performed at: [address] [place] [id number] Forge Operator Helper: Armand Neville PhD, Phone: [phone] Brock Hoover MD LAB BLOOD ORDERABLES [facility] al Result [facility] [address] [place] [address], * (ABNORMAL) CMV IgG IgM (02/10/2025 3:09 PM EDT) CMV IgG 5.10(H) 0.00 - 0.59 U/mL 02/11/2025 7:10 AM EDT [facility] Comment: Negative <0.60 Equivocal 0.60 - 0.69 Positive >0.69 CMV IgM <30.0 0.0 - 29.9 AU/mL 02/11/2025 7:10 AM EDT [facility] Comment: Negative <30.0 Equivocal 30.0 - 34.9 Positive >34.9 A positive result is generally indicative of acute infection, reactivation or persistent IgM production. Blood Venipuncture / Unknown 02/10/2025 3:09 PM EDT 02/10/2025 3:09 PM EDT Narrative [facility] - 02/11/2025 7:10 AM EDT Performed at: [address] [place] [id number] Forge Operator Helper: Armand Neville PhD, Phone: [phone] Brock Hoover MD LAB BLOOD ORDERABLES Fin al Result Performing Organization Address [facility] de Phone Number [facility] [address] [place] [address], * Angiotensin Converting Enzyme (02/10/2025 3:09 PM EDT) Pathologist [facility] Angiotensin Converting Enzyme 34 14 - 82 U/L 02/11/2025 4:12 PM EDT [facility] Blood Venipuncture / Unknown 02/10/2025 3:09 PM EDT 02/10/2025 3:09 PM EDT [facility] - 02/11/2025 4:12 PM EDT Performed at: [address] [place] [id number] Forge Operator Helper: Armand Neville PhD, Phone: [phone] Brock Hoover MD LAB BLOOD ORDERABLES Fin al Result Performing Organization Address [facility] de Phone Number [facility] [address] [place] [address], * Hepatitis B Surface Antibody (02/10/2025 3:00 PM EDT) [facility] Hep B S Ab Reactive 02/10/2025 7:57 PM EDT [facility] Blood Venipuncture / Unknown 02/10/2025 3:00 PM EDT 02/10/2025 3:01 PM EDT [facility] - 02/10/2025 7:57 PM EDT Non-Reactive [...] decreased if patient taking Biotin. [place] COUNTER TOP ASSEMBLER LAB BLOOD ORDERABLES Fin al Result [facility]
[address] [place] [address], [place] [phone] * CT Outside Chest (02/04/2025 12:00 AM EDT) Narrative SYSTEMGENERATED, DOCUMENTATION - 04/07/2025 8:43 AM EST This procedure was auto-finalized with no dictation required. us Radiant Outside Films IMG CT ORDERABLES Final Re sult * IMAGING SCANNED (02/04/2025) Anatomical Region Laterality Modality Radiographic Zaida ging [facility] Onbase IMG DIAGNOSTIC IMAGING ORDERA BLES Final Result from Last 3 Months Insurance Care Teams Counselor Camp Relationship Specialty Start Date End Date Nikkie Perez APRN [address] [place] [address] PCP - General Family Medicine 02/10/25
--- OUTSIDE RECORDS SUMMARY | 2025-04-21 10:21 | XMS_ITS | Encounter Summary ---
Author Organization [facility] Address [address] [place] [address] Care Team Providers Care Dredge Boat Engineer Name Role Phone Nikkie Perez LARISSA Primary Care Provider [phone] Encounter Details Date Type Department Care Team (Latest Contact Info) Description 04/07/2025 Travel Social History Tobacco Use Types Packs/Day [...] AM EST documented as of this encounter Plan of Treatment Upcoming Encounters Date Type Department Care Team (Late st Contact Info) Description 05/23/2025 10:00 AM EST Office Visit [facility] PUL[facility]ICAL [facility]ARE MEDICINE [address] [facility] [place] [address] Julio Cesar Belle DO [address] [place] [address] documented as of this encounter Visit Diagnoses Not on filedocumented in this encounter Care Teams Dredge Boat Engineer Relationship Specialty Start Date End Date Nikkie Perez APRN [address] [place] [address] PCP - General Family Medicine 02/10/25 documented as of this encounter
--- OUTSIDE RECORDS SUMMARY | 2025-04-21 10:22 | XMS_ITS | Encounter Summary ---
Author Organization [facility] Address [address] [place] [address] Care Team Providers Care Medical Pathology Teacher Name Role Phone Nikkie Perez LARISSA Primary Care Provider [phone] Encounter Details Date Type Department Care Team (Latest Contact Info) Description 03/24/2025 Travel Social History Tobacco Use Types Packs/Day [...] Description 05/23/2025 10:00 AM EST Office Visit [facility] PULMON[facility] & [facility]ITICAL CARE MEDICINE [address] [facility] [place] [address] Julio Cesar Belle DO [address] [place] [address] documented as of this encounter Visit Diagnoses Not on filedocumented in this encounter Care Teams Medical Pathology Teacher Relationship Specialty Start Date End Date Nikkie Perez APRN [address] [place] [address] PCP - General Family Medicine 02/10/25 documented as of this encounter
--- OUTSIDE RECORDS SUMMARY | 2025-04-21 10:22 | XMS_ITS | Clinical Summary ---
Author Organization [facility] Address [address] [place] [address] Care Team Providers Care Pumper Brewery Name Role Phone Cm Barth MD Primary Care Provider [phone] Allergies Active Allergy Reactions Criticality Noted Date [...] times a day Active ergocalciferol 1.25 MG (32601 UT) capsule 3 Active fexofenadine (Jeanine) 180 [...] 3 - 19+ 3-dose series) 01/19/2016 12/22/2015 [id number] Vaccine (4 - season) 2025 03/26/2021, 06/16/2020, [...] patient's age to complete this topic Insurance [facility] Care Teams Pumper Brewery Relationship Specialty Start Date End Date Cm Barth MD [address] [place] [address] PCP - General 09/29/20
--- OUTSIDE RECORDS SUMMARY | 2025-04-21 10:22 | XMS_ITS | Encounter Summary ---
Author Organization [facility] Address [address] [place] [address] Care Team Providers Care Pega Developer Name Role Phone Nikkie Perez LARISSA Primary Care Provider [phone] Encounter Details Date Type Department Care Team (Latest Contact Info) Description 03/11/2025 Travel Social History Tobacco Use Types Packs/Day [...] Description 05/23/2025 10:00 AM EST Office Visit [facility] PULMONARY & CRITICAL CARE MEDICINE [address] [facility] [place] [address] Julio Cesar Belle DO [address] [place] [address] documented as of this encounter Visit Diagnoses Not on filedocumented in this encounter Care Teams Pega Developer Relationship Specialty Start Date End Date Nikkie Perez APRN [address] [place] [address] PCP - General Family Medicine 02/10/25 documented as of this encounter
== END 2025-04-21 23:59 | disposition home or self-care (01) ==
LOC: RAD 10:06
PROVIDERS: PCP Family Medicine; Visit Provider Obstetrics & Gynecology
DX: N83.02 Follicular cyst of left ovary (principal); N83.01 Follicular cyst of right ovary; R93.89 Abnormal findings on diagnostic imaging of other specified body structures; R10.20 Pelvic and perineal pain unspecified side; Z90.710 Acquired absence of both cervix and uterus
CPT/HCPCS: 76830